=== PATIENT | female | born 1930 | race Caucasian/White ===

== ENCOUNTER 2016-05-11 14:07 | Outpatient (RCR) | payer MEDICARE, OTHER ==
--- OUTSIDE RECORDS SUMMARY | 2016-05-09 09:11 | XMS REPORT | Continuity of Care Document ---
Author Author [facility] Organization [facility] Address Unknown Phone Unavailable Care Team Providers Care Library Technical Assistant Name Role Phone JOSE VANN MD PCP Insurance Providers Payer Name Policy Number Subscriber Name Relationship [employer] [id number] Ellen Brunson 20 Self / Same As Patient Enter Insurance Name [id number] Ellen Brunson 20 Self / Same As Patient Advance Directives Directive Response Recorded Date/Time Advance Directives Yes 11/30/15 11:25am Health Care Power of Dining Chair Seat Cushion Trimmer Yes 11/30/15 11:25am Organ Donor No 11/30/15 11:25am Resuscitation Status Full Code 11/30/15 11:25am Chief Complaint and Reason for Visit Chief Complaint CECAL MASS Reason for Visit Cecum mass Problems Active Problems Medical Problem Onset Date Status Cecum mass Unknown Acute Medications Current Home Medications Medication Dose Units Route Directions Days/Qty Instructions Start Date Triamterene/Hydrochlorothiazid 1 Each 0.5 Each Oral Daily take 1/2 of tab 11/12/15 Atenolol 25 Mg 12.5 Mg Oral Daily take 1/2 of 25mg tab 11/12/15 Levothyroxine Sodium 50 Mcg 50 Mcg Oral Daily 11/12/15 Omeprazole 20 Mg 20 Mg Oral Daily 11/12/15 Cholecalciferol (Vitamin D3) 2,000 Unit 2,000 Unit Oral Daily Tramadol Hcl 50 Mg 50 Mg Oral Every 12 Hours as needed for Abdominal Pain 30 12/04/15 Past Home Medications Medication Directions Ordered Status Cholecalciferol (Vitamin D3) 1,000 Unit Tablet, 1000 Unit Oral Daily Discontinued Aspirin 325 Mg Tablet, 325 Mg Oral Daily 11/16/15 Discontinued Ergocalciferol (Vitamin D2) 2,000 Unit Tablet, 2000 Unit Oral Daily 11/16/15 Discontinued Social History Social History Problem Response Recorded Date/Time Alcohol Use Denies Use 11/30/2015 11:25am Recreational Drug Use No 11/30/2015 11:25am Recent Foreign Travel No 11/30/2015 11:25am Recent Infectious Disease Exposure No 11/30/2015 11:25am Hospitalization with Isolation Denies 12/04/2015 6:38pm Sexually Transmitted Disease No 11/30/2015 11:25am HIV/AIDS No 11/30/2015 11:25am Smoking Status Never a Smoker 11/30/2015 11:25am Query Response Start Date Stop Date Smoking Status Never a Smoker Hospital Discharge Instructions Patient Instructions Physician Instructions New, Converted or Re-Newed RX: RX on Chart Plan of Care/Instructions/FU: Please remove alicia central line. F/U in 2 weeks Activity as Tolerated: Yes Discharge Diet: No Restrictions Care Plan Patient Instructions:: Please remove alicia central line. F/U in 2 weeks Plan of Care Discharge Date 12/04/15 6:38pm Disposition 01 HOME, SELF-CARE Instructions/Education Provided Bowel Resection (DC) Forms Provided PDI Medical Prescriptions See Medication Section Care Plan and Goals See Discharge Instructions Section Functional Status Query Response Date Recorded Patient Orientation Person Place Time Situation December 04, 2015 12:29pm Patient Orientation Person Place Time Situation Normal For Age December 04, 2015 6:38pm Comprehension Ability Understands Concepts December 04, 2015 8:00am Allergies, Adverse Reactions, Alerts No known allergies. Immunizations Name Given Type Date of Pneumonia Vaccine 04/28/15 Historical Vital Signs Acute Vital Signs Vital Response Date/Time Temperature (Fahrenheit) 96.5 degrees F (97.6 - 99.5) 12/04/2015 6:36pm Temperature (Calculated Celsius) 35.57268 degrees C (36.4 - 37.5) 12/04/2015 2:00pm Temperature Source Tympanic 12/04/2015 6:36pm Pulse Rate (adult) 91 bpm (60 - 90) 12/04/2015 6:36pm Respiratory Rate 18 bpm (12 - 24) 12/04/2015 6:36pm O2 Sat by Pulse Oximetry 95 % (88 - 100) 12/04/2015 6:36pm Blood Pressure 148/82 mm Hg 12/04/2015 6:36pm Blood Pressure Mean 104 mm Hg 12/04/2015 2:00pm Pain Pain Intensity 0 12/04/2015 2:00pm Height (Feet) 5 feet 11/30/2015 11:25am Height (Inches) 3.50 inches 11/30/2015 11:25am Height (Calculated Centimeters) 161.549126 cm 11/30/2015 11:25am Weight (Pounds) 176 pounds 12/03/2015 6:05am Weight (Ounces) 0.5 oz 12/03/2015 6:05am Weight (Calculated Grams) 27507.433 gm 12/03/2015 6:05am Weight (Calculated Kilograms) 79.812678 kilograms 12/03/2015 6:05am Calculated BMI 28.2 11/30/2015 11:25am Results Laboratory Results Test Name Result Units Flags Reference Collection Date/Time Result Date/ Time Comments White Blood Count 5.2 10^3/uL 4.3-11.0 11/16/2015 1:03pm 11/16/2015 1: 14pm Red Blood Count 4.63 10^6/uL 4.35-5.85 11/16/2015 1:03pm 11/16/2015 1: 14pm Hemoglobin 12.9 G/DL 11.5-16.0 11/16/2015 1:03pm 11/16/2015 1:14pm Hematocrit 38 % 35-52 11/16/2015 1:03pm 11/16/2015 1:14pm Mean Corpuscular Volume 83 FL 80-99 11/16/2015 1:03pm 11/16/2015 1: 14pm Mean Corpuscular Hemoglobin 28 PG 25-34 11/16/2015 1:03pm 11/16/2015 1: 14pm Mean Corpuscular Hemoglobin Concent 34 G/DL 32-36 11/16/2015 1:03pm 03/2016 1:14pm Red Cell Distribution Width 14.3 % 10.0-14.5 11/16/2015 1:03pm 2015 1:14pm Platelet Count 218 10^3/uL 130-400 11/16/2015 1:0311/16/2015 1:14pm Mean Platelet Volume 10.7 FL H 7.4-10.4 11/16/2015 1:0311/16/2015 1: 14pm Sodium Level 143 MMOL/L 135-145 11/16/2015 1:0311/16/2015 1:32pm Potassium Level 4.1 MMOL/L 3.6-5.0 11/16/2015 1:0311/16/2015 1:32pm Chloride Level 106 MMOL/L 98-107 11/16/2015 1:11/16/2015 1:32pm Carbon Dioxide Level 29 MMOL/L 21-32 11/16/2015 1:11/16/2015 1: 32pm Anion Gap 8 MMOL/L 5-14 11/16/2015 1:11/16/2015 1:32pm Blood Urea Nitrogen 12 MG/DL 7-18 11/16/2015 1:11/16/2015 1:32pm Creatinine 1.16 MG/DL 0.60-1.30 11/16/2015 1:11/16/2015 1:32pm BUN/Creatinine Ratio 10 11/16/2015 1:11/16/2015 1:32pm Estimat Glomerular Filtration Rate 45 11/16/2015 1:11/16/2015 1:32pm GFR INTERPRETIVE DATA UNITS FOR ESTIMATED GFR (eGFR): mL/min/1.73 M2 REFERENCE RANGE FOR ESTIMATED GFR (eGFR) eGFR NORMAL eGFR >60 MODERATELY DECREASED eGFR 30-59 SEVERLY DECREASED eGFR 15-29 KIDNEY FAILURE <15 (OR DIALYSIS) Glucose Level 102 MG/DL 70-105 11/16/2015 1:11/16/2015 1:32pm Calcium Level 9.0 MG/DL 8.5-10.1 11/16/2015 1:11/16/2015 1:32pm Total Bilirubin 0.5 MG/DL 0.1-1.0 11/16/2015 1:11/16/2015 1:32pm Alkaline Phosphatase 63 U/L 40-136 11/16/2015 1:11/16/2015 1:32pm Aspartate Amino Transf (AST/SGOT) 20 U/L 5-34 11/16/2015 1:2015 1:32pm Alanine Aminotransferase (ALT/SGPT) 6 U/L 0-55 11/16/2015 1:03pm 2015 1:32pm Total Protein 6.9 G/DL 6.4-8.2 11/16/2015 1:03pm 11/16/2015 1:32pm Albumin 3.9 G/DL 3.2-4.5 11/16/2015 1:03pm 11/16/2015 1:32pm Pending Laboratory Results Test Name Collection Date/Time Pending Microbiology Results Procedure Source Collection Date/Time Procedures Procedure Status Date Provider(s) COLONOSCOPY AND BIOPSY Completed 11/16/15 IVAN SAUCEDA MD COLONOSCOPY SUBMUCOUS NJX Completed 11/16/15 IVAN SAUCEDA MD Robot-assisted laparoscopic resection of colon Completed 11/30/15 IVAN SAUCEDA MD Insertion of triple lumen central line Completed 11/30/15 IVAN SAUCEDA MD Encounters Encounter Location Arrival/Admit Date Discharge/Depart Date Attending Provider Discharged Inpatient [facility] 11/30/15 10:13am 6:38pm IVAN SAUCEDA MD Departed Clinic [facility] 11/25/15 8:41am 11/25/15 11: 47am IVAN SAUCEDA MD Registered Clinic [facility] 11/19/15 8:56am IVAN SAUCEDA MD Departed Surgical Day Care [facility] 11/16/15 9:40am 1:15pm IVAN SAUCEDA MD Departed Clinic [facility] 11/12/15 7:08am 11/12/15 3: 21pm IVAN SAUCEDA MD Recent Diagnosis Cecum mass
[2016-05-09 09:42] LABS: BASOPHILS % (AUTO) 0 % (0-10); EOSINOPHILS # (AUTO) 0.1 10^3/uL (0.0-0.3); EOSINOPHILS % (AUTO) 2 % (0-10); LYMPHOCYTES # (AUTO) 1.1 X 10^3 (1.0-4.0); LYMPHOCYTES % (AUTO) 19 % (12-44); MEAN CORPUSCULAR HEMOGLOBIN 27 PG (25-34); MEAN CORPUSCULAR HGB CONC 33 G/DL (32-36); MEAN CORPUSCULAR VOLUME 81 FL (80-99); MEAN PLATELET VOLUME 9.4 FL (7.4-10.4); MONOCYTES # (AUTO) 0.3 X 10^3 (0.0-1.0); MONOCYTES % (AUTO) 6 % (0-12); NEUTROPHILS % (AUTO) 72 % (42-75); PLATELET COUNT 283 10^3/uL (130-400); RED CELL DISTRIBUTION WIDTH 13.7 % (10.0-14.5); WHITE BLOOD COUNT 5.5 10^3/uL (4.3-11.0)
[2016-05-09 10:46] LABS: ALBUMIN 3.7 G/DL (3.2-4.5); BILIRUBIN,TOTAL 0.5 MG/DL (0.1-1.0); CREATININE SERUM 1.13 MG/DL (0.60-1.30); POTASSIUM 4.5 MMOL/L (3.6-5.0); TOTAL PROTEIN 6.9 G/DL (6.4-8.2)
[~2016-05-11 14:07] MED LIST: ASPI-808 PO; ATEN25TA PO; CHOL100045 PO; CHOL20003 PO; ERGO2000 PO; LEVO50TA6 PO; OMEP20CA12 PO; TRAM50TA2 PO; TRIA1CAP4 PO
== END 2016-08-07 | disposition home or self-care (01) ==
LOC: ONC 14:07
PROVIDERS: ATTEND Internal Medicine Hematology & Oncology
DX: C18.0 Malignant neoplasm of cecum (principal); D50.0 Iron deficiency anemia secondary to blood loss (chronic); I10 Essential (primary) hypertension; K21.9 Gastro-esophageal reflux disease without esophagitis; E03.9 Hypothyroidism, unspecified; G47.00 Insomnia, unspecified; F41.9 Anxiety disorder, unspecified; Z79.899 Other long term (current) drug therapy
CPT/HCPCS: 36415; 80053; 82378; 82728; 83540; 85025; 99213

== ENCOUNTER → 2016-08-10 | Outpatient (CLI) | payer MEDICARE, OTHER ==
--- OUTSIDE RECORDS SUMMARY | 2016-08-10 12:27 | XMS REPORT | Continuity of Care Document ---
Author Author [facility] Organization [facility] Address Unknown Phone Unavailable Care Team Providers Care Turkish Rubber Name Role Phone JOSE VANN MD PCP Insurance Providers Payer Name Policy Number Subscriber Name Relationship [employer] [id number] Ellen Brunson 20 Self / Same As Patient Enter Insurance Name [id number] Ellen Brunson 20 Self / Same As Patient Advance Directives Directive Response Recorded Date/Time Advance Directives Yes 11/30/15 11:25am Health Care Power of Senior Administrative Services Officer Yes 11/30/15 11:25am Organ Donor No 11/30/15 [...] - 99.5) 12/04/2015 6:36pm Temperature (Calculated Celsius) 35.79648 degrees C (36.4 - 37.5) 12/04/2015 2:00pm [...] 3.50 inches 11/30/2015 11:25am Height (Calculated Centimeters) 161.664335 cm 11/30/2015 11:25am Weight (Pounds) 176 pounds 12/03/2015 6:05am Weight (Ounces) 0.5 oz 12/03/2015 6:05am Weight (Calculated Grams) 30303.433 gm 12/03/2015 6:05am Weight (Calculated Kilograms) 79.341223 kilograms 12/03/2015 6:05am Calculated BMI 28.2 11/30/2015 [...] Discharge/Depart Date Attending Provider Discharged Inpatient [facility] 11/30/15 10:13am 6:38pm IVAN SAUCEDA MD Departed Clinic [facility] 11/25/15 8:41am 11/25/15 11: 47am IVAN SAUCEDA MD Registered Clinic [facility] 11/19/15 8:56am IVAN SAUCEDA MD Departed Surgical Day Care [facility] 11/16/15 9:40am 1:15pm IVAN SAUCEDA MD Departed Clinic [facility] 11/12/15 7:08am 11/12/15 3: 21pm IVAN SAUCEDA MD Recent Diagnosis Cecum mass
== END ==
LOC: LAB 12:24
PROVIDERS: ATTEND Nurse Practitioner Family
DX: E55.9 Vitamin D deficiency, unspecified (principal)
CPT/HCPCS: 36415; 82306

== ENCOUNTER 2016-08-17 13:55 | Outpatient (RCR) | payer MEDICARE, OTHER ==
--- OUTSIDE RECORDS SUMMARY | 2016-08-10 12:24 | XMS REPORT | Continuity of Care Document ---
Author Author [facility] Organization [facility] Address Unknown Phone Unavailable Care Team Providers Care Accounts Receivable Administrator Name Role Phone JOSE VANN MD PCP Insurance Providers Payer Name Policy Number Subscriber Name Relationship [employer] [id number] Ellen Brunson 18 Self / Same As Patient Enter Insurance Name [id number] Ellen Brunson 20 Self / Same As Patient Advance Directives Directive Response Recorded Date/Time Advance Directives Yes 11/30/15 11:25am Health Care Power of Broadcast Traffic Coordinator Yes 11/30/15 11:25am Organ Donor No 11/30/15 [...] - 99.5) 12/04/2015 6:36pm Temperature (Calculated Celsius) 35.98726 degrees C (36.4 - 37.5) 12/04/2015 2:00pm [...] 3.50 inches 11/30/2015 11:25am Height (Calculated Centimeters) 161.518945 cm 11/30/2015 11:25am Weight (Pounds) 176 pounds 12/03/2015 6:05am Weight (Ounces) 0.5 oz 12/03/2015 6:05am Weight (Calculated Grams) 86411.433 gm 12/03/2015 6:05am Weight (Calculated Kilograms) 79.065344 kilograms 12/03/2015 6:05am Calculated BMI 28.2 11/30/2015 [...] Discharge/Depart Date Attending Provider Discharged Inpatient [facility] 11/30/15 10:13am 6:38pm IVAN SAUCEDA MD Departed Clinic [facility] 11/25/15 8:41am 11/25/15 11: 47am IVAN SAUCEDA MD Registered Clinic [facility] 11/19/15 8:56am IVAN SAUCEDA MD Departed Surgical Day Care [facility] 11/16/15 9:40am 1:15pm IVAN SAUCEDA MD Departed Clinic [facility] 11/12/15 7:08am 11/12/15 3: 21pm IVAN SAUCEDA MD Recent Diagnosis Cecum mass
[2016-08-10 12:47] LABS: BASOPHILS % (AUTO) 0 % (0-10); EOSINOPHILS # (AUTO) 0.1 10^3/uL (0.0-0.3); EOSINOPHILS % (AUTO) 1 % (0-10); LYMPHOCYTES % (AUTO) 20 % (12-44); MEAN CORPUSCULAR HEMOGLOBIN 28 PG (25-34); MEAN CORPUSCULAR HGB CONC 34 G/DL (32-36); MEAN CORPUSCULAR VOLUME 82 FL (80-99); MEAN PLATELET VOLUME 10.2 FL (7.4-10.4); MONOCYTES # (AUTO) 0.4 X 10^3 (0.0-1.0); MONOCYTES % (AUTO) 7 % (0-12); NEUTROPHILS # (AUTO) 3.7 X 10^3 (1.8-7.8); NEUTROPHILS % (AUTO) 72 % (42-75); PLATELET COUNT 252 10^3/uL (130-400); RED BLOOD COUNT 4.88 10^6/uL (4.35-5.85); RED CELL DISTRIBUTION WIDTH 13.8 % (10.0-14.5); WHITE BLOOD COUNT 5.2 10^3/uL (4.3-11.0)
[2016-08-10 13:32] LABS: ALBUMIN 4.2 G/DL (3.2-4.5); BILIRUBIN,TOTAL 0.5 MG/DL (0.1-1.0); CALCIUM 9.4 MG/DL (8.5-10.1); CREATININE SERUM 1.26 MG/DL (0.60-1.30); TOTAL PROTEIN 7.3 G/DL (6.4-8.2)
[2016-08-17 14:25] LABS: BASOPHILS % (AUTO) 0 % (0-10); EOSINOPHILS # (AUTO) 0.1 10^3/uL (0.0-0.3); EOSINOPHILS % (AUTO) 1 % (0-10); LYMPHOCYTES # (AUTO) 1.1 X 10^3 (1.0-4.0); LYMPHOCYTES % (AUTO) 15 % (12-44); MEAN CORPUSCULAR HEMOGLOBIN 28 PG (25-34); MEAN CORPUSCULAR HGB CONC 34 G/DL (32-36); MEAN CORPUSCULAR VOLUME 83 FL (80-99); MEAN PLATELET VOLUME 9.8 FL (7.4-10.4); MONOCYTES # (AUTO) 0.4 X 10^3 (0.0-1.0); MONOCYTES % (AUTO) 6 % (0-12); NEUTROPHILS # (AUTO) 5.4 X 10^3 (1.8-7.8); NEUTROPHILS % (AUTO) 77 % (42-75); PLATELET COUNT 259 10^3/uL (130-400); RED BLOOD COUNT 4.55 10^6/uL (4.35-5.85); RED CELL DISTRIBUTION WIDTH 13.8 % (10.0-14.5)
== END 2016-11-08 | disposition home or self-care (01) ==
LOC: ONC 13:55
PROVIDERS: ATTEND Internal Medicine Hematology & Oncology
DX: C18.0 Malignant neoplasm of cecum (principal); D50.0 Iron deficiency anemia secondary to blood loss (chronic); I10 Essential (primary) hypertension; K21.9 Gastro-esophageal reflux disease without esophagitis; E03.9 Hypothyroidism, unspecified; G47.00 Insomnia, unspecified; F41.9 Anxiety disorder, unspecified; Z79.899 Other long term (current) drug therapy
CPT/HCPCS: 36415; 80053; 82378; 82728; 83540; 85025; 99213

== ENCOUNTER → 2016-11-10 | Outpatient (CLI) | payer MEDICARE, OTHER | LOC: PREOP 05:34 | PROVIDERS: ATTEND Surgery | DX: Z01.818 Encounter for other preprocedural examination (principal); C18.9 Malignant neoplasm of colon, unspecified ==

== ENCOUNTER → 2016-12-14 | Outpatient (CLI) | payer MEDICARE, OTHER ==
[~2016-12-14] MED LIST changes: +BARIUM SUSPENSION 2.1% (VANILLA SILQ) 450 ML PO ONE; +CATHETER FLUSH 10 ML SYR IV PRN; +FERR-84 PO; +IOHEXOL 350 MG/ML 100 ML (OMNIPAQUE 350) VIAL IV ONE; +NS 100 ML (IVPB) BAG IV ONE
--- NOTE | 2016-12-14 13:36 | Diagnostic Imaging Report ---
PROCEDURE: CT chest with contrast, CT abdomen and pelvis with and without contrast. TECHNIQUE: Pre and post intravenous contrast axial imaging of the abdomen and pelvis and post contrast axial imaging of the chest were performed. INDICATION: Colon cancer. 100 mL of Omnipaque 350 is administered intravenously. COMPARISON: 06/08/2016. FINDINGS: CT chest: There is an elongated nodule measuring 7 mm along the left major fissure and the left perihilar area. This favors to be related to a scar. It is similar to 11/19/2015 exam. A faint 4 mm nodule in the inferior lingula is also seen without significant change from 06/08/16. This is not well seen on 08/12/2015 exam. There is scarring in the inferior lingula also noted. No significant consolidation or mass. No pleural or pericardial effusion. There is a swrxt-qf-wgpzoohu hiatal hernia. There is no mediastinal mass. No significantly enlarged mediastinal or hilar lymph nodes are seen. No axillary lymphadenopathy is noted. Slightly prominent pericardial recess adjacent to the main pulmonary artery bifurcation is seen. The heart size is normal. No pericardial effusion. The osseous structures appear grossly unremarkable. CT abdomen and pelvis: The liver, the gallbladder, the spleen, the adrenals, and the pancreas appear unremarkable. The kidneys have symmetric enhancement and contrast excretion. The unenhanced phase demonstrates no renal stone. Simple renal cysts are noted up to 1.5 cm in the lower pole of the left kidney. The abdominal aorta is normal in caliber. Surgical sutures near the ascending colon are seen. Xkefj-ks-vrtjzhhw amount of fecal material is seen in the colon and rectum. There is sigmoid diverticulosis. No diverticulitis. The uterus appears grossly unremarkable. The urinary bladder appears normal. There is a small fat-containing umbilical hernia. The osseous structures demonstrate degenerative changes, mostly in the upper lumbar spine with no suspicious mass. IMPRESSION: CT chest: 1. Stable 7 mm elongated nodule along the left major fissure probably related to a scar. No definite evidence of metastasis. 2. Dfamf-ku-iszypopl hiatal hernia. CT abdomen and pelvis: 1. Diverticulosis. No diverticulitis. 2. Small fat-containing umbilical hernia. 3. No evidence of metastasis. Dictated by: Dictated on workstation # [id number]
== END ==
LOC: RAD 10:20
PROVIDERS: ATTEND Internal Medicine Hematology & Oncology
DX: C18.0 Malignant neoplasm of cecum (principal); K44.9 Diaphragmatic hernia without obstruction or gangrene; K57.30 Diverticulosis of large intestine without perforation or abscess without bleeding; K42.9 Umbilical hernia without obstruction or gangrene
CPT/HCPCS: 71260; 74178

== ENCOUNTER 2016-12-19 07:44 | Day surgery (SDC) | payer MEDICARE, OTHER ==
[~2016-12-19] VITALS: Ht 161.3 cm; Wt 71.7 kg
[~2016-12-19 07:44] MED LIST changes: -BARIUM SUSPENSION 2.1% (VANILLA SILQ) 450 ML PO ONE; -CATHETER FLUSH 10 ML SYR IV PRN; -IOHEXOL 350 MG/ML 100 ML (OMNIPAQUE 350) VIAL IV ONE; -NS 100 ML (IVPB) BAG IV ONE
[2016-12-19] MEDS ORDERED: NS IV 500 ML 500 ML ONE (07:57)
[2016-12-19] MEDS ORDERED: FLUMAZENIL (ROMAZICON) 0.1 MG/ML 5 ML VIAL INJ PRN (08:00)
[2016-12-19] MEDS ORDERED: NALOXONE 0.4 MG/ML 1 ML (NARCAN) VIAL IVP PRN (08:00)
[2016-12-19] MEDS ORDERED: NS IV 500 ML 500 ML IV PRN (08:10)
[2016-12-19 08:15] VITALS: BP 145/78
--- NOTE | 2016-12-19 08:36 | Conscious Sedation/ASA ---
Conscious Sedation Pre-Proced Time Reviewed: 08:36 ASA Class: 2 Airway Mallampati Classification: ([place] appropriate class) I. II. III, IV Lungs Heart ASA score ASA 1: a normal healthy patient ASA 2: a patient with a mild systemic disease (mid diabetes, controlled hypertension, obesity ASA 3: a patient with a severe systemic disease that limits activity (angina , COPD, prior Myocardial infarction) ASA 4: a patient with an incapacitating disease that is a constant threat to life (CHF, renal failure) ASA 5: a moribund patient not expected to survive 24 hrs. (ruptured aneurysm) ASA 6: a declared brain patient whose organs are being harvested. For emergent operations, add the letter E after the classification Grade 1 Sedation Plan: Discussed options with patient/fam Note The patient is an appropriate candidate to undergo the planned procedure, sedation, and anesthesia. The patient immediately re-assessed prior to indication. IVAN SAUCEDA MD Dec 19, 2016 8:36 am
[2016-12-19] MEDS ORDERED: fentaNYL INJECTION 100 MCG/2 ML AMP ONE (08:54)
[2016-12-19] MEDS ORDERED: MIDAZOLAM 2 MG/2 ML (VERSED) VIAL ONE ×3 (08:54→08:55)
[2016-12-19] MEDS: MIDAZOLAM 2 MG/2 ML (VERSED) VIAL IVP PRN ×2 (09:01→09:04)
[2016-12-19] MEDS: fentaNYL INJECTION 100 MCG/2 ML AMP IVP PRN ×2 (09:02→09:05)
--- NOTE | 2016-12-19 09:18 | Endoscopy Procedure Report ---
Endoscopy Report Date: Dec 19, 2016 Preoperative Diagnosis: personal history of colon cancer. Study Performed: Colonoscopy Procedure Instrument: Colonoscope Endo Procedure/Findings Findings 1.: Diverticulosis Recommendations: Recommendations: 1.: Colonoscopy in 2 years Copy Copies To 1: JOSE VANN MD, XAVIER M MD Dec 19, 2016 9:18 am
--- NOTE | 2016-12-19 09:20 | Discharge Inst-Simple/Standard ---
Discharge Inst-Standard Discharge Medications New, Converted or Re-Newed RX: Other Patient Instructions/Follow Up Plan of Care/Instructions/FU: repeat colonoscopy in 2 years Activity as Tolerated: Yes Discharge Diet: No Restrictions IVAN SAUCEDA MD Dec 19, 2016 9:20 am
[2016-12-19 09:35] VITALS: BP 134/62
[2016-12-19 10:05] VITALS: BP 133/69
--- NOTE | 2016-12-19 10:12 | OPERATIVE REPORT ---
DATE OF SERVICE: 12/19/2016 PROCEDURE: Surveillance colonoscopy. SURGEON: Ivan Sauceda MD. 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 She returned for a surveillance colonoscopy. Informed consent was obtained after reviewing the procedure in detail. DESCRIPTION OF PROCEDURE: She was placed in left lateral decubitus position and her vital signs were monitored. Conscious sedation was achieved using Versed and fentanyl. Digital rectal examination was unremarkable. The colonoscope was then introduced into the rectum and advanced to the ileocolic anastomosis. It was then withdrawn slowly and the mucosa examined in a systematic fashion. FINDINGS: 1. Very few sigmoid diverticula. 2. No polyps were found. 3. She tolerated the procedure well and was taken back to the nursing area in a stable condition. IMPRESSION: Surveillance colonoscopy. No polyps. Recommend repeating in 2 years. Job ID: [id number] DocumentID: [id number] Dictated Date: 12/19/2016 09:15:26 Superintendent Division Date: 12/19/2016 10:11:50 Dictated By: IVAN SAUCEDA MD MTDD
== END 2016-12-19 10:27 | disposition home or self-care (01) ==
LOC: ENDO 07:44
PROVIDERS: ATTEND Surgery
DX: Z08 Encounter for follow-up examination after completed treatment for malignant neoplasm (principal); Z85.038 Personal history of other malignant neoplasm of large intestine; K57.30 Diverticulosis of large intestine without perforation or abscess without bleeding; I10 Essential (primary) hypertension; E03.9 Hypothyroidism, unspecified; Z79.899 Other long term (current) drug therapy

== ENCOUNTER 2017-01-03 13:06 | Outpatient (RCR) | payer MEDICARE, OTHER ==
[2016-11-09 14:22] LABS: BASOPHILS % (AUTO) 0 % (0-10); EOSINOPHILS # (AUTO) 0.1 10^3/uL (0.0-0.3); EOSINOPHILS % (AUTO) 1 % (0-10); LYMPHOCYTES % (AUTO) 15 % (12-44); MEAN CORPUSCULAR HEMOGLOBIN 29 PG (25-34); MEAN CORPUSCULAR HGB CONC 34 G/DL (32-36); MEAN CORPUSCULAR VOLUME 85 FL (80-99); MEAN PLATELET VOLUME 9.9 FL (7.4-10.4); MONOCYTES # (AUTO) 0.3 X 10^3 (0.0-1.0); MONOCYTES % (AUTO) 5 % (0-12); NEUTROPHILS # (AUTO) 5.1 X 10^3 (1.8-7.8); NEUTROPHILS % (AUTO) 78 % (42-75); PLATELET COUNT 222 10^3/uL (130-400); RED BLOOD COUNT 4.37 10^6/uL (4.35-5.85); RED CELL DISTRIBUTION WIDTH 13.3 % (10.0-14.5); WHITE BLOOD COUNT 6.5 10^3/uL (4.3-11.0)
[2016-11-09 14:58] LABS: ALBUMIN 3.6 G/DL (3.2-4.5); BILIRUBIN,TOTAL 0.5 MG/DL (0.1-1.0); CALCIUM 8.8 MG/DL (8.5-10.1); CREATININE SERUM 1.1 MG/DL (0.60-1.30); POTASSIUM 3.8 MMOL/L (3.6-5.0); TOTAL PROTEIN 6.4 G/DL (6.4-8.2)
[2017-01-03 13:25] LABS: BASOPHILS % (AUTO) 0 % (0-10); EOSINOPHILS # (AUTO) 0.1 10^3/uL (0.0-0.3); EOSINOPHILS % (AUTO) 2 % (0-10); LYMPHOCYTES # (AUTO) 0.9 X 10^3 (1.0-4.0); LYMPHOCYTES % (AUTO) 16 % (12-44); MEAN CORPUSCULAR HEMOGLOBIN 29 PG (25-34); MEAN CORPUSCULAR HGB CONC 34 G/DL (32-36); MEAN CORPUSCULAR VOLUME 85 FL (80-99); MEAN PLATELET VOLUME 9.9 FL (7.4-10.4); MONOCYTES # (AUTO) 0.3 X 10^3 (0.0-1.0); MONOCYTES % (AUTO) 5 % (0-12); NEUTROPHILS # (AUTO) 4.7 X 10^3 (1.8-7.8); NEUTROPHILS % (AUTO) 78 % (42-75); PLATELET COUNT 246 10^3/uL (130-400); RED BLOOD COUNT 4.25 10^6/uL (4.35-5.85); RED CELL DISTRIBUTION WIDTH 12.6 % (10.0-14.5)
[2017-01-03 13:57] LABS: ALBUMIN 3.7 GM/DL (3.2-4.5); BILIRUBIN,TOTAL 0.5 MG/DL (0.1-1.0); CALCIUM 8.9 MG/DL (8.5-10.1); CREATININE SERUM 1.27 MG/DL (0.60-1.30); ICTERUS 0.6 (-100-1.9); POTASSIUM 4.6 MMOL/L (3.6-5.0); TOTAL PROTEIN 6.4 GM/DL (6.4-8.2)
== END 2017-02-07 | disposition home or self-care (01) ==
LOC: ONC 13:06
PROVIDERS: ATTEND Internal Medicine Hematology & Oncology
DX: C18.0 Malignant neoplasm of cecum (principal); D50.0 Iron deficiency anemia secondary to blood loss (chronic); I10 Essential (primary) hypertension; K21.9 Gastro-esophageal reflux disease without esophagitis; E03.9 Hypothyroidism, unspecified; G47.00 Insomnia, unspecified; F41.9 Anxiety disorder, unspecified; Z79.899 Other long term (current) drug therapy
CPT/HCPCS: 36415; 80053; 82378; 82728; 83540; 85025; 99213

== ENCOUNTER 2017-04-04 13:10 | Outpatient (RCR) | payer MEDICARE, OTHER ==
[2017-04-04 13:20] LABS: BASOPHILS % (AUTO) 0 % (0-10); EOSINOPHILS # (AUTO) 0.1 10^3/uL (0.0-0.3); EOSINOPHILS % (AUTO) 1 % (0-10); LYMPHOCYTES # (AUTO) 1.1 X 10^3 (1.0-4.0); LYMPHOCYTES % (AUTO) 18 % (12-44); MEAN CORPUSCULAR HEMOGLOBIN 29 PG (25-34); MEAN CORPUSCULAR HGB CONC 34 G/DL (32-36); MEAN CORPUSCULAR VOLUME 85 FL (80-99); MEAN PLATELET VOLUME 9.9 FL (7.4-10.4); MONOCYTES # (AUTO) 0.4 X 10^3 (0.0-1.0); MONOCYTES % (AUTO) 6 % (0-12); NEUTROPHILS # (AUTO) 4.4 X 10^3 (1.8-7.8); NEUTROPHILS % (AUTO) 74 % (42-75); PLATELET COUNT 249 10^3/uL (130-400); RED BLOOD COUNT 4.35 10^6/uL (4.35-5.85); RED CELL DISTRIBUTION WIDTH 12.5 % (10.0-14.5); WHITE BLOOD COUNT 5.9 10^3/uL (4.3-11.0)
[2017-04-04 13:40] LABS: ALBUMIN 3.8 GM/DL (3.2-4.5); BILIRUBIN,TOTAL 0.5 MG/DL (0.1-1.0); CALCIUM 8.9 MG/DL (8.5-10.1); CREATININE SERUM 1.38 MG/DL (0.60-1.30); POTASSIUM 3.9 MMOL/L (3.6-5.0)
== END 2017-04-08 | disposition home or self-care (01) ==
LOC: ONC 13:10
PROVIDERS: ATTEND Internal Medicine Hematology & Oncology
DX: C18.0 Malignant neoplasm of cecum (principal); D50.0 Iron deficiency anemia secondary to blood loss (chronic); I10 Essential (primary) hypertension; K21.9 Gastro-esophageal reflux disease without esophagitis; E03.9 Hypothyroidism, unspecified; G47.00 Insomnia, unspecified; F41.9 Anxiety disorder, unspecified; Z79.899 Other long term (current) drug therapy
CPT/HCPCS: 36415; 80053; 82378; 82728; 83540; 85025; 99213

== ENCOUNTER → 2017-07-12 | Outpatient (CLI) | payer MEDICARE, OTHER ==
[~2017-07-12] MED LIST changes: +BARIUM SUSPENSION 2.1% (VANILLA SILQ) 450 ML PO ONE; +CATHETER FLUSH 10 ML SYR IV PRN; +IOHEXOL 350 MG/ML 100 ML (OMNIPAQUE 350) VIAL IV ONE; +NS 100 ML (IVPB) BAG IV ONE
--- NOTE | 2017-07-12 12:07 | Diagnostic Imaging Report ---
PROCEDURE: CT chest with contrast, CT abdomen and pelvis with and without contrast. TECHNIQUE: Pre and post intravenous contrast axial imaging of the abdomen and pelvis and post contrast axial imaging of the chest were performed. INDICATION: History of colon cancer. COMPARISON: 12/14/2016. FINDINGS: CT CHEST: Cardiomediastinal structures show normal heart size. There is no large pericardial effusion. There is mild calcified aortic and coronary atherosclerosis. No pathologically enlarged or morphologically abnormal adenopathy is seen within the mediastinum, victor manuel, nor axillae. Large hiatal hernia is again noted. Lung windows show no focal consolidation, large effusion, nor pneumothorax. Micronodular density is again identified associated with the superior margins of the major fissure on the left. It measures approximately 6 x 4 mm. This is stable compared to 08/12/2015. 3 mm subpleural micronodule is also noted within the left upper lobe and is stable as well. No new pulmonary nodules or masses are identified. Osseous structures show no acute abnormalities. No lytic or blastic bony lesions are identified. CT ABDOMEN: There is colonic diverticulosis, but no CT evidence of acute diverticulitis. Patient appears to be status post partial right hemicolectomy. Benign left renal cyst is noted. Otherwise, the kidneys, spleen, pancreas, adrenal glands, and liver have a normal CT appearance. 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 There is no loculated fluid collection, free fluid, nor free air within the abdomen. There is mild stranding of the mesenteric fat. A few prominent, yet subcentimeter mesenteric lymph nodes are noted. Overall appearance is stable compared to 11/19/2015. No abnormal retroperitoneal adenopathy is identified. There is mild calcified aortic and arterial atherosclerosis. Bony structures show no acute abnormalities. CT PELVIS: Urinary bladder is grossly unremarkable. There is trace free fluid within the pelvis. There is no loculated fluid collection or free air. No abnormal adenopathy is identified. Bony structures show no acute abnormalities. IMPRESSION: 1. Small micronodules of the left lung are again identified, but are stable compared to 08/12/2015. 2. No new pulmonary nodule or mass is identified. No new evidence of metastatic or malignant disease is seen within the chest. 3. Small amount of free fluid within the pelvis. 4. Subtle stranding of the mesentery with a few prominent, yet subcentimeter mesenteric lymph nodes. Imaging appearance is nonspecific, but can be seen with mesenteric panniculitis or adenitis. Overall, this is stable compared to prior exam. 5. No adverse interval change within the abdomen or pelvis. 6. Colonic diverticulosis, but no CT evidence of acute diverticulitis. 7. Partially calcified splenic artery aneurysm. Dictated by: Dictated on workstation # [id number]
== END ==
LOC: RAD 10:27
PROVIDERS: ATTEND Internal Medicine Hematology & Oncology
DX: K57.30 Diverticulosis of large intestine without perforation or abscess without bleeding (principal); I72.8 Aneurysm of other specified arteries; R91.8 Other nonspecific abnormal finding of lung field; Z90.49 Acquired absence of other specified parts of digestive tract
CPT/HCPCS: 71260; 74178

== ENCOUNTER 2017-07-18 13:48 | Outpatient (RCR) | payer MEDICARE, OTHER ==
[2017-07-12 10:12] LABS: BASOPHILS % (AUTO) 0 % (0-10); EOSINOPHILS # (AUTO) 0.1 10^3/uL (0.0-0.3); EOSINOPHILS % (AUTO) 2 % (0-10); HEMATOCRIT 39 % (35-52); HEMOGLOBIN 13.5 G/DL (11.5-16.0); LYMPHOCYTES # (AUTO) 1.1 X 10^3 (1.0-4.0); LYMPHOCYTES % (AUTO) 21 % (12-44); MEAN CORPUSCULAR HEMOGLOBIN 29 PG (25-34); MEAN CORPUSCULAR HGB CONC 35 G/DL (32-36); MEAN CORPUSCULAR VOLUME 83 FL (80-99); MEAN PLATELET VOLUME 9.8 FL (7.4-10.4); MONOCYTES # (AUTO) 0.3 X 10^3 (0.0-1.0); MONOCYTES % (AUTO) 5 % (0-12); NEUTROPHILS # (AUTO) 3.9 X 10^3 (1.8-7.8); NEUTROPHILS % (AUTO) 72 % (42-75); PLATELET COUNT 247 10^3/uL (130-400); RED BLOOD COUNT 4.69 10^6/uL (4.35-5.85); RED CELL DISTRIBUTION WIDTH 12.2 % (10.0-14.5); WHITE BLOOD COUNT 5.4 10^3/uL (4.3-11.0)
[2017-07-12 10:32] LABS: BILIRUBIN,TOTAL 0.8 MG/DL (0.1-1.0); CALCIUM 9.2 MG/DL (8.5-10.1); CREATININE SERUM 0.92 MG/DL (0.60-1.30); POTASSIUM 3.9 MMOL/L (3.6-5.0); TOTAL PROTEIN 7.4 GM/DL (6.4-8.2)
== END 2017-10-10 | disposition home or self-care (01) ==
LOC: ONC 13:48
PROVIDERS: ATTEND Internal Medicine Hematology & Oncology
DX: C18.0 Malignant neoplasm of cecum (principal); D50.0 Iron deficiency anemia secondary to blood loss (chronic); I10 Essential (primary) hypertension; K21.9 Gastro-esophageal reflux disease without esophagitis; E03.9 Hypothyroidism, unspecified; G47.00 Insomnia, unspecified; F41.9 Anxiety disorder, unspecified; Z79.899 Other long term (current) drug therapy
CPT/HCPCS: 36415; 80053; 82378; 85025; 99213

== ENCOUNTER → 2017-07-18 | Outpatient (CLI) | payer MEDICARE, OTHER ==
[~2017-07-18] MED LIST changes: -BARIUM SUSPENSION 2.1% (VANILLA SILQ) 450 ML PO ONE; -CATHETER FLUSH 10 ML SYR IV PRN; -IOHEXOL 350 MG/ML 100 ML (OMNIPAQUE 350) VIAL IV ONE; -NS 100 ML (IVPB) BAG IV ONE
[2017-07-18 14:51] LABS: FREE T4 (FREE THYROXINE) 1.26 NG/DL (0.70-1.48)
== END ==
LOC: LAB 13:57
PROVIDERS: ATTEND Family Medicine
DX: E03.9 Hypothyroidism, unspecified (principal); E55.9 Vitamin D deficiency, unspecified; Z79.899 Other long term (current) drug therapy
CPT/HCPCS: 36415; 82306; 84439; 84443

== ENCOUNTER 2018-01-16 09:06 | Outpatient (RCR) | payer MEDICARE, OTHER ==
[2018-01-08 10:11] LABS: BASOPHILS % (AUTO) 0 % (0-10); EOSINOPHILS # (AUTO) 0.1 10^3/uL (0.0-0.3); EOSINOPHILS % (AUTO) 2 % (0-10); HEMATOCRIT 40 % (35-52); HEMOGLOBIN 13.8 G/DL (11.5-16.0); LYMPHOCYTES # (AUTO) 1.1 X 10^3 (1.0-4.0); LYMPHOCYTES % (AUTO) 16 % (12-44); MEAN CORPUSCULAR HEMOGLOBIN 29 PG (25-34); MEAN CORPUSCULAR HGB CONC 35 G/DL (32-36); MEAN CORPUSCULAR VOLUME 84 FL (80-99); MEAN PLATELET VOLUME 10.2 FL (7.4-10.4); MONOCYTES # (AUTO) 0.3 X 10^3 (0.0-1.0); MONOCYTES % (AUTO) 4 % (0-12); NEUTROPHILS # (AUTO) 5.3 X 10^3 (1.8-7.8); NEUTROPHILS % (AUTO) 77 % (42-75); PLATELET COUNT 259 10^3/uL (130-400); RED BLOOD COUNT 4.69 10^6/uL (4.35-5.85); WHITE BLOOD COUNT 6.8 10^3/uL (4.3-11.0)
[2018-01-08 10:37] LABS: BILIRUBIN,TOTAL 0.4 MG/DL (0.1-1.0); CALCIUM 9.6 MG/DL (8.5-10.1); CREATININE SERUM 1.24 MG/DL (0.60-1.30); TOTAL PROTEIN 7.1 GM/DL (6.4-8.2)
== END 2018-02-06 | disposition home or self-care (01) ==
LOC: ONC 09:06
PROVIDERS: ATTEND Internal Medicine Hematology & Oncology
DX: C18.0 Malignant neoplasm of cecum (principal); D50.0 Iron deficiency anemia secondary to blood loss (chronic); I10 Essential (primary) hypertension; K21.9 Gastro-esophageal reflux disease without esophagitis; E03.9 Hypothyroidism, unspecified; G47.00 Insomnia, unspecified; F41.9 Anxiety disorder, unspecified; Z79.899 Other long term (current) drug therapy
CPT/HCPCS: 36415; 80053; 82378; 85025; 99213

== ENCOUNTER → 2018-02-15 | Outpatient (CLI) | payer MEDICARE, OTHER ==
--- NOTE | 2018-02-16 11:50 | Diagnostic Imaging Report ---
Indication: Routine screening. Comparison is made with prior mammogram from 05/26/2016 and 12/04/2014. 2-D and 3-D bilateral screening mammography was performed with CAD. Scattered fibroglandular densities are identified bilaterally. Benign calcifications are noted bilaterally. The intraparenchymal lymph nodes are identified bilaterally, stable. No spiculated mass or malignant-appearing microcalcifications are seen. The axillae are unremarkable. Impression: BI-RADS category 2 No mammographic features suspicious for malignancy are identified. ACR BI-RADS Category 2: Benign findings. Result letter will be mailed to the patient. Note: At least 10% of breast cancer is not imaged by mammography. Dictated by: Dictated on workstation # [id number]
== END ==
LOC: RAD 14:17
PROVIDERS: ATTEND Nurse Practitioner Family
DX: Z12.31 Encounter for screening mammogram for malignant neoplasm of breast (principal)
CPT/HCPCS: 77067

== ENCOUNTER → 2018-07-12 | Outpatient (CLI) | payer MEDICARE, OTHER ==
[~2018-07-12] MED LIST changes: +BARIUM SUSPENSION 2.1% (VANILLA SILQ) 450 ML PO ONE; +IOHEXOL 350 MG/ML 100 ML (OMNIPAQUE 350) VIAL IV ONE; +NS 100 ML (IVPB) BAG IV ONE; +RECEIVED CONTRAST (Hold Metformin) IV SCH
--- NOTE | 2018-07-12 12:11 | Diagnostic Imaging Report ---
PROCEDURE: CT chest, abdomen, and pelvis with contrast. TECHNIQUE: Multiple contiguous axial images were obtained through the chest, abdomen, and pelvis after the administration of intravenous contrast. INDICATION: Colon carcinoma. FINDINGS: The previous CT chest, abdomen, and pelvis exam performed on 07/12/2017 was reviewed. The images of the thorax on that study did note a 6 x 4 mm parenchymal density in the left perihilar region. There was also a 3 mm subpleural micronodule in the left upper lobe. Those findings are again evident on this study and do not appear to have changed adversely (images 20/115 and 27/115). The lungs are otherwise clear. There is no sign of failure, pneumonia, or pleural effusion to indicate an acute abnormality. The heart size is within normal limits. Coronary artery calcifications are evident. The aorta is not abnormally dilated, and there is no sign of a dissection. The pulmonary arteries are unremarkable for any defect that would indicate a pulmonary embolus. The pulmonary arteries are not optimally opacified, however. There is no mediastinal or hilar adenopathy. The thyroid gland is generally unremarkable. As noted on the prior exam, there is a sizable 5.7 x 6.1 cm hiatal hernia. The sections through the abdomen again show that the liver is homogeneous and of lower density than usually seen. This does suggest fatty metamorphosis. The 1.6 x 2.3 cm calcified splenic artery aneurysm seen previously is again evident and no different. The spleen, pancreas, adrenals, kidneys, aorta, and inferior vena cava show no sign of an acute abnormality. There is no pelvic mass, but there is a small amount of free fluid in the pelvis. This finding was also present on the prior exam and is nonspecific. The uterus is not seen to be enlarged, but the endometrial lining may be slightly thickened. If further evaluation of the uterus is desired, then ultrasound would be recommended. The urinary bladder is grossly unremarkable. There is diverticulosis of the sigmoid colon, but there is no sign of acute diverticulitis. The appendix was not well visualized, but there are no indirect signs of acute appendicitis. The bone windows show no evidence for a fracture or for a destructive lesion. There is fairly severe degenerative disc and bony disease at L1-2 and L2-3. IMPRESSION: 1. When compared to the previous study, there does not appear to have been any significant change. The small nodules in the left lung seen previously appear stable. There is no acute cardiopulmonary abnormality identified. 2. The hiatal hernia, the calcified splenic artery aneurysm, and a small amount of free fluid in the pelvis seen previously are again visualized and no different. 3. The uterus does not appear to be enlarged, but the endometrial lining may be slightly thickened for a postmenopausal patient. If further imaging is desired, then ultrasound would be recommended. Dictated by: Dictated on workstation # [id number]
== END ==
LOC: RAD 08:23
PROVIDERS: ATTEND Internal Medicine Hematology & Oncology
DX: C18.0 Malignant neoplasm of cecum (principal); R91.8 Other nonspecific abnormal finding of lung field; K44.9 Diaphragmatic hernia without obstruction or gangrene; I72.8 Aneurysm of other specified arteries; Z78.0 Asymptomatic menopausal state
CPT/HCPCS: 71260; 74177

== ENCOUNTER 2018-07-17 09:11 | Outpatient (RCR) | payer MEDICARE, OTHER ==
[2018-07-12 09:05] LABS: BASOPHILS % (AUTO) 0 % (0-10); EOSINOPHILS # (AUTO) 0.1 10^3/uL (0.0-0.3); EOSINOPHILS % (AUTO) 2 % (0-10); HEMATOCRIT 40 % (35-52); HEMOGLOBIN 13.3 G/DL (11.5-16.0); LYMPHOCYTES # (AUTO) 0.9 X 10^3 (1.0-4.0); LYMPHOCYTES % (AUTO) 16 % (12-44); MEAN CORPUSCULAR HEMOGLOBIN 29 PG (25-34); MEAN CORPUSCULAR HGB CONC 34 G/DL (32-36); MEAN CORPUSCULAR VOLUME 85 FL (80-99); MEAN PLATELET VOLUME 10.1 FL (7.4-10.4); MONOCYTES # (AUTO) 0.3 X 10^3 (0.0-1.0); MONOCYTES % (AUTO) 5 % (0-12); NEUTROPHILS # (AUTO) 4.5 X 10^3 (1.8-7.8); NEUTROPHILS % (AUTO) 77 % (42-75); PLATELET COUNT 252 10^3/uL (130-400); RED CELL DISTRIBUTION WIDTH 12.5 % (10.0-14.5); WHITE BLOOD COUNT 5.8 10^3/uL (4.3-11.0)
[2018-07-12 09:26] LABS: ALBUMIN 4.1 GM/DL (3.2-4.5); BILIRUBIN,TOTAL 0.8 MG/DL (0.1-1.0); CALCIUM 9.3 MG/DL (8.5-10.1); CREATININE SERUM 1.09 MG/DL (0.60-1.30); POTASSIUM 4.3 MMOL/L (3.6-5.0); TOTAL PROTEIN 7.3 GM/DL (6.4-8.2)
[2018-07-12 09:47] LABS: FREE T4 (FREE THYROXINE) 1.12 NG/DL (0.70-1.48)
[~2018-07-17 09:11] MED LIST changes: -BARIUM SUSPENSION 2.1% (VANILLA SILQ) 450 ML PO ONE; -IOHEXOL 350 MG/ML 100 ML (OMNIPAQUE 350) VIAL IV ONE; -NS 100 ML (IVPB) BAG IV ONE; -RECEIVED CONTRAST (Hold Metformin) IV SCH
== END 2018-10-10 | disposition home or self-care (01) ==
LOC: ONC 09:11
PROVIDERS: ATTEND Internal Medicine Hematology & Oncology
DX: C18.0 Malignant neoplasm of cecum (principal); D50.0 Iron deficiency anemia secondary to blood loss (chronic); I10 Essential (primary) hypertension; K21.9 Gastro-esophageal reflux disease without esophagitis; E03.9 Hypothyroidism, unspecified; G47.00 Insomnia, unspecified; F41.9 Anxiety disorder, unspecified; M15.9 Polyosteoarthritis, unspecified; Z79.899 Other long term (current) drug therapy
CPT/HCPCS: 36415; 80053; 82306; 82378; 84439; 84443; 85025; 99213

== ENCOUNTER → 2018-08-06 | Outpatient (CLI) | payer MEDICARE, OTHER ==
--- NOTE | 2018-08-06 15:24 | Diagnostic Imaging Report ---
INDICATION: Endometrial thickening. TECHNIQUE: Pelvic sonography was performed in the routine fashion with transabdominal and transvaginal views. FINDINGS: The uterus measures 4.8 x 2.8 x 1.7 cm. The endometrium is thickened and inhomogeneous measuring 1.8 cm in diameter which is abnormal for age and may represent hyperplasia or endometrial neoplasm. Neither ovary could be visualized. There is no free fluid. IMPRESSION: Prominent thickening of the endometrium with inhomogeneity present. This may represent endometrial hyperplasia or neoplasm. The uterus is relatively atrophic otherwise. Neither ovary could be visualized. There is no free fluid. Dictated by: Dictated on workstation # [id number]
== END ==
LOC: RAD 12:30
PROVIDERS: ATTEND Family Medicine
DX: R93.89 Abnormal findings on diagnostic imaging of other specified body structures (principal)
CPT/HCPCS: 76830; 76856

== ENCOUNTER → 2019-01-15 | Day surgery (SDC) | payer MEDICARE, OTHER ==
[~2019-01-15] VITALS: Ht 161.3 cm; Wt 75.7 kg
[~2019-01-15] MED LIST changes: +LACTATED RINGERS 1,000 ML IV ONE; +MIDAZOLAM 2 MG/2 ML (VERSED) VIAL ONE; +PROPOFOL INJECTION 50 ML IV ONE
[2019-01-15 13:40] VITALS: BP 184/84
--- NOTE | 2019-01-15 13:57 | Progress Note-Pre Operative ---
Pre-Operative Progress Note H&P Reviewed The H&P was reviewed, patient examined and no changes noted. Date Seen by Provider: Jan 15, 2019 Time Seen by Provider: 13:57 Date H&P Reviewed: Jan 15, 2019 Time H&P Reviewed: 13:57 Pre-Operative Diagnosis: hx colon cancer ANSHUL ORTIZ DO Jan 15, 2019 13:57
--- OUTSIDE RECORDS SUMMARY | 2019-01-15 14:05 | XMS REPORT | CCD ---
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 Name Role Phone PP Unavailable CCM Unavailable Summary Purpose Interface Exchange Insurance Providers Payer name Policy type / Coverage type Covered republican ID Effective Begin Date Effective End Date WPS Medicare Part B Medicare Part B [id number] Unknown Billogram Medicare Part B [id number] Unknown Family history Mother Diagnosis Age At Onset Arthritis Unknown Ovarian cancer Unknown Cancer Unknown Stroke Unknown Coronary Artery Disease Unknown Father Diagnosis Age At Onset Hypertension Unknown bladder cancer Unknown Arthritis Unknown Cancer Unknown Cancer Unknown Brother Diagnosis Age At Onset Cancer Unknown Rheumatoid arthritis (RA) Unknown Social History Social History Element Codes Description Effective Dates Marital status Unknown 12/02/2014 Number of children Unknown 0 12/02/2014 Employment Unknown Retired 12/02/[address]: 406892118 Has never smoked or chewed tobacco 12/02/[address]: 192061357 Never drinks alcohol 12/02/2014 Allergies, Adverse Reactions, Alerts Substance Reaction Codes Entered Date Inactivated Date Status * NO KNOWN DRUG ALLERGIES Unknown 12/02/2014 No Inactive Date Active Past Medical History Illness Codes Condition Status Onset Date Resolved Date Encounter for general adult medical examination with abnormal findings ICD-9: V70.0 ICD-10: Z00.01 Active 11/11/2016 Unknown 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 Active 08/11/2016 Unknown Epigastric pain ICD-9: 789.06 ICD-10: R10.13 Active 05/15/2018 Unknown Essential (primary) hypertension ICD-9: 401.9 ICD-10: I10 Active 05/11/2016 Unknown Gastro-esophageal reflux disease with esophagitis ICD-9: 530.11 ICD-10: K21.0 Active 07/19/2015 Unknown Personal history of other malignant neoplasm of large intestine ICD-9: V10.05 ICD-10: Z85.038 Active 11/13/2018 Unknown Acute laryngopharyngitis ICD-9: 465.0 ICD-10: J06.0 Active 06/08/2018 Unknown Other allergic rhinitis ICD-9: 477.8 ICD-10: J30.89 Active 06/08/2018 Unknown Vitamin D deficiency, unspecified ICD-9: 268.9 ICD-10: E55.9 Active 05/11/2015 Unknown Sciatica Unknown Active 03/16/2017 Unknown Low back pain ICD-9: 724.2 ICD-10: M54.5 Active 03/16/2017 Unknown Lumbago with sciatica, right side ICD-9: 724.3 ICD-10: M54.41 Active 03/16/2017 Unknown Dysuria ICD-9: 788.1 ICD-10: R30.0 Active 03/08/2017 Unknown Encounter for screening mammogram for malignant neoplasm of breast ICD-9: V76.12 ICD-10: Z12.31 Active 05/26/2016 Unknown Other specified hypothyroidism ICD-9: 244.8 ICD-10: E03.8 Active 05/11/2016 Unknown First degree hemorrhoids ICD-9: 455.6 ICD-10: K64.0 Active 01/13/2016 Unknown Hypothyroidism, unspecified ICD-9: 244.9 ICD-10: E03.9 Active 12/01/2014 Unknown Iron deficiency anemia, unspecified ICD-9: 280.9 ICD-10: D50.9 Active 09/15/2015 Unknown Morbid (severe) obesity due to excess calories ICD-9: 278.01 ICD-10: E66.01 Active 09/15/2015 Unknown Diaphragmatic hernia without obstruction or gangrene ICD-9: 553.3 ICD-10: K44.9 Active 07/19/2015 Unknown Dysphagia, pharyngoesophageal phase ICD-9: 787.24 ICD-10: R13.14 Active 07/19/2015 Unknown Impaired fasting glucose ICD-9: 790.21 ICD-10: R73.01 Active 05/11/2015 Unknown ESOPHAGEAL REFLUX ICD-9: 530.81 Active 12/01/2014 Unknown HYPOTHYROIDISM ICD-9: 244.9 Active 12/01/2014 Unknown Osteoarthritis ICD-9: 715.90 Active 12/01/2014 Unknown Other screening mammogram ICD-9: V76.12 Active 12/01/2014 Unknown Hypertension Unknown Active 12/02/2014 Unknown Hypothryroidism Unknown Active 12/02/2014 Unknown Osteoarthritis Unknown Active 12/02/2014 Unknown ESSENTIAL HYPERTENSION ICD-9: 401.9 Active 12/01/2014 Unknown Problems Condition Codes Effective Dates Condition Status Encounter for general adult medical examination with abnormal findings ICD-9: V70.0 ICD-10: Z00.01 11/11/2016 Active 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 08/11/2016 Active Epigastric pain ICD-9: 789.06 ICD-10: R10.13 05/15/2018 Active Essential (primary) hypertension ICD-9: 401.9 ICD-10: I10 05/11/2016 Active Gastro-esophageal reflux disease with esophagitis ICD-9: 530.11 ICD-10: K21.0 07/19/2015 Active Personal history of other malignant neoplasm of large intestine ICD-9: V10.05 ICD-10: Z85.038 11/13/2018 Active Acute laryngopharyngitis ICD-9: 465.0 ICD-10: J06.0 06/08/2018 Active Other allergic rhinitis ICD-9: 477.8 ICD-10: J30.89 06/08/2018 Active Vitamin D deficiency, unspecified ICD-9: 268.9 ICD-10: E55.9 05/11/2015 Active Sciatica Unknown 03/16/2017 Active Low back pain ICD-9: 724.2 ICD-10: M54.5 03/16/2017 Active Lumbago with sciatica, right side ICD-9: 724.3 ICD-10: M54.41 03/16/2017 Active Dysuria ICD-9: 788.1 ICD-10: R30.0 03/08/2017 Active Encounter for screening mammogram for malignant neoplasm of breast ICD-9: V76.12 ICD-10: Z12.31 05/26/2016 Active Other specified hypothyroidism ICD-9: 244.8 ICD-10: E03.8 05/11/2016 Active First degree hemorrhoids ICD-9: 455.6 ICD-10: K64.0 01/13/2016 Active Hypothyroidism, unspecified ICD-9: 244.9 ICD-10: E03.9 12/01/2014 Active Iron deficiency anemia, unspecified ICD-9: 280.9 ICD-10: D50.9 09/15/2015 Active Morbid (severe) obesity due to excess calories ICD-9: 278.01 ICD-10: E66.01 09/15/2015 Active Diaphragmatic hernia without obstruction or gangrene ICD-9: 553.3 ICD-10: K44.9 07/19/2015 Active Dysphagia, pharyngoesophageal phase ICD-9: 787.24 ICD-10: R13.14 07/19/2015 Active Impaired fasting glucose ICD-9: 790.21 ICD-10: R73.01 05/11/2015 Active ESOPHAGEAL REFLUX ICD-9: 530.81 12/01/2014 Active HYPOTHYROIDISM ICD-9: 244.9 12/01/2014 Active Osteoarthritis ICD-9: 715.90 12/01/2014 Active Other screening mammogram ICD-9: V76.12 12/01/2014 Active Hypertension Unknown 12/02/2014 Active Hypothryroidism Unknown 12/02/2014 Active Osteoarthritis Unknown 12/02/2014 Active ESSENTIAL HYPERTENSION ICD-9: 401.9 12/01/2014 Active Medications Medication Codes Instructions Start Date Stop Date Status Fill Instructions levothyroxine 50 mcg tablet RxNorm: 546640 1 Tablet(s) PO daily 09/04/2018 08/29/2019 Active amoxicillin 500 mg tablet RxNorm: 163161 1 Tablet(s) PO TID 06/08/2018 06/14/2018 Inactive amoxicillin 500 mg tablet RxNorm: 094226 1 Tablet(s) PO TID 06/08/2018 06/07/2018 Inactive atenolol 25 mg tablet RxNorm: 654394 1/2 Tablet(s) PO daily 04/11/2018 07/04/2019 Active omeprazole 20 mg capsule,delayed release RxNorm: 586065 1 Capsule(s) PO daily 04/03/2018 06/26/2019 Active triamterene 37.5 mg-hydrochlorothiazide 25 mg tablet RxNorm: 416250 Tablet(s) TAKE 1/2 TABLET EVERY DAY 01/25/2018 01/19/2019 Active levothyroxine 50 mcg tablet RxNorm: 291696 1 Tablet(s) PO daily 09/04/2017 08/29/2018 Inactive atenolol 25 mg tablet RxNorm: 889714 1/2 Tablet(s) PO daily 07/06/2017 04/01/2018 Inactive omeprazole 20 mg capsule,delayed release RxNorm: 651401 1 Capsule(s) PO daily 07/06/2017 04/01/2018 Inactive atenolol 25 mg tablet RxNorm: 981679 TAKE ONE-HALF TABLET BY MOUTH ONCE DAILY 05/30/2017 No Stop Date Active atenolol 25 mg tablet RxNorm: 585457 1/2 Tablet(s) PO daily 05/30/2017 07/05/2017 Inactive atenolol 25 mg tablet RxNorm: 547150 TAKE ONE-HALF TABLET BY MOUTH ONCE DAILY 05/30/2017 04/10/2018 Inactive triamterene 37.5 mg-hydrochlorothiazide 25 mg tablet RxNorm: 329016 TAKE 1/2 TABLET EVERY DAY 05/01/2017 01/24/2018 Inactive metoprolol succinate ER 25 mg tablet,extended release 24 hr RxNorm: 524021 1 Tablet(s) PO daily 04/21/2017 04/20/2017 Inactive metoprolol succinate ER 25 mg tablet,extended release 24 hr RxNorm: 969630 1 Tablet(s) PO daily 04/21/2017 11/12/2017 Inactive prednisone 10 mg tablets in a dose pack RxNorm: 500336 1 Tablet(s) PO UD take pills as directed in a taper take with food 03/16/2017 03/25/2017 Inactive Keflex 500 mg capsule RxNorm: 207282 1 Capsule(s) PO TID 03/08/2017 03/14/2017 Inactive levothyroxine 50 mcg tablet RxNorm: 431541 1 Tablet(s) PO daily 05/19/2016 08/11/2017 Inactive atenolol 25 mg tablet RxNorm: 335631 1/2 Tablet(s) PO daily 05/09/2016 04/20/2017 Inactive triamterene 37.5 mg-hydrochlorothiazide 25 mg tablet RxNorm: 523914 1/2 Tablet(s) PO daily 04/22/2016 04/16/2017 Inactive omeprazole 20 mg capsule,delayed release RxNorm: 464588 1 Capsule(s) PO daily 03/24/2016 06/16/2017 Inactive [SAVINGS FOR NON-COVERED DRUGS -- BIN:[id number], PCN: ASPROD1, Group: XXXXX, ID# XXXXXXX, Questions: . THIS IS NOT INSURANCE.] omeprazole 20 mg capsule,delayed release RxNorm: 943720 1 Capsule(s) PO daily 02/19/2016 03/23/2016 Inactive [SAVINGS FOR NON-COVERED DRUGS -- BIN:908684, PCN: ASPROD1, Group: XXXXX, ID# XXXXXXX, Questions: . THIS IS NOT INSURANCE.] hydrocortisone 2.5 % topical cream RxNorm: 978687 1 Application TOP BID as needed hemorrhoid 01/14/2016 02/10/2016 Inactive atenolol 25 mg tablet RxNorm: 625974 1/2 Tablet(s) PO daily 11/16/2015 05/08/2016 Inactive levothyroxine 50 mcg tablet RxNorm: 498803 1 Tablet(s) PO daily 08/19/2015 05/18/2016 Inactive omeprazole 20 mg capsule,delayed release RxNorm: 765464 1 Capsule(s) PO daily 06/12/2015 01/07/2016 Inactive [SAVINGS FOR NON-COVERED DRUGS -- BIN:[id number], PCN: ASPROD1, Group: XXXXX, ID# XXXXXXX, Questions: . THIS IS NOT INSURANCE.] Vitamin D2 50,000 unit capsule RxNorm: 374058 1 Capsule(s) PO monthly 05/12/2015 09/15/2015 Inactive triamterine HCTZ 25/37.5 mg RxNorm: 1/2 PO daily 04/14/2015 04/14/2015 Inactive triamterine HCTZ 25/37.5 mg RxNorm: 1/2 Tablet(s) PO daily 04/14/2015 04/13/2015 Inactive triamterene 37.5 mg-hydrochlorothiazide 25 mg tablet RxNorm: 275480 1/2 Tablet(s) PO daily 04/14/2015 04/13/2015 Inactive triamterene 37.5 mg-hydrochlorothiazide 25 mg tablet RxNorm: 174185 1/2 Tablet(s) PO daily 04/14/2015 04/07/2016 Inactive triamterine HCTZ 25/37.5 mg RxNorm: 1/2 Tablet(s) PO daily 04/14/2015 04/13/2015 Inactive triamterine HCTZ 25/37.5 mg RxNorm: 1/2 Tablet(s) PO daily 02/03/2015 04/13/2015 Inactive doxycycline hyclate 100 mg capsule RxNorm: 211857 1 Capsule(s) PO BID 12/10/2014 12/23/2014 Inactive doxycycline hyclate 100 mg capsule RxNorm: 968652 1 Capsule(s) PO BID 12/10/2014 12/09/2014 Inactive Vitamin D2 1,000 unit capsule RxNorm: 626894 2 Capsule(s) PO daily 12/09/2014 01/07/2015 Inactive Vitamin D2 50,000 unit capsule RxNorm: 754695 1 Capsule(s) PO QW 12/09/2014 12/08/2014 Inactive Vitamin D2 50,000 unit capsule RxNorm: 913303 1 Capsule(s) PO QW 12/09/2014 03/08/2015 Inactive Carafate 1 gram tablet RxNorm: 630266 1 Tablet(s) PO TID dissolve in 10mL of water, take the pill dissolved. 12/02/2014 01/07/2015 Inactive [SAVINGS FOR NON-COVERED DRUGS -- BIN:[id number], PCN: ASPROD1, Group: XXXXX, ID# XXXXXXX, Questions: . THIS IS NOT INSURANCE.] omeprazole 20 mg capsule,delayed release RxNorm: 197295 1 Capsule(s) PO daily 11/12/2014 11/11/2014 Inactive omeprazole 20 mg capsule,delayed release RxNorm: 141872 1 Capsule(s) PO daily 11/12/2014 01/10/2015 Inactive [SAVINGS FOR NON-COVERED DRUGS -- BIN:745954, PCN: ASPROD1, Group: XXXXX, ID# [id number], Questions: . THIS IS NOT INSURANCE.] atenolol 25 mg tablet RxNorm: 107270 1/2 Tablet(s) PO daily No Start Date 11/15/2015 Inactive triamterine HCTZ 25/37.5 mg RxNorm: 1/2 PO daily No Start Date 02/02/2015 Inactive levothyroxine 50 mcg tablet RxNorm: 172752 1 Tablet(s) PO daily No Start Date 08/18/2015 Inactive Medication Administered No Medication Administered data Immunizations Vaccine Codes Date Status Influenza CVX: 141 05/10/2014 completed Tetanus, Diptheria, Pertussis CVX: 113 05/10/2005 completed Tetanus/Diptheria CVX: 113 05/10/2005 completed Assessments Condition Codes Effective Dates Encounter for general adult medical examination with abnormal findings ICD-10: Z00.01 ICD-9: V70.0 11/20/2018 Gastro-esophageal reflux disease with esophagitis ICD-10: K21.0 ICD-9: 530.11 11/13/2018 Personal history of other malignant neoplasm of large intestine ICD-10: Z85.038 ICD-9: V10.05 11/13/2018 Essential (primary) hypertension ICD-10: I10 ICD-9: 401.9 11/13/2018 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 ICD-9: 244.8 11/13/2018 Other allergic rhinitis ICD-10: J30.89 ICD-9: 477.8 06/08/2018 Acute laryngopharyngitis ICD-10: J06.0 ICD-9: 465.0 06/08/2018 Epigastric pain ICD-10: R10.13 ICD-9: 789.06 05/15/2018 Vitamin D deficiency, unspecified ICD-10: E55.9 ICD-9: 268.9 07/18/2017 Lumbago with sciatica, right side ICD-10: M54.41 ICD-9: 724.3 03/16/2017 Low back pain ICD-10: M54.5 ICD-9: 724.2 03/16/2017 Dysuria ICD-10: R30.0 ICD-9: 788.1 03/08/2017 Encounter for screening mammogram for malignant neoplasm of breast ICD-10: Z12.31 ICD-9: V76.12 05/27/2016 Other specified hypothyroidism ICD-10: E03.8 ICD-9: 244.8 05/12/2016 Hypothyroidism, unspecified ICD-10: E03.9 ICD-9: 244.9 01/14/2016 First degree hemorrhoids ICD-10: K64.0 ICD-9: 455.6 01/14/2016 Morbid (severe) obesity due to excess calories ICD-10: E66.01 ICD-9: 278.01 09/16/2015 Iron deficiency anemia, unspecified ICD-10: D50.9 ICD-9: 280.9 09/16/2015 Diaphragmatic hernia without obstruction or gangrene ICD-10: K44.9 ICD-9: 553.3 07/20/2015 Dysphagia, pharyngoesophageal phase ICD-10: R13.14 ICD-9: 787.24 07/20/2015 Impaired fasting glucose ICD-10: R73.01 ICD-9: 790.21 05/12/2015 ESOPHAGEAL REFLUX ICD-9: 530.81 03/18/2015 ESSENTIAL HYPERTENSION ICD-9: 401.9 03/18/2015 Osteoarthritis ICD-9: 715.90 03/18/2015 Other screening mammogram ICD-9: V76.12 03/18/2015 HYPOTHYROIDISM ICD-9: 244.9 03/18/2015 Reason For Visit Reason For Visit Effective Dates Notes Annual Medicare Wellness Exam 11/20/2018 hypertension 11/13/2018 cough 06/08/2018 hypertension 05/15/2018 Annual Medicare Wellness Exam 11/16/2017 hypertension 11/13/2017 hypertension 07/18/2017 hypertension 03/16/2017 Annual Medicare Wellness Exam 11/11/2016 hypertension 11/10/2016 hypertension 08/11/2016 hypertension 05/12/2016 hypertension 01/14/2016 hernia 09/16/2015 hernia 07/20/2015 gastroesophageal reflux 05/12/2015 fatigue 03/18/2015 joint complaint 12/02/2014 right knee mostly in the am. Results Observation Observation Code Item Item Code Result Date Culture Urine [id number] URINE CULTURE SEE NOTES 03/14/2017 Culture Urine [id number] Continued Results 03/14/2017 Urine Culture Ucult Complete >100,000 col/ml aerobic growth sent to ref lab 03/09/2017 Free T4 Xnr015 FREE T4 0.94 ng/dL 11/10/2016 Tsh Ord6 hTSH II 2.64 uIU/mL 11/10/2016 Lipid Ord30 CHOL 216 mg/dL 11/10/2016 Lipid Ord30 HDL 51.0 mg/dl 11/10/2016 Lipid Ord30 TRIG 99 mg/dL 11/10/2016 Lipid Ord30 LDL 145 mg/dL 11/10/2016 Lipid Ord30 C/HDL 4.2 Ratio 11/10/2016 Hgb & Hct Ord65 HGB 11.4 g/dl 10/22/2015 Hgb & Hct Ord65 HCT 35.9 % 10/22/2015 Hgb & Hct Ord65 New Analyzer Notice Please note new ref ranges starting 07-22-2015 due to implemntation of new five part differential hematolgy analyzer. 10/22/2015 Lipid Ord30 CHOL 203 mg/dL 09/10/2015 Lipid Ord30 HDL 42.0 mg/dl 09/10/2015 Lipid Ord30 TRIG 127 mg/dL 09/10/2015 Lipid Ord30 LDL 136 mg/dL 09/10/2015 Lipid Ord30 C/HDL 4.8 Ratio 09/10/2015 Tsh Ord6 hTSH II 2.93 uIU/mL 09/10/2015 T4 Ord4 T4 8.0 ug/dL 09/10/2015 Cbc With Differential Ord2 WBC 6.54 K/ul 09/10/2015 Cbc With Differential Ord2 RBC 4.35 M/ul 09/10/2015 Cbc With Differential Ord2 HGB 11.5 g/dl 09/10/2015 Cbc With Differential Ord2 HCT 35.6 % 09/10/2015 Cbc With Differential Ord2 Neut% 73.1 % 09/10/2015 Cbc With Differential Ord2 MCV 81.8 fl 09/10/2015 Cbc With Differential Ord2 Lymph% 17.4 % 09/10/2015 Cbc With Differential Ord2 MCH 26.4 pg 09/10/2015 Cbc With Differential Ord2 [place]% 5.8 % 09/10/2015 Cbc With Differential Ord2 MCHC 32.3 pg 09/10/2015 Cbc With Differential Ord2 Eos% 3.4 % 09/10/2015 Cbc With Differential Ord2 PLT 297 K/ul 09/10/2015 Cbc With Differential Ord2 Baso% 0.3 % 09/10/2015 Cbc With Differential Ord2 RDW 15.2 % 09/10/2015 Cbc With Differential Ord2 Neut ABS# 4.78 K/ul 09/10/2015 Cbc With Differential Ord2 Lymph ABS# 1.14 K/ul 09/10/2015 Cbc With Differential Ord2 [place] ABS# 0.4 K/ul 09/10/2015 Cbc With Differential Ord2 Eos ABS# 0.2 K/ul 09/10/2015 Cbc With Differential Ord2 Baso ABS# 0.0 K/ul 09/10/2015 Cbc With Differential Ord2 New Analyzer Notice Please note new ref ranges starting 07-22-2015 due to implemntation of new five part differential hematolgy analyzer. 09/10/2015 Comp Metabolic Qzy914 NA 138 mEq/L 09/10/2015 Comp Metabolic Olg372 K 4.0 mEq/L 09/10/2015 Comp Metabolic Nyy275 CL 102 mEq/L 09/10/2015 Comp Metabolic Zmm325 CO2 28.0 mEq/L 09/10/2015 Comp Metabolic Rzo238 ANION GAP 12 09/10/2015 Comp Metabolic Foe553 GLUCOSE 88 mg/dL 09/10/2015 Comp Metabolic Lki007 Creat 1.2 mg/dL 09/10/2015 Comp Metabolic Pai497 eGFR 47 ml/min/1.73m2 09/10/2015 Comp Metabolic Joy238 BUN 25 mg/dL 09/10/2015 Comp Metabolic Oul971 B/C Ratio 21.6 Ratio 09/10/2015 Comp Metabolic Xnx230 CALCIUM 9.1 mg/dL 09/10/2015 Comp Metabolic Ryn480 ALK PHOS 55 U/L 09/10/2015 Comp Metabolic Txa558 AST(SGOT) 14 U/L 09/10/2015 Comp Metabolic Zxs996 ALT(SGPT) 7 U/L 09/10/2015 Comp Metabolic Fmt725 BILI T 0.4 mg/dL 09/10/2015 Comp Metabolic Cwx221 ALBUMIN 3.6 g/dL 09/10/2015 Comp Metabolic Bje591 TPRO 6.3 g/dL 09/10/2015 Comp Metabolic Xcz838 GLOB 2.7 g/dL 09/10/2015 Comp Metabolic Luf636 A/G Ratio 1.4 Ratio 09/10/2015 Comp Metabolic Zpa387 Osmo 279 mOsmo 09/10/2015 Cbc With Differential Ord2 WBC 5.4 K/uL 05/12/2015 Cbc With Differential Ord2 LYM 1.1 K/uL 05/12/2015 Cbc With Differential Ord2 LYM% 21.2 % 05/12/2015 Cbc With Differential Ord2 NEUT/GRAN 4.0 K/uL 05/12/2015 Cbc With Differential Ord2 NEUT/GRAN % 73.4 % 05/12/2015 Cbc With Differential Ord2 MID 0.3 K/uL 05/12/2015 Cbc With Differential Ord2 MID% 5.4 % 05/12/2015 Cbc With Differential Ord2 RBC 4.44 M/uL 05/12/2015 Cbc With Differential Ord2 HGB 11.4 g/dL 05/12/2015 Cbc With Differential Ord2 HCT 36.3 % 05/12/2015 Cbc With Differential Ord2 MCV 82 fL 05/12/2015 Cbc With Differential Ord2 MCH 26 pg 05/12/2015 Cbc With Differential Ord2 MCHC 31 g/dL 05/12/2015 Cbc With Differential Ord2 PLT 281 K/uL 05/12/2015 Cbc With Differential Ord2 RDW 15.9 % 05/12/2015 Free T4 Nau031 FREE T4 1.02 ng/dL 05/12/2015 %Hba1C Uiy527 % HbA1c 46492- 6 5.8 % 05/12/2015 %Hba1C Lfb434 Gluc Ave 120 mg/dL 05/12/2015 Comp Metabolic Ygh774 NA 136 mEq/L 05/12/2015 Comp Metabolic Xxx448 K 4.3 mEq/L 05/12/2015 Comp Metabolic Gwr254 CL 101 mEq/L 05/12/2015 Comp Metabolic Dai873 CO2 26.0 mEq/L 05/12/2015 Comp Metabolic Oty473 ANION GAP 13 05/12/2015 Comp Metabolic Bkn293 GLUCOSE 91 mg/dL 05/12/2015 Comp Metabolic Zer767 Creat 1.3 mg/dL 05/12/2015 Comp Metabolic Gnn425 eGFR 43 ml/min/1.73m2 05/12/2015 Comp Metabolic Zry096 BUN 23 mg/dL 05/12/2015 Comp Metabolic Uzp909 B/C Ratio 18.4 Ratio 05/12/2015 Comp Metabolic Qam404 CALCIUM 9.2 mg/dL 05/12/2015 Comp Metabolic Qbr371 ALK PHOS 64 U/L 05/12/2015 Comp Metabolic Iys583 AST(SGOT) 16 U/L 05/12/2015 Comp Metabolic Oip347 ALT(SGPT) 9 U/L 05/12/2015 Comp Metabolic Lbe713 BILI T 0.4 mg/dL 05/12/2015 Comp Metabolic Kwc840 ALBUMIN 3.9 g/dL 05/12/2015 Comp Metabolic Tjs136 TPRO 6.8 g/dL 05/12/2015 Comp Metabolic Mwh001 GLOB 2.9 g/dL 05/12/2015 Comp Metabolic Pta864 A/G Ratio 1.3 Ratio 05/12/2015 Comp Metabolic Imu817 Osmo 275 mOsmo 05/12/2015 Tsh Ord6 hTSH II 3.25 uIU/mL 05/12/2015 Vitamin D 25 Oh Mhy3037 VITAMIN D, 25 HYDROXY 54.89 ng/mL 02/27/2015 Review of Systems System Result Effective Dates Constitutional No recent illness 11/20/2018 Constitutional No chills 11/20/2018 Constitutional No diaphoresis 11/20/2018 Constitutional No fever 11/20/2018 Eyes No eye erythema 11/20/2018 Ears/Nose/Throat/Neck No nasal discharge 11/20/2018 Cardiovascular No chest pain/pressure 11/20/2018 Cardiovascular No dyspnea 11/20/2018 Respiratory No cough 11/20/2018 Respiratory No dyspnea 11/20/2018 Neurologic No alteration of consciousness 11/20/2018 Neurologic No mental status change 11/20/2018 Constitutional No recent illness 11/13/2018 Constitutional No chills 11/13/2018 Constitutional No fatigue 11/13/2018 Constitutional No fever 11/13/2018 Ears/Nose/Throat/Neck No dizziness 11/13/2018 Ears/Nose/Throat/Neck No headache 11/13/2018 Ears/Nose/Throat/Neck nasal allergies 11/13/2018 Cardiovascular No chest pain/pressure 11/13/2018 Cardiovascular No near-syncope/dizziness 11/13/2018 Cardiovascular No palpitations 11/13/2018 Respiratory No chest congestion 11/13/2018 Respiratory cough 11/13/2018 Gastrointestinal abdominal pain 11/13/2018 Gastrointestinal No constipation 11/13/2018 Gastrointestinal No diarrhea 11/13/2018 Gastrointestinal No nausea 11/13/2018 Gastrointestinal No vomiting 11/13/2018 Genitourinary/Nephrology No dysuria 11/13/2018 Musculoskeletal No stiffness 11/13/2018 Musculoskeletal No swelling 11/13/2018 Musculoskeletal No muscle weakness 11/13/2018 Musculoskeletal No myalgias 11/13/2018 Dermatologic No rash 11/13/2018 Dermatologic No scar 11/13/2018 Neurologic No alteration of consciousness 11/13/2018 Psychiatric No anxiety 11/13/2018 Psychiatric No depression 11/13/2018 Cardiovascular hypertension 11/13/2018 Constitutional recent illness 06/08/2018 Constitutional chills 06/08/2018 Constitutional No diaphoresis 06/08/2018 Eyes No eye erythema 06/08/2018 Ears/Nose/Throat/Neck nasal allergies 06/08/2018 Ears/Nose/Throat/Neck nasal discharge 06/08/2018 Ears/Nose/Throat/Neck postnasal drip 06/08/2018 Ears/Nose/Throat/Neck sinus congestion 06/08/2018 Ears/Nose/Throat/Neck sore throat 06/08/2018 Cardiovascular No chest pain/pressure 06/08/2018 Cardiovascular No dyspnea 06/08/2018 Respiratory No chest congestion 06/08/2018 Respiratory cough 06/08/2018 Respiratory No dyspnea 06/08/2018 Gastrointestinal No constipation 06/08/2018 Gastrointestinal No diarrhea 06/08/2018 Gastrointestinal No nausea 06/08/2018 Gastrointestinal No vomiting 06/08/2018 Dermatologic No rash 06/08/2018 Neurologic No alteration of consciousness 06/08/2018 Neurologic No mental status change 06/08/2018 Constitutional No fever 06/08/2018 Constitutional No recent illness 05/15/2018 Constitutional No chills 05/15/2018 Constitutional No fatigue 05/15/2018 Constitutional No fever 05/15/2018 Ears/Nose/Throat/Neck No dizziness 05/15/2018 Ears/Nose/Throat/Neck No headache 05/15/2018 Ears/Nose/Throat/Neck nasal allergies 05/15/2018 Cardiovascular No chest pain/pressure 05/15/2018 Cardiovascular No near-syncope/dizziness 05/15/2018 Cardiovascular No palpitations 05/15/2018 Respiratory No chest congestion 05/15/2018 Respiratory cough 05/15/2018 Gastrointestinal abdominal pain 05/15/2018 Gastrointestinal No constipation 05/15/2018 Gastrointestinal No diarrhea 05/15/2018 Gastrointestinal No nausea 05/15/2018 Gastrointestinal No vomiting 05/15/2018 Genitourinary/Nephrology No dysuria 05/15/2018 Musculoskeletal No stiffness 05/15/2018 Musculoskeletal No swelling 05/15/2018 Musculoskeletal No muscle weakness 05/15/2018 Musculoskeletal No myalgias 05/15/2018 Dermatologic No rash 05/15/2018 Dermatologic No scar 05/15/2018 Neurologic No alteration of consciousness 05/15/2018 Psychiatric No anxiety 05/15/2018 Psychiatric No depression 05/15/2018 Cardiovascular hypertension 05/15/2018 Constitutional No recent illness 11/16/2017 Constitutional No chills 11/16/2017 Constitutional No diaphoresis 11/16/2017 Constitutional No fever 11/16/2017 Eyes No eye erythema 11/16/2017 Ears/Nose/Throat/Neck No nasal discharge 11/16/2017 Cardiovascular No chest pain/pressure 11/16/2017 Cardiovascular No dyspnea 11/16/2017 Respiratory No cough 11/16/2017 Respiratory No dyspnea 11/16/2017 Neurologic No alteration of consciousness 11/16/2017 Neurologic No mental status change 11/16/2017 Constitutional No recent illness 11/13/2017 Constitutional No chills 11/13/2017 Constitutional No fatigue 11/13/2017 Constitutional No fever 11/13/2017 Ears/Nose/Throat/Neck No dizziness 11/13/2017 Ears/Nose/Throat/Neck No headache 11/13/2017 Cardiovascular No chest pain/pressure 11/13/2017 Cardiovascular No near-syncope/dizziness 11/13/2017 Cardiovascular No palpitations 11/13/2017 Respiratory No chest congestion 11/13/2017 Respiratory cough 11/13/2017 Gastrointestinal No abdominal pain 11/13/2017 Gastrointestinal No constipation 11/13/2017 Gastrointestinal No diarrhea 11/13/2017 Gastrointestinal No nausea 11/13/2017 Gastrointestinal No vomiting 11/13/2017 Genitourinary/Nephrology No dysuria 11/13/2017 Musculoskeletal No stiffness 11/13/2017 Musculoskeletal No swelling 11/13/2017 Musculoskeletal No muscle weakness 11/13/2017 Musculoskeletal No myalgias 11/13/2017 Dermatologic No rash 11/13/2017 Dermatologic No scar 11/13/2017 Neurologic No alteration of consciousness 11/13/2017 Psychiatric No anxiety 11/13/2017 Psychiatric No depression 11/13/2017 Ears/Nose/Throat/Neck nasal allergies 11/13/2017 Constitutional No recent illness 07/18/2017 Constitutional No chills 07/18/2017 Constitutional No fatigue 07/18/2017 Constitutional No fever 07/18/2017 Ears/Nose/Throat/Neck No dizziness 07/18/2017 Ears/Nose/Throat/Neck No headache 07/18/2017 Cardiovascular No chest pain/pressure 07/18/2017 Cardiovascular No near-syncope/dizziness 07/18/2017 Cardiovascular No palpitations 07/18/2017 Respiratory No chest congestion 07/18/2017 Respiratory No cough 07/18/2017 Gastrointestinal No abdominal pain 07/18/2017 Gastrointestinal No constipation 07/18/2017 Gastrointestinal No diarrhea 07/18/2017 Gastrointestinal No nausea 07/18/2017 Gastrointestinal No vomiting 07/18/2017 Genitourinary/Nephrology No dysuria 07/18/2017 Musculoskeletal stiffness 07/18/2017 Musculoskeletal No swelling 07/18/2017 Musculoskeletal back pain 07/18/2017 Musculoskeletal No muscle weakness 07/18/2017 Musculoskeletal No myalgias 07/18/2017 Musculoskeletal sciatica 07/18/2017 Dermatologic No rash 07/18/2017 Dermatologic No scar 07/18/2017 Neurologic No alteration of consciousness 07/18/2017 Psychiatric No anxiety 07/18/2017 Psychiatric No depression 07/18/2017 Constitutional No recent illness 03/16/2017 Constitutional No chills 03/16/2017 Constitutional No fatigue 03/16/2017 Constitutional No fever 03/16/2017 Ears/Nose/Throat/Neck No dizziness 03/16/2017 Ears/Nose/Throat/Neck No headache 03/16/2017 Cardiovascular No chest pain/pressure 03/16/2017 Cardiovascular No near-syncope/dizziness 03/16/2017 Cardiovascular No palpitations 03/16/2017 Respiratory No chest congestion 03/16/2017 Respiratory No cough 03/16/2017 Gastrointestinal No abdominal pain 03/16/2017 Gastrointestinal No constipation 03/16/2017 Gastrointestinal No diarrhea 03/16/2017 Gastrointestinal No nausea 03/16/2017 Gastrointestinal No vomiting 03/16/2017 Genitourinary/Nephrology No dysuria 03/16/2017 Musculoskeletal stiffness 03/16/2017 Musculoskeletal No swelling 03/16/2017 Musculoskeletal No muscle weakness 03/16/2017 Musculoskeletal No myalgias 03/16/2017 Dermatologic No rash 03/16/2017 Dermatologic No scar 03/16/2017 Neurologic No alteration of consciousness 03/16/2017 Psychiatric No anxiety 03/16/2017 Psychiatric No depression 03/16/2017 Musculoskeletal back pain 03/16/2017 Musculoskeletal sciatica 03/16/2017 Constitutional No recent illness 11/11/2016 Constitutional No chills 11/11/2016 Constitutional No fever 11/11/2016 Cardiovascular No chest pain/pressure 11/11/2016 Respiratory No cough 11/11/2016 Gastrointestinal No abdominal pain 11/11/2016 Gastrointestinal No diarrhea 11/11/2016 Gastrointestinal No nausea 11/11/2016 Gastrointestinal No vomiting 11/11/2016 Dermatologic No rash 11/11/2016 Neurologic No alteration of consciousness 11/11/2016 Constitutional No diaphoresis 11/11/2016 Ears/Nose/Throat/Neck No nasal allergies 11/11/2016 Respiratory No dyspnea 11/11/2016 Gastrointestinal No constipation 11/11/2016 Musculoskeletal No joint complaint 11/11/2016 Neurologic No mental status change 11/11/2016 Constitutional No recent illness 11/10/2016 Constitutional No chills 11/10/2016 Constitutional No fatigue 11/10/2016 Constitutional No fever 11/10/2016 Ears/Nose/Throat/Neck No dizziness 11/10/2016 Ears/Nose/Throat/Neck No headache 11/10/2016 Cardiovascular No chest pain/pressure 11/10/2016 Cardiovascular No near-syncope/dizziness 11/10/2016 Cardiovascular No palpitations 11/10/2016 Respiratory No chest congestion 11/10/2016 Respiratory No cough 11/10/2016 Gastrointestinal No abdominal pain 11/10/2016 Gastrointestinal No constipation 11/10/2016 Gastrointestinal No diarrhea 11/10/2016 Gastrointestinal No nausea 11/10/2016 Gastrointestinal No vomiting 11/10/2016 Genitourinary/Nephrology No dysuria 11/10/2016 Musculoskeletal No stiffness 11/10/2016 Musculoskeletal No swelling 11/10/2016 Musculoskeletal No muscle weakness 11/10/2016 Musculoskeletal No myalgias 11/10/2016 Dermatologic No rash 11/10/2016 Dermatologic No scar 11/10/2016 Neurologic No alteration of consciousness 11/10/2016 Psychiatric No anxiety 11/10/2016 Psychiatric No depression 11/10/2016 Constitutional No recent illness 08/11/2016 Constitutional No chills 08/11/2016 Constitutional No fatigue 08/11/2016 Constitutional No fever 08/11/2016 Ears/Nose/Throat/Neck No dizziness 08/11/2016 Ears/Nose/Throat/Neck No headache 08/11/2016 Cardiovascular No chest pain/pressure 08/11/2016 Cardiovascular No near-syncope/dizziness 08/11/2016 Cardiovascular No palpitations 08/11/2016 Respiratory No chest congestion 08/11/2016 Respiratory No cough 08/11/2016 Gastrointestinal No abdominal pain 08/11/2016 Gastrointestinal No constipation 08/11/2016 Gastrointestinal No diarrhea 08/11/2016 Gastrointestinal No nausea 08/11/2016 Gastrointestinal No vomiting 08/11/2016 Genitourinary/Nephrology No dysuria 08/11/2016 Musculoskeletal No stiffness 08/11/2016 Musculoskeletal No swelling 08/11/2016 Musculoskeletal No muscle weakness 08/11/2016 Musculoskeletal No myalgias 08/11/2016 Dermatologic No rash 08/11/2016 Dermatologic No scar 08/11/2016 Neurologic No alteration of consciousness 08/11/2016 Psychiatric No anxiety 08/11/2016 Psychiatric No depression 08/11/2016 Eyes No eye discharge 05/12/2016 Eyes No eye erythema 05/12/2016 Cardiovascular No chest pain/pressure 05/12/2016 Respiratory No productive sputum 05/12/2016 Respiratory No chest congestion 05/12/2016 Respiratory No cough 05/12/2016 Gastrointestinal No abdominal pain 05/12/2016 Gastrointestinal No constipation 05/12/2016 Gastrointestinal No diarrhea 05/12/2016 Gastrointestinal gastroesophageal reflux 05/12/2016 Musculoskeletal No joint complaint 05/12/2016 Dermatologic No rash 05/12/2016 Neurologic No alteration of consciousness 05/12/2016 Constitutional No recent illness 05/12/2016 Constitutional No chills 05/12/2016 Constitutional No diaphoresis 05/12/2016 Constitutional No fever 05/12/2016 Ears/Nose/Throat/Neck No nasal allergies 05/12/2016 Ears/Nose/Throat/Neck No nasal discharge 05/12/2016 Cardiovascular No dyspnea 05/12/2016 Cardiovascular No edema 05/12/2016 Respiratory No dyspnea 05/12/2016 Gastrointestinal No vomiting 05/12/2016 Gastrointestinal No nausea 05/12/2016 Neurologic No mental status change 05/12/2016 Constitutional No recent illness 01/14/2016 Constitutional No anorexia 01/14/2016 Constitutional No night sweats 01/14/2016 Constitutional No chills 01/14/2016 Constitutional No diaphoresis 01/14/2016 Constitutional No fatigue 01/14/2016 Constitutional No fever 01/14/2016 Constitutional No insomnia 01/14/2016 Constitutional No malaise 01/14/2016 Eyes No eye discharge 01/14/2016 Eyes No eye erythema 01/14/2016 Ears/Nose/Throat/Neck No dizziness 01/14/2016 Ears/Nose/Throat/Neck No headache 01/14/2016 Cardiovascular No chest pain/pressure 01/14/2016 Respiratory No productive sputum 01/14/2016 Respiratory No chest congestion 01/14/2016 Respiratory No cough 01/14/2016 Gastrointestinal No abdominal pain 01/14/2016 Gastrointestinal No constipation 01/14/2016 Gastrointestinal No diarrhea 01/14/2016 Gastrointestinal dyspepsia 01/14/2016 Gastrointestinal gastroesophageal reflux 01/14/2016 Genitourinary/Nephrology No dysuria 01/14/2016 Musculoskeletal No joint complaint 01/14/2016 Dermatologic No rash 01/14/2016 Neurologic No alteration of consciousness 01/14/2016 Psychiatric No anxiety 01/14/2016 Psychiatric No depression 01/14/2016 Gastrointestinal hemorrhoids 01/14/2016 Constitutional No recent illness 09/16/2015 Constitutional No anorexia 09/16/2015 Constitutional No night sweats 09/16/2015 Constitutional No chills 09/16/2015 Constitutional No diaphoresis 09/16/2015 Constitutional No fatigue 09/16/2015 Constitutional No fever 09/16/2015 Constitutional No insomnia 09/16/2015 Constitutional No malaise 09/16/2015 Eyes No eye discharge 09/16/2015 Eyes No eye erythema 09/16/2015 Ears/Nose/Throat/Neck No dizziness 09/16/2015 Ears/Nose/Throat/Neck No headache 09/16/2015 Cardiovascular No chest pain/pressure 09/16/2015 Respiratory No productive sputum 09/16/2015 Respiratory No chest congestion 09/16/2015 Respiratory No cough 09/16/2015 Gastrointestinal No abdominal pain 09/16/2015 Gastrointestinal No constipation 09/16/2015 Gastrointestinal No diarrhea 09/16/2015 Gastrointestinal dyspepsia 09/16/2015 Gastrointestinal gastroesophageal reflux 09/16/2015 Genitourinary/Nephrology No dysuria 09/16/2015 Musculoskeletal No joint complaint 09/16/2015 Dermatologic No rash 09/16/2015 Neurologic No alteration of consciousness 09/16/2015 Psychiatric No anxiety 09/16/2015 Psychiatric No depression 09/16/2015 Gastrointestinal No abdominal pain 07/20/2015 Gastrointestinal gastroesophageal reflux 07/20/2015 Gastrointestinal No constipation 07/20/2015 Gastrointestinal No diarrhea 07/20/2015 Gastrointestinal nausea 07/20/2015 Gastrointestinal dysphagia 07/20/2015 Constitutional No recent illness 07/20/2015 Constitutional No anorexia 07/20/2015 Constitutional No night sweats 07/20/2015 Constitutional No chills 07/20/2015 Constitutional No diaphoresis 07/20/2015 Constitutional No fatigue 07/20/2015 Constitutional No insomnia 07/20/2015 Constitutional No fever 07/20/2015 Constitutional No malaise 07/20/2015 Constitutional No weight loss 07/20/2015 Constitutional No weight gain 07/20/2015 Eyes No eye discharge 07/20/2015 Eyes No eye erythema 07/20/2015 Genitourinary/Nephrology No dysuria 07/20/2015 Ears/Nose/Throat/Neck No dizziness 07/20/2015 Ears/Nose/Throat/Neck dysphagia 07/20/2015 Ears/Nose/Throat/Neck No headache 07/20/2015 Cardiovascular No chest pain/pressure 07/20/2015 Cardiovascular No dyspnea 07/20/2015 Respiratory No cough 07/20/2015 Musculoskeletal No joint complaint 07/20/2015 Dermatologic No rash 07/20/2015 Neurologic No alteration of consciousness 07/20/2015 Constitutional No recent illness 05/12/2015 Constitutional No anorexia 05/12/2015 Constitutional No night sweats 05/12/2015 Constitutional No chills 05/12/2015 Constitutional No diaphoresis 05/12/2015 Constitutional No fatigue 05/12/2015 Constitutional No fever 05/12/2015 Constitutional No insomnia 05/12/2015 Constitutional No malaise 05/12/2015 Constitutional No weight loss 05/12/2015 Constitutional No weight gain 05/12/2015 Dermatologic No rash 05/12/2015 Neurologic No alteration of consciousness 05/12/2015 Musculoskeletal No joint complaint 05/12/2015 Genitourinary/Nephrology No dysuria 05/12/2015 Gastrointestinal dyspepsia 05/12/2015 Gastrointestinal gastroesophageal reflux 05/12/2015 Eyes No eye discharge 05/12/2015 Eyes No eye erythema 05/12/2015 Ears/Nose/Throat/Neck No dizziness 05/12/2015 Ears/Nose/Throat/Neck No headache 05/12/2015 Cardiovascular No chest pain/pressure 05/12/2015 Respiratory No productive sputum 05/12/2015 Respiratory No chest congestion 05/12/2015 Respiratory No cough 05/12/2015 Gastrointestinal No abdominal pain 05/12/2015 Gastrointestinal No constipation 05/12/2015 Gastrointestinal No diarrhea 05/12/2015 Constitutional No recent illness 03/18/2015 Constitutional No chills 03/18/2015 Constitutional No fatigue 03/18/2015 Constitutional No fever 03/18/2015 Ears/Nose/Throat/Neck No dizziness 03/18/2015 Ears/Nose/Throat/Neck No headache 03/18/2015 Cardiovascular No chest pain/pressure 03/18/2015 Cardiovascular No near-syncope/dizziness 03/18/2015 Cardiovascular No palpitations 03/18/2015 Respiratory No chest congestion 03/18/2015 Respiratory No cough 03/18/2015 Gastrointestinal No abdominal pain 03/18/2015 Gastrointestinal No constipation 03/18/2015 Gastrointestinal No diarrhea 03/18/2015 Gastrointestinal No nausea 03/18/2015 Gastrointestinal No vomiting 03/18/2015 Genitourinary/Nephrology No dysuria 03/18/2015 Musculoskeletal No stiffness 03/18/2015 Musculoskeletal No swelling 03/18/2015 Musculoskeletal No muscle weakness 03/18/2015 Musculoskeletal No myalgias 03/18/2015 Dermatologic No rash 03/18/2015 Dermatologic No scar 03/18/2015 Neurologic No alteration of consciousness 03/18/2015 Psychiatric No anxiety 03/18/2015 Psychiatric No depression 03/18/2015 Constitutional No chills 12/02/2014 Constitutional No fatigue 12/02/2014 Constitutional No fever 12/02/2014 Constitutional No recent illness 12/02/2014 Ears/Nose/Throat/Neck No dizziness 12/02/2014 Ears/Nose/Throat/Neck No headache 12/02/2014 Cardiovascular No chest pain/pressure 12/02/2014 Cardiovascular No near-syncope/dizziness 12/02/2014 Cardiovascular No palpitations 12/02/2014 Respiratory No chest congestion 12/02/2014 Respiratory No cough 12/02/2014 Gastrointestinal No abdominal pain 12/02/2014 Gastrointestinal No constipation 12/02/2014 Gastrointestinal No diarrhea 12/02/2014 Gastrointestinal No nausea 12/02/2014 Gastrointestinal No vomiting 12/02/2014 Genitourinary/Nephrology No dysuria 12/02/2014 Neurologic No alteration of consciousness 12/02/2014 Psychiatric No anxiety 12/02/2014 Psychiatric No depression 12/02/2014 Dermatologic No rash 12/02/2014 Dermatologic No scar 12/02/2014 Musculoskeletal No stiffness 12/02/2014 Musculoskeletal No swelling 12/02/2014 Musculoskeletal No muscle weakness 12/02/2014 Musculoskeletal No myalgias 12/02/2014 Physical Exam Exam Name System Name Item Name Status Result Effective Dates Notes Full Exam - General 1994 Constitutional general appearance Overall: well developed 11/20/2018 None Full Exam - General 1994 Constitutional general appearance Overall: in no acute distress 11/20/2018 None Full Exam - General 1994 Constitutional general appearance Overall: well nourished 11/20/2018 None Full Exam - General 1994 Eyes conjunctiva/eyelids Overall: conjunctiva clear 11/20/2018 None Full Exam - General 1994 Eyes conjunctiva/eyelids Overall: eyelids normal 11/20/2018 None Full Exam - General 1994 Ears/Nose/Throat lips/teeth/gingiva Overall: benign lips 11/20/2018 None Full Exam - General 1994 Respiratory respiratory effort/rhythm Overall: no retractions 11/20/2018 None Full Exam - General 1994 Respiratory respiratory effort/rhythm Overall: normal rate 11/20/2018 None Full Exam - General 1994 Musculoskeletal head and neck Overall: head atraumatic 11/20/2018 None Full Exam - General 1994 Neurologic cranial nerves Overall: crainial nerves 2 - 12 grossly intact 11/20/2018 None Full Exam - General 1994 Psychiatric orientation/consciousness Overall: oriented to person, place and time 11/20/2018 None Full Exam - General 1994 Psychiatric mood and affect Overall: normal mood and affect 11/20/2018 None Full Exam - General 1994 Psychiatric appearance Overall: well-groomed, good eye contact 11/20/2018 None Full Exam - General 1994 Constitutional general appearance Development: well developed 11/13/2018 None Full Exam - General 1994 Constitutional general appearance Development: appears stated age 0511/13/2018 None Full Exam - General 1994 Constitutional general appearance Hygiene/Attention to Grooming: good hygiene 11/13/2018 None Full Exam - General 1994 Eyes conjunctiva/eyelids Overall: conjunctiva clear 11/13/2018 None Full Exam - General 1994 Eyes conjunctiva/eyelids Overall: cornea clear 11/13/2018 None Full Exam - General 1994 Eyes conjunctiva/eyelids Overall: eyelids normal 11/13/2018 None Full Exam - General 1994 Eyes pupils and irises Overall: pupils equal, round, reactive to light and accomodation 11/13/2018 None Full Exam - General 1994 Ears/Nose/Throat otoscopic exam Overall: external auditory canals clear 11/13/2018 None Full Exam - General 1994 Ears/Nose/Throat otoscopic exam Overall: tympanic membranes clear 11/13/2018 None Full Exam - General 1994 Ears/Nose/Throat lips/teeth/gingiva Overall: benign lips 11/13/2018 None Full Exam - General 1994 Ears/Nose/Throat lips/teeth/gingiva Overall: normal dentition 11/13/2018 None Full Exam - General 1994 Ears/Nose/Throat oral cavity/pharynx/larynx Overall: oral mucosa clear 11/13/2018 None Full Exam - General 1994 Ears/Nose/Throat oral cavity/pharynx/larynx Overall: oropharyngeal mucosa clear 11/13/2018 None Full Exam - General 1994 Ears/Nose/Throat oral cavity/pharynx/larynx Overall: hypopharynx benign 11/13/2018 None Full Exam - General 1994 Ears/Nose/Throat oral cavity/pharynx/larynx Overall: no masses 11/13/2018 None Full Exam - General 1994 Respiratory auscultation Overall: breath sounds clear bilaterally 11/13/2018 None Full Exam - General 1994 Respiratory respiratory effort/rhythm Overall: no retractions 11/13/2018 None Full Exam - General 1994 Respiratory respiratory effort/rhythm Overall: normal rate 11/13/2018 None Full Exam - General 1994 Cardiovascular extremities Overall: no clubbing 11/13/2018 None Full Exam - General 1994 Cardiovascular auscultation of heart Overall: regular rate 11/13/2018 None Full Exam - General 1994 Cardiovascular auscultation of heart Overall: normal heart sounds 11/13/2018 None Full Exam - General 1994 Abdomen abdominal exam Overall: no tenderness 11/13/2018 None Full Exam - General 1994 Abdomen abdominal exam Overall: normal bowel sounds 11/13/2018 None Full Exam - General 1994 Lymphatic neck nodes Overall: anterior cervical chain benign 11/13/2018 None Full Exam - General 1994 Lymphatic neck nodes Overall: posterior cervical chain benign 11/13/2018 None Full Exam - General 1994 Musculoskeletal spine, ribs and pelvis Overall: spine benign 11/13/2018 None Full Exam - General 1994 Musculoskeletal spine, ribs and pelvis Overall: sacroiliac joint benign 11/13/2018 None Full Exam - General 1994 Musculoskeletal spine, ribs and pelvis Overall: good posture 11/13/2018 None Full Exam - General 1994 Musculoskeletal head and neck Overall: head atraumatic 11/13/2018 None Full Exam - General 1994 Musculoskeletal head and neck Overall: cervical spine benign 11/13/2018 None Full Exam - General 1994 Neurologic cranial nerves Overall: crainial nerves 2 - 12 grossly intact 11/13/2018 None Full Exam - General 1994 Psychiatric orientation/consciousness Overall: oriented to person, place and time 11/13/2018 None Full Exam - General 1994 Psychiatric mood and affect Overall: normal mood and affect 11/13/2018 None Full Exam - General 1994 Abdomen abdominal exam Skin: presence of a scar 11/13/2018 None Full Exam - ENT Constitutional general appearance Overall: well nourished 06/08/2018 None Full Exam - ENT Constitutional general appearance Overall: well developed 06/08/2018 None Full Exam - ENT Constitutional general appearance Overall: in no acute distress 06/08/2018 None Full Exam - ENT Ears/Nose/Throat otoscopic exam Overall: external auditory canals normal 06/08/2018 None Full Exam - ENT Ears/Nose/Throat otoscopic exam Left tympanic membrane: air-fluid level 06/08/2018 None Full Exam - ENT Ears/Nose/Throat otoscopic exam Right tympanic membrane: air-fluid level 06/08/2018 None Full Exam - ENT Ears/Nose/Throat lips/teeth/gingiva Overall: benign lips 06/08/2018 None Full Exam - ENT Ears/Nose/Throat oropharynx Overall: oral mucosa clear 06/08/2018 None Full Exam - ENT Ears/Nose/Throat oropharynx Posterior Pharynx: clear post nasal drainage 06/08/2018 None Full Exam - ENT Ears/Nose/Throat oropharynx Posterior Pharynx: erythema 06/08/2018 None Full Exam - ENT Respiratory inspection Overall: no retractions 06/08/2018 None Full Exam - ENT Respiratory inspection Overall: normal rate 06/08/2018 None Full Exam - ENT Respiratory auscultation Overall: breath sounds clear bilaterally 06/08/2018 None Full Exam - ENT Cardiovascular auscultation of heart Rate: normal rate 06/08/2018 None Full Exam - ENT Cardiovascular auscultation of heart Rhythm: regular rhythm 06/08/2018 None Full Exam - ENT Lymphatic palpation of lymph nodes Overall: anterior cervical chain benign 06/08/2018 None Full Exam - ENT Lymphatic palpation of lymph nodes Overall: posterior cervical chain benign 06/08/2018 None Full Exam - ENT Neurologic mood and affect Overall: normal mood 06/08/2018 None Full Exam - ENT Neurologic mood and affect Overall: normal affect 06/08/2018 None Full Exam - ENT Neurologic orientation Overall: oriented to person, place and time 06/08/2018 None Full Exam - General 1994 Constitutional general appearance Development: well developed 05/15/2018 None Full Exam - General 1994 Constitutional general appearance Development: appears stated age 1105/15/2018 None Full Exam - General 1994 Constitutional general appearance Hygiene/Attention to Grooming: good hygiene 05/15/2018 None Full Exam - General 1994 Eyes conjunctiva/eyelids Overall: conjunctiva clear 05/15/2018 None Full Exam - General 1994 Eyes conjunctiva/eyelids Overall: cornea clear 05/15/2018 None Full Exam - General 1994 Eyes conjunctiva/eyelids Overall: eyelids normal 05/15/2018 None Full Exam - General 1994 Eyes pupils and irises Overall: pupils equal, round, reactive to light and accomodation 05/15/2018 None Full Exam - General 1994 Ears/Nose/Throat otoscopic exam Overall: external auditory canals clear 05/15/2018 None Full Exam - General 1994 Ears/Nose/Throat otoscopic exam Overall: tympanic membranes clear 05/15/2018 None Full Exam - General 1994 Ears/Nose/Throat lips/teeth/gingiva Overall: benign lips 05/15/2018 None Full Exam - General 1994 Ears/Nose/Throat lips/teeth/gingiva Overall: normal dentition 05/15/2018 None Full Exam - General 1994 Ears/Nose/Throat oral cavity/pharynx/larynx Overall: oral mucosa clear 05/15/2018 None Full Exam - General 1994 Ears/Nose/Throat oral cavity/pharynx/larynx Overall: oropharyngeal mucosa clear 05/15/2018 None Full Exam - General 1994 Ears/Nose/Throat oral cavity/pharynx/larynx Overall: hypopharynx benign 05/15/2018 None Full Exam - General 1994 Ears/Nose/Throat oral cavity/pharynx/larynx Overall: no masses 05/15/2018 None Full Exam - General 1994 Respiratory auscultation Overall: breath sounds clear bilaterally 05/15/2018 None Full Exam - General 1994 Respiratory respiratory effort/rhythm Overall: no retractions 05/15/2018 None Full Exam - General 1994 Respiratory respiratory effort/rhythm Overall: normal rate 05/15/2018 None Full Exam - General 1994 Cardiovascular extremities Overall: no clubbing 05/15/2018 None Full Exam - General 1994 Cardiovascular auscultation of heart Overall: regular rate 05/15/2018 None Full Exam - General 1994 Cardiovascular auscultation of heart Overall: normal heart sounds 05/15/2018 None Full Exam - General 1994 Abdomen abdominal exam Overall: normal bowel sounds 05/15/2018 None Full Exam - General 1994 Lymphatic neck nodes Overall: anterior cervical chain benign 05/15/2018 None Full Exam - General 1994 Lymphatic neck nodes Overall: posterior cervical chain benign 05/15/2018 None Full Exam - General 1994 Musculoskeletal spine, ribs and pelvis Overall: spine benign 05/15/2018 None Full Exam - General 1994 Musculoskeletal spine, ribs and pelvis Overall: sacroiliac joint benign 05/15/2018 None Full Exam - General 1994 Musculoskeletal spine, ribs and pelvis Overall: good posture 05/15/2018 None Full Exam - General 1994 Musculoskeletal head and neck Overall: head atraumatic 05/15/2018 None Full Exam - General 1994 Musculoskeletal head and neck Overall: cervical spine benign 05/15/2018 None Full Exam - General 1994 Neurologic cranial nerves Overall: crainial nerves 2 - 12 grossly intact 05/15/2018 None Full Exam - General 1994 Psychiatric orientation/consciousness Overall: oriented to person, place and time 05/15/2018 None Full Exam - General 1994 Psychiatric mood and affect Overall: normal mood and affect 05/15/2018 None Full Exam - General 1994 Abdomen abdominal exam Skin: presence of a scar 05/15/2018 mid abdomen - slightly ttp at superior apex of scar Full Exam - General 1994 Constitutional general appearance Overall: well developed 11/16/2017 None Full Exam - General 1994 Constitutional general appearance Overall: in no acute distress 11/16/2017 None Full Exam - General 1994 Constitutional general appearance Overall: well nourished 11/16/2017 None Full Exam - General 1994 Eyes conjunctiva/eyelids Overall: conjunctiva clear 11/16/2017 None Full Exam - General 1994 Eyes conjunctiva/eyelids Overall: eyelids normal 11/16/2017 None Full Exam - General 1994 Ears/Nose/Throat lips/teeth/gingiva Overall: benign lips 11/16/2017 None Full Exam - General 1994 Respiratory respiratory effort/rhythm Overall: no retractions 11/16/2017 None Full Exam - General 1994 Respiratory respiratory effort/rhythm Overall: normal rate 11/16/2017 None Full Exam - General 1994 Musculoskeletal head and neck Overall: head atraumatic 11/16/2017 None Full Exam - General 1994 Neurologic cranial nerves Overall: crainial nerves 2 - 12 grossly intact 11/16/2017 None Full Exam - General 1994 Psychiatric orientation/consciousness Overall: oriented to person, place and time 11/16/2017 None Full Exam - General 1994 Psychiatric mood and affect Overall: normal mood and affect 11/16/2017 None Full Exam - General 1994 Psychiatric appearance Overall: well-groomed, good eye contact 11/16/2017 None Full Exam - General 1994 Constitutional general appearance Development: well developed 11/13/2017 None Full Exam - General 1994 Constitutional general appearance Development: appears stated age 0511/13/2017 None Full Exam - General 1994 Constitutional general appearance Hygiene/Attention to Grooming: good hygiene 11/13/2017 None Full Exam - General 1994 Eyes conjunctiva/eyelids Overall: conjunctiva clear 11/13/2017 None Full Exam - General 1994 Eyes conjunctiva/eyelids Overall: cornea clear 11/13/2017 None Full Exam - General 1994 Eyes conjunctiva/eyelids Overall: eyelids normal 11/13/2017 None Full Exam - General 1994 Eyes pupils and irises Overall: pupils equal, round, reactive to light and accomodation 11/13/2017 None Full Exam - General 1994 Ears/Nose/Throat otoscopic exam Overall: external auditory canals clear 11/13/2017 None Full Exam - General 1994 Ears/Nose/Throat otoscopic exam Overall: tympanic membranes clear 11/13/2017 None Full Exam - General 1994 Ears/Nose/Throat lips/teeth/gingiva Overall: benign lips 11/13/2017 None Full Exam - General 1994 Ears/Nose/Throat lips/teeth/gingiva Overall: normal dentition 11/13/2017 None Full Exam - General 1994 Ears/Nose/Throat oral cavity/pharynx/larynx Overall: oral mucosa clear 11/13/2017 None Full Exam - General 1994 Ears/Nose/Throat oral cavity/pharynx/larynx Overall: oropharyngeal mucosa clear 11/13/2017 None Full Exam - General 1994 Ears/Nose/Throat oral cavity/pharynx/larynx Overall: hypopharynx benign 11/13/2017 None Full Exam - General 1994 Ears/Nose/Throat oral cavity/pharynx/larynx Overall: no masses 11/13/2017 None Full Exam - General 1994 Respiratory auscultation Overall: breath sounds clear bilaterally 11/13/2017 None Full Exam - General 1994 Respiratory respiratory effort/rhythm Overall: no retractions 11/13/2017 None Full Exam - General 1994 Respiratory respiratory effort/rhythm Overall: normal rate 11/13/2017 None Full Exam - General 1994 Cardiovascular extremities Overall: no clubbing 11/13/2017 None Full Exam - General 1994 Cardiovascular auscultation of heart Overall: regular rate 11/13/2017 None Full Exam - General 1994 Cardiovascular auscultation of heart Overall: normal heart sounds 11/13/2017 None Full Exam - General 1994 Abdomen abdominal exam Overall: no tenderness 11/13/2017 None Full Exam - General 1994 Abdomen abdominal exam Overall: normal bowel sounds 11/13/2017 None Full Exam - General 1994 Lymphatic neck nodes Overall: anterior cervical chain benign 11/13/2017 None Full Exam - General 1994 Lymphatic neck nodes Overall: posterior cervical chain benign 11/13/2017 None Full Exam - General 1994 Musculoskeletal spine, ribs and pelvis Overall: spine benign 11/13/2017 None Full Exam - General 1994 Musculoskeletal spine, ribs and pelvis Overall: sacroiliac joint benign 11/13/2017 None Full Exam - General 1994 Musculoskeletal spine, ribs and pelvis Overall: good posture 11/13/2017 None Full Exam - General 1994 Musculoskeletal head and neck Overall: head atraumatic 11/13/2017 None Full Exam - General 1994 Musculoskeletal head and neck Overall: cervical spine benign 11/13/2017 None Full Exam - General 1994 Neurologic cranial nerves Overall: crainial nerves 2 - 12 grossly intact 11/13/2017 None Full Exam - General 1994 Psychiatric orientation/consciousness Overall: oriented to person, place and time 11/13/2017 None Full Exam - General 1994 Psychiatric mood and affect Overall: normal mood and affect 11/13/2017 None Full Exam - General 1994 Constitutional general appearance Development: well developed 07/18/2017 None Full Exam - General 1994 Constitutional general appearance Development: appears stated age 0107/18/2017 None Full Exam - General 1994 Constitutional general appearance Hygiene/Attention to Grooming: good hygiene 07/18/2017 None Full Exam - General 1994 Eyes conjunctiva/eyelids Overall: conjunctiva clear 07/18/2017 None Full Exam - General 1994 Eyes conjunctiva/eyelids Overall: cornea clear 07/18/2017 None Full Exam - General 1994 Eyes conjunctiva/eyelids Overall: eyelids normal 07/18/2017 None Full Exam - General 1994 Eyes pupils and irises Overall: pupils equal, round, reactive to light and accomodation 07/18/2017 None Full Exam - General 1994 Ears/Nose/Throat otoscopic exam Overall: external auditory canals clear 07/18/2017 None Full Exam - General 1994 Ears/Nose/Throat otoscopic exam Overall: tympanic membranes clear 07/18/2017 None Full Exam - General 1994 Ears/Nose/Throat lips/teeth/gingiva Overall: benign lips 07/18/2017 None Full Exam - General 1994 Ears/Nose/Throat lips/teeth/gingiva Overall: normal dentition 07/18/2017 None Full Exam - General 1994 Ears/Nose/Throat oral cavity/pharynx/larynx Overall: oral mucosa clear 07/18/2017 None Full Exam - General 1994 Ears/Nose/Throat oral cavity/pharynx/larynx Overall: oropharyngeal mucosa clear 07/18/2017 None Full Exam - General 1994 Ears/Nose/Throat oral cavity/pharynx/larynx Overall: hypopharynx benign 07/18/2017 None Full Exam - General 1994 Ears/Nose/Throat oral cavity/pharynx/larynx Overall: no masses 07/18/2017 None Full Exam - General 1994 Respiratory auscultation Overall: breath sounds clear bilaterally 07/18/2017 None Full Exam - General 1994 Respiratory respiratory effort/rhythm Overall: no retractions 07/18/2017 None Full Exam - General 1994 Respiratory respiratory effort/rhythm Overall: normal rate 07/18/2017 None Full Exam - General 1994 Cardiovascular extremities Overall: no clubbing 07/18/2017 None Full Exam - General 1994 Cardiovascular auscultation of heart Overall: regular rate 07/18/2017 None Full Exam - General 1994 Cardiovascular auscultation of heart Overall: normal heart sounds 07/18/2017 None Full Exam - General 1994 Abdomen abdominal exam Overall: no tenderness 07/18/2017 None Full Exam - General 1994 Abdomen abdominal exam Overall: normal bowel sounds 07/18/2017 None Full Exam - General 1994 Lymphatic neck nodes Overall: anterior cervical chain benign 07/18/2017 None Full Exam - General 1994 Lymphatic neck nodes Overall: posterior cervical chain benign 07/18/2017 None Full Exam - General 1994 Musculoskeletal spine, ribs and pelvis Overall: spine benign 07/18/2017 None Full Exam - General 1994 Musculoskeletal spine, ribs and pelvis Overall: sacroiliac joint benign 07/18/2017 None Full Exam - General 1994 Musculoskeletal spine, ribs and pelvis Overall: good posture 07/18/2017 None Full Exam - General 1994 Musculoskeletal head and neck Overall: head atraumatic 07/18/2017 None Full Exam - General 1994 Musculoskeletal head and neck Overall: cervical spine benign 07/18/2017 None Full Exam - General 1994 Neurologic deep tendon reflexes Overall: deep tendon reflexes intact 07/18/2017 None Full Exam - General 1994 Neurologic cranial nerves Overall: crainial nerves 2 - 12 grossly intact 07/18/2017 None Full Exam - General 1994 Psychiatric orientation/consciousness Overall: oriented to person, place and time 07/18/2017 None Full Exam - General 1994 Psychiatric mood and affect Overall: normal mood and affect 07/18/2017 None Full Exam - General 1994 Integument inspection of skin Rash/Lesions: surgical site 07/18/2017 on abdomen Full Exam - General 1994 Constitutional general appearance Development: well developed 03/16/2017 None Full Exam - General 1994 Constitutional general appearance Development: appears stated age 0903/16/2017 None Full Exam - General 1994 Constitutional general appearance Hygiene/Attention to Grooming: good hygiene 03/16/2017 None Full Exam - General 1994 Eyes conjunctiva/eyelids Overall: conjunctiva clear 03/16/2017 None Full Exam - General 1994 Eyes conjunctiva/eyelids Overall: cornea clear 03/16/2017 None Full Exam - General 1994 Eyes conjunctiva/eyelids Overall: eyelids normal 03/16/2017 None Full Exam - General 1994 Eyes pupils and irises Overall: pupils equal, round, reactive to light and accomodation 03/16/2017 None Full Exam - General 1994 Ears/Nose/Throat otoscopic exam Overall: external auditory canals clear 03/16/2017 None Full Exam - General 1994 Ears/Nose/Throat otoscopic exam Overall: tympanic membranes clear 03/16/2017 None Full Exam - General 1994 Ears/Nose/Throat lips/teeth/gingiva Overall: benign lips 03/16/2017 None Full Exam - General 1995 Ears/Nose/Throat lips/teeth/gingiva Overall: normal dentition 03/16/2017 None Full Exam - General 1994 Ears/Nose/Throat oral cavity/pharynx/larynx Overall: oral mucosa clear 03/16/2017 None Full Exam - General 1995 Ears/Nose/Throat oral cavity/pharynx/larynx Overall: oropharyngeal mucosa clear 03/16/2017 None Full Exam - General 1995 Ears/Nose/Throat oral cavity/pharynx/larynx Overall: hypopharynx benign 03/16/2017 None Full Exam - General 1994 Ears/Nose/Throat oral cavity/pharynx/larynx Overall: no masses 03/16/2017 None Full Exam - General 1994 Respiratory auscultation Overall: breath sounds clear bilaterally 03/16/2017 None Full Exam - General 1994 Respiratory respiratory effort/rhythm Overall: no retractions 03/16/2017 None Full Exam - General 1994 Respiratory respiratory effort/rhythm Overall: normal rate 03/16/2017 None Full Exam - General 1994 Cardiovascular extremities Overall: no clubbing 03/16/2017 None Full Exam - General 1994 Cardiovascular auscultation of heart Overall: regular rate 03/16/2017 None Full Exam - General 1994 Cardiovascular auscultation of heart Overall: normal heart sounds 03/16/2017 None Full Exam - General 1994 Abdomen abdominal exam Overall: no tenderness 03/16/2017 None Full Exam - General 1994 Abdomen abdominal exam Overall: normal bowel sounds 03/16/2017 None Full Exam - General 1994 Lymphatic neck nodes Overall: anterior cervical chain benign 03/16/2017 None Full Exam - General 1994 Lymphatic neck nodes Overall: posterior cervical chain benign 03/16/2017 None Full Exam - General 1994 Musculoskeletal spine, ribs and pelvis Overall: spine benign 03/16/2017 None Full Exam - General 1994 Musculoskeletal spine, ribs and pelvis Overall: sacroiliac joint benign 03/16/2017 None Full Exam - General 1994 Musculoskeletal spine, ribs and pelvis Overall: good posture 03/16/2017 None Full Exam - General 1994 Musculoskeletal head and neck Overall: head atraumatic 03/16/2017 None Full Exam - General 1994 Musculoskeletal head and neck Overall: cervical spine benign 03/16/2017 None Full Exam - General 1994 Integument inspection of skin Overall: few scattered moles, no gross abnormalities 03/16/2017 None Full Exam - General 1994 Neurologic deep tendon reflexes Overall: deep tendon reflexes intact 03/16/2017 None Full Exam - General 1994 Neurologic cranial nerves Overall: crainial nerves 2 - 12 grossly intact 03/16/2017 None Full Exam - General 1994 Psychiatric orientation/consciousness Overall: oriented to person, place and time 03/16/2017 None Full Exam - General 1994 Psychiatric mood and affect Overall: normal mood and affect 03/16/2017 None Full Exam - General 1994 Eyes conjunctiva/eyelids Overall: conjunctiva clear 11/11/2016 None Full Exam - General 1994 Eyes conjunctiva/eyelids Overall: eyelids normal 11/11/2016 None Full Exam - General 1994 Ears/Nose/Throat lips/teeth/gingiva Overall: benign lips 11/11/2016 None Full Exam - General 1994 Ears/Nose/Throat oral cavity/pharynx/larynx Overall: oral mucosa clear 11/11/2016 None Full Exam - General 1994 Ears/Nose/Throat oral cavity/pharynx/larynx Overall: oropharyngeal mucosa clear 11/11/2016 None Full Exam - General 1994 Ears/Nose/Throat oral cavity/pharynx/larynx Overall: no masses 11/11/2016 None Full Exam - General 1994 Respiratory auscultation Overall: breath sounds clear bilaterally 11/11/2016 None Full Exam - General 1994 Respiratory respiratory effort/rhythm Overall: no retractions 11/11/2016 None Full Exam - General 1994 Respiratory respiratory effort/rhythm Overall: normal rate 11/11/2016 None Full Exam - General 1994 Cardiovascular auscultation of heart Overall: regular rate 11/11/2016 None Full Exam - General 1994 Cardiovascular auscultation of heart Overall: normal heart sounds 11/11/2016 None Full Exam - General 1994 Musculoskeletal spine, ribs and pelvis Overall: good posture 11/11/2016 None Full Exam - General 1994 Musculoskeletal head and neck Overall: head atraumatic 11/11/2016 None Full Exam - General 1994 Neurologic cranial nerves Overall: crainial nerves 2 - 12 grossly intact 11/11/2016 None Full Exam - General 1994 Psychiatric orientation/consciousness Overall: oriented to person, place and time 11/11/2016 None Full Exam - General 1994 Psychiatric mood and affect Overall: normal mood and affect 11/11/2016 None Full Exam - General 1994 Constitutional general appearance Overall: well developed 11/11/2016 None Full Exam - General 1994 Constitutional general appearance Overall: in no acute distress 11/11/2016 None Full Exam - General 1994 Constitutional general appearance Overall: well nourished 11/11/2016 None Full Exam - General 1994 Psychiatric appearance Overall: well-groomed, good eye contact 11/11/2016 None Full Exam - General 1994 Constitutional general appearance Development: well developed 11/10/2016 None Full Exam - General 1994 Constitutional general appearance Development: appears stated age 0511/10/2016 None Full Exam - General 1994 Constitutional general appearance Hygiene/Attention to Grooming: good hygiene 11/10/2016 None Full Exam - General 1994 Eyes conjunctiva/eyelids Overall: conjunctiva clear 11/10/2016 None Full Exam - General 1994 Eyes conjunctiva/eyelids Overall: cornea clear 11/10/2016 None Full Exam - General 1994 Eyes conjunctiva/eyelids Overall: eyelids normal 11/10/2016 None Full Exam - General 1994 Eyes pupils and irises Overall: pupils equal, round, reactive to light and accomodation 11/10/2016 None Full Exam - General 1994 Ears/Nose/Throat otoscopic exam Overall: external auditory canals clear 11/10/2016 None Full Exam - General 1994 Ears/Nose/Throat otoscopic exam Overall: tympanic membranes clear 11/10/2016 None Full Exam - General 1994 Ears/Nose/Throat lips/teeth/gingiva Overall: benign lips 11/10/2016 None Full Exam - General 1994 Ears/Nose/Throat lips/teeth/gingiva Overall: normal dentition 11/10/2016 None Full Exam - General 1994 Ears/Nose/Throat oral cavity/pharynx/larynx Overall: oral mucosa clear 11/10/2016 None Full Exam - General 1994 Ears/Nose/Throat oral cavity/pharynx/larynx Overall: oropharyngeal mucosa clear 11/10/2016 None Full Exam - General 1994 Ears/Nose/Throat oral cavity/pharynx/larynx Overall: hypopharynx benign 11/10/2016 None Full Exam - General 1994 Ears/Nose/Throat oral cavity/pharynx/larynx Overall: no masses 11/10/2016 None Full Exam - General 1994 Respiratory auscultation Overall: breath sounds clear bilaterally 11/10/2016 None Full Exam - General 1994 Respiratory respiratory effort/rhythm Overall: no retractions 11/10/2016 None Full Exam - General 1994 Respiratory respiratory effort/rhythm Overall: normal rate 11/10/2016 None Full Exam - General 1994 Cardiovascular extremities Overall: no clubbing 11/10/2016 None Full Exam - General 1994 Cardiovascular auscultation of heart Overall: regular rate 11/10/2016 None Full Exam - General 1994 Cardiovascular auscultation of heart Overall: normal heart sounds 11/10/2016 None Full Exam - General 1994 Abdomen abdominal exam Overall: no tenderness 11/10/2016 None Full Exam - General 1994 Abdomen abdominal exam Overall: normal bowel sounds 11/10/2016 None Full Exam - General 1994 Lymphatic neck nodes Overall: anterior cervical chain benign 11/10/2016 None Full Exam - General 1994 Lymphatic neck nodes Overall: posterior cervical chain benign 11/10/2016 None Full Exam - General 1994 Musculoskeletal spine, ribs and pelvis Overall: spine benign 11/10/2016 None Full Exam - General 1994 Musculoskeletal spine, ribs and pelvis Overall: sacroiliac joint benign 11/10/2016 None Full Exam - General 1994 Musculoskeletal spine, ribs and pelvis Overall: good posture 11/10/2016 None Full Exam - General 1994 Musculoskeletal head and neck Overall: head atraumatic 11/10/2016 None Full Exam - General 1994 Musculoskeletal head and neck Overall: cervical spine benign 11/10/2016 None Full Exam - General 1994 Integument inspection of skin Overall: few scattered moles, no gross abnormalities 11/10/2016 None Full Exam - General 1994 Neurologic deep tendon reflexes Overall: deep tendon reflexes intact 11/10/2016 None Full Exam - General 1994 Neurologic cranial nerves Overall: crainial nerves 2 - 12 grossly intact 11/10/2016 None Full Exam - General 1994 Psychiatric orientation/consciousness Overall: oriented to person, place and time 11/10/2016 None Full Exam - General 1994 Psychiatric mood and affect Overall: normal mood and affect 11/10/2016 None Full Exam - General 1994 Constitutional general appearance Development: well developed 08/11/2016 None Full Exam - General 1994 Constitutional general appearance Development: appears stated age 0208/11/2016 None Full Exam - General 1994 Constitutional general appearance Hygiene/Attention to Grooming: good hygiene 08/11/2016 None Full Exam - General 1994 Eyes conjunctiva/eyelids Overall: conjunctiva clear 08/11/2016 None Full Exam - General 1994 Eyes conjunctiva/eyelids Overall: cornea clear 08/11/2016 None Full Exam - General 1994 Eyes conjunctiva/eyelids Overall: eyelids normal 08/11/2016 None Full Exam - General 1994 Eyes pupils and irises Overall: pupils equal, round, reactive to light and accomodation 08/11/2016 None Full Exam - General 1994 Ears/Nose/Throat otoscopic exam Overall: external auditory canals clear 08/11/2016 None Full Exam - General 1994 Ears/Nose/Throat otoscopic exam Overall: tympanic membranes clear 08/11/2016 None Full Exam - General 1994 Ears/Nose/Throat lips/teeth/gingiva Overall: benign lips 08/11/2016 None Full Exam - General 1994 Ears/Nose/Throat lips/teeth/gingiva Overall: normal dentition 08/11/2016 None Full Exam - General 1994 Ears/Nose/Throat oral cavity/pharynx/larynx Overall: oral mucosa clear 08/11/2016 None Full Exam - General 1994 Ears/Nose/Throat oral cavity/pharynx/larynx Overall: oropharyngeal mucosa clear 08/11/2016 None Full Exam - General 1994 Ears/Nose/Throat oral cavity/pharynx/larynx Overall: hypopharynx benign 08/11/2016 None Full Exam - General 1994 Ears/Nose/Throat oral cavity/pharynx/larynx Overall: no masses 08/11/2016 None Full Exam - General 1994 Respiratory auscultation Overall: breath sounds clear bilaterally 08/11/2016 None Full Exam - General 1994 Respiratory respiratory effort/rhythm Overall: no retractions 08/11/2016 None Full Exam - General 1994 Respiratory respiratory effort/rhythm Overall: normal rate 08/11/2016 None Full Exam - General 1994 Cardiovascular extremities Overall: no clubbing 08/11/2016 None Full Exam - General 1994 Cardiovascular auscultation of heart Overall: regular rate 08/11/2016 None Full Exam - General 1994 Cardiovascular auscultation of heart Overall: normal heart sounds 08/11/2016 None Full Exam - General 1994 Abdomen abdominal exam Overall: no tenderness 08/11/2016 None Full Exam - General 1994 Abdomen abdominal exam Overall: normal bowel sounds 08/11/2016 None Full Exam - General 1994 Lymphatic neck nodes Overall: anterior cervical chain benign 08/11/2016 None Full Exam - General 1994 Lymphatic neck nodes Overall: posterior cervical chain benign 08/11/2016 None Full Exam - General 1994 Musculoskeletal spine, ribs and pelvis Overall: spine benign 08/11/2016 None Full Exam - General 1994 Musculoskeletal spine, ribs and pelvis Overall: sacroiliac joint benign 08/11/2016 None Full Exam - General 1994 Musculoskeletal spine, ribs and pelvis Overall: good posture 08/11/2016 None Full Exam - General 1994 Musculoskeletal head and neck Overall: head atraumatic 08/11/2016 None Full Exam - General 1994 Musculoskeletal head and neck Overall: cervical spine benign 08/11/2016 None Full Exam - General 1994 Integument inspection of skin Overall: few scattered moles, no gross abnormalities 08/11/2016 None Full Exam - General 1994 Neurologic deep tendon reflexes Overall: deep tendon reflexes intact 08/11/2016 None Full Exam - General 1994 Neurologic cranial nerves Overall: crainial nerves 2 - 12 grossly intact 08/11/2016 None Full Exam - General 1994 Psychiatric orientation/consciousness Overall: oriented to person, place and time 08/11/2016 None Full Exam - General 1994 Psychiatric mood and affect Overall: normal mood and affect 08/11/2016 None Full Exam - General 1994 Eyes conjunctiva/eyelids Overall: conjunctiva clear 05/12/2016 None Full Exam - General 1994 Eyes conjunctiva/eyelids Overall: cornea clear 05/12/2016 None Full Exam - General 1994 Eyes conjunctiva/eyelids Overall: eyelids normal 05/12/2016 None Full Exam - General 1994 Eyes pupils and irises Overall: pupils equal, round, reactive to light and accomodation 05/12/2016 None Full Exam - General 1994 Ears/Nose/Throat otoscopic exam Overall: external auditory canals clear 05/12/2016 None Full Exam - General 1994 Ears/Nose/Throat otoscopic exam Overall: tympanic membranes clear 05/12/2016 None Full Exam - General 1994 Ears/Nose/Throat lips/teeth/gingiva Overall: benign lips 05/12/2016 None Full Exam - General 1994 Ears/Nose/Throat lips/teeth/gingiva Overall: normal dentition 05/12/2016 None Full Exam - General 1994 Ears/Nose/Throat oral cavity/pharynx/larynx Overall: oral mucosa clear 05/12/2016 None Full Exam - General 1994 Ears/Nose/Throat oral cavity/pharynx/larynx Overall: oropharyngeal mucosa clear 05/12/2016 None Full Exam - General 1994 Ears/Nose/Throat oral cavity/pharynx/larynx Overall: no masses 05/12/2016 None Full Exam - General 1994 Respiratory auscultation Overall: breath sounds clear bilaterally 05/12/2016 None Full Exam - General 1994 Respiratory respiratory effort/rhythm Overall: no retractions 05/12/2016 None Full Exam - General 1994 Respiratory respiratory effort/rhythm Overall: normal rate 05/12/2016 None Full Exam - General 1994 Cardiovascular extremities Overall: no clubbing 05/12/2016 None Full Exam - General 1994 Cardiovascular auscultation of heart Overall: regular rate 05/12/2016 None Full Exam - General 1994 Cardiovascular auscultation of heart Overall: normal heart sounds 05/12/2016 None Full Exam - General 1994 Musculoskeletal spine, ribs and pelvis Overall: good posture 05/12/2016 None Full Exam - General 1994 Musculoskeletal head and neck Overall: head atraumatic 05/12/2016 None Full Exam - General 1994 Integument inspection of skin Overall: few scattered moles, no gross abnormalities 05/12/2016 None Full Exam - General 1994 Neurologic cranial nerves Overall: crainial nerves 2 - 12 grossly intact 05/12/2016 None Full Exam - General 1994 Psychiatric orientation/consciousness Overall: oriented to person, place and time 05/12/2016 None Full Exam - General 1994 Psychiatric mood and affect Overall: normal mood and affect 05/12/2016 None Full Exam - General 1994 Constitutional general appearance Overall: well developed 05/12/2016 None Full Exam - General 1994 Constitutional general appearance Overall: in no acute distress 05/12/2016 None Full Exam - General 1994 Constitutional general appearance Overall: well nourished 05/12/2016 None Full Exam - General 1994 Psychiatric appearance Overall: well-groomed, good eye contact 05/12/2016 None Full Exam - General 1994 Constitutional general appearance Development: well developed 01/14/2016 None Full Exam - General 1994 Constitutional general appearance Development: appears stated age 0701/14/2016 None Full Exam - General 1994 Constitutional general appearance Hygiene/Attention to Grooming: good hygiene 01/14/2016 None Full Exam - General 1994 Eyes conjunctiva/eyelids Overall: conjunctiva clear 01/14/2016 None Full Exam - General 1994 Eyes conjunctiva/eyelids Overall: cornea clear 01/14/2016 None Full Exam - General 1994 Eyes conjunctiva/eyelids Overall: eyelids normal 01/14/2016 None Full Exam - General 1994 Eyes pupils and irises Overall: pupils equal, round, reactive to light and accomodation 01/14/2016 None Full Exam - General 1994 Ears/Nose/Throat otoscopic exam Overall: external auditory canals clear 01/14/2016 None Full Exam - General 1994 Ears/Nose/Throat otoscopic exam Overall: tympanic membranes clear 01/14/2016 None Full Exam - General 1994 Ears/Nose/Throat lips/teeth/gingiva Overall: benign lips 01/14/2016 None Full Exam - General 1994 Ears/Nose/Throat lips/teeth/gingiva Overall: normal dentition 01/14/2016 None Full Exam - General 1994 Ears/Nose/Throat oral cavity/pharynx/larynx Overall: oral mucosa clear 01/14/2016 None Full Exam - General 1994 Ears/Nose/Throat oral cavity/pharynx/larynx Overall: oropharyngeal mucosa clear 01/14/2016 None Full Exam - General 1994 Ears/Nose/Throat oral cavity/pharynx/larynx Overall: hypopharynx benign 01/14/2016 None Full Exam - General 1994 Ears/Nose/Throat oral cavity/pharynx/larynx Overall: no masses 01/14/2016 None Full Exam - General 1994 Respiratory auscultation Overall: breath sounds clear bilaterally 01/14/2016 None Full Exam - General 1994 Respiratory respiratory effort/rhythm Overall: no retractions 01/14/2016 None Full Exam - General 1994 Respiratory respiratory effort/rhythm Overall: normal rate 01/14/2016 None Full Exam - General 1994 Cardiovascular extremities Overall: no clubbing 01/14/2016 None Full Exam - General 1994 Cardiovascular auscultation of heart Overall: regular rate 01/14/2016 None Full Exam - General 1994 Cardiovascular auscultation of heart Overall: normal heart sounds 01/14/2016 None Full Exam - General 1994 Abdomen abdominal exam Overall: no tenderness 01/14/2016 None Full Exam - General 1994 Abdomen abdominal exam Overall: normal bowel sounds 01/14/2016 None Full Exam - General 1994 Lymphatic neck nodes Overall: anterior cervical chain benign 01/14/2016 None Full Exam - General 1994 Lymphatic neck nodes Overall: posterior cervical chain benign 01/14/2016 None Full Exam - General 1994 Musculoskeletal spine, ribs and pelvis Overall: spine benign 01/14/2016 None Full Exam - General 1994 Musculoskeletal spine, ribs and pelvis Overall: sacroiliac joint benign 01/14/2016 None Full Exam - General 1994 Musculoskeletal spine, ribs and pelvis Overall: good posture 01/14/2016 None Full Exam - General 1994 Musculoskeletal head and neck Overall: head atraumatic 01/14/2016 None Full Exam - General 1994 Musculoskeletal head and neck Overall: cervical spine benign 01/14/2016 None Full Exam - General 1994 Integument inspection of skin Overall: few scattered moles, no gross abnormalities 01/14/2016 None Full Exam - General 1994 Neurologic deep tendon reflexes Overall: deep tendon reflexes intact 01/14/2016 None Full Exam - General 1994 Neurologic cranial nerves Overall: crainial nerves 2 - 12 grossly intact 01/14/2016 None Full Exam - General 1994 Psychiatric orientation/consciousness Overall: oriented to person, place and time 01/14/2016 None Full Exam - General 1994 Psychiatric mood and affect Overall: normal mood and affect 01/14/2016 None Full Exam - General 1994 Constitutional general appearance Development: well developed 09/16/2015 None Full Exam - General 1994 Constitutional general appearance Development: appears stated age 0309/16/2015 None Full Exam - General 1994 Constitutional general appearance Hygiene/Attention to Grooming: good hygiene 09/16/2015 None Full Exam - General 1994 Eyes conjunctiva/eyelids Overall: conjunctiva clear 09/16/2015 None Full Exam - General 1994 Eyes conjunctiva/eyelids Overall: cornea clear 09/16/2015 None Full Exam - General 1994 Eyes conjunctiva/eyelids Overall: eyelids normal 09/16/2015 None Full Exam - General 1994 Eyes pupils and irises Overall: pupils equal, round, reactive to light and accomodation 09/16/2015 None Full Exam - General 1994 Ears/Nose/Throat otoscopic exam Overall: external auditory canals clear 09/16/2015 None Full Exam - General 1994 Ears/Nose/Throat otoscopic exam Overall: tympanic membranes clear 09/16/2015 None Full Exam - General 1994 Ears/Nose/Throat lips/teeth/gingiva Overall: benign lips 09/16/2015 None Full Exam - General 1994 Ears/Nose/Throat lips/teeth/gingiva Overall: normal dentition 09/16/2015 None Full Exam - General 1994 Ears/Nose/Throat oral cavity/pharynx/larynx Overall: oral mucosa clear 09/16/2015 None Full Exam - General 1994 Ears/Nose/Throat oral cavity/pharynx/larynx Overall: oropharyngeal mucosa clear 09/16/2015 None Full Exam - General 1994 Ears/Nose/Throat oral cavity/pharynx/larynx Overall: hypopharynx benign 09/16/2015 None Full Exam - General 1994 Ears/Nose/Throat oral cavity/pharynx/larynx Overall: no masses 09/16/2015 None Full Exam - General 1994 Respiratory auscultation Overall: breath sounds clear bilaterally 09/16/2015 None Full Exam - General 1994 Respiratory respiratory effort/rhythm Overall: no retractions 09/16/2015 None Full Exam - General 1994 Respiratory respiratory effort/rhythm Overall: normal rate 09/16/2015 None Full Exam - General 1994 Cardiovascular extremities Overall: no clubbing 09/16/2015 None Full Exam - General 1994 Cardiovascular auscultation of heart Overall: regular rate 09/16/2015 None Full Exam - General 1994 Cardiovascular auscultation of heart Overall: normal heart sounds 09/16/2015 None Full Exam - General 1994 Abdomen abdominal exam Overall: no tenderness 09/16/2015 None Full Exam - General 1994 Abdomen abdominal exam Overall: normal bowel sounds 09/16/2015 None Full Exam - General 1994 Lymphatic neck nodes Overall: anterior cervical chain benign 09/16/2015 None Full Exam - General 1994 Lymphatic neck nodes Overall: posterior cervical chain benign 09/16/2015 None Full Exam - General 1994 Musculoskeletal spine, ribs and pelvis Overall: spine benign 09/16/2015 None Full Exam - General 1994 Musculoskeletal spine, ribs and pelvis Overall: sacroiliac joint benign 09/16/2015 None Full Exam - General 1994 Musculoskeletal spine, ribs and pelvis Overall: good posture 09/16/2015 None Full Exam - General 1994 Musculoskeletal head and neck Overall: head atraumatic 09/16/2015 None Full Exam - General 1994 Musculoskeletal head and neck Overall: cervical spine benign 09/16/2015 None Full Exam - General 1994 Integument inspection of skin Overall: few scattered moles, no gross abnormalities 09/16/2015 None Full Exam - General 1994 Neurologic deep tendon reflexes Overall: deep tendon reflexes intact 09/16/2015 None Full Exam - General 1994 Neurologic cranial nerves Overall: crainial nerves 2 - 12 grossly intact 09/16/2015 None Full Exam - General 1994 Psychiatric orientation/consciousness Overall: oriented to person, place and time 09/16/2015 None Full Exam - General 1994 Psychiatric mood and affect Overall: normal mood and affect 09/16/2015 None Full Exam - General 1994 Constitutional general appearance Development: well developed 07/20/2015 None Full Exam - General 1994 Constitutional general appearance Development: appears stated age 0107/20/2015 None Full Exam - General 1994 Constitutional general appearance Hygiene/Attention to Grooming: good hygiene 07/20/2015 None Full Exam - General 1994 Eyes conjunctiva/eyelids Overall: conjunctiva clear 07/20/2015 None Full Exam - General 1994 Eyes conjunctiva/eyelids Overall: cornea clear 07/20/2015 None Full Exam - General 1994 Eyes conjunctiva/eyelids Overall: eyelids normal 07/20/2015 None Full Exam - General 1994 Eyes pupils and irises Overall: pupils equal, round, reactive to light and accomodation 07/20/2015 None Full Exam - General 1994 Ears/Nose/Throat otoscopic exam Overall: external auditory canals clear 07/20/2015 None Full Exam - General 1994 Ears/Nose/Throat otoscopic exam Overall: tympanic membranes clear 07/20/2015 None Full Exam - General 1994 Ears/Nose/Throat lips/teeth/gingiva Overall: benign lips 07/20/2015 None Full Exam - General 1994 Ears/Nose/Throat lips/teeth/gingiva Overall: normal dentition 07/20/2015 None Full Exam - General 1994 Ears/Nose/Throat oral cavity/pharynx/larynx Overall: oral mucosa clear 07/20/2015 None Full Exam - General 1994 Ears/Nose/Throat oral cavity/pharynx/larynx Overall: oropharyngeal mucosa clear 07/20/2015 None Full Exam - General 1994 Ears/Nose/Throat oral cavity/pharynx/larynx Overall: hypopharynx benign 07/20/2015 None Full Exam - General 1994 Ears/Nose/Throat oral cavity/pharynx/larynx Overall: no masses 07/20/2015 None Full Exam - General 1994 Respiratory auscultation Overall: breath sounds clear bilaterally 07/20/2015 None Full Exam - General 1994 Respiratory respiratory effort/rhythm Overall: no retractions 07/20/2015 None Full Exam - General 1994 Respiratory respiratory effort/rhythm Overall: normal rate 07/20/2015 None Full Exam - General 1994 Cardiovascular extremities Overall: no clubbing 07/20/2015 None Full Exam - General 1994 Cardiovascular auscultation of heart Overall: regular rate 07/20/2015 None Full Exam - General 1994 Cardiovascular auscultation of heart Overall: normal heart sounds 07/20/2015 None Full Exam - General 1994 Abdomen abdominal exam Overall: no tenderness 07/20/2015 None Full Exam - General 1994 Abdomen abdominal exam Overall: normal bowel sounds 07/20/2015 None Full Exam - General 1994 Lymphatic neck nodes Overall: anterior cervical chain benign 07/20/2015 None Full Exam - General 1994 Lymphatic neck nodes Overall: posterior cervical chain benign 07/20/2015 None Full Exam - General 1994 Musculoskeletal spine, ribs and pelvis Overall: spine benign 07/20/2015 None Full Exam - General 1994 Musculoskeletal spine, ribs and pelvis Overall: sacroiliac joint benign 07/20/2015 None Full Exam - General 1994 Musculoskeletal spine, ribs and pelvis Overall: good posture 07/20/2015 None Full Exam - General 1994 Musculoskeletal head and neck Overall: head atraumatic 07/20/2015 None Full Exam - General 1994 Musculoskeletal head and neck Overall: cervical spine benign 07/20/2015 None Full Exam - General 1994 Integument inspection of skin Overall: few scattered moles, no gross abnormalities 07/20/2015 None Full Exam - General 1994 Neurologic deep tendon reflexes Overall: deep tendon reflexes intact 07/20/2015 None Full Exam - General 1994 Neurologic cranial nerves Overall: crainial nerves 2 - 12 grossly intact 07/20/2015 None Full Exam - General 1994 Psychiatric orientation/consciousness Overall: oriented to person, place and time 07/20/2015 None Full Exam - General 1994 Psychiatric mood and affect Overall: normal mood and affect 07/20/2015 None Full Exam - General 1994 Constitutional general appearance Development: well developed 05/12/2015 None Full Exam - General 1994 Constitutional general appearance Development: appears stated age 1105/12/2015 None Full Exam - General 1994 Constitutional general appearance Hygiene/Attention to Grooming: good hygiene 05/12/2015 None Full Exam - General 1994 Eyes conjunctiva/eyelids Overall: conjunctiva clear 05/12/2015 None Full Exam - General 1994 Eyes conjunctiva/eyelids Overall: cornea clear 05/12/2015 None Full Exam - General 1994 Eyes conjunctiva/eyelids Overall: eyelids normal 05/12/2015 None Full Exam - General 1994 Eyes pupils and irises Overall: pupils equal, round, reactive to light and accomodation 05/12/2015 None Full Exam - General 1994 Ears/Nose/Throat otoscopic exam Overall: external auditory canals clear 05/12/2015 None Full Exam - General 1994 Ears/Nose/Throat otoscopic exam Overall: tympanic membranes clear 05/12/2015 None Full Exam - General 1994 Ears/Nose/Throat lips/teeth/gingiva Overall: benign lips 05/12/2015 None Full Exam - General 1994 Ears/Nose/Throat lips/teeth/gingiva Overall: normal dentition 05/12/2015 None Full Exam - General 1994 Ears/Nose/Throat oral cavity/pharynx/larynx Overall: oral mucosa clear 05/12/2015 None Full Exam - General 1995 Ears/Nose/Throat oral cavity/pharynx/larynx Overall: oropharyngeal mucosa clear 05/12/2015 None Full Exam - General 1994 Ears/Nose/Throat oral cavity/pharynx/larynx Overall: hypopharynx benign 05/12/2015 None Full Exam - General 1994 Ears/Nose/Throat oral cavity/pharynx/larynx Overall: no masses 05/12/2015 None Full Exam - General 1994 Respiratory auscultation Overall: breath sounds clear bilaterally 05/12/2015 None Full Exam - General 1994 Respiratory respiratory effort/rhythm Overall: no retractions 05/12/2015 None Full Exam - General 1994 Respiratory respiratory effort/rhythm Overall: normal rate 05/12/2015 None Full Exam - General 1994 Cardiovascular extremities Overall: no clubbing 05/12/2015 None Full Exam - General 1994 Cardiovascular auscultation of heart Overall: regular rate 05/12/2015 None Full Exam - General 1994 Cardiovascular auscultation of heart Overall: normal heart sounds 05/12/2015 None Full Exam - General 1994 Abdomen abdominal exam Overall: no tenderness 05/12/2015 None Full Exam - General 1994 Abdomen abdominal exam Overall: normal bowel sounds 05/12/2015 None Full Exam - General 1994 Lymphatic neck nodes Overall: anterior cervical chain benign 05/12/2015 None Full Exam - General 1994 Lymphatic neck nodes Overall: posterior cervical chain benign 05/12/2015 None Full Exam - General 1994 Musculoskeletal spine, ribs and pelvis Overall: spine benign 05/12/2015 None Full Exam - General 1994 Musculoskeletal spine, ribs and pelvis Overall: sacroiliac joint benign 05/12/2015 None Full Exam - General 1994 Musculoskeletal spine, ribs and pelvis Overall: good posture 05/12/2015 None Full Exam - General 1994 Musculoskeletal head and neck Overall: head atraumatic 05/12/2015 None Full Exam - General 1994 Musculoskeletal head and neck Overall: cervical spine benign 05/12/2015 None Full Exam - General 1994 Integument inspection of skin Overall: few scattered moles, no gross abnormalities 05/12/2015 None Full Exam - General 1994 Neurologic deep tendon reflexes Overall: deep tendon reflexes intact 05/12/2015 None Full Exam - General 1994 Neurologic cranial nerves Overall: crainial nerves 2 - 12 grossly intact 05/12/2015 None Full Exam - General 1994 Psychiatric orientation/consciousness Overall: oriented to person, place and time 05/12/2015 None Full Exam - General 1994 Psychiatric mood and affect Overall: normal mood and affect 05/12/2015 None Full Exam - General 1994 Constitutional general appearance Development: well developed 03/18/2015 None Full Exam - General 1994 Constitutional general appearance Development: appears stated age 0903/18/2015 None Full Exam - General 1994 Constitutional general appearance Hygiene/Attention to Grooming: good hygiene 03/18/2015 None Full Exam - General 1994 Eyes conjunctiva/eyelids Overall: conjunctiva clear 03/18/2015 None Full Exam - General 1994 Eyes conjunctiva/eyelids Overall: cornea clear 03/18/2015 None Full Exam - General 1994 Eyes conjunctiva/eyelids Overall: eyelids normal 03/18/2015 None Full Exam - General 1994 Eyes pupils and irises Overall: pupils equal, round, reactive to light and accomodation 03/18/2015 None Full Exam - General 1994 Ears/Nose/Throat otoscopic exam Overall: external auditory canals clear 03/18/2015 None Full Exam - General 1994 Ears/Nose/Throat otoscopic exam Overall: tympanic membranes clear 03/18/2015 None Full Exam - General 1994 Ears/Nose/Throat lips/teeth/gingiva Overall: benign lips 03/18/2015 None Full Exam - General 1995 Ears/Nose/Throat lips/teeth/gingiva Overall: normal dentition 03/18/2015 None Full Exam - General 1994 Ears/Nose/Throat oral cavity/pharynx/larynx Overall: oral mucosa clear 03/18/2015 None Full Exam - General 1995 Ears/Nose/Throat oral cavity/pharynx/larynx Overall: oropharyngeal mucosa clear 03/18/2015 None Full Exam - General 1994 Ears/Nose/Throat oral cavity/pharynx/larynx Overall: hypopharynx benign 03/18/2015 None Full Exam - General 1994 Ears/Nose/Throat oral cavity/pharynx/larynx Overall: no masses 03/18/2015 None Full Exam - General 1994 Respiratory auscultation Overall: breath sounds clear bilaterally 03/18/2015 None Full Exam - General 1994 Respiratory respiratory effort/rhythm Overall: no retractions 03/18/2015 None Full Exam - General 1994 Respiratory respiratory effort/rhythm Overall: normal rate 03/18/2015 None Full Exam - General 1994 Cardiovascular extremities Overall: no clubbing 03/18/2015 None Full Exam - General 1994 Cardiovascular auscultation of heart Overall: regular rate 03/18/2015 None Full Exam - General 1994 Cardiovascular auscultation of heart Overall: normal heart sounds 03/18/2015 None Full Exam - General 1994 Abdomen abdominal exam Overall: no tenderness 03/18/2015 None Full Exam - General 1994 Abdomen abdominal exam Overall: normal bowel sounds 03/18/2015 None Full Exam - General 1994 Lymphatic neck nodes Overall: anterior cervical chain benign 03/18/2015 None Full Exam - General 1994 Lymphatic neck nodes Overall: posterior cervical chain benign 03/18/2015 None Full Exam - General 1994 Musculoskeletal spine, ribs and pelvis Overall: spine benign 03/18/2015 None Full Exam - General 1994 Musculoskeletal spine, ribs and pelvis Overall: sacroiliac joint benign 03/18/2015 None Full Exam - General 1994 Musculoskeletal spine, ribs and pelvis Overall: good posture 03/18/2015 None Full Exam - General 1994 Musculoskeletal head and neck Overall: head atraumatic 03/18/2015 None Full Exam - General 1994 Musculoskeletal head and neck Overall: cervical spine benign 03/18/2015 None Full Exam - General 1994 Integument inspection of skin Overall: few scattered moles, no gross abnormalities 03/18/2015 None Full Exam - General 1994 Neurologic deep tendon reflexes Overall: deep tendon reflexes intact 03/18/2015 None Full Exam - General 1994 Neurologic cranial nerves Overall: crainial nerves 2 - 12 grossly intact 03/18/2015 None Full Exam - General 1994 Psychiatric orientation/consciousness Overall: oriented to person, place and time 03/18/2015 None Full Exam - General 1994 Psychiatric mood and affect Overall: normal mood and affect 03/18/2015 None Full Exam - General 1994 Constitutional general appearance Development: appears stated age 0512/02/2014 None Full Exam - General 1994 Constitutional general appearance Development: well developed 12/02/2014 None Full Exam - General 1994 Constitutional general appearance Hygiene/Attention to Grooming: good hygiene 12/02/2014 None Full Exam - General 1994 Eyes conjunctiva/eyelids Overall: conjunctiva clear 12/02/2014 None Full Exam - General 1994 Eyes conjunctiva/eyelids Overall: cornea clear 12/02/2014 None Full Exam - General 1994 Eyes conjunctiva/eyelids Overall: eyelids normal 12/02/2014 None Full Exam - General 1994 Eyes pupils and irises Overall: pupils equal, round, reactive to light and accomodation 12/02/2014 None Full Exam - General 1994 Ears/Nose/Throat otoscopic exam Overall: external auditory canals clear 12/02/2014 None Full Exam - General 1994 Ears/Nose/Throat otoscopic exam Overall: tympanic membranes clear 12/02/2014 None Full Exam - General 1994 Ears/Nose/Throat lips/teeth/gingiva Overall: benign lips 12/02/2014 None Full Exam - General 1994 Ears/Nose/Throat lips/teeth/gingiva Overall: normal dentition 12/02/2014 None Full Exam - General 1994 Ears/Nose/Throat oral cavity/pharynx/larynx Overall: hypopharynx benign 12/02/2014 None Full Exam - General 1994 Ears/Nose/Throat oral cavity/pharynx/larynx Overall: no masses 12/02/2014 None Full Exam - General 1994 Ears/Nose/Throat oral cavity/pharynx/larynx Overall: oral mucosa clear 12/02/2014 None Full Exam - General 1994 Ears/Nose/Throat oral cavity/pharynx/larynx Overall: oropharyngeal mucosa clear 12/02/2014 None Full Exam - General 1994 Respiratory auscultation Overall: breath sounds clear bilaterally 12/02/2014 None Full Exam - General 1994 Respiratory respiratory effort/rhythm Overall: no retractions 12/02/2014 None Full Exam - General 1994 Respiratory respiratory effort/rhythm Overall: normal rate 12/02/2014 None Full Exam - General 1994 Cardiovascular extremities Overall: no clubbing 12/02/2014 None Full Exam - General 1994 Cardiovascular auscultation of heart Overall: normal heart sounds 12/02/2014 None Full Exam - General 1994 Cardiovascular auscultation of heart Overall: regular rate 12/02/2014 None Full Exam - General 1994 Abdomen abdominal exam Overall: no tenderness 12/02/2014 None Full Exam - General 1994 Abdomen abdominal exam Overall: normal bowel sounds 12/02/2014 None Full Exam - General 1994 Integument inspection of skin Overall: few scattered moles, no gross abnormalities 12/02/2014 None Full Exam - General 1994 Neurologic deep tendon reflexes Overall: deep tendon reflexes intact 12/02/2014 None Full Exam - General 1994 Neurologic cranial nerves Overall: crainial nerves 2 - 12 grossly intact 12/02/2014 None Full Exam - General 1994 Psychiatric orientation/consciousness Overall: oriented to person, place and time 12/02/2014 None Full Exam - General 1994 Psychiatric mood and affect Overall: normal mood and affect 12/02/2014 None Full Exam - General 1994 Lymphatic neck nodes Overall: anterior cervical chain benign 12/02/2014 None Full Exam - General 1994 Lymphatic neck nodes Overall: posterior cervical chain benign 12/02/2014 None Full Exam - General 1994 Musculoskeletal head and neck Overall: cervical spine benign 12/02/2014 None Full Exam - General 1994 Musculoskeletal head and neck Overall: head atraumatic 12/02/2014 None Full Exam - General 1994 Musculoskeletal spine, ribs and pelvis Overall: good posture 12/02/2014 None Full Exam - General 1994 Musculoskeletal spine, ribs and pelvis Overall: sacroiliac joint benign 12/02/2014 None Full Exam - General 1994 Musculoskeletal spine, ribs and pelvis Overall: spine benign 12/02/2014 None Procedures Procedure Codes Date PPPS, SUBSEQ VISIT CPT- 4: G0439 11/20/2018 PPPS, SUBSEQ VISIT CPT- 4: G0439 11/16/2017 URINALYSIS NONAUTO W/O SCOPE CPT-4: 00767 03/08/2017 PPPS, SUBSEQ VISIT CPT- 4: G0439 11/11/2016 Vital Signs Date Vital 11/20/2018 Height: Weight: 11/13/2018 Blood Pressure 1: 148/82 Code: 8480-6 BMI: 30.2 Code: 02812-6 Heart Rate 1: 74 bpm Height: 5'2" SpO2: 97% Weight: 165 lbs 06/08/2018 Height: Weight: 05/15/2018 Blood Pressure 1: 120/68 Code: 8480-6 BMI: 30.2 Code: 21935-1 Heart Rate 1: 69 bpm Height: 5'2" SpO2: 96% Weight: 165 lbs 11/16/2017 Height: Weight: 11/13/2017 Blood Pressure 1: 144/74 Code: 8480-6 BMI: 30.2 Code: 25537-7 Heart Rate 1: 76 bpm Height: 5'2" SpO2: 99% Weight: 165 lbs 07/18/2017 Blood Pressure 1: 118/70 Code: 8480-6 BMI: 28.7 Code: 12150-2 Heart Rate 1: 75 bpm Height: 5'2" SpO2: 97% Weight: 157 lbs 03/16/2017 Blood Pressure 1: 128/72 Code: 8480-6 BMI: 29.1 Code: 46573-5 Heart Rate 1: 62 bpm Height: 5'2" SpO2: 98% Weight: 159 lbs 11/11/2016 Blood Pressure 1: 140/78 Code: 8480-6 BMI: 29.1 Code: 25669-0 Heart Rate 1: 64 bpm Height: 5'2" SpO2: 97% Waist Measure (cm): 91 cm Weight: 159 lbs 11/10/2016 Blood Pressure 1: 140/78 Code: 8480-6 BMI: 29.1 Code: 34799-7 Heart Rate 1: 64 bpm Height: 5'2" Weight: 159 lbs 08/29/2016 Blood Pressure 1: 120/56 Code: 8480-6 Heart Rate 1: 68 bpm SpO2: 97% 08/11/2016 Blood Pressure 1: 128/80 Code: 8480-6 BMI: 28.9 Code: 95111-8 Heart Rate 1: 64 bpm Height: 5'2" Weight: 158 lbs 05/12/2016 Blood Pressure 1: 148/62 Code: 8480-6 BMI: 28.2 Code: 08365-7 Heart Rate 1: 97 bpm Height: 5'2" SpO2: 96% Weight: 154 lbs 01/14/2016 Blood Pressure 1: 126/78 Code: 8480-6 BMI: 28.9 Code: 88491-9 Heart Rate 1: 68 bpm Height: 5'2" SpO2: 95% Weight: 158 lbs 09/16/2015 Blood Pressure 1: 138/76 Code: 8480-6 BMI: 29.5 Code: 63680-8 Heart Rate 1: 68 bpm Height: 5'3" SpO2: 97% Weight: 169 lbs 07/20/2015 Blood Pressure 1: 144/60 Code: 8480-6 BMI: 31.0 Code: 45824-4 Heart Rate 1: 81 bpm Height: 5'3" SpO2: 97% Weight: 178 lbs 05/12/2015 Blood Pressure 1: 128/80 Code: 8480-6 BMI: 30.9 Code: 27374-6 Heart Rate 1: 68 bpm Height: 5'3" SpO2: 96% Weight: 177 lbs 03/18/2015 Blood Pressure 1: 134/70 Code: 8480-6 BMI: 31.6 Code: 27219-3 Heart Rate 1: 67 bpm Height: 5'3" SpO2: 96% Weight: 181 lbs 12/02/2014 Blood Pressure 1: 128/82 Code: 8480-6 BMI: 32.1 Code: 64039-3 Heart Rate 1: 84 bpm Height: 5'3" Weight: 184 lbs Functional Status No Functional Status data History of Present Illness Symptom Name Status Result Effective Date Notes Alcohol Use does not drink any alcohol 11/20/2018 None Depression (last 6 months) some of the time 11/20/2018 None Depression or Hopelessness some of the time 11/20/2018 None Describe Your Health very good 11/20/2018 None Exercise Habits exercises 3 days per week 11/20/2018 None Handling Stress usually [place] effectively 11/20/2018 None Interaction with Friends yes 11/20/2018 None Interests & Pleasure some of the time 11/20/2018 None Life Satisfaction satisfied 11/20/2018 None Motor Vehicle Safety always fastens seat belt: y 11/20/2018 None Smoking and Tobacco Use non smoker 11/20/2018 None Social & Emotional Support sometimes 11/20/2018 None Stress some of the time 11/20/2018 None Aspirin Use no 11/20/2018 None Blood Glucose (self reported) desireable (below 100) 11/20/2018 None Blood Pressure (self reported) high (140/90 or higher) 11/20/2018 None Cholesterol (self reported) don't know 11/20/2018 None Hemaglobin A-1C (self reported) desireable (6 or lower) 11/20/2018 None Hours of Sleep 7 11/20/2018 None Nutrition servings of vegetables / fruit per day: 1-2 11/20/2018 None Sun Exposure protects skin when outdoors: n 11/20/2018 None Quality chronic 11/13/2018 None Quality primary hypertension 11/13/2018 None Onset and Resolution ongoing 11/13/2018 None Onset of Symptom during adulthood 11/13/2018 None Blood Pressure Values patient checking blood pressure at home - did not bring in readings 11/13/2018 -Checked occasionally Alleviating Factors medication 11/13/2018 None Exacerbating Factors stress 11/13/2018 None Pertinent Findings Denies dizziness 11/13/2018 None Pertinent Findings Denies dyspnea 11/13/2018 None Pertinent Findings Denies edema 11/13/2018 mildly when she does a lot of sitting Quality chronic 11/13/2018 None Onset and Resolution ongoing 11/13/2018 None Alleviating Factors medication 11/13/2018 None Location in the lung 06/08/2018 None Quality acute 06/08/2018 None Onset and Resolution sudden in onset 06/08/2018 None Pertinent Findings Denies dyspnea 06/08/2018 None hypertension Quality chronic 05/15/2018 None hypertension Quality primary hypertension 05/15/2018 None hypertension Onset and Resolution ongoing 05/15/2018 None hypertension Onset of Symptom during adulthood 05/15/2018 None hypertension Blood Pressure Values patient checking blood pressure at home - did not bring in readings 05/15/2018 -Checked occasionally hypertension Alleviating Factors medication 05/15/2018 None hypertension Exacerbating Factors stress 05/15/2018 None hypertension Pertinent Findings Denies dizziness 05/15/2018 None hypertension Pertinent Findings Denies dyspnea 05/15/2018 None hypertension Pertinent Findings edema 05/15/2018 mildly when she does a lot of sitting hypothyroid Quality chronic 05/15/2018 None hypothyroid Onset and Resolution ongoing 05/15/2018 None hypothyroid Alleviating Factors medication 05/15/2018 None Annual Medicare Wellness Exam Alcohol Use does not drink any alcohol 11/16/2017 None Annual Medicare Wellness Exam Aspirin Use yes 11/16/2017 occasionally Annual Medicare Wellness Exam Blood Glucose (self reported) desireable (below 100) 11/16/2017 None Annual Medicare Wellness Exam Blood Pressure (self reported) borderline (120/80 - 139/89) 11/16/2017 None Annual Medicare Wellness Exam Cholesterol (self reported) borderline high (200-239) 11/16/2017 None Annual Medicare Wellness Exam Depression (last 6 months) some of the time 11/16/2017 None Annual Medicare Wellness Exam Depression or Hopelessness almost never 11/16/2017 None Annual Medicare Wellness Exam Describe Your Health good 11/16/2017 None Annual Medicare Wellness Exam Exercise Habits exercises 7 days per week 11/16/2017 None Annual Medicare Wellness Exam Handling Stress usually [place] effectively 11/16/2017 None Annual Medicare Wellness Exam Hemaglobin A-1C (self reported) desireable (6 or lower) 11/16/2017 None Annual Medicare Wellness Exam Hours of Sleep 8 11/16/2017 None Annual Medicare Wellness Exam Interaction with Friends yes 11/16/2017 None Annual Medicare Wellness Exam Interests & Pleasure most of the time 11/16/2017 None Annual Medicare Wellness Exam Life Satisfaction satisfied 11/16/2017 None Annual Medicare Wellness Exam Motor Vehicle Safety always fastens seat belt: y 11/16/2017 None Annual Medicare Wellness Exam Nutrition servings of vegetables / fruit per day: 1-2 11/16/2017 None Annual Medicare Wellness Exam Smoking and Tobacco Use non smoker 11/16/2017 None Annual Medicare Wellness Exam Social & Emotional Support usually 11/16/2017 None Annual Medicare Wellness Exam Stress almost never 11/16/2017 None Annual Medicare Wellness Exam Sun Exposure protects skin when outdoors: n 11/16/2017 None hypertension Quality primary hypertension 11/13/2017 None hypertension Onset and Resolution ongoing 11/13/2017 None hypertension Onset of Symptom during adulthood 11/13/2017 None hypertension Alleviating Factors medication 11/13/2017 None hypertension Pertinent Findings Denies dyspnea 11/13/2017 None hypertension Pertinent Findings edema 11/13/2017 mildly when she does a lot of sitting hypothyroid Onset and Resolution ongoing 11/13/2017 None hypothyroid Alleviating Factors medication 11/13/2017 None hypertension Quality chronic 11/13/2017 None hypothyroid Quality chronic 11/13/2017 None hypertension Blood Pressure Values patient checking blood pressure at home - did not bring in readings 11/13/2017 -Checked occasionally hypertension Pertinent Findings Denies dizziness 11/13/2017 None hypertension Exacerbating Factors stress 11/13/2017 None hypertension Quality primary hypertension 07/18/2017 None hypertension Onset and Resolution ongoing 07/18/2017 None hypertension Onset of Symptom during adulthood 07/18/2017 None hypertension Blood Pressure Values not checking blood pressure at home 07/18/2017 None hypertension Alleviating Factors medication 07/18/2017 None hypertension Pertinent Findings Denies dyspnea 07/18/2017 None hypertension Pertinent Findings Denies edema 07/18/2017 None hypothyroid Onset and Resolution ongoing 07/18/2017 None hypothyroid Alleviating Factors medication 07/18/2017 None cough Quality acute 07/18/2017 None cough Quality intermittent 07/18/2017 None cough Onset and Resolution sudden in onset 07/18/2017 None cough Onset of Symptom 4 days ago 07/18/2017 None cough Pertinent Findings Denies fever 07/18/2017 None cough Quality dry 07/18/2017 None cough Pertinent Findings nasal congestion 07/18/2017 None cough Pertinent Findings post nasal drip 07/18/2017 (clear) cough Pertinent Findings weakness 07/18/2017 None hypertension Quality stable 07/18/2017 None hypertension Quality primary hypertension 03/16/2017 None hypertension Onset and Resolution ongoing 03/16/2017 None hypertension Onset of Symptom during adulthood 03/16/2017 None hypertension Blood Pressure Values not checking blood pressure at home 03/16/2017 None hypertension Alleviating Factors medication 03/16/2017 None hypertension Pertinent Findings Denies dizziness 03/16/2017 None hypertension Pertinent Findings Denies dyspnea 03/16/2017 None hypertension Pertinent Findings Denies edema 03/16/2017 None hypothyroid Onset and Resolution ongoing 03/16/2017 None hypothyroid Alleviating Factors medication 03/16/2017 None leg pain/sciatica Radiating the left buttock 03/16/2017 None leg pain/sciatica Location left leg sciatica 03/16/2017 None leg pain/sciatica Quality sharp pain 03/16/2017 None leg pain/sciatica Quality constant 03/16/2017 None leg pain/sciatica Quality stable 03/16/2017 None leg pain/sciatica Quality worsening 03/16/2017 None leg pain/sciatica Onset and Resolution gradual in onset 03/16/2017 None leg pain/sciatica Onset of Symptom 3 months ago 03/16/2017 None Annual Medicare Wellness Exam Alcohol Use does not drink any alcohol 11/11/2016 None Annual Medicare Wellness Exam Aspirin Use yes 11/11/2016 None Annual Medicare Wellness Exam Blood Glucose (self reported) desireable (below 100) 11/11/2016 None Annual Medicare Wellness Exam Blood Pressure (self reported) low / normal (120/80) 11/11/2016 None Annual Medicare Wellness Exam Cholesterol (self reported) borderline high (200-239) 11/11/2016 None Annual Medicare Wellness Exam Depression (last 6 months) some of the time 11/11/2016 None Annual Medicare Wellness Exam Depression or Hopelessness almost never 11/11/2016 None Annual Medicare Wellness Exam Describe Your Health very good 11/11/2016 None Annual Medicare Wellness Exam Exercise Habits does not exercise 11/11/2016 None Annual Medicare Wellness Exam Handling Stress usually [place] effectively 11/11/2016 None Annual Medicare Wellness Exam Hemaglobin A-1C (self reported) don't know 11/11/2016 None Annual Medicare Wellness Exam Hours of Sleep 8 11/11/2016 None Annual Medicare Wellness Exam Interaction with Friends yes 11/11/2016 None Annual Medicare Wellness Exam Interests & Pleasure almost all of the time 11/11/2016 None Annual Medicare Wellness Exam Life Satisfaction very satisfied 11/11/2016 None Annual Medicare Wellness Exam Motor Vehicle Safety always fastens seat belt: y 11/11/2016 None Annual Medicare Wellness Exam Motor Vehicle Safety drives after drinking: n 11/11/2016 None Annual Medicare Wellness Exam Motor Vehicle Safety rides with someone who has been drinking: n 11/11/2016 None Annual Medicare Wellness Exam Nutrition servings of fried food / high fat foods per day: 0 11/11/2016 None Annual Medicare Wellness Exam Nutrition servings of high fiber / whole grain per day: 2 11/11/2016 None Annual Medicare Wellness Exam Nutrition servings of vegetables / fruit per day: 2 11/11/2016 None Annual Medicare Wellness Exam Smoking and Tobacco Use non smoker 11/11/2016 None Annual Medicare Wellness Exam Social & Emotional Support always 11/11/2016 None Annual Medicare Wellness Exam Stress some of the time 11/11/2016 None Annual Medicare Wellness Exam Sun Exposure protects skin when outdoors: n 11/11/2016 None hypertension Onset and Resolution ongoing 11/10/2016 None hypertension Onset of Symptom during adulthood 11/10/2016 None hypertension Blood Pressure Values not checking blood pressure at home 11/10/2016 None hypertension Alleviating Factors medication 11/10/2016 None hypertension Pertinent Findings Denies dizziness 11/10/2016 None hypertension Pertinent Findings Denies dyspnea 11/10/2016 None hypertension Pertinent Findings Denies edema 11/10/2016 None hypothyroid Onset and Resolution ongoing 11/10/2016 None hypothyroid Alleviating Factors medication 11/10/2016 None hypertension Quality primary hypertension 11/10/2016 None hypertension Onset and Resolution ongoing 08/11/2016 None hypertension Onset of Symptom during adulthood 08/11/2016 None hypertension Blood Pressure Values not checking blood pressure at home 08/11/2016 None hypertension Alleviating Factors medication 08/11/2016 None hypertension Pertinent Findings Denies dizziness 08/11/2016 None hypertension Pertinent Findings Denies dyspnea 08/11/2016 None hypothyroid Onset and Resolution ongoing 08/11/2016 None hypothyroid Alleviating Factors medication 08/11/2016 None hypertension Pertinent Findings Denies edema 08/11/2016 None anxiety Quality intermittent 08/11/2016 None anxiety Triggers stress 08/11/2016 None anxiety Onset and Resolution ongoing 08/11/2016 None hypertension Onset and Resolution ongoing 05/12/2016 None hypertension Onset of Symptom during adulthood 05/12/2016 None hypertension Blood Pressure Values not checking blood pressure at home 05/12/2016 None hypertension Alleviating Factors medication 05/12/2016 None hypertension Pertinent Findings Denies dizziness 05/12/2016 None hypertension Pertinent Findings Denies dyspnea 05/12/2016 None hypertension Pertinent Findings edema 05/12/2016 -some in her ankles hypothyroid Onset and Resolution ongoing 05/12/2016 None hypothyroid Alleviating Factors medication 05/12/2016 None hypertension Onset and Resolution ongoing 01/14/2016 None hypertension Onset of Symptom during adulthood 01/14/2016 None hypertension Alleviating Factors medication 01/14/2016 None hypertension Pertinent Findings Denies dizziness 01/14/2016 None hypertension Pertinent Findings Denies dyspnea 01/14/2016 None hypertension Pertinent Findings edema 01/14/2016 -some in her ankles hypertension Blood Pressure Values not checking blood pressure at home 01/14/2016 None hypothyroid Onset and Resolution ongoing 01/14/2016 None hypothyroid Alleviating Factors medication 01/14/2016 None hernia Onset and Resolution gradual in onset 09/16/2015 None hernia Onset of Symptom 1 years ago 09/16/2015 None hernia Frequency of Episodes daily 09/16/2015 None hernia Alleviating Factors rest 09/16/2015 None hernia Exacerbating Factors eating 09/16/2015 None gastroesophageal reflux Quality chronic 09/16/2015 None gastroesophageal reflux Quality heartburn 09/16/2015 None gastroesophageal reflux Onset and Resolution worse during the day 09/16/2015 None gastroesophageal reflux Onset and Resolution ongoing 09/16/2015 None gastroesophageal reflux Onset of Symptom during adulthood 09/16/2015 None gastroesophageal reflux Severity moderate 09/16/2015 None gastroesophageal reflux Diet solids 09/16/2015 None gastroesophageal reflux Significant Medications antacids 09/16/2015 None gastroesophageal reflux Triggers meals 09/16/2015 None gastroesophageal reflux Pertinent Findings Denies emesis 09/16/2015 None gastroesophageal reflux Pertinent Findings heartburn 09/16/2015 None gastroesophageal reflux Pertinent Findings Denies fever 09/16/2015 None gastroesophageal reflux Alleviating Factors proton pump inhibitor 09/16/2015 None gastroesophageal reflux Pertinent Findings dysphagia 09/16/2015 None hypertension Alleviating Factors medication 09/16/2015 None hypertension Onset and Resolution ongoing 09/16/2015 None hypertension Onset of Symptom during adulthood 09/16/2015 None hypertension Blood Pressure Values patient checking blood pressure at home - did not bring in readings 09/16/2015 -checks once a month hypertension Pertinent Findings Denies dizziness 09/16/2015 None hypertension Pertinent Findings Denies dyspnea 09/16/2015 None hypertension Pertinent Findings edema 09/16/2015 -some in her ankles a while ago hernia Onset and Resolution gradual in onset 07/20/2015 None hernia Onset of Symptom 1 years ago 07/20/2015 None hernia Frequency of Episodes daily 07/20/2015 None hernia Exacerbating Factors eating 07/20/2015 None hernia Alleviating Factors rest 07/20/2015 None gastroesophageal reflux Quality heartburn 05/12/2015 None gastroesophageal reflux Onset and Resolution ongoing 05/12/2015 None gastroesophageal reflux Onset and Resolution worse during the day 05/12/2015 None gastroesophageal reflux Frequency of Episodes increasing 05/12/2015 None gastroesophageal reflux Diet solids 05/12/2015 None gastroesophageal reflux Triggers heartburn 05/12/2015 None gastroesophageal reflux Triggers meals 05/12/2015 None gastroesophageal reflux Quality chronic 05/12/2015 None gastroesophageal reflux Onset of Symptom during adulthood 05/12/2015 None gastroesophageal reflux Severity moderate 05/12/2015 None gastroesophageal reflux Diet includes spicy foods 05/12/2015 None gastroesophageal reflux Significant Medications antacids 05/12/2015 None gastroesophageal reflux Pertinent Findings Denies emesis 05/12/2015 None gastroesophageal reflux Pertinent Findings heartburn 05/12/2015 None gastroesophageal reflux Pertinent Findings Denies fever 05/12/2015 None fatigue Onset and Resolution ongoing 03/18/2015 None fatigue Pertinent Findings Denies dizziness 03/18/2015 None fatigue Pertinent Findings heartburn 03/18/2015 None gastroesophageal reflux Quality heartburn 03/18/2015 None gastroesophageal reflux Onset and Resolution ongoing 03/18/2015 None gastroesophageal reflux Triggers meals 03/18/2015 None gastroesophageal reflux Pertinent Findings Denies poor feeding 03/18/2015 None gastroesophageal reflux Pertinent Findings heartburn 03/18/2015 None blood pressure followup Quality chronic 03/18/2015 None blood pressure followup Onset and Resolution ongoing 03/18/2015 None blood pressure followup Onset of Symptom during childhood 03/18/2015 None blood pressure followup Blood Pressure Values not checking blood pressure at home 03/18/2015 None blood pressure followup Blood Pressure Values pt checking blood pressure - see scanned document 03/18/2015 None blood pressure followup Frequency of Episodes unchanged 03/18/2015 None blood pressure followup Triggers stress 03/18/2015 None blood pressure followup Alleviating Factors diet changes 03/18/2015 None blood pressure followup Alleviating Factors exercise 03/18/2015 None blood pressure followup Alleviating Factors medication 03/18/2015 None joint complaint Location on both knees 12/02/2014 None joint complaint Onset and Resolution worse during the day 12/02/2014 None joint complaint Frequency of Episodes daily 12/02/2014 None fatigue Onset and Resolution ongoing 12/02/2014 None fatigue Pertinent Findings Denies dizziness 12/02/2014 None fatigue Pertinent Findings heartburn 12/02/2014 None gastroesophageal reflux Quality heartburn 12/02/2014 None gastroesophageal reflux Onset and Resolution ongoing 12/02/2014 None gastroesophageal reflux Pertinent Findings Denies poor feeding 12/02/2014 None gastroesophageal reflux Pertinent Findings heartburn 12/02/2014 None gastroesophageal reflux Triggers meals 12/02/2014 None blood pressure followup Alleviating Factors diet changes 12/02/2014 None blood pressure followup Alleviating Factors exercise 12/02/2014 None blood pressure followup Alleviating Factors medication 12/02/2014 None blood pressure followup Blood Pressure Values not checking blood pressure at home 12/02/2014 None blood pressure followup Blood Pressure Values pt checking blood pressure - see scanned document 12/02/2014 None blood pressure followup Frequency of Episodes unchanged 12/02/2014 None blood pressure followup Onset and Resolution ongoing 12/02/2014 None blood pressure followup Onset of Symptom during childhood 12/02/2014 None blood pressure followup Quality chronic 12/02/2014 None blood pressure followup Triggers stress 12/02/2014 None Advance Directives No Advance Directive data Encounters Encounter Performer Location Codes Date ([id number]) [id number] EST. 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 PATIENT, LEVEL III Diagnosis: Acute laryngopharyngitis[ICD10: J06.0] Diagnosis: Other allergic rhinitis[ICD10: J30.89] Radha Guerra MD, [facility] CPT- 4: 23259 06/08/2018 ([id number]) 45403 EST. PATIENT, LEVEL IV Diagnosis: Atrophy of thyroid (acquired)[ICD10: E03.4] Diagnosis: Essential (primary) hypertension[ICD10: I10] Diagnosis: Epigastric pain[ICD10: R10.13] Loly Guerra MD, [facility] CPT-4: 46599 05/15/2018 ([id number]) 19074 EST. PATIENT, LEVEL IV Diagnosis: Atrophy of thyroid (acquired)[ICD10: E03.4] Diagnosis: Essential (primary) hypertension[ICD10: I10] Diagnosis: Gastro-esophageal reflux disease with esophagitis[ICD10: K21.0] Loly Guerra MD, [facility] CPT-4: 77293 11/13/2017 ([id number]) 18389 EST. PATIENT, LEVEL IV Diagnosis: Atrophy of thyroid (acquired)[ICD10: E03.4] Diagnosis: Vitamin D deficiency, unspecified[ICD10: E55.9] Diagnosis: Essential (primary) hypertension[ICD10: I10] Loly Guerra MD [facility] CPT-4: 21065 07/18/2017 ([id number]) 24569 EST. PATIENT, LEVEL IV Diagnosis: Low back pain[ICD10: M54.5] Diagnosis: Lumbago with sciatica, right side[ICD10: M54.41] Diagnosis: Essential (primary) hypertension[ICD10: I10] Diagnosis: Atrophy of thyroid (acquired)[ICD10: E03.4] Loly Guerra MD, [facility] CPT-4: 43123 03/16/2017 ([id number]) 29079 EST. PATIENT, LEVEL IV Diagnosis: Essential (primary) hypertension[ICD10: I10] Diagnosis: Atrophy of thyroid (acquired)[ICD10: E03.4] Loly Guerra MD, [facility] CPT-4: 29635 11/10/2016 ([id number]) Miscellaneous no charge Diagnosis: Essential (primary) hypertension[ICD10: I10] Radha Guerra MD, [facility] CPT-4: 99673 08/29/2016 ([id number]) 22471 EST. PATIENT, LEVEL IV Diagnosis: Essential (primary) hypertension[ICD10: I10] Diagnosis: Atrophy of thyroid (acquired)[ICD10: E03.4] Loly Guerra MD, [facility] CPT-4: 85745 08/11/2016 87713 EST. PATIENT, LEVEL IV Diagnosis: Essential (primary) hypertension[ICD10: I10] Diagnosis: Other specified hypothyroidism[ICD10: E03.8] Radha Guerra MD, [facility] CPT-4: 65131 05/12/2016 ([id number]) 40549 EST. PATIENT, LEVEL IV Diagnosis: Essential (primary) hypertension[ICD10: I10] Diagnosis: Hypothyroidism, unspecified[ICD10: E03.9] Diagnosis: First degree hemorrhoids[ICD10: K64.0] Loly Guerra MD, [facility] CPT-4: 96253 01/14/2016 ([id number]) 13212 EST. PATIENT, LEVEL IV Diagnosis: Hypothyroidism, unspecified[ICD10: E03.9] Diagnosis: Essential (primary) hypertension[ICD10: I10] Diagnosis: Morbid (severe) obesity due to excess calories[ICD10: E66.01] Diagnosis: Iron deficiency anemia, unspecified[ICD10: D50.9] Loly Guerra MD, [facility] CPT-4: 10671 09/16/2015 ([id number]) 63948 EST. PATIENT, LEVEL IV Diagnosis: Gastro-esophageal reflux disease with esophagitis[ICD10: K21.0] Diagnosis: Diaphragmatic hernia without obstruction or gangrene[ICD10: K44.9] Diagnosis: Dysphagia, pharyngoesophageal phase[ICD10: R13.14] Dia Guerra MD, [facility] CPT-4: 38856 07/20/2015 ([id number]) 34639 EST. PATIENT, LEVEL IV Diagnosis: Gastro-esophageal reflux disease with esophagitis[ICD10: K21.0] Diagnosis: Vitamin D deficiency, unspecified[ICD10: E55.9] Diagnosis: Essential (primary) hypertension[ICD10: I10] Diagnosis: Impaired fasting glucose[ICD10: R73.01] Diagnosis: Hypothyroidism, unspecified[ICD10: E03.9] Dia Guerra MD, [facility] CPT-4: 58296 05/12/2015 ([id number]) 25067 EST. PATIENT, LEVEL IV Diagnosis: ESSENTIAL HYPERTENSION[ICD9: 401.9] Diagnosis: HYPOTHYROIDISM[ICD9: 244.9] Diagnosis: ESOPHAGEAL REFLUX[ICD9: 530.81] Diagnosis: Other screening mammogram[ICD9: V76.12] Diagnosis: Osteoarthritis[ICD9: 715.90] Loly Guerra MD, [facility] CPT-4: 14358 03/18/2015 ([id number]) OFFICE VISIT, [facility] - LEVEL 4 Diagnosis: ESSENTIAL HYPERTENSION[ICD9: 401.9] Diagnosis: HYPOTHYROIDISM[ICD9: 244.9] Diagnosis: ESOPHAGEAL REFLUX[ICD9: 530.81] Diagnosis: Other screening mammogram[ICD9: V76.12] Diagnosis: Osteoarthritis[ICD9: 715.90] Loly Guerra MD, [facility] CPT-4: 54862 12/02/2014 Plan of Care Planned Activity Notes Codes Status Date Referral: Warren Weathers WPtel:[phone] Referral Completed 12/31/2018 Visit Plan: Medicare Exam - today we discussed the patients past history, immunizations, preventative exams/evaluations - colonoscopy, fecal occult blood testing, routine labs for renal function, glucose, cholesterol, osteoporosis evaluations, cardiovascular testing and cancer screenings. We have also discussed mental health and the signs/symptoms of depression. The patient was advised of home safety evaluations and the need to make sure that as the aging process continues, we need to be aware of different ways to make the home a safer place to reside. The patient has also been counseled that exercise is necessary - and of utmost importance as we age to help decrease fall risk and to maintain independece in the home. Today we discussed the need for the patient to create paperwork for Advanced directives as well as for the patient to provide this office with a copy of her DOPA paperwork for health care surrogate. 11/20/2018 Patient Education: Patient Medication Summary Completed 11/20/2018 Visit Plan: HX of colon cancer - I have recommended a referral to Dr. Weathers for colonoscopy. Hypertension - well controlled - continue with current medications, continue with no added salt diet. Pt has been encouraged to exercise daily. The pt has been advised to call the office if there are any acute concerns about change in blood pressure readings at home. Hypothyroidism - pt with chronic hypothyroidism, continue with current medication, will monitor pt to signs or symptoms of lack of adequate supplementation. Pt is to continue with current dose of medication unless directed otherwise. Check labs at regular intervals wither q 3 months or q 6 months based on previous levels of control. Esophageal Reflux - the patient has been counseled against excessive intake of caffeine, spicy foods, peppermint, and cinnamon - all of which can exacerbate esophageal reflux. The patient is to take medications as prescribed and call the office if the symptoms are not improving. Allergies - recommended OTC claritin for allergies - or flonase as needed for nasal allergies. 11/13/2018 Appointment: [facility] [phone] [id number] (15 min) Moderate 11/13/2018 Patient Education: Patient Medication Summary Completed 11/13/2018 Patient Education: Hypertension Completed 11/13/2018 Care Plan: Referral Order SNOMED-CT : [id number] Pending 11/13/2018 Visit Plan: URI - Pt advised to increase fluids, vitamin C. Discussed natural and expected course of this diagnosis and need to alert me if symptoms do not follow expected course, or if any worse. RX sent to patient's pharmacy. Allergies - chronic - recommended pt to use allergy medication as prescribed. Pt has been counseled as to the appropriate use of the medication. Pt to call if allergy symptoms are not controlled with the medication. If using nasal spray, instructions as follows: Nasal spray- use twice daily, one spray per nostril twice daily, after 30 minutes, rinse out nose with saline spray.. Use opposite hand per nostril to spray in the nasal steroid allergy spray. 06/08/2018 Appointment: [facility] [phone] [id number] [place] (15 min) Moderate 06/08/2018 Patient Education: Patient Medication Summary Completed 06/08/2018 Visit Plan: Hypertension - well controlled - continue with current medications, continue with no added salt diet. Pt has been encouraged to exercise daily. The pt has been advised to call the office if there are any acute concerns about change in blood pressure readings at home. Hypothyroidism - pt with chronic hypothyroidism, continue with current medication, will monitor pt to signs or symptoms of lack of adequate supplementation. Pt is to continue with current dose of medication unless directed otherwise. Check labs at regular intervals q 3 months or q 6 months based on previous levels of control. Abdomina l pain - discussed with the patient - need to call if symptoms worsen. 05/15/2018 Appointment: Loly Guerra WPtel: [facility] [id number] [place] (15 min) Moderate 05/15/2018 Patient Education: Patient Medication Summary Completed 05/15/2018 Patient Education: Hypertension Completed 05/15/2018 Visit Plan: Medicare Exam - today we discussed the patients past history, immunizations, preventative exams/evaluations - colonoscopy, fecal occult blood testing, routine labs for renal function, glucose, cholesterol, osteoporosis evaluations, cardiovascular testing and cancer screenings. We have also discussed mental health and the signs/symptoms of depression. The patient was advised of home safety evaluations and the need to make sure that as the aging process continues, we need to be aware of different ways to make the home a safer place to reside. The patient has also been counseled that exercise is necessary - and of utmost importance as we age to help decrease fall risk and to maintain independece in the home. Today we discussed the need for the patient to create paperwork for Advanced directives as well as for the patient to provide this office with a copy of her DOPA paperwork for health care surrogate. 11/16/2017 Patient Education: Patient Medication Summary Completed 11/16/2017 Visit Plan: Hypertension - well controlled - continue with current medications, continue with no added salt diet. Pt has been encouraged to exercise daily. The pt has been advised to call the office if there are any acute concerns about change in blood pressure readings at home. Hypothyroidism - pt with chronic hypothyroidism, continue with current medication, will monitor pt to signs or symptoms of lack of adequate supplementation. Pt is to continue with current dose of medication unless directed otherwise. Check labs at regular intervals wither q 3 months or q 6 months based on previous levels of control. E sophageal Reflux - the patient has been counseled against excessive intake of caffeine, spicy foods, peppermint, and cinnamon - all of which can exacerbate esophageal reflux. The patient is to take medications as prescribed and call the office if the symptoms are not improving. Allergies - recommended OTC claritin for allergies - or flonase as needed for nasal allergies. 11/13/2017 Appointment: Loly Guerra WPtel: [phone] [id number] (15 min) Moderate 11/13/2017 Patient Education: Patient Medication Summary Completed 11/13/2017 Visit Plan: Hypertension - well controlled - continue with current medications, continue with no added salt diet. Pt has been encouraged to exercise daily. The pt has been advised to call the office if there are any acute concerns about change in blood pressure readings at home. Hypothyroidism - pt with chronic hypothyroidism, continue with current medication, will monitor pt to signs or symptoms of lack of adequate supplementation. Pt is to continue with current dose of medication unless directed otherwise. Check labs at regular intervals wither q 3 months or q 6 months based on previous levels of control. V itamin D deficiency - Recommended continued vitamin D. 07/18/2017 Appointment: Loly Guerra WPtel: [phone] [id number] (15 min) Moderate 07/18/2017 Patient Education: Patient Medication Summary Completed 07/18/2017 Visit Plan: Hypertension - well controlled - continue with current medications, continue with no added salt diet. Pt has been encouraged to exercise daily. The pt has been advised to call the office if there are any acute concerns about change in blood pressure readings at home. Low back pain- the patient was instructed in appropriate posture, need for weight loss to alleviate abdominal obesity that is worsening the patient's back pain.. The pt is to use prn antiinflammatories to manage acute pain. The patient is to call the office if the pain is worsening or does not improve. stretching exercises given to you today- start doing these exercises on monday- start the steroid pack of pills today Hypothyroidism - pt with chronic hypothyroidism, continue with current medication, will monitor pt to signs or symptoms of lack of adequate supplementation. Pt is to continue with current dose of medication unless directed otherwise. Check labs at regular intervals wither q 3 months or q 6 months based on previous levels of control. 03/16/2017 Visit Plan: Hypertension - well controlled - continue with current medications, continue with no added salt diet. Pt has been encouraged to exercise daily. The pt has been advised to call the office if there are any acute concerns about change in blood pressure readings at home. Low back pain- the patient was instructed in appropriate posture, need for weight loss to alleviate abdominal obesity that is worsening the patient's back pain.. The pt is to use prn antiinflammatories to manage acute pain. The patient is to call the office if the pain is worsening or does not improve. stretching exercises given to you today- start doing these exercises on monday- start the steroid pack of pills today Hypothyroidism - pt with chronic hypothyroidism, continue with current medication, will monitor pt to signs or symptoms of lack of adequate supplementation. Pt is to continue with current dose of medication unless directed otherwise. Check labs at regular intervals wither q 3 months or q 6 months based on previous levels of control. 03/16/2017 Appointment: [facility]oly Guerra [facility]Ptel[facility] [phone] [id number] (30 min) Complex 03/16/2017 Patient Education: Patient Medication Summary Completed 03/16/2017 Appointment: Lab Draw 03/14/2017 Visit Plan: UTI - pt with positive urinalysis - culture sent if appropriate. Antibiotic electronically prescribed to pt's pharmacy of choice. Pt to call if symptoms do not improve. 03/08/2017 Appointment: Lab Draw 03/08/2017 Patient Education: Patient Medication Summary Completed 03/08/2017 Visit Plan: Medicare Exam - today we discussed the patients past history, immunizations, preventative exams/evaluations - colonoscopy, fecal occult blood testing, routine labs for renal function, glucose, cholesterol, osteoporosis evaluations, cardiovascular testing and cancer screenings. We have also discussed mental health and the signs/symptoms of depression. The patient was advised of home safety evaluations and the need to make sure that as the aging process continues, we need to be aware of different ways to make the home a safer place to reside. The patient has also been counseled that exercise is necessary - and of utmost importance as we age to help decrease fall risk and to maintain independence in the home. Today we discussed the need for the patient to create paperwork for Advanced directives as well as for the patient to provide this office with a copy of her DOPA paperwork for health care surrogate. 11/11/2016 Appointment: Rahda Quiles WPtel: [phone] [id number] [facility] - Annual Wellness Visit 11/11/2016 Patient Education: Patient Medication Summary Completed 11/11/2016 Visit Plan: Hypertension - well controlled - continue with current medications, continue with no added salt diet. Pt has been encouraged to exercise daily. The pt has been advised to call the office if there are any acute concerns about change in blood pressure readings at home. Hypothyroidism - pt with chronic hypothyroidism, continue with current medication, will monitor pt to signs or symptoms of lack of adequate supplementation. Pt is to continue with current dose of medication unless directed otherwise. Check labs at regular intervals wither q 3 months or q 6 months based on previous levels of control. 11/10/2016 Appointment: Loly Guerra WPtel: [phone] [facility] (15 min) Moderate 11/10/2016 Patient Education: Patient Medication Summary Completed 11/10/2016 Appointment: Nurse Visit 08/29/2016 Patient Education: Patient Medication Summary Completed 08/29/2016 Patient Education: Hypertension Completed 08/29/2016 Visit Plan: Hypertension - well controlled - continue with current medications, continue with no added salt diet. Pt has been encouraged to exercise daily. The pt has been advised to call the office if there are any acute concerns about change in blood pressure readings at home. Hypothyroidism - pt with chronic hypothyroidism, continue with current medication, will monitor pt to signs or symptoms of lack of adequate supplementation. Pt is to continue with current dose of medication unless directed otherwise. Check labs at regular intervals wither q 3 months or q 6 months based on previous levels of control. 08/11/2016 Appointment: Loly Guerra [facility]Ptel: [phone] [id number] (15 min) Moderate 08/11/2016 Patient Education: Patient Medication Summary Completed 08/11/2016 Patient Education: Patient Medication Summary Completed 05/27/2016 Visit Plan: Hypertension - well controlled - continue with current medications, continue with no added salt diet. Pt has been encouraged to exercise daily. The pt has been advised to call the office if there are any acute concerns about change in blood pressure readings at home. Hypothyroidism - pt with chronic hypothyroidism, continue with current medication, will monitor pt to signs or symptoms of lack of adequate supplementation. Pt is to continue with current dose of medication unless directed otherwise. Check labs at regular intervals wither q 3 months or q 6 months based on previous levels of control. 05/12/2016 Patient Education: Patient Medication Summary Completed 05/12/2016 Visit Plan: Hypertension - well controlled - continue with current medications, continue with no added salt diet. Pt has been encouraged to exercise daily. The pt has been advised to call the office if there are any acute concerns about change in blood pressure readings at home. Hypothyroidism - pt with chronic hypothyroidism, continue with current medication, will monitor pt to signs or symptoms of lack of adequate supplementation. Pt is to continue with current dose of medication unless directed otherwise. Check labs at regular intervals wither q 3 months or q 6 months based on previous levels of control. H emorrhoids - RX for hydrocortisone cream 01/14/2016 Appointment: Loly Guerra WPtel: [phone] [id number] [place] (15 min) Moderate 01/14/2016 Patient Education: Patient Medication Summary Completed 01/14/2016 Patient Education: Hypertension Completed 01/14/2016 Visit Plan: Hypertension - well controlled - continue with current medications, continue with no added salt diet. Pt has been encouraged to exercise daily. The pt has been advised to call the office if there are any acute concerns about change in blood pressure readings at home. Hypothyroidism - pt with chronic hypothyroidism, continue with current medication, will monitor pt to signs or symptoms of lack of adequate supplementation. Pt is to continue with current dose of medication unless directed otherwise. Check labs at regular intervals wither q 3 months or q 6 months based on previous levels of control. I katelin deficiency Anemia - - start on iron pills, monitor labs in about 3-4 months. 09/16/2015 Appointment: Loly Guerra WPtel: [phone] [id number] [place] (15 min) Moderate 09/16/2015 Patient Education: Patient Medication Summary Completed 09/16/2015 Patient Education: Hypertension Completed 09/16/2015 Patient Education: Obesity Completed 09/16/2015 Visit Plan: Hypertension - well controlled - continue with current medications, continue with no added salt diet. Pt has been encouraged to exercise daily. The pt has been advised to call the office if there are any acute concerns about change in blood pressure readings at home. Esophageal Reflux - the patient has been counseled against excessive intake of caffeine, spicy foods, peppermint, and cinnamon - all of which can exacerbate esophageal reflux. The patient is to take medications as prescribed and call the office if the symptoms are not improving. Hiatal [id number] swallow study and referral for EGD-will obtain swallow study first per patient request 07/20/2015 Appointment: (30 min) Complex 07/20/2015 Patient Education: Patient Medication Summary Completed 07/20/2015 Visit Plan: Hypertension - well controlled - continue with current medications, continue with no added salt diet. Pt has been encouraged to exercise daily. The pt has been advised to call the office if there are any acute concerns about change in blood pressure readings at home. Esophageal Reflux - the patient has been counseled against excessive intake of caffeine, spicy foods, peppermint, and cinnamon - all of which can exacerbate esophageal reflux. The patient is to take medications as prescribed and call the office if the symptoms are not improving. Vitamin D deficiency-taking 50,000 units weekly-continue daily dose Elevated blood sugar-check Hgb A1C with other labs Hypothyroidism - pt with chronic hypothyroidism, continue with current medication, will monitor pt to signs or symptoms of lack of adequate s upplementation. Pt is to continue with current dose of medication unless directed otherwise. Check labs at regular intervals wither q 3 months or q 6 months based on previous levels of control. 05/12/2015 Patient Education: Patient Medication Summary Completed 05/12/2015 Patient Education: Hypertension Completed 05/12/2015 Visit Plan: Hypertension - well controlled - continue with current medications, continue with no added salt diet. Pt has been encouraged to exercise daily. The pt has been advised to call the office if there are any acute concerns about change in blood pressure readings at home. Hypothyroidism - pt with chronic hypothyroidism, continue with current medication, will monitor pt to signs or symptoms of lack of adequate supplementation. Pt is to continue with current dose of medication unless directed otherwise. Check labs at regular intervals wither q 3 months or q 6 months based on previous levels of control. P t to continue with vitamin D daily. 03/18/2015 Appointment: Loly Guerra WPtel: [phone] [id number] (15 min) Moderate 03/18/2015 Patient Education: Patient Medication Summary Completed 03/18/2015 Visit Plan: Hypertension - well controlled - continue with current medications, continue with no added salt diet. Pt has been encouraged to exercise daily. The pt has been advised to call the office if there are any acute concerns about change in blood pressure readings at home. Hypothyroidism - pt with chronic hypothyroidism, continue with current medication, will monitor pt to signs or symptoms of lack of adequate supplementation. Pt is to continue with current dose of medication unless directed otherwise. Check labs at regular intervals wither q 3 months or q 6 months based on previous levels of control. E sophageal Reflux - the patient has been counseled against excessive intake of caffeine, spicy foods, peppermint, and cinnamon - all of which can exacerbate esophageal reflux. The patient is to take medications as prescribed and call the office if the symptoms are not improving. Arthritis- occasionally uncontrolled symptoms- recommend pt to take antiinflammatory as directed for pain control. Use tylenol for break through pain symptoms. 12/02/2014 Appointment: Loly Guerra WPtel: [phone] [id number] [place] (S) New Patient 12/02/2014 Patient Education: Patient Medication Summary Completed 12/02/2014 Patient Education: Hypertension Completed 12/02/2014 Referral: Warren Weathers WPtel:[phone] Referral Appointment Requested Instructions Comment SLOW FE - iron pills - take one pill daily TONIC WATER - 8 ounces in the evening . Hypertension - well controlled - continue with current medications, continue with no added salt diet. Pt has been encouraged to exercise daily. The pt has been advised to call the office if there are any acute concerns about change in blood pressure readings at home. Hypothyroidism - pt with chronic hypothyroidism, continue with current medication, will monitor pt to signs or symptoms of lack of adequate supplementation. Pt is to continue with current dose of medication unless directed otherwise. Check labs at regular intervals wither q 3 months or q 6 months based on previous levels of control. Iron deficiency Anemia - - start on iron pills, monitor labs in about 3-4 months. . Hypertension - well controlled - continue with current medications, continue with no added salt diet. Pt has been encouraged to exercise daily. The pt has been advised to call the office if there are any acute concerns about change in blood pressure readings at home. Hypothyroidism - pt with chronic hypothyroidism, continue with current medication, will monitor pt to signs or symptoms of lack of adequate supplementation. Pt is to continue with current dose of medication unless directed otherwise. Check labs at regular intervals wither q 3 months or q 6 months based on previous levels of control. Hemorrhoids - RX for hydrocortisone cream . Hypertension - well controlled - continue with current medications, continue with no added salt diet. Pt has been encouraged to exercise daily. The pt has been advised to call the office if there are any acute concerns about change in blood pressure readings at home. Hypothyroidism - pt with chronic hypothyroidism, continue with current medication, will monitor pt to signs or symptoms of lack of adequate supplementation. Pt is to continue with current dose of medication unless directed otherwise. Check labs at regular intervals wither q 3 months or q 6 months based on previous levels of control. Monitor your blood pressure at home and record. Bring in your readings to your next appointment, or as directed. Call for chest pain, shortness of breath, headaches, or other concerns. . Hypertension - well controlled - continue with current medications, continue with no added salt diet. Pt has been encouraged to exercise daily. The pt has been advised to call the office if there are any acute concerns about change in blood pressure readings at home. Hypothyroidism - pt with chronic hypothyroidism, continue with current medication, will monitor pt to signs or symptoms of lack of adequate supplementation. Pt is to continue with current dose of medication unless directed otherwise. Check labs at regular intervals wither q 3 months or q 6 months based on previous levels of control. Esophageal Reflux - the patient has been counseled against excessive intake of caffeine, spicy foods, peppermint, and cinnamon - all of which can exacerbate esophageal reflux. The patient is to take medications as prescribed and call the office if the symptoms are not improving. Arthritis- occasionally uncontrolled symptoms- recommend pt to take antiinflammatory as directed for pain control. Use tylenol for break through pain symptoms. . Medicare Exam - today we discussed the patients past history, immunizations, preventative exams/evaluations - colonoscopy, fecal occult blood testing, routine labs for renal function, glucose, cholesterol, osteoporosis evaluations, cardiovascular testing and cancer screenings. We have also discussed mental health and the signs/symptoms of depression. The patient was advised of home safety evaluations and the need to make sure that as the aging process continues, we need to be aware of different ways to make the home a safer place to reside. The patient has also been counseled that exercise is necessary - and of utmost importance as we age to help decrease fall risk and to maintain independece in the home. Today we discussed the need for the patient to create paperwork for Advanced directives as well as for the patient to provide this office with a copy of her DOPA paperwork for health care surrogate. SCHEDULE SWALLOW STUDY . Hypertension - well controlled - continue with current medications, continue with no added salt diet. Pt has been encouraged to exercise daily. The pt has been advised to call the office if there are any acute concerns about change in blood pressure readings at home. Esophageal Reflux - the patient has been counseled against excessive intake of caffeine, spicy foods, peppermint, and cinnamon - all of which can exacerbate esophageal reflux. The patient is to take medications as prescribed and call the office if the symptoms are not improving. Hiatal [id number] swallow study and referral for EGD-will obtain swallow study first per patient request . UTI - pt with positive urinalysis - culture sent if appropriate. Antibiotic electronically prescribed to pt's pharmacy of choice. Pt to call if symptoms do not improve. . Hypertension - well controlled - continue with current medications, continue with no added salt diet. Pt has been encouraged to exercise daily. The pt has been advised to call the office if there are any acute concerns about change in blood pressure readings at home. Hypothyroidism - pt with chronic hypothyroidism, continue with current medication, will monitor pt to signs or symptoms of lack of adequate supplementation. Pt is to continue with current dose of medication unless directed otherwise. Check labs at regular intervals wither q 3 months or q 6 months based on previous levels of control. stretching exercises given to you today- start doing these exercises on monday- start the steroid pack of pills today . Hypertension - well controlled - continue with current medications, continue with no added salt diet. Pt has been encouraged to exercise daily. The pt has been advised to call the office if there are any acute concerns about change in blood pressure readings at home. Low back pain- the patient was instructed in appropriate posture, need for weight loss to alleviate abdominal obesity that is worsening the patient's back pain.. The pt is to use prn antiinflammatories to manage acute pain. The patient is to call the office if the pain is worsening or does not improve. stretching exercises given to you today- start doing these exercises on monday- start the steroid pack of pills today Hypothyroidism - pt with chronic hypothyroidism, continue with current medication, will monitor pt to signs or symptoms of lack of adequate supplementation. Pt is to continue with current dose of medication unless directed otherwise. Check labs at regular intervals wither q 3 months or q 6 months based on previous levels of control. stretching exercises given to you today- start doing these exercises on monday- start the steroid pack of pills today . Hypertension - well controlled - continue with current medications, continue with no added salt diet. Pt has been encouraged to exercise daily. The pt has been advised to call the office if there are any acute concerns about change in blood pressure readings at home. Low back pain- the patient was instructed in appropriate posture, need for weight loss to alleviate abdominal obesity that is worsening the patient's back pain.. The pt is to use prn antiinflammatories to manage acute pain. The patient is to call the office if the pain is worsening or does not improve. stretching exercises given to you today- start doing these exercises on monday- start the steroid pack of pills today Hypothyroidism - pt with chronic hypothyroidism, continue with current medication, will monitor pt to signs or symptoms of lack of adequate supplementation. Pt is to continue with current dose of medication unless directed otherwise. Check labs at regular intervals wither q 3 months or q 6 months based on previous levels of control. . Hypertension - well controlled - continue with current medications, continue with no added salt diet. Pt has been encouraged to exercise daily. The pt has been advised to call the office if there are any acute concerns about change in blood pressure readings at home. Hypothyroidism - pt with chronic hypothyroidism, continue with current medication, will monitor pt to signs or symptoms of lack of adequate supplementation. Pt is to continue with current dose of medication unless directed otherwise. Check labs at regular intervals wither q 3 months or q 6 months based on previous levels of control. Vitamin D deficiency - Recommended continued vitamin D. INCREASE OMEPRAZOLE TO TWICE DAILY X 10 DAYS THEN TAKE DAILY RESTART CARAFATE LOW SPICE DIET CALL IF YOUR SYMPTOMS DO NOT RESOLVE . Hypertension - well controlled - continue with current medications, continue with no added salt diet. Pt has been encouraged to exercise daily. The pt has been advised to call the office if there are any acute concerns about change in blood pressure readings at home. Esophageal Reflux - the patient has been counseled against excessive intake of caffeine, spicy foods, peppermint, and cinnamon - all of which can exacerbate esophageal reflux. The patient is to take medications as prescribed and call the office if the symptoms are not improving. Vitamin D deficiency-taking 50,000 units weekly-continue daily dose Elevated blood sugar-check Hgb A1C with other labs Hypothyroidism - pt with chronic hypothyroidism, continue with current medication, will monitor pt to signs or symptoms of lack of adequate supplementation. Pt is to continue with current dose of medication unless directed otherwise. Check labs at regular intervals wither q 3 months or q 6 months based on previous levels of control. . Hypertension - well controlled - continue with current medications, continue with no added salt diet. Pt has been encouraged to exercise daily. The pt has been advised to call the office if there are any acute concerns about change in blood pressure readings at home. Hypothyroidism - pt with chronic hypothyroidism, continue with current medication, will monitor pt to signs or symptoms of lack of adequate supplementation. Pt is to continue with current dose of medication unless directed otherwise. Check labs at regular intervals wither q 3 months or q 6 months based on previous levels of control. Pt to continue with vitamin D daily. Nasal spray- use twice daily, one spray per nostril twice daily, after 30 minutes, rinse out nose with saline spray.. Use opposite hand per nostril to spray in the nasal steroid allergy spray. Like flonase or nasonex over the counter. . Hypertension - well controlled - continue with current medications, continue with no added salt diet. Pt has been encouraged to exercise daily. The pt has been advised to call the office if there are any acute concerns about change in blood pressure readings at home. Hypothyroidism - pt with chronic hypothyroidism, continue with current medication, will monitor pt to signs or symptoms of lack of adequate supplementation. Pt is to continue with current dose of medication unless directed otherwise. Check labs at regular intervals wither q 3 months or q 6 months based on previous levels of control. Esophageal Reflux - the patient has been counseled against excessive intake of caffeine, spicy foods, peppermint, and cinnamon - all of which can exacerbate esophageal reflux. The patient is to take medications as prescribed and call the office if the symptoms are not improving. Allergies - recommended OTC claritin for allergies - or flonase as needed for nasal allergies. Nasal spray- use twice daily, one spray per nostril twice daily, after 30 minutes, rinse out nose with saline spray.. Use opposite hand per nostril to spray in the nasal steroid allergy spray. Like flonase or nasonex over the counter. . HX of colon cancer - I have recommended a referral to Dr. Weathers for colonoscopy. Hypertension - well controlled - continue with current medications, continue with no added salt diet. Pt has been encouraged to exercise daily. The pt has been advised to call the office if there are any acute concerns about change in blood pressure readings at home. Hypothyroidism - pt with chronic hypothyroidism, continue with current medication, will monitor pt to signs or symptoms of lack of adequate supplementation. Pt is to continue with current dose of medication unless directed otherwise. Check labs at regular intervals wither q 3 months or q 6 months based on previous levels of control. Esophageal Reflux - the patient has been counseled against excessive intake of caffeine, spicy foods, peppermint, and cinnamon - all of which can exacerbate esophageal reflux. The patient is to take medications as prescribed and call the office if the symptoms are not improving. Allergies - recommended OTC claritin for allergies - or flonase as needed for nasal allergies. . Hypertension - well controlled - continue with current medications, continue with no added salt diet. Pt has been encouraged to exercise daily. The pt has been advised to call the office if there are any acute concerns about change in blood pressure readings at home. Hypothyroidism - pt with chronic hypothyroidism, continue with current medication, will monitor pt to signs or symptoms of lack of adequate supplementation. Pt is to continue with current dose of medication unless directed otherwise. Check labs at regular intervals wither q 3 months or q 6 months based on previous levels of control. . Medicare Exam - today we discussed the patients past history, immunizations, preventative exams/evaluations - colonoscopy, fecal occult blood testing, routine labs for renal function, glucose, cholesterol, osteoporosis evaluations, cardiovascular testing and cancer screenings. We have also discussed mental health and the signs/symptoms of depression. The patient was advised of home safety evaluations and the need to make sure that as the aging process continues, we need to be aware of different ways to make the home a safer place to reside. The patient has also been counseled that exercise is necessary - and of utmost importance as we age to help decrease fall risk and to maintain independece in the home. Today we discussed the need for the patient to create paperwork for Advanced directives as well as for the patient to provide this office with a copy of her [employer]OP[employer] paperwork for health care surrogate. . Hypertension - well controlled - continue with current medications, continue with no added salt diet. Pt has been encouraged to exercise daily. The pt has been advised to call the office if there are any acute concerns about change in blood pressure readings at home. Hypothyroidism - pt with chronic hypothyroidism, continue with current medication, will monitor pt to signs or symptoms of lack of adequate supplementation. Pt is to continue with current dose of medication unless directed otherwise. Check labs at regular intervals q 3 months or q 6 months based on previous levels of control. Abdominal pain - discussed with the patient - need to call if symptoms worsen. . Medicare Exam - today we discussed the patients past history, immunizations, preventative exams/evaluations - colonoscopy, fecal occult blood testing, routine labs for renal function, glucose, cholesterol, osteoporosis evaluations, cardiovascular testing and cancer screenings. We have also discussed mental health and the signs/symptoms of depression. The patient was advised of home safety evaluations and the need to make sure that as the aging process continues, we need to be aware of different ways to make the home a safer place to reside. The patient has also been counseled that exercise is necessary - and of utmost importance as we age to help decrease fall risk and to maintain independence in the home. Today we discussed the need for the patient to create paperwork for Advanced directives as well as for the patient to provide this office with a copy of her [employer]OP[employer] paperwork for health care surrogate. . URI - Pt advised to increase fluids, vitamin C. Discussed natural and expected course of this diagnosis and need to alert me if symptoms do not follow expected course, or if any worse. RX sent to patient's pharmacy. Allergies - chronic - recommended pt to use allergy medication as prescribed. Pt has been counseled as to the appropriate use of the medication. Pt to call if allergy symptoms are not controlled with the medication. If using nasal spray, instructions as follows: Nasal spray- use twice daily, one spray per nostril twice daily, after 30 minutes, rinse out nose with saline spray.. Use opposite hand per nostril to spray in the nasal steroid allergy spray.
--- OUTSIDE RECORDS SUMMARY | 2019-01-15 14:08 | XMS REPORT | CCD ---
Author Author Loly Guerra Organization Loly Guerra MD, [facility] Address [address] [place] [address] Phone Care Team Providers Care Can Feeder Name Role Phone PP Unavailable CCM Unavailable Summary Purpose Interface Exchange Insurance Providers Payer name Policy type / Coverage type Covered green party ID Effective Begin Date Effective End Date WPS Medicare Part B Medicare Part B [id number] Unknown [employer] Medicare Part B [id number] Unknown Family history Mother Diagnosis Age At [...] Unknown Retired 12/02/[address]: 094265458 Has never smoked or chewed tobacco 12/02/[address]: 119426195 Never drinks alcohol 12/02/2014 Allergies, Adverse Reactions, [...] Fill Instructions levothyroxine 50 mcg tablet RxNorm: 661097 1 Tablet(s) PO daily 09/04/2018 08/29/2019 Active amoxicillin 500 mg tablet RxNorm: 115442 1 Tablet(s) PO TID 06/08/2018 06/14/2018 Inactive amoxicillin 500 mg tablet RxNorm: 821609 1 Tablet(s) PO TID 06/08/2018 06/07/2018 Inactive atenolol 25 mg tablet RxNorm: 154686 1/2 Tablet(s) PO daily 04/11/2018 07/04/2019 Active omeprazole 20 mg capsule,delayed release RxNorm: 511737 1 Capsule(s) PO daily 04/03/2018 06/26/2019 Active triamterene 37.5 mg-hydrochlorothiazide 25 mg tablet RxNorm: 148040 Tablet(s) TAKE 1/2 TABLET EVERY DAY 01/25/2018 01/19/2019 Active levothyroxine 50 mcg tablet RxNorm: 901780 1 Tablet(s) PO daily 09/04/2017 08/29/2018 Inactive atenolol 25 mg tablet RxNorm: 294385 1/2 Tablet(s) PO daily 07/06/2017 04/01/2018 Inactive omeprazole 20 mg capsule,delayed release RxNorm: 523291 1 Capsule(s) PO daily 07/06/2017 04/01/2018 Inactive atenolol 25 mg tablet RxNorm: 445073 TAKE ONE-HALF TABLET BY MOUTH ONCE DAILY 05/30/2017 No Stop Date Active atenolol 25 mg tablet RxNorm: 633480 1/2 Tablet(s) PO daily 05/30/2017 07/05/2017 Inactive atenolol 25 mg tablet RxNorm: 661668 TAKE ONE-HALF TABLET BY MOUTH ONCE DAILY 05/30/2017 04/10/2018 Inactive triamterene 37.5 mg-hydrochlorothiazide 25 mg tablet RxNorm: 497074 TAKE 1/2 TABLET EVERY DAY 05/01/2017 01/24/2018 Inactive metoprolol succinate ER 25 mg tablet,extended release 24 hr RxNorm: 396811 1 Tablet(s) PO daily 04/21/2017 04/20/2017 Inactive metoprolol succinate ER 25 mg tablet,extended release 24 hr RxNorm: 624202 1 Tablet(s) PO daily 04/21/2017 11/12/2017 Inactive prednisone 10 mg tablets in a dose pack RxNorm: 279040 1 Tablet(s) PO UD take pills as directed in a taper take with food 03/16/2017 03/25/2017 Inactive Keflex 500 mg capsule RxNorm: 102668 1 Capsule(s) PO TID 03/08/2017 03/14/2017 Inactive levothyroxine 50 mcg tablet RxNorm: 732707 1 Tablet(s) PO daily 05/19/2016 08/11/2017 Inactive atenolol 25 mg tablet RxNorm: 279750 1/2 Tablet(s) PO daily 05/09/2016 04/20/2017 Inactive triamterene 37.5 mg-hydrochlorothiazide 25 mg tablet RxNorm: 339763 1/2 Tablet(s) PO daily 04/22/2016 04/16/2017 Inactive omeprazole 20 mg capsule,delayed release RxNorm: 807473 1 Capsule(s) PO daily 03/24/2016 06/16/2017 Inactive [SAVINGS FOR NON-COVERED DRUGS -- BIN:[id number], PCN: ASPROD1, Group: XXXXX, ID# XXXXXXX, Questions: . THIS IS NOT INSURANCE.] omeprazole 20 mg capsule,delayed release RxNorm: 839598 1 Capsule(s) PO daily 02/19/2016 03/23/2016 Inactive [SAVINGS FOR NON-COVERED DRUGS -- BIN:680805, PCN: ASPROD1, Group: XXXXX, ID# XXXXXXX, Questions: . THIS IS NOT INSURANCE.] hydrocortisone 2.5 % topical cream RxNorm: 618705 1 Application TOP BID as needed hemorrhoid 01/14/2016 02/10/2016 Inactive atenolol 25 mg tablet RxNorm: 793018 1/2 Tablet(s) PO daily 11/16/2015 05/08/2016 Inactive levothyroxine 50 mcg tablet RxNorm: 376613 1 Tablet(s) PO daily 08/19/2015 05/18/2016 Inactive omeprazole 20 mg capsule,delayed release RxNorm: 286167 1 Capsule(s) PO daily 06/12/2015 01/07/2016 Inactive [SAVINGS FOR NON-COVERED DRUGS -- BIN:[id number], PCN: ASPROD1, Group: XXXXX, ID# XXXXXXX, Questions: . THIS IS NOT INSURANCE.] Vitamin D2 50,000 unit capsule RxNorm: 761342 1 Capsule(s) PO monthly 05/12/2015 09/15/2015 Inactive triamterine HCTZ 25/37.5 mg RxNorm: 1/2 PO daily 04/14/2015 04/14/2015 Inactive triamterine HCTZ 25/37.5 mg RxNorm: 1/2 Tablet(s) PO daily 04/14/2015 04/13/2015 Inactive triamterene 37.5 mg-hydrochlorothiazide 25 mg tablet RxNorm: 948864 1/2 Tablet(s) PO daily 04/14/2015 04/13/2015 Inactive triamterene 37.5 mg-hydrochlorothiazide 25 mg tablet RxNorm: 883411 1/2 Tablet(s) PO daily 04/14/2015 04/07/2016 Inactive triamterine HCTZ 25/37.5 mg RxNorm: 1/2 Tablet(s) PO daily 04/14/2015 04/13/2015 Inactive triamterine HCTZ 25/37.5 mg RxNorm: 1/2 Tablet(s) PO daily 02/03/2015 04/13/2015 Inactive doxycycline hyclate 100 mg capsule RxNorm: 527775 1 Capsule(s) PO BID 12/10/2014 12/23/2014 Inactive doxycycline hyclate 100 mg capsule RxNorm: 771996 1 Capsule(s) PO BID 12/10/2014 12/09/2014 Inactive Vitamin D2 1,000 unit capsule RxNorm: 578552 2 Capsule(s) PO daily 12/09/2014 01/07/2015 Inactive Vitamin D2 50,000 unit capsule RxNorm: 463310 1 Capsule(s) PO QW 12/09/2014 12/08/2014 Inactive Vitamin D2 50,000 unit capsule RxNorm: 438965 1 Capsule(s) PO QW 12/09/2014 03/08/2015 Inactive Carafate 1 gram tablet RxNorm: 718347 1 Tablet(s) PO TID dissolve in 10mL of water, take the pill dissolved. 12/02/2014 01/07/2015 Inactive [SAVINGS FOR NON-COVERED DRUGS -- BIN:[id number], PCN: ASPROD1, Group: XXXXX, ID# XXXXXXX, Questions: . THIS IS NOT INSURANCE.] omeprazole 20 mg capsule,delayed release RxNorm: 552063 1 Capsule(s) PO daily 11/12/2014 11/11/2014 Inactive omeprazole 20 mg capsule,delayed release RxNorm: 760128 1 Capsule(s) PO daily 11/12/2014 01/10/2015 Inactive [SAVINGS FOR NON-COVERED DRUGS -- BIN:[id number], PCN: ASPROD1, Group: XXXXX, ID# XXXXXXX, Questions: . THIS IS NOT INSURANCE.] atenolol 25 mg tablet RxNorm: 910814 1/2 Tablet(s) PO daily No Start Date 11/15/2015 Inactive triamterine HCTZ 25/37.5 mg RxNorm: 1/2 PO daily No Start Date 02/02/2015 Inactive levothyroxine 50 mcg tablet RxNorm: 895380 1 Tablet(s) PO daily No Start Date [...] Item Item Code Result Date Culture Urine [id number] URINE CULTURE SEE NOTES 03/14/2017 Culture Urine [id number] Continued Results 03/14/2017 Urine Culture Ucult Complete >100,000 col/ml aerobic growth sent to ref lab 03/09/2017 Free T4 Bnb759 FREE T4 0.94 ng/dL 11/10/2016 Tsh Ord6 [...] 26.4 pg 09/10/2015 Cbc With Differential Ord2 Yell% 5.8 % 09/10/2015 Cbc With Differential Ord2 [...] 1.14 K/ul 09/10/2015 Cbc With Differential Ord2 Yell ABS# 0.4 K/ul 09/10/2015 Cbc With Differential Ord2 Eos ABS# 0.2 K/ul 09/10/2015 Cbc With Differential Ord2 Baso ABS# 0.0 K/ul 09/10/2015 Cbc With Differential Ord2 New Analyzer Notice Please note new ref ranges starting 07-22-2015 due to implemntation of new five part differential hematolgy analyzer. 09/10/2015 Comp Metabolic Jgo542 NA 138 mEq/L 09/10/2015 Comp Metabolic Bwh290 K 4.0 mEq/L 09/10/2015 Comp Metabolic Dbs700 CL 102 mEq/L 09/10/2015 Comp Metabolic Wfv222 CO2 28.0 mEq/L 09/10/2015 Comp Metabolic Mgm076 ANION GAP 12 09/10/2015 Comp Metabolic Zmg242 GLUCOSE 88 mg/dL 09/10/2015 Comp Metabolic Gsd172 Creat 1.2 mg/dL 09/10/2015 Comp Metabolic Prj723 eGFR 47 ml/min/1.73m2 09/10/2015 Comp Metabolic Tjf601 BUN 25 mg/dL 09/10/2015 Comp Metabolic Oxu902 B/C Ratio 21.6 Ratio 09/10/2015 Comp Metabolic Qpg135 CALCIUM 9.1 mg/dL 09/10/2015 Comp Metabolic Ova379 ALK PHOS 55 U/L 09/10/2015 Comp Metabolic Szn386 AST(SGOT) 14 U/L 09/10/2015 Comp Metabolic Nmz953 ALT(SGPT) 7 U/L 09/10/2015 Comp Metabolic Cqx719 BILI T 0.4 mg/dL 09/10/2015 Comp Metabolic Qre690 ALBUMIN 3.6 g/dL 09/10/2015 Comp Metabolic Qld644 TPRO 6.3 g/dL 09/10/2015 Comp Metabolic Fca661 GLOB 2.7 g/dL 09/10/2015 Comp Metabolic Mpi851 A/G Ratio 1.4 Ratio 09/10/2015 Comp Metabolic Khx922 Osmo 279 mOsmo 09/10/2015 Cbc With Differential [...] Ord2 RDW 15.9 % 05/12/2015 Free T4 Azr178 FREE T4 1.02 ng/dL 05/12/2015 %Hba1C Jru929 % HbA1c 99249- 6 5.8 % 05/12/2015 %Hba1C Dgd620 Gluc Ave 120 mg/dL 05/12/2015 Comp Metabolic Ced384 NA 136 mEq/L 05/12/2015 Comp Metabolic Ers202 K 4.3 mEq/L 05/12/2015 Comp Metabolic Mze320 CL 101 mEq/L 05/12/2015 Comp Metabolic Iff027 CO2 26.0 mEq/L 05/12/2015 Comp Metabolic Mcf181 ANION GAP 13 05/12/2015 Comp Metabolic Otu027 GLUCOSE 91 mg/dL 05/12/2015 Comp Metabolic Gdu010 Creat 1.3 mg/dL 05/12/2015 Comp Metabolic Blo267 eGFR 43 ml/min/1.73m2 05/12/2015 Comp Metabolic Hot788 BUN 23 mg/dL 05/12/2015 Comp Metabolic Lvx091 B/C Ratio 18.4 Ratio 05/12/2015 Comp Metabolic Bzh327 CALCIUM 9.2 mg/dL 05/12/2015 Comp Metabolic Gfk052 ALK PHOS 64 U/L 05/12/2015 Comp Metabolic Cvg264 AST(SGOT) 16 U/L 05/12/2015 Comp Metabolic Uqd340 ALT(SGPT) 9 U/L 05/12/2015 Comp Metabolic Moc044 BILI T 0.4 mg/dL 05/12/2015 Comp Metabolic Gxo274 ALBUMIN 3.9 g/dL 05/12/2015 Comp Metabolic Iqv553 TPRO 6.8 g/dL 05/12/2015 Comp Metabolic Vai453 GLOB 2.9 g/dL 05/12/2015 Comp Metabolic Cof063 A/G Ratio 1.3 Ratio 05/12/2015 Comp Metabolic Fza640 Osmo 275 mOsmo 05/12/2015 Tsh Ord6 hTSH II 3.25 uIU/mL 05/12/2015 Vitamin D 25 Oh Mef6821 VITAMIN D, 25 HYDROXY 54.89 ng/mL 02/27/2015 [...] G0439 11/16/2017 URINALYSIS NONAUTO W/O SCOPE CPT-4: 84164 03/08/2017 PPPS, SUBSEQ VISIT CPT- 4: G0439 11/11/2016 Vital Signs Date Vital 11/20/2018 Height: Weight: 11/13/2018 Blood Pressure 1: 148/82 Code: 8480-6 BMI: 30.2 Code: 90567-8 Heart Rate 1: 74 bpm Height: 5'2" SpO2: 97% Weight: 165 lbs 06/08/2018 Height: Weight: 05/15/2018 Blood Pressure 1: 120/68 Code: 8480-6 BMI: 30.2 Code: 01192-2 Heart Rate 1: 69 bpm Height: 5'2" SpO2: 96% Weight: 165 lbs 11/16/2017 Height: Weight: 11/13/2017 Blood Pressure 1: 144/74 Code: 8480-6 BMI: 30.2 Code: 52042-3 Heart Rate 1: 76 bpm Height: 5'2" SpO2: 99% Weight: 165 lbs 07/18/2017 Blood Pressure 1: 118/70 Code: 8480-6 BMI: 28.7 Code: 47286-9 Heart Rate 1: 75 bpm Height: 5'2" SpO2: 97% Weight: 157 lbs 03/16/2017 Blood Pressure 1: 128/72 Code: 8480-6 BMI: 29.1 Code: 34930-4 Heart Rate 1: 62 bpm Height: 5'2" SpO2: 98% Weight: 159 lbs 11/11/2016 Blood Pressure 1: 140/78 Code: 8480-6 BMI: 29.1 Code: 13489-8 Heart Rate 1: 64 bpm Height: 5'2" SpO2: 97% Waist Measure (cm): 91 cm Weight: 159 lbs 11/10/2016 Blood Pressure 1: 140/78 Code: 8480-6 BMI: 29.1 Code: 01417-4 Heart Rate 1: 64 bpm Height: 5'2" Weight: 159 lbs 08/29/2016 Blood Pressure 1: 120/56 Code: 8480-6 Heart Rate 1: 68 bpm SpO2: 97% 08/11/2016 Blood Pressure 1: 128/80 Code: 8480-6 BMI: 28.9 Code: 41932-6 Heart Rate 1: 64 bpm Height: 5'2" Weight: 158 lbs 05/12/2016 Blood Pressure 1: 148/62 Code: 8480-6 BMI: 28.2 Code: 98431-0 Heart Rate 1: 97 bpm Height: 5'2" SpO2: 96% Weight: 154 lbs 01/14/2016 Blood Pressure 1: 126/78 Code: 8480-6 BMI: 28.9 Code: 56240-2 Heart Rate 1: 68 bpm Height: 5'2" SpO2: 95% Weight: 158 lbs 09/16/2015 Blood Pressure 1: 138/76 Code: 8480-6 BMI: 29.5 Code: 91629-8 Heart Rate 1: 68 bpm Height: 5'3" SpO2: 97% Weight: 169 lbs 07/20/2015 Blood Pressure 1: 144/60 Code: 8480-6 BMI: 31.0 Code: 23258-2 Heart Rate 1: 81 bpm Height: 5'3" SpO2: 97% Weight: 178 lbs 05/12/2015 Blood Pressure 1: 128/80 Code: 8480-6 BMI: 30.9 Code: 45227-5 Heart Rate 1: 68 bpm Height: 5'3" SpO2: 96% Weight: 177 lbs 03/18/2015 Blood Pressure 1: 134/70 Code: 8480-6 BMI: 31.6 Code: 75910-1 Heart Rate 1: 67 bpm Height: 5'3" SpO2: 96% Weight: 181 lbs 12/02/2014 Blood Pressure 1: 128/82 Code: 8480-6 BMI: 32.1 Code: 12421-1 Heart Rate 1: 84 bpm Height: 5'3" [...] data Encounters Encounter Performer Location Codes Date ([id number]) [id number] EST. 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 PATIENT, LEVEL III Diagnosis: Acute laryngopharyngitis[ICD10: J06.0] Diagnosis: Other allergic rhinitis[ICD10: J30.89] Radha Guerra MD, [facility] CPT- 4: 03084 06/08/2018 ([id number]) 21613 EST. PATIENT, LEVEL IV Diagnosis: Atrophy of thyroid (acquired)[ICD10: E03.4] Diagnosis: Essential (primary) hypertension[ICD10: I10] Diagnosis: Epigastric pain[ICD10: R10.13] Loly Guerra MD, [facility] CPT-4: 27774 05/15/2018 ([id number]) 81996 EST. PATIENT, LEVEL IV Diagnosis: Atrophy of thyroid (acquired)[ICD10: E03.4] Diagnosis: Essential (primary) hypertension[ICD10: I10] Diagnosis: Gastro-esophageal reflux disease with esophagitis[ICD10: K21.0] Loly Guerra MD, [facility] CPT-4: 19174 11/13/2017 ([id number]) 29394 EST. PATIENT, LEVEL IV Diagnosis: Atrophy of thyroid (acquired)[ICD10: E03.4] Diagnosis: Vitamin D deficiency, unspecified[ICD10: E55.9] Diagnosis: Essential (primary) hypertension[ICD10: I10] Loly Guerra MD [facility] CPT-4: 01583 07/18/2017 ([id number]) 75196 EST. PATIENT, LEVEL IV Diagnosis: Low back pain[ICD10: M54.5] Diagnosis: Lumbago with sciatica, right side[ICD10: M54.41] Diagnosis: Essential (primary) hypertension[ICD10: I10] Diagnosis: Atrophy of thyroid (acquired)[ICD10: E03.4] Loly Guerra MD, [facility] CPT-4: 62445 03/16/2017 ([id number]) 81750 EST. PATIENT, LEVEL IV Diagnosis: Essential (primary) hypertension[ICD10: I10] Diagnosis: Atrophy of thyroid (acquired)[ICD10: E03.4] Loly Guerra MD, [facility] CPT-4: 11342 11/10/2016 ([id number]) Miscellaneous no charge Diagnosis: Essential (primary) hypertension[ICD10: I10] Radha Guerra MD, [facility] CPT-4: 01994 08/29/2016 ([id number]) 89911 EST. PATIENT, LEVEL IV Diagnosis: Essential (primary) hypertension[ICD10: I10] Diagnosis: Atrophy of thyroid (acquired)[ICD10: E03.4] Loly Guerra MD, [facility] CPT-4: 26933 08/11/2016 [id number] EST. PATIENT, LEVEL IV Diagnosis: Essential (primary) hypertension[ICD10: I10] Diagnosis: Other specified hypothyroidism[ICD10: E03.8] Radha Guerra MD, [facility] CPT-4: 54123 05/12/2016 ([id number]) 15061 EST. PATIENT, LEVEL IV Diagnosis: Essential (primary) hypertension[ICD10: I10] Diagnosis: Hypothyroidism, unspecified[ICD10: E03.9] Diagnosis: First degree hemorrhoids[ICD10: K64.0] Loly Guerra MD, [facility] CPT-4: 23966 01/14/2016 ([id number]) 56793 EST. PATIENT, LEVEL IV Diagnosis: Hypothyroidism, unspecified[ICD10: E03.9] Diagnosis: Essential (primary) hypertension[ICD10: I10] Diagnosis: Morbid (severe) obesity due to excess calories[ICD10: E66.01] Diagnosis: Iron deficiency anemia, unspecified[ICD10: D50.9] Loly Guerra MD, [facility] CPT-4: 36048 09/16/2015 ([id number]) 57445 EST. PATIENT, LEVEL IV Diagnosis: Gastro-esophageal reflux disease with esophagitis[ICD10: K21.0] Diagnosis: Diaphragmatic hernia without obstruction or gangrene[ICD10: K44.9] Diagnosis: Dysphagia, pharyngoesophageal phase[ICD10: R13.14] Dia Guerra MD, [facility] CPT-4: 14008 07/20/2015 ([id number]) 13712 EST. PATIENT, LEVEL IV Diagnosis: Gastro-esophageal reflux disease with esophagitis[ICD10: K21.0] Diagnosis: Vitamin D deficiency, unspecified[ICD10: E55.9] Diagnosis: Essential (primary) hypertension[ICD10: I10] Diagnosis: Impaired fasting glucose[ICD10: R73.01] Diagnosis: Hypothyroidism, unspecified[ICD10: E03.9] Dia Guerra MD, [facility] CPT-4: 76248 05/12/2015 ([id number]) 17899 EST. PATIENT, LEVEL IV Diagnosis: ESSENTIAL HYPERTENSION[ICD9: 401.9] Diagnosis: HYPOTHYROIDISM[ICD9: 244.9] Diagnosis: ESOPHAGEAL REFLUX[ICD9: 530.81] Diagnosis: Other screening mammogram[ICD9: V76.12] Diagnosis: Osteoarthritis[ICD9: 715.90] Loly Guerra MD, [facility] CPT-4: 29798 03/18/2015 ([id number]) OFFICE VISIT, [facility] - LEVEL 4 Diagnosis: ESSENTIAL HYPERTENSION[ICD9: 401.9] Diagnosis: HYPOTHYROIDISM[ICD9: 244.9] Diagnosis: ESOPHAGEAL REFLUX[ICD9: 530.81] Diagnosis: Other screening mammogram[ICD9: V76.12] Diagnosis: Osteoarthritis[ICD9: 715.90] Loly Guerra MD, [facility] CPT-4: 26168 12/02/2014 Plan of Care Planned Activity Notes [...] allergies. 11/13/2018 Appointment: [phone] [facility] (15 min) Moderate 11/13/2018 Patient Education: Patient Medication Summary Completed 11/13/2018 Patient Education: Hypertension Completed 11/13/2018 Care Plan: Referral Order SNOMED-CT : [id number] Pending 11/13/2018 Visit Plan: URI - Pt [...] the nasal steroid allergy spray. 06/08/2018 Appointment[facility] [phone] [facility] [place] (15 min) Moderate 06/08/2018 Patient Education: [...] symptoms worsen. 05/15/2018 Appointment: Loly Guerra WPtel: [facility] [place] [place] (15 min) Moderate 05/15/2018 Patient Education: [...] allergies. 11/13/2017 Appointment: Loly Guerra WPtel: [phone] [facility] (15 min) Moderate 11/13/2017 Patient Education: Patient [...] D. 07/18/2017 Appointment: Loly Guerra WPtel: [phone] [facility] (15 min) Moderate 07/18/2017 Patient Education: Patient [...] control. 03/16/2017 Appointment: [phone] [facility] [place] (30 min) Complex 03/16/2017 Patient Education: Patient [...] paperwork for health care surrogate. 11/11/2016 Appointment: Radha Quiles WPtel: [phone] [facility] [facility] - Annual Wellness Visit 11/11/2016 [...] control. 11/10/2016 Appointment: Loly Guerra WPtel: [phone] [facility] (15 min) Moderate 11/10/2016 Patient Education: Patient [...] of control. 08/11/2016 Appointment: [facility] [phone] [facility] (15 min) Moderate 08/11/2016 Patient Education: Patient [...] cream 01/14/2016 Appointment: [facility] Guerra [facility]el[facility] [phone] [facility] [place] (15 min) Moderate 01/14/2016 Patient Education: [...] 3-4 months. 09/16/2015 Appointment: Loly Guerra [facility]el: [phone] [facility] [place] (15 min) Moderate 09/16/2015 Patient Education: [...] if the symptoms are not improving. Hiatal stigaq-ehuyoewpc-hbezuivc swallow study and referral for EGD-will obtain [...] daily. 03/18/2015 Appointment: Loly Guerra [facility]el[facility] [phone] [facility] (15 min) Moderate 03/18/2015 Patient Education: Patient [...] symptoms. 12/02/2014 Appointment: L[facility] Guerra [facility]el[facility] [phone] [facility] [place] ([place] New Patient 12/02/2014 Patient Education: Patient Medication Summary Completed 12/02/2014 Patient Education: Hypertension Completed 12/02/2014 Referral: Warren Weathers WPtel:[phone] Referral Appointment Requested Instructions Comment . Hypertension - well controlled - continue [...] spray in the nasal steroid allergy spray. . Hypertension - well controlled - continue [...] months based on previous levels of control. Nasal spray- use twice daily, one spray [...] Pt to continue with vitamin D daily. INCREASE OMEPRAZOLE TO TWICE DAILY X 10 [...] D deficiency - Recommended continued vitamin D. stretching exercises given to you today- start [...] based on previous levels of control. . UTI - pt with positive urinalysis - culture sent if appropriate. Antibiotic electronically prescribed to pt's pharmacy of choice. Pt to call if symptoms do not improve. SCHEDULE SWALLOW STUDY . Hypertension - well [...] if the symptoms are not improving. Hiatal gyrgvx-odyztverw-gpdstvca swallow study and referral for EGD-will obtain swallow study first per patient request . Medicare Exam - today we discussed [...] her [employer]OP[employer] paperwork for health care surrogate. Monitor your blood pressure at home and [...] tylenol for break through pain symptoms. . Hypertension - well controlled - continue [...] control. Hemorrhoids - RX for hydrocortisone cream SLOW FE - iron pills - take [...] monitor labs in about 3-4 months. . Medicare Exam - today we discussed [...]
--- OUTSIDE RECORDS SUMMARY | 2019-01-15 14:10 | XMS REPORT | CCD ---
Author Author [facility] Organization [facility] Address [address] [place] [address] Phone Care Team Providers Care Brick Pitcher Name Role Phone PP Unavailable CCM Unavailable Summary Purpose Interface Exchange Insurance Providers Payer name Policy type / Coverage type Covered constitution party ID Effective Begin Date Effective End Date WPS Medicare Part B Medicare Part B [id number] Unknown [employer] Medicare Part B [id number] Unknown Family history Mother Diagnosis Age At Onset Arthritis Unknown Ovarian cancer Unknown Cancer Unknown Stroke Unknown Coronary Artery Disease Unknown Father Diagnosis Age At Onset Hypertension Unknown bladder cancer Unknown Arthritis Unknown Cancer Unknown Cancer Unknown Social History Social History Element Codes Description Effective Dates Marital status Unknown 12/02/2014 Number of children Unknown 0 12/02/2014 Employment Unknown Retired 12/02/[address]: 611597019 Has never smoked or chewed tobacco 12/02/[address]: 563395182 Never drinks alcohol 12/02/2014 Allergies, Adverse Reactions, Alerts Substance Reaction Codes Entered Date Inactivated Date Status * NO KNOWN DRUG ALLERGIES Unknown 12/02/2014 No Inactive Date Active Past Medical History Illness Codes Condition Status Onset Date Resolved Date Atrophy of thyroid (acquired) ICD-9: 244.8 ICD-10: [...] ICD-9: 477.8 ICD-10: J30.89 Active 06/08/2018 Unknown Encounter for general adult medical examination with abnormal findings ICD-9: V70.0 ICD-10: Z00.01 Active 11/11/2016 Unknown Vitamin D deficiency, unspecified ICD-9: 268.9 [...] Problems Condition Codes Effective Dates Condition Status Atrophy of thyroid (acquired) ICD-9: 244.8 ICD-10: [...] rhinitis ICD-9: 477.8 ICD-10: J30.89 06/08/2018 Active Encounter for general adult medical examination with abnormal findings ICD-9: V70.0 ICD-10: Z00.01 11/11/2016 Active Vitamin D deficiency, unspecified ICD-9: 268.9 [...] Fill Instructions levothyroxine 50 mcg tablet RxNorm: 257142 1 Tablet(s) PO daily 09/04/2018 08/29/2019 Active amoxicillin 500 mg tablet RxNorm: 031950 1 Tablet(s) PO TID 06/08/2018 06/14/2018 Inactive amoxicillin 500 mg tablet RxNorm: 640931 1 Tablet(s) PO TID 06/08/2018 06/07/2018 Inactive atenolol 25 mg tablet RxNorm: 962001 1/2 Tablet(s) PO daily 04/11/2018 07/04/2019 Active omeprazole 20 mg capsule,delayed release RxNorm: 569033 1 Capsule(s) PO daily 04/03/2018 06/26/2019 Active triamterene 37.5 mg-hydrochlorothiazide 25 mg tablet RxNorm: 361987 Tablet(s) TAKE 1/2 TABLET EVERY DAY 01/25/2018 01/19/2019 Active levothyroxine 50 mcg tablet RxNorm: 111712 1 Tablet(s) PO daily 09/04/2017 08/29/2018 Inactive atenolol 25 mg tablet RxNorm: 729689 1/2 Tablet(s) PO daily 07/06/2017 04/01/2018 Inactive omeprazole 20 mg capsule,delayed release RxNorm: 692632 1 Capsule(s) PO daily 07/06/2017 04/01/2018 Inactive atenolol 25 mg tablet RxNorm: 833401 TAKE ONE-HALF TABLET BY MOUTH ONCE DAILY 05/30/2017 No Stop Date Active atenolol 25 mg tablet RxNorm: 606550 1/2 Tablet(s) PO daily 05/30/2017 07/05/2017 Inactive atenolol 25 mg tablet RxNorm: 785210 TAKE ONE-HALF TABLET BY MOUTH ONCE DAILY 05/30/2017 04/10/2018 Inactive triamterene 37.5 mg-hydrochlorothiazide 25 mg tablet RxNorm: 336025 TAKE 1/2 TABLET EVERY DAY 05/01/2017 01/24/2018 Inactive metoprolol succinate ER 25 mg tablet,extended release 24 hr RxNorm: 561678 1 Tablet(s) PO daily 04/21/2017 04/20/2017 Inactive metoprolol succinate ER 25 mg tablet,extended release 24 hr RxNorm: 153628 1 Tablet(s) PO daily 04/21/2017 11/12/2017 Inactive prednisone 10 mg tablets in a dose pack RxNorm: 109385 1 Tablet(s) PO UD take pills as directed in a taper take with food 03/16/2017 03/25/2017 Inactive Keflex 500 mg capsule RxNorm: 779195 1 Capsule(s) PO TID 03/08/2017 03/14/2017 Inactive levothyroxine 50 mcg tablet RxNorm: 899436 1 Tablet(s) PO daily 05/19/2016 08/11/2017 Inactive atenolol 25 mg tablet RxNorm: 062185 1/2 Tablet(s) PO daily 05/09/2016 04/20/2017 Inactive triamterene 37.5 mg-hydrochlorothiazide 25 mg tablet RxNorm: 059913 1/2 Tablet(s) PO daily 04/22/2016 04/16/2017 Inactive omeprazole 20 mg capsule,delayed release RxNorm: 081846 1 Capsule(s) PO daily 03/24/2016 06/16/2017 Inactive [SAVINGS FOR NON-COVERED DRUGS -- BIN:[id number], PCN: ASPROD1, Group: XXXXX, ID# XXXXXXX, Questions: . THIS IS NOT INSURANCE.] omeprazole 20 mg capsule,delayed release RxNorm: 423409 1 Capsule(s) PO daily 02/19/2016 03/23/2016 Inactive [SAVINGS FOR NON-COVERED DRUGS -- BIN:[id number], PCN: ASPROD1, Group: XXXXX, ID# XXXXXXX, Questions: . THIS IS NOT INSURANCE.] hydrocortisone 2.5 % topical cream RxNorm: 668945 1 Application TOP BID as needed hemorrhoid 01/14/2016 02/10/2016 Inactive atenolol 25 mg tablet RxNorm: 239839 1/2 Tablet(s) PO daily 11/16/2015 05/08/2016 Inactive levothyroxine 50 mcg tablet RxNorm: 888664 1 Tablet(s) PO daily 08/19/2015 05/18/2016 Inactive omeprazole 20 mg capsule,delayed release RxNorm: 950343 1 Capsule(s) PO daily 06/12/2015 01/07/2016 Inactive [SAVINGS FOR NON-COVERED DRUGS -- BIN:191990, PCN: ASPROD1, Group: XXXXX, ID# XXXXXXX, Questions: . THIS IS NOT INSURANCE.] Vitamin D2 50,000 unit capsule RxNorm: 330516 1 Capsule(s) PO monthly 05/12/2015 09/15/2015 Inactive triamterine HCTZ 25/37.5 mg RxNorm: 1/2 PO daily 04/14/2015 04/14/2015 Inactive triamterine HCTZ 25/37.5 mg RxNorm: 1/2 Tablet(s) PO daily 04/14/2015 04/13/2015 Inactive triamterene 37.5 mg-hydrochlorothiazide 25 mg tablet RxNorm: 389693 1/2 Tablet(s) PO daily 04/14/2015 04/13/2015 Inactive triamterene 37.5 mg-hydrochlorothiazide 25 mg tablet RxNorm: 918599 1/2 Tablet(s) PO daily 04/14/2015 04/07/2016 Inactive triamterine HCTZ 25/37.5 mg RxNorm: 1/2 Tablet(s) PO daily 04/14/2015 04/13/2015 Inactive triamterine HCTZ 25/37.5 mg RxNorm: 1/2 Tablet(s) PO daily 02/03/2015 04/13/2015 Inactive doxycycline hyclate 100 mg capsule RxNorm: 902448 1 Capsule(s) PO BID 12/10/2014 12/23/2014 Inactive doxycycline hyclate 100 mg capsule RxNorm: 094119 1 Capsule(s) PO BID 12/10/2014 12/09/2014 Inactive Vitamin D2 1,000 unit capsule RxNorm: 638102 2 Capsule(s) PO daily 12/09/2014 01/07/2015 Inactive Vitamin D2 50,000 unit capsule RxNorm: 780512 1 Capsule(s) PO QW 12/09/2014 12/08/2014 Inactive Vitamin D2 50,000 unit capsule RxNorm: 234850 1 Capsule(s) PO QW 12/09/2014 03/08/2015 Inactive Carafate 1 gram tablet RxNorm: 980438 1 Tablet(s) PO TID dissolve in 10mL of water, take the pill dissolved. 12/02/2014 01/07/2015 Inactive [SAVINGS FOR NON-COVERED DRUGS -- BIN:[id number], PCN: ASPROD1, Group: XXXXX, ID# XXXXXXX, Questions: . THIS IS NOT INSURANCE.] omeprazole 20 mg capsule,delayed release RxNorm: 402464 1 Capsule(s) PO daily 11/12/2014 11/11/2014 Inactive omeprazole 20 mg capsule,delayed release RxNorm: 549301 1 Capsule(s) PO daily 11/12/2014 01/10/2015 Inactive [SAVINGS FOR NON-COVERED DRUGS -- BIN:630565, PCN: ASPROD1, Group: XXXXX, ID# XXXXXXX, Questions: . THIS IS NOT INSURANCE.] atenolol 25 mg tablet RxNorm: 711509 1/2 Tablet(s) PO daily No Start Date 11/15/2015 Inactive triamterine HCTZ 25/37.5 mg RxNorm: 1/2 PO daily No Start Date 02/02/2015 Inactive levothyroxine 50 mcg tablet RxNorm: 486151 1 Tablet(s) PO daily No Start Date 08/18/2015 Inactive Medication Administered No Medication Administered data Immunizations Vaccine Codes Date Status Influenza CVX: 141 05/10/2014 completed Tetanus, Diptheria, Pertussis CVX: 113 05/10/2005 completed Tetanus/Diptheria CVX: 113 05/10/2005 completed Assessments Condition Codes Effective Dates Gastro-esophageal reflux disease with esophagitis ICD-10: K21.0 ICD-9: 530.11 11/13/2018 Personal history of other malignant neoplasm of large intestine ICD-10: Z85.038 ICD-9: V10.05 11/13/2018 Essential (primary) hypertension ICD-10: I10 ICD-9: 401.9 11/13/2018 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 ICD-9: 244.8 11/13/2018 Other allergic rhinitis ICD-10: J30.89 ICD-9: 477.8 06/08/2018 Acute laryngopharyngitis ICD-10: J06.0 ICD-9: 465.0 06/08/2018 Epigastric pain ICD-10: R10.13 ICD-9: 789.06 05/15/2018 Encounter for general adult medical examination with abnormal findings ICD-10: Z00.01 ICD-9: V70.0 11/16/2017 Vitamin D deficiency, unspecified ICD-10: E55.9 ICD-9: [...] Visit Reason For Visit Effective Dates Notes hypertension 11/13/2018 cough 06/08/2018 hypertension 05/15/2018 Annual Medicare Wellness Exam 11/16/2017 hypertension 11/13/2017 hypertension 07/18/2017 hypertension 03/16/2017 Annual Medicare Wellness Exam 11/11/2016 hypertension 11/10/2016 hypertension 08/11/2016 hypertension 05/12/2016 hypertension 01/14/2016 hernia 09/16/2015 hernia 07/20/2015 gastroesophageal reflux 05/12/2015 fatigue 03/18/2015 joint complaint 12/02/2014 right knee mostly in the am. Results Observation Observation Code Item Item Code Result Date Culture Urine [id number] URINE CULTURE SEE NOTES 03/14/2017 Culture Urine [id number] Continued Results 03/14/2017 Urine Culture Ucult Complete >100,000 col/ml aerobic growth sent to ref lab 03/09/2017 Free T4 Egg299 FREE T4 0.94 ng/dL 11/10/2016 Tsh Ord6 [...] 26.4 pg 09/10/2015 Cbc With Differential Ord2 [place]% 5.8 % 09/10/2015 Cbc With Differential Ord2 [...] 1.14 K/ul 09/10/2015 Cbc With Differential Ord2 [place] ABS# 0.4 K/ul 09/10/2015 Cbc With Differential Ord2 Eos ABS# 0.2 K/ul 09/10/2015 Cbc With Differential Ord2 Baso ABS# 0.0 K/ul 09/10/2015 Cbc With Differential Ord2 New Analyzer Notice Please note new ref ranges starting 07-22-2015 due to implemntation of new five part differential hematolgy analyzer. 09/10/2015 Comp Metabolic Oje967 NA 138 mEq/L 09/10/2015 Comp Metabolic Ozb941 K 4.0 mEq/L 09/10/2015 Comp Metabolic Sui792 CL 102 mEq/L 09/10/2015 Comp Metabolic Nmz370 CO2 28.0 mEq/L 09/10/2015 Comp Metabolic Ojp078 ANION GAP 12 09/10/2015 Comp Metabolic Ccn475 GLUCOSE 88 mg/dL 09/10/2015 Comp Metabolic Dvu606 Creat 1.2 mg/dL 09/10/2015 Comp Metabolic Yof404 eGFR 47 ml/min/1.73m2 09/10/2015 Comp Metabolic Kyu995 BUN 25 mg/dL 09/10/2015 Comp Metabolic Tex572 B/C Ratio 21.6 Ratio 09/10/2015 Comp Metabolic Piy149 CALCIUM 9.1 mg/dL 09/10/2015 Comp Metabolic Kqq309 ALK PHOS 55 U/L 09/10/2015 Comp Metabolic Ftm211 AST(SGOT) 14 U/L 09/10/2015 Comp Metabolic Vdl303 ALT(SGPT) 7 U/L 09/10/2015 Comp Metabolic Msk679 BILI T 0.4 mg/dL 09/10/2015 Comp Metabolic Hhp918 ALBUMIN 3.6 g/dL 09/10/2015 Comp Metabolic Zvf630 TPRO 6.3 g/dL 09/10/2015 Comp Metabolic Wge503 GLOB 2.7 g/dL 09/10/2015 Comp Metabolic Max347 A/G Ratio 1.4 Ratio 09/10/2015 Comp Metabolic Hcn841 Osmo 279 mOsmo 09/10/2015 Cbc With Differential [...] Ord2 RDW 15.9 % 05/12/2015 Free T4 Jou052 FREE T4 1.02 ng/dL 05/12/2015 %Hba1C Qys988 % HbA1c 15177- 6 5.8 % 05/12/2015 %Hba1C Los868 Gluc Ave 120 mg/dL 05/12/2015 Comp Metabolic Wol837 NA 136 mEq/L 05/12/2015 Comp Metabolic Mwy620 K 4.3 mEq/L 05/12/2015 Comp Metabolic Srp845 CL 101 mEq/L 05/12/2015 Comp Metabolic Oql834 CO2 26.0 mEq/L 05/12/2015 Comp Metabolic Egt492 ANION GAP 13 05/12/2015 Comp Metabolic Neu054 GLUCOSE 91 mg/dL 05/12/2015 Comp Metabolic Orx059 Creat 1.3 mg/dL 05/12/2015 Comp Metabolic Hda586 eGFR 43 ml/min/1.73m2 05/12/2015 Comp Metabolic Sfp011 BUN 23 mg/dL 05/12/2015 Comp Metabolic Mfv172 B/C Ratio 18.4 Ratio 05/12/2015 Comp Metabolic Tzg164 CALCIUM 9.2 mg/dL 05/12/2015 Comp Metabolic Wlj574 ALK PHOS 64 U/L 05/12/2015 Comp Metabolic Pcd644 AST(SGOT) 16 U/L 05/12/2015 Comp Metabolic Hpu878 ALT(SGPT) 9 U/L 05/12/2015 Comp Metabolic Uiz708 BILI T 0.4 mg/dL 05/12/2015 Comp Metabolic Iip589 ALBUMIN 3.9 g/dL 05/12/2015 Comp Metabolic Pkr229 TPRO 6.8 g/dL 05/12/2015 Comp Metabolic Qxl137 GLOB 2.9 g/dL 05/12/2015 Comp Metabolic Piy482 A/G Ratio 1.3 Ratio 05/12/2015 Comp Metabolic Coi820 Osmo 275 mOsmo 05/12/2015 Tsh Ord6 hTSH II 3.25 uIU/mL 05/12/2015 Vitamin D 25 Oh Gdu0408 VITAMIN D, 25 HYDROXY 54.89 ng/mL 02/27/2015 Review of Systems System Result Effective Dates Constitutional No recent illness 11/13/2018 Constitutional No [...] clear 11/13/2018 None Full Exam - General 1995 Ears/Nose/Throat [...] lips 03/16/2017 None Full Exam - General 1994 Ears/Nose/Throat lips/teeth/gingiva Overall: normal dentition 03/16/2017 None Full Exam - General 1994 Ears/Nose/Throat oral cavity/pharynx/larynx Overall: oral mucosa clear 03/16/2017 None Full Exam - General 1994 Ears/Nose/Throat oral cavity/pharynx/larynx Overall: oropharyngeal mucosa clear 03/16/2017 None Full Exam - General 1994 Ears/Nose/Throat oral cavity/pharynx/larynx Overall: hypopharynx benign 03/16/2017 [...] dentition 03/18/2015 None Full Exam - General 1995 Ears/Nose/Throat oral cavity/pharynx/larynx Overall: oral mucosa clear 03/18/2015 None Full Exam - General 1995 Ears/Nose/Throat oral cavity/pharynx/larynx Overall: oropharyngeal mucosa clear 03/18/2015 None Full Exam - General 1995 Ears/Nose/Throat oral cavity/pharynx/larynx Overall: hypopharynx benign 03/18/2015 [...] Date PPPS, SUBSEQ VISIT CPT- 4: G0439 11/16/2017 URINALYSIS NONAUTO W/O SCOPE CPT-4: 50700 03/08/2017 PPPS, SUBSEQ VISIT CPT- 4: G0439 11/11/2016 Vital Signs Date Vital 11/13/2018 Blood Pressure 1: 148/82 Code: 8480-6 BMI: 30.2 Code: 67332-0 Heart Rate 1: 74 bpm Height: 5'2" SpO2: 97% Weight: 165 lbs 06/08/2018 Height: Weight: 05/15/2018 Blood Pressure 1: 120/68 Code: 8480-6 BMI: 30.2 Code: 29224-8 Heart Rate 1: 69 bpm Height: 5'2" SpO2: 96% Weight: 165 lbs 11/16/2017 Height: Weight: 11/13/2017 Blood Pressure 1: 144/74 Code: 8480-6 BMI: 30.2 Code: 39218-6 Heart Rate 1: 76 bpm Height: 5'2" SpO2: 99% Weight: 165 lbs 07/18/2017 Blood Pressure 1: 118/70 Code: 8480-6 BMI: 28.7 Code: 62476-3 Heart Rate 1: 75 bpm Height: 5'2" SpO2: 97% Weight: 157 lbs 03/16/2017 Blood Pressure 1: 128/72 Code: 8480-6 BMI: 29.1 Code: 06763-3 Heart Rate 1: 62 bpm Height: 5'2" SpO2: 98% Weight: 159 lbs 11/11/2016 Blood Pressure 1: 140/78 Code: 8480-6 BMI: 29.1 Code: 01189-6 Heart Rate 1: 64 bpm Height: 5'2" SpO2: 97% Waist Measure (cm): 91 cm Weight: 159 lbs 11/10/2016 Blood Pressure 1: 140/78 Code: 8480-6 BMI: 29.1 Code: 03661-2 Heart Rate 1: 64 bpm Height: 5'2" Weight: 159 lbs 08/29/2016 Blood Pressure 1: 120/56 Code: 8480-6 Heart Rate 1: 68 bpm SpO2: 97% 08/11/2016 Blood Pressure 1: 128/80 Code: 8480-6 BMI: 28.9 Code: 49109-6 Heart Rate 1: 64 bpm Height: 5'2" Weight: 158 lbs 05/12/2016 Blood Pressure 1: 148/62 Code: 8480-6 BMI: 28.2 Code: 67469-3 Heart Rate 1: 97 bpm Height: 5'2" SpO2: 96% Weight: 154 lbs 01/14/2016 Blood Pressure 1: 126/78 Code: 8480-6 BMI: 28.9 Code: 09439-7 Heart Rate 1: 68 bpm Height: 5'2" SpO2: 95% Weight: 158 lbs 09/16/2015 Blood Pressure 1: 138/76 Code: 8480-6 BMI: 29.5 Code: 30626-8 Heart Rate 1: 68 bpm Height: 5'3" SpO2: 97% Weight: 169 lbs 07/20/2015 Blood Pressure 1: 144/60 Code: 8480-6 BMI: 31.0 Code: 68716-1 Heart Rate 1: 81 bpm Height: 5'3" SpO2: 97% Weight: 178 lbs 05/12/2015 Blood Pressure 1: 128/80 Code: 8480-6 BMI: 30.9 Code: 39948-4 Heart Rate 1: 68 bpm Height: 5'3" SpO2: 96% Weight: 177 lbs 03/18/2015 Blood Pressure 1: 134/70 Code: 8480-6 BMI: 31.6 Code: 16616-5 Heart Rate 1: 67 bpm Height: 5'3" SpO2: 96% Weight: 181 lbs 12/02/2014 Blood Pressure 1: 128/82 Code: 8480-6 BMI: 32.1 Code: 76896-8 Heart Rate 1: 84 bpm Height: 5'3" Weight: 184 lbs Functional Status No Functional Status data History of Present Illness Symptom Name Status Result Effective Date Notes Quality chronic 11/13/2018 None Quality primary hypertension [...] data Encounters Encounter Performer Location Codes Date [id number]) [id number] EST. PATIENT, LEVEL IV Diagnosis: Essential (primary) hypertension[ICD10: I10] Diagnosis: Atrophy of thyroid (acquired)[ICD10: E03.4] Diagnosis: Personal history of other malignant neoplasm of large intestine[ICD10: Z85.038] Diagnosis: Gastro-esophageal reflux disease with esophagitis[ICD10: K21.0] Loly Guerra MD, [facility] CPT-4: 65914 11/13/2018 [id number] EST. PATIENT, LEVEL III Diagnosis: Acute laryngopharyngitis[ICD10: J06.0] Diagnosis: Other allergic rhinitis[ICD10: J30.89] Radha Guerra MD, [facility] CPT- 4: 49251 06/08/2018 [id number]) 62097 EST. PATIENT, LEVEL IV Diagnosis: Atrophy of thyroid (acquired)[ICD10: E03.4] Diagnosis: Essential (primary) hypertension[ICD10: I10] Diagnosis: Epigastric pain[ICD10: R10.13] Loly Guerra MD, [facility] CPT-4: 16324 05/15/2018 [id number] 31944 EST. PATIENT, LEVEL IV Diagnosis: Atrophy of thyroid (acquired)[ICD10: E03.4] Diagnosis: Essential (primary) hypertension[ICD10: I10] Diagnosis: Gastro-esophageal reflux disease with esophagitis[ICD10: K21.0] Loly Guerra MD, [facility] CPT-4: 52696 11/13/2017 ([id number]) 87135 EST. PATIENT, LEVEL IV Diagnosis: Atrophy of thyroid (acquired)[ICD10: E03.4] Diagnosis: Vitamin D deficiency, unspecified[ICD10: E55.9] Diagnosis: Essential (primary) hypertension[ICD10: I10] Loly Guerra MD, [facility] CPT-4: 14818 07/18/2017 ([id number]) 00035 EST. PATIENT, LEVEL IV Diagnosis: Low back pain[ICD10: M54.5] Diagnosis: Lumbago with sciatica, right side[ICD10: M54.41] Diagnosis: Essential (primary) hypertension[ICD10: I10] Diagnosis: Atrophy of thyroid (acquired)[ICD10: E03.4] Loly Guerra MD, [facility] CPT-4: 77788 03/16/2017 ([id number]) 22212 EST. PATIENT, LEVEL IV Diagnosis: Essential (primary) hypertension[ICD10: I10] Diagnosis: Atrophy of thyroid (acquired)[ICD10: E03.4] Loly Guerra MD, [facility] CPT-4: 50989 11/10/2016 ([id number]) Miscellaneous no charge Diagnosis: Essential (primary) hypertension[ICD10: I10] Radha Guerra MD, [facility] CPT-4: 23495 08/29/2016 ([id number]) 26274 EST. PATIENT, LEVEL IV Diagnosis: Essential (primary) hypertension[ICD10: I10] Diagnosis: Atrophy of thyroid (acquired)[ICD10: E03.4] Loly Guerra MD, [facility] CPT-4: 73271 08/11/2016 01722 EST. PATIENT, LEVEL IV Diagnosis: Essential (primary) hypertension[ICD10: I10] Diagnosis: Other specified hypothyroidism[ICD10: E03.8] Radha Guerra MD, [facility] CPT-4: 63084 05/12/2016 ([id number]) 60263 EST. PATIENT, LEVEL IV Diagnosis: Essential (primary) hypertension[ICD10: I10] Diagnosis: Hypothyroidism, unspecified[ICD10: E03.9] Diagnosis: First degree hemorrhoids[ICD10: K64.0] Loly Guerra MD, [facility] CPT-4: 37805 01/14/2016 ([id number]) 07565 EST. PATIENT, LEVEL IV Diagnosis: Hypothyroidism, unspecified[ICD10: E03.9] Diagnosis: Essential (primary) hypertension[ICD10: I10] Diagnosis: Morbid (severe) obesity due to excess calories[ICD10: E66.01] Diagnosis: Iron deficiency anemia, unspecified[ICD10: D50.9] Loly Guerra MD, [facility] CPT-4: 02028 09/16/2015 ([id number]) 63625 EST. PATIENT, LEVEL IV Diagnosis: Gastro-esophageal reflux disease with esophagitis[ICD10: K21.0] Diagnosis: Diaphragmatic hernia without obstruction or gangrene[ICD10: K44.9] Diagnosis: Dysphagia, pharyngoesophageal phase[ICD10: R13.14] Dia Guerra MD, [facility] CPT-4: 87894 07/20/2015 ([id number]) 34288 EST. PATIENT, LEVEL IV Diagnosis: Gastro-esophageal reflux disease with esophagitis[ICD10: K21.0] Diagnosis: Vitamin D deficiency, unspecified[ICD10: E55.9] Diagnosis: Essential (primary) hypertension[ICD10: I10] Diagnosis: Impaired fasting glucose[ICD10: R73.01] Diagnosis: Hypothyroidism, unspecified[ICD10: E03.9] Dia Guerra MD, [facility] CPT-4: 34854 05/12/2015 ([id number]) 48502 EST. PATIENT, LEVEL IV Diagnosis: ESSENTIAL HYPERTENSION[ICD9: 401.9] Diagnosis: HYPOTHYROIDISM[ICD9: 244.9] Diagnosis: ESOPHAGEAL REFLUX[ICD9: 530.81] Diagnosis: Other screening mammogram[ICD9: V76.12] Diagnosis: Osteoarthritis[ICD9: 715.90] Loly Guerra MD, [facility] CPT-4: 34660 03/18/2015 ([id number]) OFFICE VISIT, NEW - LEVEL 4 Diagnosis: ESSENTIAL HYPERTENSION[ICD9: 401.9] Diagnosis: HYPOTHYROIDISM[ICD9: 244.9] Diagnosis: ESOPHAGEAL REFLUX[ICD9: 530.81] Diagnosis: Other screening mammogram[ICD9: V76.12] Diagnosis: Osteoarthritis[ICD9: 715.90] [facility] CPT-4: 64796 12/02/2014 Plan of Care Planned Activity Notes Codes Status Date Visit Plan: HX of colon cancer - [...] flonase as needed for nasal allergies. 11/13/2018 Patient Education: Patient Medication Summary Completed 11/13/2018 Patient Education: Hypertension Completed 11/13/2018 Care Plan: Referral Order SNOMED-CT : [id number] Pending 11/13/2018 Visit Plan: URI - Pt [...] allergy spray. 06/08/2018 Appointment: Radha Quiles WPtel: [address] [place], [place] [id number] [place] (15 min) Moderate 06/08/2018 Patient Education: [...] symptoms worsen. 05/15/2018 Appointment: [facility]el[facility] [place] (15 min) Moderate 05/15/2018 Patient Education: [...] allergies. 11/13/2017 Appointment: Loly Guerra WPtel: [phone] [facility] (15 min) Moderate 11/13/2017 Patient Education: Patient [...] D. 07/18/2017 Appointment: Loly Guerra WPtel: [phone] [facility] (15 min) Moderate 07/18/2017 Patient Education: Patient [...] of control. 03/16/2017 Appointment: Loly Guerra WPtel: [facility] (30 min) Complex 03/16/2017 Patient Education: Patient [...] care surrogate. 11/11/2016 Appointment: Radha Quiles WPtel: [phone] [facility] [facility] - Annual Wellness Visit 11/11/2016 Patient Education: [...] control. 11/10/2016 Appointment: Loly Guerra WPtel: [phone] [facility] (15 min) Moderate 11/10/2016 Patient Education: Patient [...] control. 08/11/2016 Appointment: [facility] [phone] [facility] [address] (15 min) Moderate 08/11/2016 Patient Education: Patient [...] hydrocortisone cream 01/14/2016 Appointment: Loly Guerra WPtel: [facility] (15 min) Moderate 01/14/2016 Patient Education: Patient [...] 3-4 months. 09/16/2015 Appointment: Loly Guerra WPtel: [facility] [place] (15 min) Moderate 09/16/2015 Patient Education: [...] if the symptoms are not improving. Hiatal uzvtow-ufvekrbse-xfxztcak swallow study and referral for EGD-will obtain [...] daily. 03/18/2015 Appointment: [facility] [phone] [facility] [address] [facility] [address] (15 min) Moderate 03/18/2015 Patient Education: Patient [...] symptoms. 12/02/2014 Appointment: [facility]el[facility] [phone] [facility] [address] [place] ([place] New Patient 12/02/2014 Patient Education: Patient Medication Summary Completed 12/02/2014 Patient Education: Hypertension Completed 12/02/2014 Referral: Warren Weathers WPtel:+[phone] Referral Appointment Requested Instructions Comment SLOW FE [...] if the symptoms are not improving. Hiatal urlcky-cxdyxgtur-xyjpamgi swallow study and referral for EGD-will obtain [...]
--- OUTSIDE RECORDS SUMMARY | 2019-01-15 14:13 | XMS REPORT | CCD ---
Author Author Loly Guerra Organization Loly Guerra MD, [facility] Address [address] [place] [address] Phone Care Team Providers Care Chick Room Supervisor Name Role Phone PP Unavailable CCM Unavailable Summary Purpose Interface Exchange Insurance Providers Payer name Policy type / Coverage type Covered republican ID Effective Begin Date Effective End Date WPS Medicare Part B Medicare Part B [id number] Unknown Old [employer] Medicare Part B [id number] Unknown Family history Mother Diagnosis Age At [...] Unknown Retired 12/02/[address]: 951184139 Has never smoked or chewed tobacco 12/02/[address]: 599935534 Never drinks alcohol 12/02/2014 Allergies, Adverse Reactions, Alerts Substance Reaction Codes Entered Date Inactivated Date Status * NO KNOWN DRUG ALLERGIES Unknown 12/02/2014 No Inactive Date Active Past Medical History Illness Codes Condition Status Onset Date Resolved Date Acute laryngopharyngitis ICD-9: 465.0 ICD-10: J06.0 Active 06/08/2018 Unknown Other allergic rhinitis ICD-9: 477.8 ICD-10: J30.89 Active 06/08/2018 Unknown 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 Active 08/11/2016 Unknown Epigastric pain ICD-9: 789.06 ICD-10: R10.13 Active 05/15/2018 Unknown Essential (primary) hypertension ICD-9: 401.9 ICD-10: I10 Active 05/11/2016 Unknown Encounter for general adult medical examination with abnormal findings ICD-9: V70.0 ICD-10: Z00.01 Active 11/11/2016 Unknown Gastro-esophageal reflux disease with esophagitis ICD-9: 530.11 ICD-10: K21.0 Active 07/19/2015 Unknown Vitamin D deficiency, unspecified ICD-9: 268.9 [...] Problems Condition Codes Effective Dates Condition Status Acute laryngopharyngitis ICD-9: 465.0 ICD-10: J06.0 06/08/2018 Active Other allergic rhinitis ICD-9: 477.8 ICD-10: J30.89 06/08/2018 Active 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 08/11/2016 Active Epigastric pain ICD-9: 789.06 ICD-10: R10.13 05/15/2018 Active Essential (primary) hypertension ICD-9: 401.9 ICD-10: I10 05/11/2016 Active Encounter for general adult medical examination with abnormal findings ICD-9: V70.0 ICD-10: Z00.01 11/11/2016 Active Gastro-esophageal reflux disease with esophagitis ICD-9: 530.11 ICD-10: K21.0 07/19/2015 Active Vitamin D deficiency, unspecified ICD-9: 268.9 [...] Fill Instructions levothyroxine 50 mcg tablet RxNorm: 299578 1 Tablet(s) PO daily 09/04/2018 08/29/2019 Active amoxicillin 500 mg tablet RxNorm: 823211 1 Tablet(s) PO TID 06/08/2018 06/14/2018 Inactive amoxicillin 500 mg tablet RxNorm: 746428 1 Tablet(s) PO TID 06/08/2018 06/07/2018 Inactive atenolol 25 mg tablet RxNorm: 012036 1/2 Tablet(s) PO daily 04/11/2018 07/04/2019 Active omeprazole 20 mg capsule,delayed release RxNorm: 386956 1 Capsule(s) PO daily 04/03/2018 06/26/2019 Active triamterene 37.5 mg-hydrochlorothiazide 25 mg tablet RxNorm: 574352 Tablet(s) TAKE 1/2 TABLET EVERY DAY 01/25/2018 01/19/2019 Active levothyroxine 50 mcg tablet RxNorm: 842717 1 Tablet(s) PO daily 09/04/2017 08/29/2018 Inactive atenolol 25 mg tablet RxNorm: 435048 1/2 Tablet(s) PO daily 07/06/2017 04/01/2018 Inactive omeprazole 20 mg capsule,delayed release RxNorm: 215424 1 Capsule(s) PO daily 07/06/2017 04/01/2018 Inactive atenolol 25 mg tablet RxNorm: 014471 TAKE ONE-HALF TABLET BY MOUTH ONCE DAILY 05/30/2017 No Stop Date Active atenolol 25 mg tablet RxNorm: 810935 1/2 Tablet(s) PO daily 05/30/2017 07/05/2017 Inactive atenolol 25 mg tablet RxNorm: 134367 TAKE ONE-HALF TABLET BY MOUTH ONCE DAILY 05/30/2017 04/10/2018 Inactive triamterene 37.5 mg-hydrochlorothiazide 25 mg tablet RxNorm: 189249 TAKE 1/2 TABLET EVERY DAY 05/01/2017 01/24/2018 Inactive metoprolol succinate ER 25 mg tablet,extended release 24 hr RxNorm: 555207 1 Tablet(s) PO daily 04/21/2017 04/20/2017 Inactive metoprolol succinate ER 25 mg tablet,extended release 24 hr RxNorm: 174192 1 Tablet(s) PO daily 04/21/2017 11/12/2017 Inactive prednisone 10 mg tablets in a dose pack RxNorm: 428783 1 Tablet(s) PO UD take pills as directed in a taper take with food 03/16/2017 03/25/2017 Inactive Keflex 500 mg capsule RxNorm: 545040 1 Capsule(s) PO TID 03/08/2017 03/14/2017 Inactive levothyroxine 50 mcg tablet RxNorm: 339432 1 Tablet(s) PO daily 05/19/2016 08/11/2017 Inactive atenolol 25 mg tablet RxNorm: 950847 1/2 Tablet(s) PO daily 05/09/2016 04/20/2017 Inactive triamterene 37.5 mg-hydrochlorothiazide 25 mg tablet RxNorm: 930909 1/2 Tablet(s) PO daily 04/22/2016 04/16/2017 Inactive omeprazole 20 mg capsule,delayed release RxNorm: 496291 1 Capsule(s) PO daily 03/24/2016 06/16/2017 Inactive [SAVINGS FOR NON-COVERED DRUGS -- BIN:[id number], PCN: ASPROD1, Group: XXXXX, ID# XXXXXXX, Questions: . THIS IS NOT INSURANCE.] omeprazole 20 mg capsule,delayed release RxNorm: 472542 1 Capsule(s) PO daily 02/19/2016 03/23/2016 Inactive [SAVINGS FOR NON-COVERED DRUGS -- BIN:[id number], PCN: ASPROD1, Group: XXXXX, ID# XXXXXXX, Questions: . THIS IS NOT INSURANCE.] hydrocortisone 2.5 % topical cream RxNorm: 806140 1 Application TOP BID as needed hemorrhoid 01/14/2016 02/10/2016 Inactive atenolol 25 mg tablet RxNorm: 820047 1/2 Tablet(s) PO daily 11/16/2015 05/08/2016 Inactive levothyroxine 50 mcg tablet RxNorm: 716530 1 Tablet(s) PO daily 08/19/2015 05/18/2016 Inactive omeprazole 20 mg capsule,delayed release RxNorm: 141874 1 Capsule(s) PO daily 06/12/2015 01/07/2016 Inactive [SAVINGS FOR NON-COVERED DRUGS -- BIN:[id number], PCN: ASPROD1, Group: XXXXX, ID# XXXXXXX, Questions: . THIS IS NOT INSURANCE.] Vitamin D2 50,000 unit capsule RxNorm: 699664 1 Capsule(s) PO monthly 05/12/2015 09/15/2015 Inactive triamterine HCTZ 25/37.5 mg RxNorm: 1/2 PO daily 04/14/2015 04/14/2015 Inactive triamterine HCTZ 25/37.5 mg RxNorm: 1/2 Tablet(s) PO daily 04/14/2015 04/13/2015 Inactive triamterene 37.5 mg-hydrochlorothiazide 25 mg tablet RxNorm: 081787 1/2 Tablet(s) PO daily 04/14/2015 04/13/2015 Inactive triamterene 37.5 mg-hydrochlorothiazide 25 mg tablet RxNorm: 600234 1/2 Tablet(s) PO daily 04/14/2015 04/07/2016 Inactive triamterine HCTZ 25/37.5 mg RxNorm: 1/2 Tablet(s) PO daily 04/14/2015 04/13/2015 Inactive triamterine HCTZ 25/37.5 mg RxNorm: 1/2 Tablet(s) PO daily 02/03/2015 04/13/2015 Inactive doxycycline hyclate 100 mg capsule RxNorm: 097063 1 Capsule(s) PO BID 12/10/2014 12/23/2014 Inactive doxycycline hyclate 100 mg capsule RxNorm: 187377 1 Capsule(s) PO BID 12/10/2014 12/09/2014 Inactive Vitamin D2 1,000 unit capsule RxNorm: 197665 2 Capsule(s) PO daily 12/09/2014 01/07/2015 Inactive Vitamin D2 50,000 unit capsule RxNorm: 836421 1 Capsule(s) PO QW 12/09/2014 12/08/2014 Inactive Vitamin D2 50,000 unit capsule RxNorm: 673141 1 Capsule(s) PO QW 12/09/2014 03/08/2015 Inactive Carafate 1 gram tablet RxNorm: 952512 1 Tablet(s) PO TID dissolve in 10mL of water, take the pill dissolved. 12/02/2014 01/07/2015 Inactive [SAVINGS FOR NON-COVERED DRUGS -- BIN:[id number], PCN: ASPROD1, Group: XXXXX, ID# XXXXXXX, Questions: . THIS IS NOT INSURANCE.] omeprazole 20 mg capsule,delayed release RxNorm: 030065 1 Capsule(s) PO daily 11/12/2014 11/11/2014 Inactive omeprazole 20 mg capsule,delayed release RxNorm: 107995 1 Capsule(s) PO daily 11/12/2014 01/10/2015 Inactive [SAVINGS FOR NON-COVERED DRUGS -- BIN:[id number], PCN: ASPROD1, Group: XXXXX, ID# XXXXXXX, Questions: . THIS IS NOT INSURANCE.] atenolol 25 mg tablet RxNorm: 953020 1/2 Tablet(s) PO daily No Start Date 11/15/2015 Inactive triamterine HCTZ 25/37.5 mg RxNorm: 1/2 PO daily No Start Date 02/02/2015 Inactive levothyroxine 50 mcg tablet RxNorm: 128524 1 Tablet(s) PO daily No Start Date 08/18/2015 Inactive Medication Administered No Medication Administered data Immunizations Vaccine Codes Date Status Influenza CVX: 141 05/10/2014 completed Tetanus, Diptheria, Pertussis CVX: 113 05/10/2005 completed Tetanus/Diptheria CVX: 113 05/10/2005 completed Assessments Condition Codes Effective Dates Other allergic rhinitis ICD-10: J30.89 ICD-9: 477.8 06/08/2018 Acute laryngopharyngitis ICD-10: J06.0 ICD-9: 465.0 06/08/2018 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 ICD-9: 244.8 05/15/2018 Essential (primary) hypertension ICD-10: I10 ICD-9: 401.9 05/15/2018 Epigastric pain ICD-10: R10.13 ICD-9: 789.06 05/15/2018 Encounter for general adult medical examination with abnormal findings ICD-10: Z00.01 ICD-9: V70.0 11/16/2017 Gastro-esophageal reflux disease with esophagitis ICD-10: K21.0 ICD-9: 530.11 11/13/2017 Vitamin D deficiency, unspecified ICD-10: E55.9 ICD-9: [...] anemia, unspecified ICD-10: D50.9 ICD-9: 280.9 09/16/2015 Dysphagia, pharyngoesophageal phase ICD-10: R13.14 ICD-9: 787.24 07/20/2015 Diaphragmatic hernia without obstruction or gangrene ICD-10: K44.9 ICD-9: 553.3 07/20/2015 Impaired fasting glucose ICD-10: R73.01 ICD-9: 790.21 05/12/2015 Osteoarthritis ICD-9: 715.90 03/18/2015 HYPOTHYROIDISM ICD-9: 244.9 03/18/2015 Other screening mammogram ICD-9: V76.12 03/18/2015 ESSENTIAL HYPERTENSION ICD-9: 401.9 03/18/2015 ESOPHAGEAL REFLUX ICD-9: 530.81 03/18/2015 Reason For Visit Reason For Visit Effective Dates Notes cough 06/08/2018 hypertension 05/15/2018 Annual Medicare Wellness Exam 11/16/2017 hypertension 11/13/2017 hypertension 07/18/2017 hypertension 03/16/2017 Annual Medicare Wellness Exam 11/11/2016 hypertension 11/10/2016 hypertension 08/11/2016 hypertension 05/12/2016 hypertension 01/14/2016 hernia 09/16/2015 hernia 07/20/2015 gastroesophageal reflux 05/12/2015 fatigue 03/18/2015 joint complaint 12/02/2014 right knee mostly in the am. Results Observation Observation Code Item Item Code Result Date Culture Urine [id number] URINE CULTURE SEE NOTES 03/14/2017 Culture Urine [id number] Continued Results 03/14/2017 Urine Culture Ucult Complete >100,000 col/ml aerobic growth sent to ref lab 03/09/2017 Free T4 Lod184 FREE T4 0.94 ng/dL 11/10/2016 Tsh Ord6 [...] 11.5 g/dl 09/10/2015 Cbc With Differential Ord2 Neut% 73.1 % 09/10/2015 Cbc With Differential Ord2 HCT 35.6 % 09/10/2015 Cbc With Differential Ord2 MCV 81.8 fl 09/10/2015 Cbc With Differential Ord2 Lymph% 17.4 % 09/10/2015 Cbc With Differential Ord2 MCH 26.4 pg 09/10/2015 Cbc With Differential Ord2 [place]% 5.8 % 09/10/2015 Cbc With Differential Ord2 MCHC 32.3 pg 09/10/2015 Cbc With Differential Ord2 Eos% 3.4 % 09/10/2015 Cbc With Differential Ord2 Baso% 0.3 % 09/10/2015 Cbc With Differential Ord2 PLT 297 K/ul 09/10/2015 Cbc With Differential Ord2 RDW 15.2 % 09/10/2015 Cbc With Differential Ord2 Neut ABS# 4.78 K/ul 09/10/2015 Cbc With Differential Ord2 Lymph ABS# 1.14 K/ul 09/10/2015 Cbc With Differential Ord2 [place] ABS# 0.4 K/ul 09/10/2015 Cbc With Differential Ord2 Eos ABS# 0.2 K/ul 09/10/2015 Cbc With Differential Ord2 Baso ABS# 0.0 K/ul 09/10/2015 Cbc With Differential Ord2 New Analyzer Notice Please note new ref ranges starting 07-22-2015 due to implemntation of new five part differential hematolgy analyzer. 09/10/2015 Comp Metabolic Wxj162 NA 138 mEq/L 09/10/2015 Comp Metabolic Wbf259 K 4.0 mEq/L 09/10/2015 Comp Metabolic Pxk808 CL 102 mEq/L 09/10/2015 Comp Metabolic Jul784 CO2 28.0 mEq/L 09/10/2015 Comp Metabolic Niq154 ANION GAP 12 09/10/2015 Comp Metabolic Emj595 GLUCOSE 88 mg/dL 09/10/2015 Comp Metabolic Beh234 Creat 1.2 mg/dL 09/10/2015 Comp Metabolic Rvb287 eGFR 47 ml/min/1.73m2 09/10/2015 Comp Metabolic Mor254 BUN 25 mg/dL 09/10/2015 Comp Metabolic Aol274 B/C Ratio 21.6 Ratio 09/10/2015 Comp Metabolic Owx412 CALCIUM 9.1 mg/dL 09/10/2015 Comp Metabolic Oqg718 ALK PHOS 55 U/L 09/10/2015 Comp Metabolic Ven417 AST(SGOT) 14 U/L 09/10/2015 Comp Metabolic Yrt689 ALT(SGPT) 7 U/L 09/10/2015 Comp Metabolic Xhc133 BILI T 0.4 mg/dL 09/10/2015 Comp Metabolic Hhd536 ALBUMIN 3.6 g/dL 09/10/2015 Comp Metabolic Akn891 TPRO 6.3 g/dL 09/10/2015 Comp Metabolic Huq250 GLOB 2.7 g/dL 09/10/2015 Comp Metabolic Hqw888 A/G Ratio 1.4 Ratio 09/10/2015 Comp Metabolic Gdg221 Osmo 279 mOsmo 09/10/2015 Cbc With Differential [...] Ord2 RDW 15.9 % 05/12/2015 Free T4 Ctb118 FREE T4 1.02 ng/dL 05/12/2015 %Hba1C Spd947 % HbA1c 14597- 6 5.8 % 05/12/2015 %Hba1C Sfd560 Gluc Ave 120 mg/dL 05/12/2015 Comp Metabolic Scf263 NA 136 mEq/L 05/12/2015 Comp Metabolic Lgw862 K 4.3 mEq/L 05/12/2015 Comp Metabolic Avi025 CL 101 mEq/L 05/12/2015 Comp Metabolic Jqc896 CO2 26.0 mEq/L 05/12/2015 Comp Metabolic Gpt207 ANION GAP 13 05/12/2015 Comp Metabolic Xdv434 GLUCOSE 91 mg/dL 05/12/2015 Comp Metabolic Voi988 Creat 1.3 mg/dL 05/12/2015 Comp Metabolic Vmo381 eGFR 43 ml/min/1.73m2 05/12/2015 Comp Metabolic Ihw963 BUN 23 mg/dL 05/12/2015 Comp Metabolic Qfb750 B/C Ratio 18.4 Ratio 05/12/2015 Comp Metabolic Baf144 CALCIUM 9.2 mg/dL 05/12/2015 Comp Metabolic Ubv879 ALK PHOS 64 U/L 05/12/2015 Comp Metabolic Egk919 AST(SGOT) 16 U/L 05/12/2015 Comp Metabolic Nhg276 ALT(SGPT) 9 U/L 05/12/2015 Comp Metabolic Evc005 BILI T 0.4 mg/dL 05/12/2015 Comp Metabolic Fmi616 ALBUMIN 3.9 g/dL 05/12/2015 Comp Metabolic Ngy266 TPRO 6.8 g/dL 05/12/2015 Comp Metabolic Ynt467 GLOB 2.9 g/dL 05/12/2015 Comp Metabolic Gqm626 A/G Ratio 1.3 Ratio 05/12/2015 Comp Metabolic Qwi708 Osmo 275 mOsmo 05/12/2015 Tsh Ord6 hTSH II 3.25 uIU/mL 05/12/2015 Vitamin D 25 Oh Znz9404 VITAMIN D, 25 HYDROXY 54.89 ng/mL 02/27/2015 Review of Systems System Result Effective Dates Constitutional recent illness 06/08/2018 Constitutional chills 06/08/2018 [...] Result Effective Dates Notes Full Exam - ENT Constitutional general appearance [...] accomodation 03/16/2017 None Full Exam - General 1995 Ears/Nose/Throat otoscopic exam Overall: external auditory canals clear 03/16/2017 None Full Exam - General 1995 Ears/Nose/Throat otoscopic exam Overall: tympanic membranes clear 03/16/2017 None Full Exam - General 1995 Ears/Nose/Throat lips/teeth/gingiva Overall: benign lips 03/16/2017 None Full Exam - General 1995 Ears/Nose/Throat lips/teeth/gingiva Overall: normal dentition 03/16/2017 None Full Exam - General 1995 Ears/Nose/Throat oral cavity/pharynx/larynx Overall: oral mucosa clear 03/16/2017 None Full Exam - General 1994 Ears/Nose/Throat oral cavity/pharynx/larynx Overall: oropharyngeal mucosa clear 03/16/2017 None Full Exam - General 1995 Ears/Nose/Throat oral cavity/pharynx/larynx Overall: hypopharynx benign 03/16/2017 None Full Exam - General 1995 Ears/Nose/Throat oral cavity/pharynx/larynx Overall: no masses 03/16/2017 [...] lips 08/11/2016 None Full Exam - General 1995 Ears/Nose/Throat lips/teeth/gingiva Overall: normal dentition 08/11/2016 None Full Exam - General 1994 Ears/Nose/Throat oral cavity/pharynx/larynx Overall: oral mucosa clear 08/11/2016 None Full Exam - General 1995 Ears/Nose/Throat oral cavity/pharynx/larynx Overall: oropharyngeal mucosa clear 08/11/2016 None Full Exam - General 1995 Ears/Nose/Throat oral cavity/pharynx/larynx Overall: hypopharynx benign 08/11/2016 [...] lips 03/18/2015 None Full Exam - General 1994 Ears/Nose/Throat lips/teeth/gingiva Overall: normal dentition 03/18/2015 None [...] G0439 11/16/2017 URINALYSIS NONAUTO W/O SCOPE CPT-4: 14469 03/08/2017 PPPS, SUBSEQ VISIT CPT- 4: G0439 11/11/2016 Vital Signs Date Vital 06/08/2018 Height: Weight: 05/15/2018 Blood Pressure 1: 120/68 Code: 8480-6 BMI: 30.2 Code: 60034-8 Heart Rate 1: 69 bpm Height: 5'2" SpO2: 96% Weight: 165 lbs 11/16/2017 Height: Weight: 11/13/2017 Blood Pressure 1: 144/74 Code: 8480-6 BMI: 30.2 Code: 07758-9 Heart Rate 1: 76 bpm Height: 5'2" SpO2: 99% Weight: 165 lbs 07/18/2017 Blood Pressure 1: 118/70 Code: 8480-6 BMI: 28.7 Code: 77534-6 Heart Rate 1: 75 bpm Height: 5'2" SpO2: 97% Weight: 157 lbs 03/16/2017 Blood Pressure 1: 128/72 Code: 8480-6 BMI: 29.1 Code: 21080-6 Heart Rate 1: 62 bpm Height: 5'2" SpO2: 98% Weight: 159 lbs 11/11/2016 Blood Pressure 1: 140/78 Code: 8480-6 BMI: 29.1 Code: 42165-8 Heart Rate 1: 64 bpm Height: 5'2" SpO2: 97% Waist Measure (cm): 91 cm Weight: 159 lbs 11/10/2016 Blood Pressure 1: 140/78 Code: 8480-6 BMI: 29.1 Code: 62726-5 Heart Rate 1: 64 bpm Height: 5'2" Weight: 159 lbs 08/29/2016 Blood Pressure 1: 120/56 Code: 8480-6 Heart Rate 1: 68 bpm SpO2: 97% 08/11/2016 Blood Pressure 1: 128/80 Code: 8480-6 BMI: 28.9 Code: 27502-8 Heart Rate 1: 64 bpm Height: 5'2" Weight: 158 lbs 05/12/2016 Blood Pressure 1: 148/62 Code: 8480-6 BMI: 28.2 Code: 39658-0 Heart Rate 1: 97 bpm Height: 5'2" SpO2: 96% Weight: 154 lbs 01/14/2016 Blood Pressure 1: 126/78 Code: 8480-6 BMI: 28.9 Code: 89755-8 Heart Rate 1: 68 bpm Height: 5'2" SpO2: 95% Weight: 158 lbs 09/16/2015 Blood Pressure 1: 138/76 Code: 8480-6 BMI: 29.5 Code: 00872-7 Heart Rate 1: 68 bpm Height: 5'3" SpO2: 97% Weight: 169 lbs 07/20/2015 Blood Pressure 1: 144/60 Code: 8480-6 BMI: 31.0 Code: 73853-6 Heart Rate 1: 81 bpm Height: 5'3" SpO2: 97% Weight: 178 lbs 05/12/2015 Blood Pressure 1: 128/80 Code: 8480-6 BMI: 30.9 Code: 65535-0 Heart Rate 1: 68 bpm Height: 5'3" SpO2: 96% Weight: 177 lbs 03/18/2015 Blood Pressure 1: 134/70 Code: 8480-6 BMI: 31.6 Code: 34780-7 Heart Rate 1: 67 bpm Height: 5'3" SpO2: 96% Weight: 181 lbs 12/02/2014 Blood Pressure 1: 128/82 Code: 8480-6 BMI: 32.1 Code: 11931-2 Heart Rate 1: 84 bpm Height: 5'3" Weight: 184 lbs Functional Status No Functional Status data History of Present Illness Symptom Name Status Result Effective Date Notes Location in the lung 06/08/2018 None Quality [...] data Encounters Encounter Performer Location Codes Date EST. PATIENT, LEVEL III Diagnosis: Acute laryngopharyngitis[ICD10: J06.0] Diagnosis: Other allergic rhinitis[ICD10: J30.89] [facility] CPT- 4: 85866 06/08/2018 ([id number]) 89664 EST. PATIENT, LEVEL IV Diagnosis: Atrophy of thyroid (acquired)[ICD10: E03.4] Diagnosis: Essential (primary) hypertension[ICD10: I10] Diagnosis: Epigastric pain[ICD10: R10.13] [facility] CPT-4: 85403 05/15/2018 ([id number]) 57425 EST. PATIENT, LEVEL IV Diagnosis: Atrophy of thyroid (acquired)[ICD10: E03.4] Diagnosis: Essential (primary) hypertension[ICD10: I10] Diagnosis: Gastro-esophageal reflux disease with esophagitis[ICD10: K21.0] Loly Guerra MD, [facility] CPT-4: 98820 11/13/2017 ([id number]) 37613 EST. PATIENT, LEVEL IV Diagnosis: Atrophy of thyroid (acquired)[ICD10: E03.4] Diagnosis: Vitamin D deficiency, unspecified[ICD10: E55.9] Diagnosis: Essential (primary) hypertension[ICD10: I10] Loly Guerra MD, [facility] CPT-4: 66867 07/18/2017 ([id number]) 60387 EST. PATIENT, LEVEL IV Diagnosis: Low back pain[ICD10: M54.5] Diagnosis: Lumbago with sciatica, right side[ICD10: M54.41] Diagnosis: Essential (primary) hypertension[ICD10: I10] Diagnosis: Atrophy of thyroid (acquired)[ICD10: E03.4] Loly Guerra MD, [facility] CPT-4: 33169 03/16/2017 ([id number]) 22337 EST. PATIENT, LEVEL IV Diagnosis: Essential (primary) hypertension[ICD10: I10] Diagnosis: Atrophy of thyroid (acquired)[ICD10: E03.4] Loly Guerra MD, [facility] CPT-4: 79115 11/10/2016 ([id number]) Miscellaneous no charge Diagnosis: Essential (primary) hypertension[ICD10: I10] Radha Guerra MD, [facility] CPT-4: 72359 08/29/2016 ([id number]) 53118 EST. PATIENT, LEVEL IV Diagnosis: Essential (primary) hypertension[ICD10: I10] Diagnosis: Atrophy of thyroid (acquired)[ICD10: E03.4] Loly Guerra MD, [facility] CPT-4: 75482 08/11/2016 47097 EST. PATIENT, LEVEL IV Diagnosis: Essential (primary) hypertension[ICD10: I10] Diagnosis: Other specified hypothyroidism[ICD10: E03.8] Radha Guerra MD, [facility] CPT-4: 46825 05/12/2016 ([id number]) 82721 EST. PATIENT, LEVEL IV Diagnosis: Essential (primary) hypertension[ICD10: I10] Diagnosis: Hypothyroidism, unspecified[ICD10: E03.9] Diagnosis: First degree hemorrhoids[ICD10: K64.0] Loly Guerra MD, [facility] CPT-4: 58608 01/14/2016 ([id number]) 96929 EST. PATIENT, LEVEL IV Diagnosis: Hypothyroidism, unspecified[ICD10: E03.9] Diagnosis: Essential (primary) hypertension[ICD10: I10] Diagnosis: Morbid (severe) obesity due to excess calories[ICD10: E66.01] Diagnosis: Iron deficiency anemia, unspecified[ICD10: D50.9] Loly Guerra MD, [facility] CPT-4: 27057 09/16/2015 ([id number]) 47227 EST. PATIENT, LEVEL IV Diagnosis: Gastro-esophageal reflux disease with esophagitis[ICD10: K21.0] Diagnosis: Diaphragmatic hernia without obstruction or gangrene[ICD10: K44.9] Diagnosis: Dysphagia, pharyngoesophageal phase[ICD10: R13.14] Dia Guerra MD, [facility] CPT-4: 05741 07/20/2015 ([id number]) 63300 EST. PATIENT, LEVEL IV Diagnosis: Gastro-esophageal reflux disease with esophagitis[ICD10: K21.0] Diagnosis: Vitamin D deficiency, unspecified[ICD10: E55.9] Diagnosis: Essential (primary) hypertension[ICD10: I10] Diagnosis: Impaired fasting glucose[ICD10: R73.01] Diagnosis: Hypothyroidism, unspecified[ICD10: E03.9] Dia Guerra MD, [facility] CPT-4: 72567 05/12/2015 ([id number]) 83460 EST. PATIENT, LEVEL IV Diagnosis: ESSENTIAL HYPERTENSION[ICD9: 401.9] Diagnosis: HYPOTHYROIDISM[ICD9: 244.9] Diagnosis: ESOPHAGEAL REFLUX[ICD9: 530.81] Diagnosis: Other screening mammogram[ICD9: V76.12] Diagnosis: Osteoarthritis[ICD9: 715.90] Loly Guerra MD, [facility] CPT-4: 09511 03/18/2015 ([id number]) OFFICE VISIT, NEW - LEVEL 4 Diagnosis: ESSENTIAL HYPERTENSION[ICD9: 401.9] Diagnosis: HYPOTHYROIDISM[ICD9: 244.9] Diagnosis: ESOPHAGEAL REFLUX[ICD9: 530.81] Diagnosis: Other screening mammogram[ICD9: V76.12] Diagnosis: Osteoarthritis[ICD9: 715.90] Loly Guerra MD, [facility] CPT-4: 13900 12/02/2014 Plan of Care Planned Activity Notes Codes Status Date Visit Plan: URI - Pt advised to [...] allergy spray. 06/08/2018 Appointment: [facility] (15 min) Moderate 06/08/2018 Patient Education: Patient [...] symptoms worsen. 05/15/2018 App[facility]ment[facility] [phone] [facility] (15 min) Moderate 05/15/2018 Patient Education: Patient [...] nasal allergies. 11/13/2017 Appointment: Loly Guerra WPtel: [address] [place], [place] [address] (15 min) Moderate 11/13/2017 Patient Education: Patient [...] vitamin D. 07/18/2017 Appointment: Loly Guerra WPtel: [facility] [place] (15 min) Moderate 07/18/2017 Patient Education: Patient [...] of control. 03/16/2017 Appointment: [facility] [phone] [facility] (30 min) Complex 03/16/2017 Patient Education: Patient [...] care surrogate. 11/11/2016 App[facility]ment: [facility] [phone] [facility] [facility] - Annual Wellness Visit 11/11/2016 Patient [...] control. 11/10/2016 Appointment: Loly Guerra [facility] [phone] [facility] (15 min) Moderate 11/10/2016 Patient Education: Patient [...] of control. 08/11/2016 Appointment: [facility] [phone] [facility] (15 min) Moderate 08/11/2016 Patient Education: Patient [...] cream 01/14/2016 Appointment: Loly Guerra WPtel: [phone] [facility] (15 min) Moderate 01/14/2016 Patient Education: Patient [...] 3-4 months. 09/16/2015 Appointment: [facility] [phone] [facility] (15 min) Moderate 09/16/2015 Patient Education: Patient [...] if the symptoms are not improving. Hiatal ukyicm-nknstiprr-vgbuxigm swallow study and referral for EGD-will obtain [...] D daily. 03/18/2015 Appointment: Loly Guerra WPtel: [address] [place], [place] [address] (15 min) Moderate 03/18/2015 Patient Education: Patient [...] pain symptoms. 12/02/2014 Appointment: Loly Guerra WPtel: [facility] [place] ([place] New Patient 12/02/2014 Patient Education: Patient Medication Summary Completed 12/02/2014 Patient Education: Hypertension Completed 12/02/2014 Instructions Comment SLOW FE - iron pills [...] if the symptoms are not improving. Hiatal cvnbya-fkwluoily-yfpyzswk swallow study and referral for EGD-will obtain [...]
--- OUTSIDE RECORDS SUMMARY | 2019-01-15 14:15 | XMS REPORT | CCD ---
Author Author Loly Guerra Organization Loly Guerra MD, [facility] Address [address] [place] [address] Phone Care Team Providers Care Sas Programmer Analyst Name Role Phone PP Unavailable CCM Unavailable Summary Purpose Interface Exchange Insurance Providers Payer name Policy type / Coverage type Covered democrat ID Effective Begin Date Effective End Date WPS Medicare Part B Medicare Part B [id number] Unknown [employer] Medicare Part B [id number] Unknown Family history Mother Diagnosis Age At [...] Unknown Retired 12/02/[address]: 752025302 Has never smoked or chewed tobacco 12/02/[address]: 749384836 Never drinks alcohol 12/02/2014 Allergies, Adverse Reactions, [...] Start Date Stop Date Status Fill Instructions amoxicillin 500 mg tablet RxNorm: 048471 1 Tablet(s) PO TID 06/08/2018 06/14/2018 Inactive amoxicillin 500 mg tablet RxNorm: 132378 1 Tablet(s) PO TID 06/08/2018 06/07/2018 Inactive atenolol 25 mg tablet RxNorm: 251485 1/2 Tablet(s) PO daily 04/11/2018 07/04/2019 Active omeprazole 20 mg capsule,delayed release RxNorm: 701458 1 Capsule(s) PO daily 04/03/2018 06/26/2019 Active triamterene 37.5 mg-hydrochlorothiazide 25 mg tablet RxNorm: 687885 Tablet(s) TAKE 1/2 TABLET EVERY DAY 01/25/2018 01/19/2019 Active levothyroxine 50 mcg tablet RxNorm: 578022 1 Tablet(s) PO daily 09/04/2017 08/29/2018 Active atenolol 25 mg tablet RxNorm: 970139 1/2 Tablet(s) PO daily 07/06/2017 04/01/2018 Inactive omeprazole 20 mg capsule,delayed release RxNorm: 544166 1 Capsule(s) PO daily 07/06/2017 04/01/2018 Inactive atenolol 25 mg tablet RxNorm: 813963 TAKE ONE-HALF TABLET BY MOUTH ONCE DAILY 05/30/2017 No Stop Date Active atenolol 25 mg tablet RxNorm: 891330 1/2 Tablet(s) PO daily 05/30/2017 07/05/2017 Inactive atenolol 25 mg tablet RxNorm: 413253 TAKE ONE-HALF TABLET BY MOUTH ONCE DAILY 05/30/2017 04/10/2018 Inactive triamterene 37.5 mg-hydrochlorothiazide 25 mg tablet RxNorm: 843964 TAKE 1/2 TABLET EVERY DAY 05/01/2017 01/24/2018 Inactive metoprolol succinate ER 25 mg tablet,extended release 24 hr RxNorm: 386849 1 Tablet(s) PO daily 04/21/2017 04/20/2017 Inactive metoprolol succinate ER 25 mg tablet,extended release 24 hr RxNorm: 587930 1 Tablet(s) PO daily 04/21/2017 11/12/2017 Inactive prednisone 10 mg tablets in a dose pack RxNorm: 013624 1 Tablet(s) PO UD take pills as directed in a taper take with food 03/16/2017 03/25/2017 Inactive Keflex 500 mg capsule RxNorm: 739128 1 Capsule(s) PO TID 03/08/2017 03/14/2017 Inactive levothyroxine 50 mcg tablet RxNorm: 824522 1 Tablet(s) PO daily 05/19/2016 08/11/2017 Inactive atenolol 25 mg tablet RxNorm: 729806 1/2 Tablet(s) PO daily 05/09/2016 04/20/2017 Inactive triamterene 37.5 mg-hydrochlorothiazide 25 mg tablet RxNorm: 669878 1/2 Tablet(s) PO daily 04/22/2016 04/16/2017 Inactive omeprazole 20 mg capsule,delayed release RxNorm: 490646 1 Capsule(s) PO daily 03/24/2016 06/16/2017 Inactive [SAVINGS FOR NON-COVERED DRUGS -- BIN:[id number], PCN: ASPROD1, Group: XXXXX, ID# XXXXXXX, Questions: . THIS IS NOT INSURANCE.] omeprazole 20 mg capsule,delayed release RxNorm: 891402 1 Capsule(s) PO daily 02/19/2016 03/23/2016 Inactive [SAVINGS FOR NON-COVERED DRUGS -- BIN:138121, PCN: ASPROD1, Group: XXXXX, ID# XXXXXXX, Questions: . THIS IS NOT INSURANCE.] hydrocortisone 2.5 % topical cream RxNorm: 711389 1 Application TOP BID as needed hemorrhoid 01/14/2016 02/10/2016 Inactive atenolol 25 mg tablet RxNorm: 059532 1/2 Tablet(s) PO daily 11/16/2015 05/08/2016 Inactive levothyroxine 50 mcg tablet RxNorm: 131990 1 Tablet(s) PO daily 08/19/2015 05/18/2016 Inactive omeprazole 20 mg capsule,delayed release RxNorm: 053235 1 Capsule(s) PO daily 06/12/2015 01/07/2016 Inactive [SAVINGS FOR NON-COVERED DRUGS -- BIN:[id number], PCN: ASPROD1, Group: XXXXX, ID# XXXXXXX, Questions: . THIS IS NOT INSURANCE.] Vitamin D2 50,000 unit capsule RxNorm: 090197 1 Capsule(s) PO monthly 05/12/2015 09/15/2015 Inactive triamterine HCTZ 25/37.5 mg RxNorm: 1/2 PO daily 04/14/2015 04/14/2015 Inactive triamterine HCTZ 25/37.5 mg RxNorm: 1/2 Tablet(s) PO daily 04/14/2015 04/13/2015 Inactive triamterene 37.5 mg-hydrochlorothiazide 25 mg tablet RxNorm: 747637 1/2 Tablet(s) PO daily 04/14/2015 04/13/2015 Inactive triamterene 37.5 mg-hydrochlorothiazide 25 mg tablet RxNorm: 964137 1/2 Tablet(s) PO daily 04/14/2015 04/07/2016 Inactive triamterine HCTZ 25/37.5 mg RxNorm: 1/2 Tablet(s) PO daily 04/14/2015 04/13/2015 Inactive triamterine HCTZ 25/37.5 mg RxNorm: 1/2 Tablet(s) PO daily 02/03/2015 04/13/2015 Inactive doxycycline hyclate 100 mg capsule RxNorm: 146996 1 Capsule(s) PO BID 12/10/2014 12/23/2014 Inactive doxycycline hyclate 100 mg capsule RxNorm: 699082 1 Capsule(s) PO BID 12/10/2014 12/09/2014 Inactive Vitamin D2 1,000 unit capsule RxNorm: 022028 2 Capsule(s) PO daily 12/09/2014 01/07/2015 Inactive Vitamin D2 50,000 unit capsule RxNorm: 874679 1 Capsule(s) PO QW 12/09/2014 12/08/2014 Inactive Vitamin D2 50,000 unit capsule RxNorm: 331023 1 Capsule(s) PO QW 12/09/2014 03/08/2015 Inactive Carafate 1 gram tablet RxNorm: 680172 1 Tablet(s) PO TID dissolve in 10mL of water, take the pill dissolved. 12/02/2014 01/07/2015 Inactive [SAVINGS FOR NON-COVERED DRUGS -- BIN:[id number], PCN: ASPROD1, Group: XXXXX, ID# XXXXXXX, Questions: . THIS IS NOT INSURANCE.] omeprazole 20 mg capsule,delayed release RxNorm: 551892 1 Capsule(s) PO daily 11/12/2014 11/11/2014 Inactive omeprazole 20 mg capsule,delayed release RxNorm: 346380 1 Capsule(s) PO daily 11/12/2014 01/10/2015 Inactive [SAVINGS FOR NON-COVERED DRUGS -- BIN:772877, PCN: ASPROD1, Group: XXXXX, ID# XXXXXXX, Questions: . THIS IS NOT INSURANCE.] atenolol 25 mg tablet RxNorm: 139889 1/2 Tablet(s) PO daily No Start Date 11/15/2015 Inactive triamterine HCTZ 25/37.5 mg RxNorm: 1/2 PO daily No Start Date 02/02/2015 Inactive levothyroxine 50 mcg tablet RxNorm: 713036 1 Tablet(s) PO daily No Start Date [...] Item Item Code Result Date Culture Urine [id number] URINE CULTURE SEE NOTES 03/14/2017 Culture Urine [id number] Continued Results 03/14/2017 Urine Culture Ucult Complete >100,000 col/ml aerobic growth sent to ref lab 03/09/2017 Free T4 Fuy759 FREE T4 0.94 ng/dL 11/10/2016 Tsh Ord6 [...] 26.4 pg 09/10/2015 Cbc With Differential Ord2 [place]% 5.8 % 09/10/2015 Cbc With Differential Ord2 [...] 1.14 K/ul 09/10/2015 Cbc With Differential Ord2 [place] ABS# 0.4 K/ul 09/10/2015 Cbc With Differential Ord2 Eos ABS# 0.2 K/ul 09/10/2015 Cbc With Differential Ord2 Baso ABS# 0.0 K/ul 09/10/2015 Cbc With Differential Ord2 New Analyzer Notice Please note new ref ranges starting 07-22-2015 due to implemntation of new five part differential hematolgy analyzer. 09/10/2015 Comp Metabolic Qwc271 NA 138 mEq/L 09/10/2015 Comp Metabolic Vic119 K 4.0 mEq/L 09/10/2015 Comp Metabolic Yin448 CL 102 mEq/L 09/10/2015 Comp Metabolic Ndm967 CO2 28.0 mEq/L 09/10/2015 Comp Metabolic Oth857 ANION GAP 12 09/10/2015 Comp Metabolic Bjx762 GLUCOSE 88 mg/dL 09/10/2015 Comp Metabolic Qnb914 Creat 1.2 mg/dL 09/10/2015 Comp Metabolic Qdu907 eGFR 47 ml/min/1.73m2 09/10/2015 Comp Metabolic Xwv294 BUN 25 mg/dL 09/10/2015 Comp Metabolic Xll409 B/C Ratio 21.6 Ratio 09/10/2015 Comp Metabolic Vsr071 CALCIUM 9.1 mg/dL 09/10/2015 Comp Metabolic Eff133 ALK PHOS 55 U/L 09/10/2015 Comp Metabolic Hwt479 AST(SGOT) 14 U/L 09/10/2015 Comp Metabolic Euc357 ALT(SGPT) 7 U/L 09/10/2015 Comp Metabolic Nqz364 BILI T 0.4 mg/dL 09/10/2015 Comp Metabolic Sdi675 ALBUMIN 3.6 g/dL 09/10/2015 Comp Metabolic Cxf561 TPRO 6.3 g/dL 09/10/2015 Comp Metabolic Qxa906 GLOB 2.7 g/dL 09/10/2015 Comp Metabolic Oul250 A/G Ratio 1.4 Ratio 09/10/2015 Comp Metabolic Gez447 Osmo 279 mOsmo 09/10/2015 Cbc With Differential [...] Ord2 RDW 15.9 % 05/12/2015 Free T4 Rtb635 FREE T4 1.02 ng/dL 05/12/2015 %Hba1C Ofv905 % HbA1c 98040- 6 5.8 % 05/12/2015 %Hba1C Yhg800 Gluc Ave 120 mg/dL 05/12/2015 Comp Metabolic Une847 NA 136 mEq/L 05/12/2015 Comp Metabolic Dey781 K 4.3 mEq/L 05/12/2015 Comp Metabolic Mvh977 CL 101 mEq/L 05/12/2015 Comp Metabolic Uae145 CO2 26.0 mEq/L 05/12/2015 Comp Metabolic Ykv549 ANION GAP 13 05/12/2015 Comp Metabolic Lum976 GLUCOSE 91 mg/dL 05/12/2015 Comp Metabolic Zxb561 Creat 1.3 mg/dL 05/12/2015 Comp Metabolic Ryz090 eGFR 43 ml/min/1.73m2 05/12/2015 Comp Metabolic Pbm283 BUN 23 mg/dL 05/12/2015 Comp Metabolic Xuz107 B/C Ratio 18.4 Ratio 05/12/2015 Comp Metabolic Lvx485 CALCIUM 9.2 mg/dL 05/12/2015 Comp Metabolic Ioh825 ALK PHOS 64 U/L 05/12/2015 Comp Metabolic Wwj585 AST(SGOT) 16 U/L 05/12/2015 Comp Metabolic Vzb537 ALT(SGPT) 9 U/L 05/12/2015 Comp Metabolic Bfv903 BILI T 0.4 mg/dL 05/12/2015 Comp Metabolic Ilv686 ALBUMIN 3.9 g/dL 05/12/2015 Comp Metabolic Dot140 TPRO 6.8 g/dL 05/12/2015 Comp Metabolic Aef434 GLOB 2.9 g/dL 05/12/2015 Comp Metabolic Ymi361 A/G Ratio 1.3 Ratio 05/12/2015 Comp Metabolic Rwv875 Osmo 275 mOsmo 05/12/2015 Tsh Ord6 hTSH II 3.25 uIU/mL 05/12/2015 Vitamin D 25 Oh Qbm2213 VITAMIN D, 25 HYDROXY 54.89 ng/mL 02/27/2015 [...] 03/16/2017 None Full Exam - General 1995 Musculoskeletal spine, ribs and pelvis Overall: sacroiliac [...] G0439 11/16/2017 URINALYSIS NONAUTO W/O SCOPE CPT-4: 76996 03/08/2017 PPPS, SUBSEQ VISIT CPT- 4: G0439 11/11/2016 Vital Signs Date Vital 06/08/2018 Height: Weight: 05/15/2018 Blood Pressure 1: 120/68 Code: 8480-6 BMI: 30.2 Code: 82349-4 Heart Rate 1: 69 bpm Height: 5'2" SpO2: 96% Weight: 165 lbs 11/16/2017 Height: Weight: 11/13/2017 Blood Pressure 1: 144/74 Code: 8480-6 BMI: 30.2 Code: 50244-0 Heart Rate 1: 76 bpm Height: 5'2" SpO2: 99% Weight: 165 lbs 07/18/2017 Blood Pressure 1: 118/70 Code: 8480-6 BMI: 28.7 Code: 44301-6 Heart Rate 1: 75 bpm Height: 5'2" SpO2: 97% Weight: 157 lbs 03/16/2017 Blood Pressure 1: 128/72 Code: 8480-6 BMI: 29.1 Code: 13691-5 Heart Rate 1: 62 bpm Height: 5'2" SpO2: 98% Weight: 159 lbs 11/11/2016 Blood Pressure 1: 140/78 Code: 8480-6 BMI: 29.1 Code: 11016-9 Heart Rate 1: 64 bpm Height: 5'2" SpO2: 97% Waist Measure (cm): 91 cm Weight: 159 lbs 11/10/2016 Blood Pressure 1: 140/78 Code: 8480-6 BMI: 29.1 Code: 18608-7 Heart Rate 1: 64 bpm Height: 5'2" Weight: 159 lbs 08/29/2016 Blood Pressure 1: 120/56 Code: 8480-6 Heart Rate 1: 68 bpm SpO2: 97% 08/11/2016 Blood Pressure 1: 128/80 Code: 8480-6 BMI: 28.9 Code: 49828-2 Heart Rate 1: 64 bpm Height: 5'2" Weight: 158 lbs 05/12/2016 Blood Pressure 1: 148/62 Code: 8480-6 BMI: 28.2 Code: 55622-6 Heart Rate 1: 97 bpm Height: 5'2" SpO2: 96% Weight: 154 lbs 01/14/2016 Blood Pressure 1: 126/78 Code: 8480-6 BMI: 28.9 Code: 57905-6 Heart Rate 1: 68 bpm Height: 5'2" SpO2: 95% Weight: 158 lbs 09/16/2015 Blood Pressure 1: 138/76 Code: 8480-6 BMI: 29.5 Code: 55779-1 Heart Rate 1: 68 bpm Height: 5'3" SpO2: 97% Weight: 169 lbs 07/20/2015 Blood Pressure 1: 144/60 Code: 8480-6 BMI: 31.0 Code: 09085-1 Heart Rate 1: 81 bpm Height: 5'3" SpO2: 97% Weight: 178 lbs 05/12/2015 Blood Pressure 1: 128/80 Code: 8480-6 BMI: 30.9 Code: 27007-4 Heart Rate 1: 68 bpm Height: 5'3" SpO2: 96% Weight: 177 lbs 03/18/2015 Blood Pressure 1: 134/70 Code: 8480-6 BMI: 31.6 Code: 28753-9 Heart Rate 1: 67 bpm Height: 5'3" SpO2: 96% Weight: 181 lbs 12/02/2014 Blood Pressure 1: 128/82 Code: 8480-6 BMI: 32.1 Code: 38669-1 Heart Rate 1: 84 bpm Height: 5'3" [...] J30.89] [facility] CPT- 4: 83413 06/08/2018 ([id number]) 41669 EST. PATIENT, LEVEL IV Diagnosis: Atrophy of thyroid (acquired)[ICD10: E03.4] Diagnosis: Essential (primary) hypertension[ICD10: I10] Diagnosis: Epigastric pain[ICD10: R10.13] [facility] CPT-4: 43569 05/15/2018 ([id number]) 94214 EST. PATIENT, LEVEL IV Diagnosis: Atrophy of thyroid (acquired)[ICD10: E03.4] Diagnosis: Essential (primary) hypertension[ICD10: I10] Diagnosis: Gastro-esophageal reflux disease with esophagitis[ICD10: K21.0] Loly Guerra MD [facility] CPT-4: 03854 11/13/2017 ([id number]) 69000 EST. PATIENT, LEVEL IV Diagnosis: Atrophy of thyroid (acquired)[ICD10: E03.4] Diagnosis: Vitamin D deficiency, unspecified[ICD10: E55.9] Diagnosis: Essential (primary) hypertension[ICD10: I10] Loly Guerra MD, [facility] CPT-4: 95883 07/18/2017 ([id number]) 06165 EST. PATIENT, LEVEL IV Diagnosis: Low back pain[ICD10: M54.5] Diagnosis: Lumbago with sciatica, right side[ICD10: M54.41] Diagnosis: Essential (primary) hypertension[ICD10: I10] Diagnosis: Atrophy of thyroid (acquired)[ICD10: E03.4] Loly Guerra MD [facility] CPT-4: 48131 03/16/2017 ([id number]) 99250 EST. PATIENT, LEVEL IV Diagnosis: Essential (primary) hypertension[ICD10: I10] Diagnosis: Atrophy of thyroid (acquired)[ICD10: E03.4] Loly Guerra MD [facility] CPT-4: 20946 11/10/2016 ([id number]) Miscellaneous no charge Diagnosis: Essential (primary) hypertension[ICD10: I10] Radha Guerra MD [facility] CPT-4: 34652 08/29/2016 ([id number]) 64136 EST. PATIENT, LEVEL IV Diagnosis: Essential (primary) hypertension[ICD10: I10] Diagnosis: Atrophy of thyroid (acquired)[ICD10: E03.4] Loly Guerra MD [facility] CPT-4: 43690 08/11/2016 61119 EST. PATIENT, LEVEL IV Diagnosis: Essential (primary) hypertension[ICD10: I10] Diagnosis: Other specified hypothyroidism[ICD10: E03.8] Radha Guerra MD [facility] CPT-4: 21524 05/12/2016 ([id number]) 63038 EST. PATIENT, LEVEL IV Diagnosis: Essential (primary) hypertension[ICD10: I10] Diagnosis: Hypothyroidism, unspecified[ICD10: E03.9] Diagnosis: First degree hemorrhoids[ICD10: K64.0] Loly Guerra MD, [facility] CPT-4: 88388 01/14/2016 ([id number]) 64228 EST. PATIENT, LEVEL IV Diagnosis: Hypothyroidism, unspecified[ICD10: E03.9] Diagnosis: Essential (primary) hypertension[ICD10: I10] Diagnosis: Morbid (severe) obesity due to excess calories[ICD10: E66.01] Diagnosis: Iron deficiency anemia, unspecified[ICD10: D50.9] Loly Guerra MD, [facility] CPT-4: 71208 09/16/2015 ([id number]) 17371 EST. PATIENT, LEVEL IV Diagnosis: Gastro-esophageal reflux disease with esophagitis[ICD10: K21.0] Diagnosis: Diaphragmatic hernia without obstruction or gangrene[ICD10: K44.9] Diagnosis: Dysphagia, pharyngoesophageal phase[ICD10: R13.14] Dia Guerra MD, [facility] CPT-4: 58664 07/20/2015 ([id number]) 30817 EST. PATIENT, LEVEL IV Diagnosis: Gastro-esophageal reflux disease with esophagitis[ICD10: K21.0] Diagnosis: Vitamin D deficiency, unspecified[ICD10: E55.9] Diagnosis: Essential (primary) hypertension[ICD10: I10] Diagnosis: Impaired fasting glucose[ICD10: R73.01] Diagnosis: Hypothyroidism, unspecified[ICD10: E03.9] Dia Guerra MD, [facility] CPT-4: 41275 05/12/2015 ([id number]) 93318 EST. PATIENT, LEVEL IV Diagnosis: ESSENTIAL HYPERTENSION[ICD9: 401.9] Diagnosis: HYPOTHYROIDISM[ICD9: 244.9] Diagnosis: ESOPHAGEAL REFLUX[ICD9: 530.81] Diagnosis: Other screening mammogram[ICD9: V76.12] Diagnosis: Osteoarthritis[ICD9: 715.90] Loly Guerra MD, [facility] CPT-4: 39081 03/18/2015 ([id number]) OFFICE VISIT, NEW - LEVEL 4 Diagnosis: ESSENTIAL HYPERTENSION[ICD9: 401.9] Diagnosis: HYPOTHYROIDISM[ICD9: 244.9] Diagnosis: ESOPHAGEAL REFLUX[ICD9: 530.81] Diagnosis: Other screening mammogram[ICD9: V76.12] Diagnosis: Osteoarthritis[ICD9: 715.90] Loly Guerra MD, [facility] CPT-4: 35229 12/02/2014 Plan of Care Planned Activity Notes [...] allergy spray. 06/08/2018 Appointment: Radha Quiles WPtel: [facility]5 [facility] (15 min) Moderate 06/08/2018 Patient Education: Patient [...] symptoms worsen. 05/15/2018 Appointment: Loly Guerra WPtel: [facility] (15 min) Moderate 05/15/2018 Patient Education: Patient [...] nasal allergies. 11/13/2017 Appointment: Loly Guerra WPtel: [facility] (15 min) Moderate 11/13/2017 Patient Education: Patient [...] D. 07/18/2017 Appointment: [facility]erra [facility]el[facility] [phone] [facility] [place] (15 min) Moderate 07/18/2017 Patient Education: [...] control. 03/16/2017 Appointment: [facility] [phone] [facility] (30 min) Complex 03/16/2017 Patient [...] care surrogate. 11/11/2016 [facility]ment: [facility] [phone] [facility] [facility] - Annual Wellness Visit 11/11/2016 [...] of control. 11/10/2016 Appointment: [facility]el[facility] [phone] [facility] (15 min) Moderate 11/10/2016 Patient Education: Patient [...] control. 08/11/2016 Appointment: [facility]el[facility] [phone] [facility] (15 min) Moderate 08/11/2016 Patient [...] hydrocortisone cream 01/14/2016 Appointment: [facility] [phone] [facility] (15 min) Moderate 01/14/2016 Patient [...] months. 09/16/2015 Appointment: [facility]el[facility] [phone] [facility] (15 min) Moderate 09/16/2015 Patient Education: Patient [...] if the symptoms are not improving. Hiatal mpdqgh-gtolnhcno-qoslbjdz swallow study and referral for EGD-will obtain [...] D daily. 03/18/2015 Appointment: Loly Guerra WPtel: [address] [place], [place] [address] (15 min) Moderate 03/18/2015 Patient Education: Patient [...] symptoms. 12/02/2014 Appointment: [facility]el[facility] [phone] [facility] [place] ([place] New Patient 12/02/2014 [...] if the symptoms are not improving. Hiatal lryudi-fjsnyptvo-eksoeocf swallow study and referral for EGD-will obtain [...]
--- OUTSIDE RECORDS SUMMARY | 2019-01-15 14:17 | XMS REPORT | CCD ---
Author Author Loly Guerra Organization Loly Guerra MD, [facility] Address [address] [place] [address] Phone Care Team Providers Care Stunt Person Name Role Phone PP Unavailable CCM Unavailable Summary Purpose Interface Exchange Insurance Providers Payer name Policy type / Coverage type Covered libertarian ID Effective Begin Date Effective End Date WPS Medicare Part B Medicare Part B [id number] Unknown Old Data Stream CBOT Medicare Part B [id number] Unknown Family history Mother Diagnosis Age At [...] Unknown Retired 12/02/[address]: 436212612 Has never smoked or chewed tobacco 12/02/[address]: 241200531 Never drinks alcohol 12/02/2014 Allergies, Adverse Reactions, [...] Fill Instructions amoxicillin 500 mg tablet RxNorm: 717280 1 Tablet(s) PO TID 06/08/2018 06/14/2018 Active amoxicillin 500 mg tablet RxNorm: 517216 1 Tablet(s) PO TID 06/08/2018 06/07/2018 Inactive atenolol 25 mg tablet RxNorm: 224698 1/2 Tablet(s) PO daily 04/11/2018 07/04/2019 Active omeprazole 20 mg capsule,delayed release RxNorm: 051765 1 Capsule(s) PO daily 04/03/2018 06/26/2019 Active triamterene 37.5 mg-hydrochlorothiazide 25 mg tablet RxNorm: 460230 Tablet(s) TAKE 1/2 TABLET EVERY DAY 01/25/2018 01/19/2019 Active levothyroxine 50 mcg tablet RxNorm: 301387 1 Tablet(s) PO daily 09/04/2017 08/29/2018 Active atenolol 25 mg tablet RxNorm: 269557 1/2 Tablet(s) PO daily 07/06/2017 04/01/2018 Inactive omeprazole 20 mg capsule,delayed release RxNorm: 709481 1 Capsule(s) PO daily 07/06/2017 04/01/2018 Inactive atenolol 25 mg tablet RxNorm: 081098 TAKE ONE-HALF TABLET BY MOUTH ONCE DAILY 05/30/2017 No Stop Date Active atenolol 25 mg tablet RxNorm: 849904 1/2 Tablet(s) PO daily 05/30/2017 07/05/2017 Inactive atenolol 25 mg tablet RxNorm: 012676 TAKE ONE-HALF TABLET BY MOUTH ONCE DAILY 05/30/2017 04/10/2018 Inactive triamterene 37.5 mg-hydrochlorothiazide 25 mg tablet RxNorm: 638769 TAKE 1/2 TABLET EVERY DAY 05/01/2017 01/24/2018 Inactive metoprolol succinate ER 25 mg tablet,extended release 24 hr RxNorm: 943275 1 Tablet(s) PO daily 04/21/2017 04/20/2017 Inactive metoprolol succinate ER 25 mg tablet,extended release 24 hr RxNorm: 345932 1 Tablet(s) PO daily 04/21/2017 11/12/2017 Inactive prednisone 10 mg tablets in a dose pack RxNorm: 129955 1 Tablet(s) PO UD take pills as directed in a taper take with food 03/16/2017 03/25/2017 Inactive Keflex 500 mg capsule RxNorm: 095902 1 Capsule(s) PO TID 03/08/2017 03/14/2017 Inactive levothyroxine 50 mcg tablet RxNorm: 699873 1 Tablet(s) PO daily 05/19/2016 08/11/2017 Inactive atenolol 25 mg tablet RxNorm: 707691 1/2 Tablet(s) PO daily 05/09/2016 04/20/2017 Inactive triamterene 37.5 mg-hydrochlorothiazide 25 mg tablet RxNorm: 868280 1/2 Tablet(s) PO daily 04/22/2016 04/16/2017 Inactive omeprazole 20 mg capsule,delayed release RxNorm: 886477 1 Capsule(s) PO daily 03/24/2016 06/16/2017 Inactive [SAVINGS FOR NON-COVERED DRUGS -- BIN:[id number], PCN: ASPROD1, Group: XXXXX, ID# XXXXXXX, Questions: . THIS IS NOT INSURANCE.] omeprazole 20 mg capsule,delayed release RxNorm: 858885 1 Capsule(s) PO daily 02/19/2016 03/23/2016 Inactive [SAVINGS FOR NON-COVERED DRUGS -- BIN:150427, PCN: ASPROD1, Group: XXXXX, ID# XXXXXXX, Questions: . THIS IS NOT INSURANCE.] hydrocortisone 2.5 % topical cream RxNorm: 374830 1 Application TOP BID as needed hemorrhoid 01/14/2016 02/10/2016 Inactive atenolol 25 mg tablet RxNorm: 231074 1/2 Tablet(s) PO daily 11/16/2015 05/08/2016 Inactive levothyroxine 50 mcg tablet RxNorm: 295803 1 Tablet(s) PO daily 08/19/2015 05/18/2016 Inactive omeprazole 20 mg capsule,delayed release RxNorm: 773458 1 Capsule(s) PO daily 06/12/2015 01/07/2016 Inactive [SAVINGS FOR NON-COVERED DRUGS -- BIN:948496, PCN: ASPROD1, Group: XXXXX, ID# XXXXXXX, Questions: . THIS IS NOT INSURANCE.] Vitamin D2 50,000 unit capsule RxNorm: 926117 1 Capsule(s) PO monthly 05/12/2015 09/15/2015 Inactive triamterine HCTZ 25/37.5 mg RxNorm: 1/2 PO daily 04/14/2015 04/14/2015 Inactive triamterine HCTZ 25/37.5 mg RxNorm: 1/2 Tablet(s) PO daily 04/14/2015 04/13/2015 Inactive triamterene 37.5 mg-hydrochlorothiazide 25 mg tablet RxNorm: 392099 1/2 Tablet(s) PO daily 04/14/2015 04/13/2015 Inactive triamterene 37.5 mg-hydrochlorothiazide 25 mg tablet RxNorm: 911371 1/2 Tablet(s) PO daily 04/14/2015 04/07/2016 Inactive triamterine HCTZ 25/37.5 mg RxNorm: 1/2 Tablet(s) PO daily 04/14/2015 04/13/2015 Inactive triamterine HCTZ 25/37.5 mg RxNorm: 1/2 Tablet(s) PO daily 02/03/2015 04/13/2015 Inactive doxycycline hyclate 100 mg capsule RxNorm: 302237 1 Capsule(s) PO BID 12/10/2014 12/23/2014 Inactive doxycycline hyclate 100 mg capsule RxNorm: 882886 1 Capsule(s) PO BID 12/10/2014 12/09/2014 Inactive Vitamin D2 1,000 unit capsule RxNorm: 980754 2 Capsule(s) PO daily 12/09/2014 01/07/2015 Inactive Vitamin D2 50,000 unit capsule RxNorm: 337978 1 Capsule(s) PO QW 12/09/2014 12/08/2014 Inactive Vitamin D2 50,000 unit capsule RxNorm: 758165 1 Capsule(s) PO QW 12/09/2014 03/08/2015 Inactive Carafate 1 gram tablet RxNorm: 167283 1 Tablet(s) PO TID dissolve in 10mL of water, take the pill dissolved. 12/02/2014 01/07/2015 Inactive [SAVINGS FOR NON-COVERED DRUGS -- BIN:141253, PCN: ASPROD1, Group: XXXXX, ID# XXXXXXX, Questions: . THIS IS NOT INSURANCE.] omeprazole 20 mg capsule,delayed release RxNorm: 353847 1 Capsule(s) PO daily 11/12/2014 11/11/2014 Inactive omeprazole 20 mg capsule,delayed release RxNorm: 547459 1 Capsule(s) PO daily 11/12/2014 01/10/2015 Inactive [SAVINGS FOR NON-COVERED DRUGS -- BIN:032156, PCN: ASPROD1, Group: XXXXX, ID# XXXXXXX, Questions: . THIS IS NOT INSURANCE.] atenolol 25 mg tablet RxNorm: 020805 1/2 Tablet(s) PO daily No Start Date 11/15/2015 Inactive triamterine HCTZ 25/37.5 mg RxNorm: 1/2 PO daily No Start Date 02/02/2015 Inactive levothyroxine 50 mcg tablet RxNorm: 752279 1 Tablet(s) PO daily No Start Date [...] Item Item Code Result Date Culture Urine [id number] URINE CULTURE SEE NOTES 03/14/2017 Culture Urine [id number] Continued Results 03/14/2017 Urine Culture Ucult Complete >100,000 col/ml aerobic growth sent to ref lab 03/09/2017 Free T4 Pfv620 FREE T4 0.94 ng/dL 11/10/2016 Tsh Ord6 [...] 73.1 % 09/10/2015 Cbc With Differential Ord2 Lymph% 17.4 % 09/10/2015 Cbc With Differential Ord2 MCV 81.8 fl 09/10/2015 Cbc With Differential Ord2 MCH 26.4 pg 09/10/2015 Cbc With Differential Ord2 Harvey% 5.8 % 09/10/2015 Cbc With Differential Ord2 MCHC 32.3 pg 09/10/2015 Cbc With Differential Ord2 Eos% 3.4 % 09/10/2015 Cbc With Differential Ord2 Baso% 0.3 % 09/10/2015 Cbc With Differential Ord2 PLT 297 K/ul 09/10/2015 Cbc With Differential Ord2 Neut ABS# 4.78 K/ul 09/10/2015 Cbc With Differential Ord2 RDW 15.2 % 09/10/2015 Cbc With Differential Ord2 Lymph ABS# 1.14 K/ul 09/10/2015 Cbc With Differential Ord2 Harvey ABS# 0.4 K/ul 09/10/2015 Cbc With Differential Ord2 Eos ABS# 0.2 K/ul 09/10/2015 Cbc With Differential Ord2 Baso ABS# 0.0 K/ul 09/10/2015 Cbc With Differential Ord2 New Analyzer Notice Please note new ref ranges starting 07-22-2015 due to implemntation of new five part differential hematolgy analyzer. 09/10/2015 Comp Metabolic Roi125 NA 138 mEq/L 09/10/2015 Comp Metabolic Bnb158 K 4.0 mEq/L 09/10/2015 Comp Metabolic Oka554 CL 102 mEq/L 09/10/2015 Comp Metabolic Jpt434 CO2 28.0 mEq/L 09/10/2015 Comp Metabolic Jwg801 ANION GAP 12 09/10/2015 Comp Metabolic Qtf500 GLUCOSE 88 mg/dL 09/10/2015 Comp Metabolic Lne753 Creat 1.2 mg/dL 09/10/2015 Comp Metabolic Ucr887 eGFR 47 ml/min/1.73m2 09/10/2015 Comp Metabolic Xww489 BUN 25 mg/dL 09/10/2015 Comp Metabolic Mvn187 B/C Ratio 21.6 Ratio 09/10/2015 Comp Metabolic Erm771 CALCIUM 9.1 mg/dL 09/10/2015 Comp Metabolic Pja260 ALK PHOS 55 U/L 09/10/2015 Comp Metabolic Szn200 AST(SGOT) 14 U/L 09/10/2015 Comp Metabolic Uuc550 ALT(SGPT) 7 U/L 09/10/2015 Comp Metabolic Lug048 BILI T 0.4 mg/dL 09/10/2015 Comp Metabolic Hqc576 ALBUMIN 3.6 g/dL 09/10/2015 Comp Metabolic Rna146 TPRO 6.3 g/dL 09/10/2015 Comp Metabolic Tdr408 GLOB 2.7 g/dL 09/10/2015 Comp Metabolic Jtz368 A/G Ratio 1.4 Ratio 09/10/2015 Comp Metabolic Lzo518 Osmo 279 mOsmo 09/10/2015 Cbc With Differential [...] Ord2 RDW 15.9 % 05/12/2015 Free T4 Eae115 FREE T4 1.02 ng/dL 05/12/2015 %Hba1C Djq497 % HbA1c 63911- 6 5.8 % 05/12/2015 %Hba1C Ikm601 Gluc Ave 120 mg/dL 05/12/2015 Comp Metabolic Inp030 NA 136 mEq/L 05/12/2015 Comp Metabolic Liq419 K 4.3 mEq/L 05/12/2015 Comp Metabolic Qsj930 CL 101 mEq/L 05/12/2015 Comp Metabolic Ooe303 CO2 26.0 mEq/L 05/12/2015 Comp Metabolic Dnn540 ANION GAP 13 05/12/2015 Comp Metabolic Rub778 GLUCOSE 91 mg/dL 05/12/2015 Comp Metabolic Lfs658 Creat 1.3 mg/dL 05/12/2015 Comp Metabolic Kzn383 eGFR 43 ml/min/1.73m2 05/12/2015 Comp Metabolic Iok249 BUN 23 mg/dL 05/12/2015 Comp Metabolic Jsv020 B/C Ratio 18.4 Ratio 05/12/2015 Comp Metabolic Zpo223 CALCIUM 9.2 mg/dL 05/12/2015 Comp Metabolic Lsh560 ALK PHOS 64 U/L 05/12/2015 Comp Metabolic Dlc409 AST(SGOT) 16 U/L 05/12/2015 Comp Metabolic Xaa105 ALT(SGPT) 9 U/L 05/12/2015 Comp Metabolic Doi560 BILI T 0.4 mg/dL 05/12/2015 Comp Metabolic Jij103 ALBUMIN 3.9 g/dL 05/12/2015 Comp Metabolic Guh751 TPRO 6.8 g/dL 05/12/2015 Comp Metabolic Npx867 GLOB 2.9 g/dL 05/12/2015 Comp Metabolic Geo169 A/G Ratio 1.3 Ratio 05/12/2015 Comp Metabolic Fxk938 Osmo 275 mOsmo 05/12/2015 Tsh Ord6 hTSH II 3.25 uIU/mL 05/12/2015 Vitamin D 25 Oh Nwf5389 VITAMIN D, 25 HYDROXY 54.89 ng/mL 02/27/2015 [...] G0439 11/16/2017 URINALYSIS NONAUTO W/O SCOPE CPT-4: 23385 03/08/2017 PPPS, SUBSEQ VISIT CPT- 4: G0439 11/11/2016 Vital Signs Date Vital 06/08/2018 Height: Weight: 05/15/2018 Blood Pressure 1: 120/68 Code: 8480-6 BMI: 30.2 Code: 55455-8 Heart Rate 1: 69 bpm Height: 5'2" SpO2: 96% Weight: 165 lbs 11/16/2017 Height: Weight: 11/13/2017 Blood Pressure 1: 144/74 Code: 8480-6 BMI: 30.2 Code: 82182-8 Heart Rate 1: 76 bpm Height: 5'2" SpO2: 99% Weight: 165 lbs 07/18/2017 Blood Pressure 1: 118/70 Code: 8480-6 BMI: 28.7 Code: 95519-3 Heart Rate 1: 75 bpm Height: 5'2" SpO2: 97% Weight: 157 lbs 03/16/2017 Blood Pressure 1: 128/72 Code: 8480-6 BMI: 29.1 Code: 15988-4 Heart Rate 1: 62 bpm Height: 5'2" SpO2: 98% Weight: 159 lbs 11/11/2016 Blood Pressure 1: 140/78 Code: 8480-6 BMI: 29.1 Code: 21576-1 Heart Rate 1: 64 bpm Height: 5'2" SpO2: 97% Waist Measure (cm): 91 cm Weight: 159 lbs 11/10/2016 Blood Pressure 1: 140/78 Code: 8480-6 BMI: 29.1 Code: 64303-6 Heart Rate 1: 64 bpm Height: 5'2" Weight: 159 lbs 08/29/2016 Blood Pressure 1: 120/56 Code: 8480-6 Heart Rate 1: 68 bpm SpO2: 97% 08/11/2016 Blood Pressure 1: 128/80 Code: 8480-6 BMI: 28.9 Code: 56225-6 Heart Rate 1: 64 bpm Height: 5'2" Weight: 158 lbs 05/12/2016 Blood Pressure 1: 148/62 Code: 8480-6 BMI: 28.2 Code: 87698-7 Heart Rate 1: 97 bpm Height: 5'2" SpO2: 96% Weight: 154 lbs 01/14/2016 Blood Pressure 1: 126/78 Code: 8480-6 BMI: 28.9 Code: 06965-1 Heart Rate 1: 68 bpm Height: 5'2" SpO2: 95% Weight: 158 lbs 09/16/2015 Blood Pressure 1: 138/76 Code: 8480-6 BMI: 29.5 Code: 00885-3 Heart Rate 1: 68 bpm Height: 5'3" SpO2: 97% Weight: 169 lbs 07/20/2015 Blood Pressure 1: 144/60 Code: 8480-6 BMI: 31.0 Code: 37595-6 Heart Rate 1: 81 bpm Height: 5'3" SpO2: 97% Weight: 178 lbs 05/12/2015 Blood Pressure 1: 128/80 Code: 8480-6 BMI: 30.9 Code: 08339-3 Heart Rate 1: 68 bpm Height: 5'3" SpO2: 96% Weight: 177 lbs 03/18/2015 Blood Pressure 1: 134/70 Code: 8480-6 BMI: 31.6 Code: 84044-1 Heart Rate 1: 67 bpm Height: 5'3" SpO2: 96% Weight: 181 lbs 12/02/2014 Blood Pressure 1: 128/82 Code: 8480-6 BMI: 32.1 Code: 48092-3 Heart Rate 1: 84 bpm Height: 5'3" [...] J30.89] [facility] CPT- 4: 39592 06/08/2018 ([id number]) 03925 EST. PATIENT, LEVEL IV Diagnosis: Atrophy of thyroid (acquired)[ICD10: E03.4] Diagnosis: Essential (primary) hypertension[ICD10: I10] Diagnosis: Epigastric pain[ICD10: R10.13] [facility] CPT-4: 80293 05/15/2018 ([id number]) 40214 EST. PATIENT, LEVEL IV Diagnosis: Atrophy of thyroid (acquired)[ICD10: E03.4] Diagnosis: Essential (primary) hypertension[ICD10: I10] Diagnosis: Gastro-esophageal reflux disease with esophagitis[ICD10: K21.0] Loly Guerra MD [facility] CPT-4: 41171 11/13/2017 ([id number]) 70054 EST. PATIENT, LEVEL IV Diagnosis: Atrophy of thyroid (acquired)[ICD10: E03.4] Diagnosis: Vitamin D deficiency, unspecified[ICD10: E55.9] Diagnosis: Essential (primary) hypertension[ICD10: I10] Loly Guerra MD, [facility] CPT-4: 35870 07/18/2017 ([id number]) 80686 EST. PATIENT, LEVEL IV Diagnosis: Low back pain[ICD10: M54.5] Diagnosis: Lumbago with sciatica, right side[ICD10: M54.41] Diagnosis: Essential (primary) hypertension[ICD10: I10] Diagnosis: Atrophy of thyroid (acquired)[ICD10: E03.4] Loly Guerra MD [facility] CPT-4: 54000 03/16/2017 ([id number]) 80529 EST. PATIENT, LEVEL IV Diagnosis: Essential (primary) hypertension[ICD10: I10] Diagnosis: Atrophy of thyroid (acquired)[ICD10: E03.4] Loly Guerra MD [facility] CPT-4: 84022 11/10/2016 ([id number]) Miscellaneous no charge Diagnosis: Essential (primary) hypertension[ICD10: I10] Radha Guerra MD [facility] CPT-4: 02194 08/29/2016 ([id number]) 15263 EST. PATIENT, LEVEL IV Diagnosis: Essential (primary) hypertension[ICD10: I10] Diagnosis: Atrophy of thyroid (acquired)[ICD10: E03.4] Loly Guerra MD [facility] CPT-4: 95033 08/11/2016 [id number] EST. PATIENT, LEVEL IV Diagnosis: Essential (primary) hypertension[ICD10: I10] Diagnosis: Other specified hypothyroidism[ICD10: E03.8] Radha Guerra MD [facility] CPT-4: 30686 05/12/2016 ([id number]) 01164 EST. PATIENT, LEVEL IV Diagnosis: Essential (primary) hypertension[ICD10: I10] Diagnosis: Hypothyroidism, unspecified[ICD10: E03.9] Diagnosis: First degree hemorrhoids[ICD10: K64.0] Loly Guerra MD, [facility] CPT-4: 10054 01/14/2016 ([id number]) 77418 EST. PATIENT, LEVEL IV Diagnosis: Hypothyroidism, unspecified[ICD10: E03.9] Diagnosis: Essential (primary) hypertension[ICD10: I10] Diagnosis: Morbid (severe) obesity due to excess calories[ICD10: E66.01] Diagnosis: Iron deficiency anemia, unspecified[ICD10: D50.9] Loly Guerra MD, [facility] CPT-4: 35679 09/16/2015 ([id number]) 46495 EST. PATIENT, LEVEL IV Diagnosis: Gastro-esophageal reflux disease with esophagitis[ICD10: K21.0] Diagnosis: Diaphragmatic hernia without obstruction or gangrene[ICD10: K44.9] Diagnosis: Dysphagia, pharyngoesophageal phase[ICD10: R13.14] Dia Guerra MD, [facility] CPT-4: 24290 07/20/2015 ([id number]) 77246 EST. PATIENT, LEVEL IV Diagnosis: Gastro-esophageal reflux disease with esophagitis[ICD10: K21.0] Diagnosis: Vitamin D deficiency, unspecified[ICD10: E55.9] Diagnosis: Essential (primary) hypertension[ICD10: I10] Diagnosis: Impaired fasting glucose[ICD10: R73.01] Diagnosis: Hypothyroidism, unspecified[ICD10: E03.9] Dia Guerra MD, [facility] CPT-4: 44008 05/12/2015 ([id number]) 97458 EST. PATIENT, LEVEL IV Diagnosis: ESSENTIAL HYPERTENSION[ICD9: 401.9] Diagnosis: HYPOTHYROIDISM[ICD9: 244.9] Diagnosis: ESOPHAGEAL REFLUX[ICD9: 530.81] Diagnosis: Other screening mammogram[ICD9: V76.12] Diagnosis: Osteoarthritis[ICD9: 715.90] Loly Guerra MD, [facility] CPT-4: 78900 03/18/2015 ([id number]) OFFICE VISIT, NEW - LEVEL 4 Diagnosis: ESSENTIAL HYPERTENSION[ICD9: 401.9] Diagnosis: HYPOTHYROIDISM[ICD9: 244.9] Diagnosis: ESOPHAGEAL REFLUX[ICD9: 530.81] Diagnosis: Other screening mammogram[ICD9: V76.12] Diagnosis: Osteoarthritis[ICD9: 715.90] Loly Guerra MD, [facility] CPT-4: 96152 12/02/2014 Plan of Care Planned Activity Notes [...] allergy spray. 06/08/2018 Appointment: Radha Quiles WPtel: [facility] (15 min) Moderate 06/08/2018 Patient Education: Patient [...] symptoms worsen. 05/15/2018 Appointment: Loly Guerra WPtel[facility] (15 min) Moderate 05/15/2018 Patient Education: Patient [...] nasal allergies. 11/13/2017 Appointment: Loly Guerra WPtel: [facility] (15 min) Moderate 11/13/2017 Patient Education: Patient [...] D. 07/18/2017 Appointment: [facility]erra [facility]el[facility] [phone] [facility] [place] (15 min) Moderate 07/18/2017 Patient Education: [...] control. 03/16/2017 Appointment: [facility] [phone] [facility] (30 min) Complex 03/16/2017 Patient Education: [...] surrogate. 11/11/2016 [phone] [facility] [place] [facility] Annual Wellness Visit 11/11/2016 Patient Education: [...] of control. 11/10/2016 Appointment: [facility]erra [facility]el[facility] [phone] [facility] (15 min) Moderate 11/10/2016 Patient Education: Patient [...] control. 08/11/2016 Appointment: [facility]el[facility] [phone] [facility] (15 min) Moderate 08/11/2016 Patient Education: [...] hydrocortisone cream 01/14/2016 Appointment: [facility]el[facility] [phone] [facility] (15 min) Moderate 01/14/2016 Patient Education: Patient [...] 3-4 months. 09/16/2015 Appointment: [facility]el[facility] [phone] [facility] (15 min) Moderate 09/16/2015 Patient Education: Patient [...] if the symptoms are not improving. Hiatal hpqrfl-dmmctglzz-tvevsebd swallow study and referral for EGD-will obtain [...] D daily. 03/18/2015 Appointment: Loly Guerra WPtel: [address] [place], [place] [address] (15 min) Moderate 03/18/2015 Patient Education: Patient [...] symptoms. 12/02/2014 Appointment: [facility]el[facility] [phone] [facility] [place] ([place] New Patient 12/02/2014 Patient [...] if the symptoms are not improving. Hiatal tdgbmt-pjgefzkmk-tedeglav swallow study and referral for EGD-will obtain [...]
--- OUTSIDE RECORDS SUMMARY | 2019-01-15 14:19 | XMS REPORT | CCD ---
Author Author Loly Guerra Organization Loly Guerra MD, [facility] Address [address] [place] [address] Phone Care Team Providers Care Professor Criminal Justice Name Role Phone PP Unavailable CCM Unavailable Summary Purpose Interface Exchange Insurance Providers Payer name Policy type / Coverage type Covered alliance party ID Effective Begin Date Effective End Date WPS Medicare Part B Medicare Part B [id number] Unknown Old [place] Medicare Part B [id number] Unknown Family history Mother Diagnosis Age At [...] Unknown Retired 12/02/[address]: 929701755 Has never smoked or chewed tobacco 12/02/[address]: 408704352 Never drinks alcohol 12/02/2014 Allergies, Adverse Reactions, [...] Fill Instructions amoxicillin 500 mg tablet RxNorm: 458874 1 Tablet(s) PO TID 06/08/2018 06/14/2018 Active amoxicillin 500 mg tablet RxNorm: 882718 1 Tablet(s) PO TID 06/08/2018 06/07/2018 Inactive atenolol 25 mg tablet RxNorm: 214039 1/2 Tablet(s) PO daily 04/11/2018 07/04/2019 Active omeprazole 20 mg capsule,delayed release RxNorm: 197205 1 Capsule(s) PO daily 04/03/2018 06/26/2019 Active triamterene 37.5 mg-hydrochlorothiazide 25 mg tablet RxNorm: 826937 Tablet(s) TAKE 1/2 TABLET EVERY DAY 01/25/2018 01/19/2019 Active levothyroxine 50 mcg tablet RxNorm: 644353 1 Tablet(s) PO daily 09/04/2017 08/29/2018 Active atenolol 25 mg tablet RxNorm: 633583 1/2 Tablet(s) PO daily 07/06/2017 04/01/2018 Inactive omeprazole 20 mg capsule,delayed release RxNorm: 045496 1 Capsule(s) PO daily 07/06/2017 04/01/2018 Inactive atenolol 25 mg tablet RxNorm: 420063 TAKE ONE-HALF TABLET BY MOUTH ONCE DAILY 05/30/2017 No Stop Date Active atenolol 25 mg tablet RxNorm: 713421 1/2 Tablet(s) PO daily 05/30/2017 07/05/2017 Inactive atenolol 25 mg tablet RxNorm: 973154 TAKE ONE-HALF TABLET BY MOUTH ONCE DAILY 05/30/2017 04/10/2018 Inactive triamterene 37.5 mg-hydrochlorothiazide 25 mg tablet RxNorm: 121942 TAKE 1/2 TABLET EVERY DAY 05/01/2017 01/24/2018 Inactive metoprolol succinate ER 25 mg tablet,extended release 24 hr RxNorm: 265648 1 Tablet(s) PO daily 04/21/2017 04/20/2017 Inactive metoprolol succinate ER 25 mg tablet,extended release 24 hr RxNorm: 472203 1 Tablet(s) PO daily 04/21/2017 11/12/2017 Inactive prednisone 10 mg tablets in a dose pack RxNorm: 104332 1 Tablet(s) PO UD take pills as directed in a taper take with food 03/16/2017 03/25/2017 Inactive Keflex 500 mg capsule RxNorm: 426636 1 Capsule(s) PO TID 03/08/2017 03/14/2017 Inactive levothyroxine 50 mcg tablet RxNorm: 398823 1 Tablet(s) PO daily 05/19/2016 08/11/2017 Inactive atenolol 25 mg tablet RxNorm: 967824 1/2 Tablet(s) PO daily 05/09/2016 04/20/2017 Inactive triamterene 37.5 mg-hydrochlorothiazide 25 mg tablet RxNorm: 340414 1/2 Tablet(s) PO daily 04/22/2016 04/16/2017 Inactive omeprazole 20 mg capsule,delayed release RxNorm: 847138 1 Capsule(s) PO daily 03/24/2016 06/16/2017 Inactive [SAVINGS FOR NON-COVERED DRUGS -- BIN:[id number], PCN: ASPROD1, Group: XXXXX, ID# XXXXXXX, Questions: . THIS IS NOT INSURANCE.] omeprazole 20 mg capsule,delayed release RxNorm: 323013 1 Capsule(s) PO daily 02/19/2016 03/23/2016 Inactive [SAVINGS FOR NON-COVERED DRUGS -- BIN:050894, PCN: ASPROD1, Group: XXXXX, ID# XXXXXXX, Questions: . THIS IS NOT INSURANCE.] hydrocortisone 2.5 % topical cream RxNorm: 749011 1 Application TOP BID as needed hemorrhoid 01/14/2016 02/10/2016 Inactive atenolol 25 mg tablet RxNorm: 697468 1/2 Tablet(s) PO daily 11/16/2015 05/08/2016 Inactive levothyroxine 50 mcg tablet RxNorm: 566685 1 Tablet(s) PO daily 08/19/2015 05/18/2016 Inactive omeprazole 20 mg capsule,delayed release RxNorm: 314857 1 Capsule(s) PO daily 06/12/2015 01/07/2016 Inactive [SAVINGS FOR NON-COVERED DRUGS -- BIN:164817, PCN: ASPROD1, Group: XXXXX, ID# XXXXXXX, Questions: . THIS IS NOT INSURANCE.] Vitamin D2 50,000 unit capsule RxNorm: 347122 1 Capsule(s) PO monthly 05/12/2015 09/15/2015 Inactive triamterine HCTZ 25/37.5 mg RxNorm: 1/2 PO daily 04/14/2015 04/14/2015 Inactive triamterine HCTZ 25/37.5 mg RxNorm: 1/2 Tablet(s) PO daily 04/14/2015 04/13/2015 Inactive triamterene 37.5 mg-hydrochlorothiazide 25 mg tablet RxNorm: 649349 1/2 Tablet(s) PO daily 04/14/2015 04/13/2015 Inactive triamterene 37.5 mg-hydrochlorothiazide 25 mg tablet RxNorm: 025166 1/2 Tablet(s) PO daily 04/14/2015 04/07/2016 Inactive triamterine HCTZ 25/37.5 mg RxNorm: 1/2 Tablet(s) PO daily 04/14/2015 04/13/2015 Inactive triamterine HCTZ 25/37.5 mg RxNorm: 1/2 Tablet(s) PO daily 02/03/2015 04/13/2015 Inactive doxycycline hyclate 100 mg capsule RxNorm: 569222 1 Capsule(s) PO BID 12/10/2014 12/23/2014 Inactive doxycycline hyclate 100 mg capsule RxNorm: 199866 1 Capsule(s) PO BID 12/10/2014 12/09/2014 Inactive Vitamin D2 1,000 unit capsule RxNorm: 001435 2 Capsule(s) PO daily 12/09/2014 01/07/2015 Inactive Vitamin D2 50,000 unit capsule RxNorm: 253525 1 Capsule(s) PO QW 12/09/2014 12/08/2014 Inactive Vitamin D2 50,000 unit capsule RxNorm: 734345 1 Capsule(s) PO QW 12/09/2014 03/08/2015 Inactive Carafate 1 gram tablet RxNorm: 262235 1 Tablet(s) PO TID dissolve in 10mL of water, take the pill dissolved. 12/02/2014 01/07/2015 Inactive [SAVINGS FOR NON-COVERED DRUGS -- BIN:402359, PCN: ASPROD1, Group: XXXXX, ID# XXXXXXX, Questions: . THIS IS NOT INSURANCE.] omeprazole 20 mg capsule,delayed release RxNorm: 069831 1 Capsule(s) PO daily 11/12/2014 11/11/2014 Inactive omeprazole 20 mg capsule,delayed release RxNorm: 315630 1 Capsule(s) PO daily 11/12/2014 01/10/2015 Inactive [SAVINGS FOR NON-COVERED DRUGS -- BIN:927031, PCN: ASPROD1, Group: XXXXX, ID# XXXXXXX, Questions: . THIS IS NOT INSURANCE.] atenolol 25 mg tablet RxNorm: 292186 1/2 Tablet(s) PO daily No Start Date 11/15/2015 Inactive triamterine HCTZ 25/37.5 mg RxNorm: 1/2 PO daily No Start Date 02/02/2015 Inactive levothyroxine 50 mcg tablet RxNorm: 070763 1 Tablet(s) PO daily No Start Date 08/18/2015 Inactive Medication Administered No Medication Administered data Immunizations Vaccine Codes Date Status Influenza CVX: 141 05/10/2014 completed Tetanus, Diptheria, Pertussis CVX: 113 05/10/2005 completed Tetanus/Diptheria CVX: 113 05/10/2005 completed Assessments Condition Codes Effective Dates Essential (primary) hypertension ICD-10: I10 ICD-9: 401.9 05/15/2018 Epigastric pain ICD-10: R10.13 ICD-9: 789.06 05/15/2018 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 ICD-9: 244.8 05/15/2018 Encounter for general adult medical examination with abnormal findings ICD-10: Z00.01 ICD-9: V70.0 11/16/2017 Gastro-esophageal reflux disease with esophagitis ICD-10: K21.0 ICD-9: 530.11 11/13/2017 Vitamin D deficiency, unspecified ICD-10: E55.9 ICD-9: 268.9 07/18/2017 Low back pain ICD-10: M54.5 ICD-9: 724.2 03/16/2017 Lumbago with sciatica, right side ICD-10: M54.41 ICD-9: 724.3 03/16/2017 Dysuria ICD-10: R30.0 ICD-9: 788.1 03/08/2017 Encounter for screening mammogram for malignant neoplasm of breast ICD-10: Z12.31 ICD-9: V76.12 05/27/2016 Other specified hypothyroidism ICD-10: E03.8 ICD-9: 244.8 05/12/2016 First degree hemorrhoids ICD-10: K64.0 ICD-9: 455.6 01/14/2016 Hypothyroidism, unspecified ICD-10: E03.9 ICD-9: 244.9 01/14/2016 Morbid (severe) obesity due to excess calories ICD-10: E66.01 ICD-9: 278.01 09/16/2015 Iron deficiency anemia, unspecified ICD-10: D50.9 ICD-9: 280.9 09/16/2015 Diaphragmatic hernia without obstruction or gangrene ICD-10: K44.9 ICD-9: 553.3 07/20/2015 Dysphagia, pharyngoesophageal phase ICD-10: R13.14 ICD-9: 787.24 07/20/2015 Impaired fasting glucose ICD-10: R73.01 ICD-9: 790.21 05/12/2015 ESSENTIAL HYPERTENSION ICD-9: 401.9 03/18/2015 Other screening mammogram ICD-9: V76.12 03/18/2015 HYPOTHYROIDISM ICD-9: 244.9 03/18/2015 Osteoarthritis ICD-9: 715.90 03/18/2015 ESOPHAGEAL REFLUX ICD-9: 530.81 03/18/2015 Reason For Visit Reason For Visit Effective Dates Notes hypertension 05/15/2018 Annual Medicare Wellness Exam 11/16/2017 hypertension 11/13/2017 hypertension 07/18/2017 hypertension 03/16/2017 Annual Medicare Wellness Exam 11/11/2016 hypertension 11/10/2016 hypertension 08/11/2016 hypertension 05/12/2016 hypertension 01/14/2016 hernia 09/16/2015 hernia 07/20/2015 gastroesophageal reflux 05/12/2015 fatigue 03/18/2015 joint complaint 12/02/2014 right knee mostly in the am. Results Observation Observation Code Item Item Code Result Date Culture Urine [id number] URINE CULTURE SEE NOTES 03/14/2017 Culture Urine [id number] Continued Results 03/14/2017 Urine Culture Ucult Complete >100,000 col/ml aerobic growth sent to ref lab 03/09/2017 Free T4 Dqf908 FREE T4 0.94 ng/dL 11/10/2016 Tsh Ord6 [...] 35.6 % 09/10/2015 Cbc With Differential Ord2 Lymph% 17.4 % 09/10/2015 Cbc With Differential Ord2 MCV 81.8 fl 09/10/2015 Cbc With Differential Ord2 [place]% 5.8 % 09/10/2015 Cbc With Differential Ord2 MCH 26.4 pg 09/10/2015 Cbc With Differential Ord2 MCHC 32.3 pg 09/10/2015 Cbc With Differential Ord2 Eos% 3.4 % 09/10/2015 Cbc With Differential Ord2 Baso% 0.3 % 09/10/2015 Cbc With Differential Ord2 PLT 297 K/ul 09/10/2015 Cbc With Differential Ord2 Neut ABS# 4.78 K/ul 09/10/2015 Cbc With Differential Ord2 RDW 15.2 % 09/10/2015 Cbc With Differential Ord2 Lymph ABS# 1.14 K/ul 09/10/2015 Cbc With Differential Ord2 [place] ABS# 0.4 K/ul 09/10/2015 Cbc With Differential Ord2 Eos ABS# 0.2 K/ul 09/10/2015 Cbc With Differential Ord2 Baso ABS# 0.0 K/ul 09/10/2015 Cbc With Differential Ord2 New Analyzer Notice Please note new ref ranges starting 07-22-2015 due to implemntation of new five part differential hematolgy analyzer. 09/10/2015 Comp Metabolic Oot426 NA 138 mEq/L 09/10/2015 Comp Metabolic Rxp543 K 4.0 mEq/L 09/10/2015 Comp Metabolic Hff486 CL 102 mEq/L 09/10/2015 Comp Metabolic Vqz896 CO2 28.0 mEq/L 09/10/2015 Comp Metabolic Mev305 ANION GAP 12 09/10/2015 Comp Metabolic Jyt625 GLUCOSE 88 mg/dL 09/10/2015 Comp Metabolic Rja901 Creat 1.2 mg/dL 09/10/2015 Comp Metabolic Uxr536 eGFR 47 ml/min/1.73m2 09/10/2015 Comp Metabolic Kmi150 BUN 25 mg/dL 09/10/2015 Comp Metabolic Xue361 B/C Ratio 21.6 Ratio 09/10/2015 Comp Metabolic Ebh829 CALCIUM 9.1 mg/dL 09/10/2015 Comp Metabolic Hdi447 ALK PHOS 55 U/L 09/10/2015 Comp Metabolic Opl315 AST(SGOT) 14 U/L 09/10/2015 Comp Metabolic Xxa828 ALT(SGPT) 7 U/L 09/10/2015 Comp Metabolic Fdq837 BILI T 0.4 mg/dL 09/10/2015 Comp Metabolic Zwk158 ALBUMIN 3.6 g/dL 09/10/2015 Comp Metabolic Sig116 TPRO 6.3 g/dL 09/10/2015 Comp Metabolic Wnq423 GLOB 2.7 g/dL 09/10/2015 Comp Metabolic Bol405 A/G Ratio 1.4 Ratio 09/10/2015 Comp Metabolic Mpy480 Osmo 279 mOsmo 09/10/2015 Cbc With Differential [...] Ord2 RDW 15.9 % 05/12/2015 Free T4 Vbm157 FREE T4 1.02 ng/dL 05/12/2015 %Hba1C Nse013 % HbA1c 25901- 6 5.8 % 05/12/2015 %Hba1C Fam602 Gluc Ave 120 mg/dL 05/12/2015 Comp Metabolic Lxj776 NA 136 mEq/L 05/12/2015 Comp Metabolic Jef939 K 4.3 mEq/L 05/12/2015 Comp Metabolic Bld340 CL 101 mEq/L 05/12/2015 Comp Metabolic Pap367 CO2 26.0 mEq/L 05/12/2015 Comp Metabolic Njw840 ANION GAP 13 05/12/2015 Comp Metabolic Pmf516 GLUCOSE 91 mg/dL 05/12/2015 Comp Metabolic Tea135 Creat 1.3 mg/dL 05/12/2015 Comp Metabolic Gtk680 eGFR 43 ml/min/1.73m2 05/12/2015 Comp Metabolic Lex503 BUN 23 mg/dL 05/12/2015 Comp Metabolic Qbs789 B/C Ratio 18.4 Ratio 05/12/2015 Comp Metabolic Bxh806 CALCIUM 9.2 mg/dL 05/12/2015 Comp Metabolic Rbx361 ALK PHOS 64 U/L 05/12/2015 Comp Metabolic Sbs362 AST(SGOT) 16 U/L 05/12/2015 Comp Metabolic Pji809 ALT(SGPT) 9 U/L 05/12/2015 Comp Metabolic Lea821 BILI T 0.4 mg/dL 05/12/2015 Comp Metabolic Qao613 ALBUMIN 3.9 g/dL 05/12/2015 Comp Metabolic Gtk679 TPRO 6.8 g/dL 05/12/2015 Comp Metabolic Zmk993 GLOB 2.9 g/dL 05/12/2015 Comp Metabolic Rfz456 A/G Ratio 1.3 Ratio 05/12/2015 Comp Metabolic Dkv128 Osmo 275 mOsmo 05/12/2015 Tsh Ord6 hTSH II 3.25 uIU/mL 05/12/2015 Vitamin D 25 Oh Szy4705 VITAMIN D, 25 HYDROXY 54.89 ng/mL 02/27/2015 Review of Systems System Result Effective Dates Constitutional No recent illness 05/15/2018 Constitutional No [...] accomodation 03/18/2015 None Full Exam - General 1995 Ears/Nose/Throat otoscopic exam Overall: external auditory canals clear 03/18/2015 None Full Exam - General 1995 Ears/Nose/Throat otoscopic exam Overall: tympanic membranes clear 03/18/2015 None Full Exam - General 1995 Ears/Nose/Throat lips/teeth/gingiva Overall: benign lips 03/18/2015 None [...] G0439 11/16/2017 URINALYSIS NONAUTO W/O SCOPE CPT-4: 93463 03/08/2017 PPPS, SUBSEQ VISIT CPT- 4: G0439 11/11/2016 Vital Signs Date Vital 05/15/2018 Blood Pressure 1: 120/68 Code: 8480-6 BMI: 30.2 Code: 27277-1 Heart Rate 1: 69 bpm Height: 5'2" SpO2: 96% Weight: 165 lbs 11/16/2017 Height: Weight: 11/13/2017 Blood Pressure 1: 144/74 Code: 8480-6 BMI: 30.2 Code: 69447-0 Heart Rate 1: 76 bpm Height: 5'2" SpO2: 99% Weight: 165 lbs 07/18/2017 Blood Pressure 1: 118/70 Code: 8480-6 BMI: 28.7 Code: 26465-4 Heart Rate 1: 75 bpm Height: 5'2" SpO2: 97% Weight: 157 lbs 03/16/2017 Blood Pressure 1: 128/72 Code: 8480-6 BMI: 29.1 Code: 57666-9 Heart Rate 1: 62 bpm Height: 5'2" SpO2: 98% Weight: 159 lbs 11/11/2016 Blood Pressure 1: 140/78 Code: 8480-6 BMI: 29.1 Code: 57164-0 Heart Rate 1: 64 bpm Height: 5'2" SpO2: 97% Waist Measure (cm): 91 cm Weight: 159 lbs 11/10/2016 Blood Pressure 1: 140/78 Code: 8480-6 BMI: 29.1 Code: 05163-6 Heart Rate 1: 64 bpm Height: 5'2" Weight: 159 lbs 08/29/2016 Blood Pressure 1: 120/56 Code: 8480-6 Heart Rate 1: 68 bpm SpO2: 97% 08/11/2016 Blood Pressure 1: 128/80 Code: 8480-6 BMI: 28.9 Code: 75240-6 Heart Rate 1: 64 bpm Height: 5'2" Weight: 158 lbs 05/12/2016 Blood Pressure 1: 148/62 Code: 8480-6 BMI: 28.2 Code: 81192-2 Heart Rate 1: 97 bpm Height: 5'2" SpO2: 96% Weight: 154 lbs 01/14/2016 Blood Pressure 1: 126/78 Code: 8480-6 BMI: 28.9 Code: 93660-4 Heart Rate 1: 68 bpm Height: 5'2" SpO2: 95% Weight: 158 lbs 09/16/2015 Blood Pressure 1: 138/76 Code: 8480-6 BMI: 29.5 Code: 46100-2 Heart Rate 1: 68 bpm Height: 5'3" SpO2: 97% Weight: 169 lbs 07/20/2015 Blood Pressure 1: 144/60 Code: 8480-6 BMI: 31.0 Code: 37328-6 Heart Rate 1: 81 bpm Height: 5'3" SpO2: 97% Weight: 178 lbs 05/12/2015 Blood Pressure 1: 128/80 Code: 8480-6 BMI: 30.9 Code: 39131-9 Heart Rate 1: 68 bpm Height: 5'3" SpO2: 96% Weight: 177 lbs 03/18/2015 Blood Pressure 1: 134/70 Code: 8480-6 BMI: 31.6 Code: 14181-4 Heart Rate 1: 67 bpm Height: 5'3" SpO2: 96% Weight: 181 lbs 12/02/2014 Blood Pressure 1: 128/82 Code: 8480-6 BMI: 32.1 Code: 06860-1 Heart Rate 1: 84 bpm Height: 5'3" Weight: 184 lbs Functional Status No Functional Status data History of Present Illness Symptom Name Status Result Effective Date Notes hypertension Quality chronic 05/15/2018 None hypertension Quality [...] data Encounters Encounter Performer Location Codes Date ([id number]) 29578 EST. PATIENT, LEVEL IV Diagnosis: Atrophy of thyroid (acquired)[ICD10: E03.4] Diagnosis: Essential (primary) hypertension[ICD10: I10] Diagnosis: Epigastric pain[ICD10: R10.13] Loly Guerra MD [facility] CPT-4: 01265 05/15/2018 ([id number]) 10989 EST. PATIENT, LEVEL IV Diagnosis: Atrophy of thyroid (acquired)[ICD10: E03.4] Diagnosis: Essential (primary) hypertension[ICD10: I10] Diagnosis: Gastro-esophageal reflux disease with esophagitis[ICD10: K21.0] Loly Guerra MD [facility] CPT-4: 43278 11/13/2017 ([id number]) 80562 EST. PATIENT, LEVEL IV Diagnosis: Atrophy of thyroid (acquired)[ICD10: E03.4] Diagnosis: Vitamin D deficiency, unspecified[ICD10: E55.9] Diagnosis: Essential (primary) hypertension[ICD10: I10] Loly Guerra MD [facility] CPT-4: 91575 07/18/2017 ([id number]) 48147 EST. PATIENT, LEVEL IV Diagnosis: Low back pain[ICD10: M54.5] Diagnosis: Lumbago with sciatica, right side[ICD10: M54.41] Diagnosis: Essential (primary) hypertension[ICD10: I10] Diagnosis: Atrophy of thyroid (acquired)[ICD10: E03.4] Loly Guerra MD, [facility] CPT-4: 54627 03/16/2017 ([id number]) 59173 EST. PATIENT, LEVEL IV Diagnosis: Essential (primary) hypertension[ICD10: I10] Diagnosis: Atrophy of thyroid (acquired)[ICD10: E03.4] Loly Guerra MD, [facility] CPT-4: 08474 11/10/2016 ([id number]) Miscellaneous no charge Diagnosis: Essential (primary) hypertension[ICD10: I10] Radha Guerra MD, [facility] CPT-4: 69408 08/29/2016 ([id number]) 30576 EST. PATIENT, LEVEL IV Diagnosis: Essential (primary) hypertension[ICD10: I10] Diagnosis: Atrophy of thyroid (acquired)[ICD10: E03.4] Loly Guerra MD [facility] CPT-4: 41571 08/11/2016 82133 EST. PATIENT, LEVEL IV Diagnosis: Essential (primary) hypertension[ICD10: I10] Diagnosis: Other specified hypothyroidism[ICD10: E03.8] Radha Guerra MD, [facility] CPT-4: 81059 05/12/2016 ([id number]) 99676 EST. PATIENT, LEVEL IV Diagnosis: Essential (primary) hypertension[ICD10: I10] Diagnosis: Hypothyroidism, unspecified[ICD10: E03.9] Diagnosis: First degree hemorrhoids[ICD10: K64.0] Loly Guerra MD, [facility] CPT-4: 33685 01/14/2016 ([id number]) 20840 EST. PATIENT, LEVEL IV Diagnosis: Hypothyroidism, unspecified[ICD10: E03.9] Diagnosis: Essential (primary) hypertension[ICD10: I10] Diagnosis: Morbid (severe) obesity due to excess calories[ICD10: E66.01] Diagnosis: Iron deficiency anemia, unspecified[ICD10: D50.9] Loly Guerra MD, [facility] CPT-4: 85747 09/16/2015 ([id number]) 13650 EST. PATIENT, LEVEL IV Diagnosis: Gastro-esophageal reflux disease with esophagitis[ICD10: K21.0] Diagnosis: Diaphragmatic hernia without obstruction or gangrene[ICD10: K44.9] Diagnosis: Dysphagia, pharyngoesophageal phase[ICD10: R13.14] Dia Guerra MD, [facility] CPT-4: 23704 07/20/2015 ([id number]) 96601 EST. PATIENT, LEVEL IV Diagnosis: Gastro-esophageal reflux disease with esophagitis[ICD10: K21.0] Diagnosis: Vitamin D deficiency, unspecified[ICD10: E55.9] Diagnosis: Essential (primary) hypertension[ICD10: I10] Diagnosis: Impaired fasting glucose[ICD10: R73.01] Diagnosis: Hypothyroidism, unspecified[ICD10: E03.9] Dia Guerra MD, [facility] CPT-4: 13553 05/12/2015 ([id number]) 97793 EST. PATIENT, LEVEL IV Diagnosis: ESSENTIAL HYPERTENSION[ICD9: 401.9] Diagnosis: HYPOTHYROIDISM[ICD9: 244.9] Diagnosis: ESOPHAGEAL REFLUX[ICD9: 530.81] Diagnosis: Other screening mammogram[ICD9: V76.12] Diagnosis: Osteoarthritis[ICD9: 715.90] [facility] CPT-4: 11159 03/18/2015 ([id number]) OFFICE VISIT, NEW - LEVEL 4 Diagnosis: ESSENTIAL HYPERTENSION[ICD9: 401.9] Diagnosis: HYPOTHYROIDISM[ICD9: 244.9] Diagnosis: ESOPHAGEAL REFLUX[ICD9: 530.81] Diagnosis: Other screening mammogram[ICD9: V76.12] Diagnosis: Osteoarthritis[ICD9: 715.90] [facility] CPT-4: 42733 12/02/2014 Plan of Care Planned Activity Notes Codes Status Date Visit Plan: Hypertension - well controlled - [...] symptoms worsen. 05/15/2018 Appointment: Loly Guerra WPtel: [address] [place], [place] [address] (15 min) Moderate 05/15/2018 Patient Education: Patient [...] nasal allergies. 11/13/2017 Appointment: Loly Guerra WPtel: [facility]5 [facility] (15 min) Moderate 11/13/2017 Patient Education: Patient [...] vitamin D. 07/18/2017 Appointment: Loly Guerra WPtel: [facility]8 [facility] (15 min) Moderate 07/18/2017 Patient [...] of control. 03/16/2017 Appointment: Loly Guerra WPtel[facility] ([facility] min[facility] 03/16/2017 Patient Education: Patient Medication Summary Completed [...] care surrogate. 11/11/2016 Appointment: Radha Quiles WPtel: [phone] [facility] [facility] - Annual Wellness Visit 11/11/2016 Patient Education: [...] control. 11/10/2016 Appointment: Loly Guerra WPtel: [phone] [facility] (15 min) Moderate 11/10/2016 Patient [...] control. 08/11/2016 App[facility]ment: [phone] (15 min) Moderate 08/11/2016 Patient Education: [...] hydrocortisone cream 01/14/2016 Appointment: [phone] [facility] [place] (15 min) Moderate 01/14/2016 Patient [...] labs in about 3-4 months. 09/16/2015 Appointment: Charlie Loly WPtel: [address] [place], [place] [address] (15 min) Moderate 09/16/2015 Patient Education: Patient [...] if the symptoms are not improving. Hiatal xcqjio-rbqfdprnj-ugichxfc swallow study and referral for EGD-will obtain [...] daily. 03/18/2015 Appointment: [phone] [facility] (15 min) Moderate 03/18/2015 Patient Education: [...] symptoms. 12/02/2014 Appointment: [phone] [facility] [place] ([place] New Patient 12/02/2014 Patient [...] if the symptoms are not improving. Hiatal kipbog-wkulelslc-jadfgztc swallow study and referral for EGD-will obtain [...]
--- OUTSIDE RECORDS SUMMARY | 2019-01-15 14:21 | XMS REPORT | CCD ---
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 Name Role Phone PP Unavailable CCM Unavailable Summary Purpose Interface Exchange Insurance Providers Payer name Policy type / Coverage type Covered alliance party ID Effective Begin Date Effective End Date WPS Medicare Part B Medicare Part B [id number] Unknown [place] Medicare Part B [id number] Unknown Family history Mother Diagnosis Age At [...] Unknown Retired 12/02/[address]: 635278520 Has never smoked or chewed tobacco 12/02/[address]: 647239168 Never drinks alcohol 12/02/2014 Allergies, Adverse Reactions, [...] Start Date Stop Date Status Fill Instructions atenolol 25 mg tablet RxNorm: 393948 1/2 Tablet(s) PO daily 04/11/2018 07/04/2019 Active omeprazole 20 mg capsule,delayed release RxNorm: 325774 1 Capsule(s) PO daily 04/03/2018 06/26/2019 Active triamterene 37.5 mg-hydrochlorothiazide 25 mg tablet RxNorm: 898744 Tablet(s) TAKE 1/2 TABLET EVERY DAY 01/25/2018 01/19/2019 Active levothyroxine 50 mcg tablet RxNorm: 297707 1 Tablet(s) PO daily 09/04/2017 08/29/2018 Active atenolol 25 mg tablet RxNorm: 395872 1/2 Tablet(s) PO daily 07/06/2017 04/01/2018 Inactive omeprazole 20 mg capsule,delayed release RxNorm: 756609 1 Capsule(s) PO daily 07/06/2017 04/01/2018 Inactive atenolol 25 mg tablet RxNorm: 004091 TAKE ONE-HALF TABLET BY MOUTH ONCE DAILY 05/30/2017 No Stop Date Active atenolol 25 mg tablet RxNorm: 511488 1/2 Tablet(s) PO daily 05/30/2017 07/05/2017 Inactive atenolol 25 mg tablet RxNorm: 853606 TAKE ONE-HALF TABLET BY MOUTH ONCE DAILY 05/30/2017 04/10/2018 Inactive triamterene 37.5 mg-hydrochlorothiazide 25 mg tablet RxNorm: 442905 TAKE 1/2 TABLET EVERY DAY 05/01/2017 01/24/2018 Inactive metoprolol succinate ER 25 mg tablet,extended release 24 hr RxNorm: 457185 1 Tablet(s) PO daily 04/21/2017 04/20/2017 Inactive metoprolol succinate ER 25 mg tablet,extended release 24 hr RxNorm: 542812 1 Tablet(s) PO daily 04/21/2017 11/12/2017 Inactive prednisone 10 mg tablets in a dose pack RxNorm: 584424 1 Tablet(s) PO UD take pills as directed in a taper take with food 03/16/2017 03/25/2017 Inactive Keflex 500 mg capsule RxNorm: 342347 1 Capsule(s) PO TID 03/08/2017 03/14/2017 Inactive levothyroxine 50 mcg tablet RxNorm: 897863 1 Tablet(s) PO daily 05/19/2016 08/11/2017 Inactive atenolol 25 mg tablet RxNorm: 459603 1/2 Tablet(s) PO daily 05/09/2016 04/20/2017 Inactive triamterene 37.5 mg-hydrochlorothiazide 25 mg tablet RxNorm: 032774 1/2 Tablet(s) PO daily 04/22/2016 04/16/2017 Inactive omeprazole 20 mg capsule,delayed release RxNorm: 742960 1 Capsule(s) PO daily 03/24/2016 06/16/2017 Inactive [SAVINGS FOR NON-COVERED DRUGS -- BIN:[id number], PCN: ASPROD1, Group: XXXXX, ID# XXXXXXX, Questions: . THIS IS NOT INSURANCE.] omeprazole 20 mg capsule,delayed release RxNorm: 817959 1 Capsule(s) PO daily 02/19/2016 03/23/2016 Inactive [SAVINGS FOR NON-COVERED DRUGS -- BIN:[id number], PCN: ASPROD1, Group: XXXXX, ID# XXXXXXX, Questions: . THIS IS NOT INSURANCE.] hydrocortisone 2.5 % topical cream RxNorm: 392865 1 Application TOP BID as needed hemorrhoid 01/14/2016 02/10/2016 Inactive atenolol 25 mg tablet RxNorm: 941654 1/2 Tablet(s) PO daily 11/16/2015 05/08/2016 Inactive levothyroxine 50 mcg tablet RxNorm: 505874 1 Tablet(s) PO daily 08/19/2015 05/18/2016 Inactive omeprazole 20 mg capsule,delayed release RxNorm: 616981 1 Capsule(s) PO daily 06/12/2015 01/07/2016 Inactive [SAVINGS FOR NON-COVERED DRUGS -- BIN:[id number], PCN: ASPROD1, Group: XXXXX, ID# XXXXXXX, Questions: . THIS IS NOT INSURANCE.] Vitamin D2 50,000 unit capsule RxNorm: 929271 1 Capsule(s) PO monthly 05/12/2015 09/15/2015 Inactive triamterine HCTZ 25/37.5 mg RxNorm: 1/2 PO daily 04/14/2015 04/14/2015 Inactive triamterine HCTZ 25/37.5 mg RxNorm: 1/2 Tablet(s) PO daily 04/14/2015 04/13/2015 Inactive triamterene 37.5 mg-hydrochlorothiazide 25 mg tablet RxNorm: 253485 1/2 Tablet(s) PO daily 04/14/2015 04/13/2015 Inactive triamterene 37.5 mg-hydrochlorothiazide 25 mg tablet RxNorm: 804169 1/2 Tablet(s) PO daily 04/14/2015 04/07/2016 Inactive triamterine HCTZ 25/37.5 mg RxNorm: 1/2 Tablet(s) PO daily 04/14/2015 04/13/2015 Inactive triamterine HCTZ 25/37.5 mg RxNorm: 1/2 Tablet(s) PO daily 02/03/2015 04/13/2015 Inactive doxycycline hyclate 100 mg capsule RxNorm: 889430 1 Capsule(s) PO BID 12/10/2014 12/23/2014 Inactive doxycycline hyclate 100 mg capsule RxNorm: 376782 1 Capsule(s) PO BID 12/10/2014 12/09/2014 Inactive Vitamin D2 1,000 unit capsule RxNorm: 990062 2 Capsule(s) PO daily 12/09/2014 01/07/2015 Inactive Vitamin D2 50,000 unit capsule RxNorm: 832727 1 Capsule(s) PO QW 12/09/2014 12/08/2014 Inactive Vitamin D2 50,000 unit capsule RxNorm: 913822 1 Capsule(s) PO QW 12/09/2014 03/08/2015 Inactive Carafate 1 gram tablet RxNorm: 117817 1 Tablet(s) PO TID dissolve in 10mL of water, take the pill dissolved. 12/02/2014 01/07/2015 Inactive [SAVINGS FOR NON-COVERED DRUGS -- BIN:[id number], PCN: ASPROD1, Group: XXXXX, ID# XXXXXXX, Questions: . THIS IS NOT INSURANCE.] omeprazole 20 mg capsule,delayed release RxNorm: 389517 1 Capsule(s) PO daily 11/12/2014 11/11/2014 Inactive omeprazole 20 mg capsule,delayed release RxNorm: 882065 1 Capsule(s) PO daily 11/12/2014 01/10/2015 Inactive [SAVINGS FOR NON-COVERED DRUGS -- BIN:615702, PCN: ASPROD1, Group: XXXXX, ID# XXXXXXX, Questions: . 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 ICD-9: [...] Item Item Code Result Date Culture Urine [id number] URINE CULTURE SEE NOTES 03/14/2017 Culture Urine [id number] Continued Results 03/14/2017 Urine Culture Ucult Complete >100,000 col/ml aerobic growth sent to ref lab 03/09/2017 Free T4 Mme633 FREE T4 0.94 ng/dL 11/10/2016 Tsh Ord6 [...] 26.4 pg 09/10/2015 Cbc With Differential Ord2 [place]% 5.8 % 09/10/2015 Cbc With Differential Ord2 Eos% 3.4 % 09/10/2015 Cbc With Differential Ord2 MCHC 32.3 pg 09/10/2015 Cbc With Differential Ord2 Baso% 0.3 % 09/10/2015 Cbc With Differential Ord2 PLT 297 K/ul 09/10/2015 Cbc With Differential Ord2 Neut ABS# 4.78 K/ul 09/10/2015 Cbc With Differential Ord2 RDW 15.2 % 09/10/2015 Cbc With Differential Ord2 Lymph ABS# 1.14 K/ul 09/10/2015 Cbc With Differential Ord2 [place] ABS# 0.4 K/ul 09/10/2015 Cbc With Differential Ord2 Eos ABS# 0.2 K/ul 09/10/2015 Cbc With Differential Ord2 Baso ABS# 0.0 K/ul 09/10/2015 Cbc With Differential Ord2 New Analyzer Notice Please note new ref ranges starting 07-22-2015 due to implemntation of new five part differential hematolgy analyzer. 09/10/2015 Comp Metabolic Hca177 NA 138 mEq/L 09/10/2015 Comp Metabolic Ioy439 K 4.0 mEq/L 09/10/2015 Comp Metabolic Elj089 CL 102 mEq/L 09/10/2015 Comp Metabolic Cve892 CO2 28.0 mEq/L 09/10/2015 Comp Metabolic Kim605 ANION GAP 12 09/10/2015 Comp Metabolic Ejf386 GLUCOSE 88 mg/dL 09/10/2015 Comp Metabolic Myd388 Creat 1.2 mg/dL 09/10/2015 Comp Metabolic Sfo360 eGFR 47 ml/min/1.73m2 09/10/2015 Comp Metabolic Bce255 BUN 25 mg/dL 09/10/2015 Comp Metabolic Bjn536 B/C Ratio 21.6 Ratio 09/10/2015 Comp Metabolic Mni990 CALCIUM 9.1 mg/dL 09/10/2015 Comp Metabolic Zde191 ALK PHOS 55 U/L 09/10/2015 Comp Metabolic Xzv613 AST(SGOT) 14 U/L 09/10/2015 Comp Metabolic Zwn655 ALT(SGPT) 7 U/L 09/10/2015 Comp Metabolic Sjo363 BILI T 0.4 mg/dL 09/10/2015 Comp Metabolic Sli884 ALBUMIN 3.6 g/dL 09/10/2015 Comp Metabolic Vjv895 TPRO 6.3 g/dL 09/10/2015 Comp Metabolic Sru325 GLOB 2.7 g/dL 09/10/2015 Comp Metabolic Iah990 A/G Ratio 1.4 Ratio 09/10/2015 Comp Metabolic Zgn290 Osmo 279 mOsmo 09/10/2015 Cbc With Differential [...] Ord2 RDW 15.9 % 05/12/2015 Free T4 Cdx335 FREE T4 1.02 ng/dL 05/12/2015 %Hba1C Beo487 % HbA1c 72082- 6 5.8 % 05/12/2015 %Hba1C Ume241 Gluc Ave 120 mg/dL 05/12/2015 Comp Metabolic Vlp764 NA 136 mEq/L 05/12/2015 Comp Metabolic Amm358 K 4.3 mEq/L 05/12/2015 Comp Metabolic Ogd832 CL 101 mEq/L 05/12/2015 Comp Metabolic Wfj027 CO2 26.0 mEq/L 05/12/2015 Comp Metabolic Obc000 ANION GAP 13 05/12/2015 Comp Metabolic Xpf284 GLUCOSE 91 mg/dL 05/12/2015 Comp Metabolic Rlo430 Creat 1.3 mg/dL 05/12/2015 Comp Metabolic Tlq654 eGFR 43 ml/min/1.73m2 05/12/2015 Comp Metabolic Thw807 BUN 23 mg/dL 05/12/2015 Comp Metabolic Uax837 B/C Ratio 18.4 Ratio 05/12/2015 Comp Metabolic Ljg028 CALCIUM 9.2 mg/dL 05/12/2015 Comp Metabolic Gtq958 ALK PHOS 64 U/L 05/12/2015 Comp Metabolic Xbr185 AST(SGOT) 16 U/L 05/12/2015 Comp Metabolic Uwg727 ALT(SGPT) 9 U/L 05/12/2015 Comp Metabolic Kpr488 BILI T 0.4 mg/dL 05/12/2015 Comp Metabolic Irc453 ALBUMIN 3.9 g/dL 05/12/2015 Comp Metabolic Idx387 TPRO 6.8 g/dL 05/12/2015 Comp Metabolic Smm416 GLOB 2.9 g/dL 05/12/2015 Comp Metabolic Sar085 A/G Ratio 1.3 Ratio 05/12/2015 Comp Metabolic Ymt630 Osmo 275 mOsmo 05/12/2015 Tsh Ord6 hTSH II 3.25 uIU/mL 05/12/2015 Vitamin D 25 Oh Udf5678 VITAMIN D, 25 HYDROXY 54.89 ng/mL 02/27/2015 [...] G0439 11/16/2017 URINALYSIS NONAUTO W/O SCOPE CPT-4: 69663 03/08/2017 PPPS, SUBSEQ VISIT CPT- 4: G0439 11/11/2016 Vital Signs Date Vital 05/15/2018 Blood Pressure 1: 120/68 Code: 8480-6 BMI: 30.2 Code: 17769-1 Heart Rate 1: 69 bpm Height: 5'2" SpO2: 96% Weight: 165 lbs 11/16/2017 Height: Weight: 11/13/2017 Blood Pressure 1: 144/74 Code: 8480-6 BMI: 30.2 Code: 32170-2 Heart Rate 1: 76 bpm Height: 5'2" SpO2: 99% Weight: 165 lbs 07/18/2017 Blood Pressure 1: 118/70 Code: 8480-6 BMI: 28.7 Code: 60854-7 Heart Rate 1: 75 bpm Height: 5'2" SpO2: 97% Weight: 157 lbs 03/16/2017 Blood Pressure 1: 128/72 Code: 8480-6 BMI: 29.1 Code: 83424-4 Heart Rate 1: 62 bpm Height: 5'2" SpO2: 98% Weight: 159 lbs 11/11/2016 Blood Pressure 1: 140/78 Code: 8480-6 BMI: 29.1 Code: 87266-6 Heart Rate 1: 64 bpm Height: 5'2" SpO2: 97% Waist Measure (cm): 91 cm Weight: 159 lbs 11/10/2016 Blood Pressure 1: 140/78 Code: 8480-6 BMI: 29.1 Code: 71109-9 Heart Rate 1: 64 bpm Height: 5'2" Weight: 159 lbs 08/29/2016 Blood Pressure 1: 120/56 Code: 8480-6 Heart Rate 1: 68 bpm SpO2: 97% 08/11/2016 Blood Pressure 1: 128/80 Code: 8480-6 BMI: 28.9 Code: 01362-3 Heart Rate 1: 64 bpm Height: 5'2" Weight: 158 lbs 05/12/2016 Blood Pressure 1: 148/62 Code: 8480-6 BMI: 28.2 Code: 26945-3 Heart Rate 1: 97 bpm Height: 5'2" SpO2: 96% Weight: 154 lbs 01/14/2016 Blood Pressure 1: 126/78 Code: 8480-6 BMI: 28.9 Code: 93488-8 Heart Rate 1: 68 bpm Height: 5'2" SpO2: 95% Weight: 158 lbs 09/16/2015 Blood Pressure 1: 138/76 Code: 8480-6 BMI: 29.5 Code: 30317-7 Heart Rate 1: 68 bpm Height: 5'3" SpO2: 97% Weight: 169 lbs 07/20/2015 Blood Pressure 1: 144/60 Code: 8480-6 BMI: 31.0 Code: 31488-7 Heart Rate 1: 81 bpm Height: 5'3" SpO2: 97% Weight: 178 lbs 05/12/2015 Blood Pressure 1: 128/80 Code: 8480-6 BMI: 30.9 Code: 32746-6 Heart Rate 1: 68 bpm Height: 5'3" SpO2: 96% Weight: 177 lbs 03/18/2015 Blood Pressure 1: 134/70 Code: 8480-6 BMI: 31.6 Code: 26839-3 Heart Rate 1: 67 bpm Height: 5'3" SpO2: 96% Weight: 181 lbs 12/02/2014 Blood Pressure 1: 128/82 Code: 8480-6 BMI: 32.1 Code: 26577-5 Heart Rate 1: 84 bpm Height: 5'3" [...] data Encounters Encounter Performer Location Codes Date ([id number]) 64545 EST. PATIENT, LEVEL IV Diagnosis: Atrophy of thyroid (acquired)[ICD10: E03.4] Diagnosis: Essential (primary) hypertension[ICD10: I10] Diagnosis: Epigastric pain[ICD10: R10.13] [facility] CPT-4: 68115 05/15/2018 ([id number]) 35857 EST. PATIENT, LEVEL IV Diagnosis: Atrophy of thyroid (acquired)[ICD10: E03.4] Diagnosis: Essential (primary) hypertension[ICD10: I10] Diagnosis: Gastro-esophageal reflux disease with esophagitis[ICD10: K21.0] Loly Guerra MD, [facility] CPT-4: 58267 11/13/2017 ([id number]) 52554 EST. PATIENT, LEVEL IV Diagnosis: Atrophy of thyroid (acquired)[ICD10: E03.4] Diagnosis: Vitamin D deficiency, unspecified[ICD10: E55.9] Diagnosis: Essential (primary) hypertension[ICD10: I10] Loly Guerra MD, [facility] CPT-4: 55849 07/18/2017 ([id number]) 07773 EST. PATIENT, LEVEL IV Diagnosis: Low back pain[ICD10: M54.5] Diagnosis: Lumbago with sciatica, right side[ICD10: M54.41] Diagnosis: Essential (primary) hypertension[ICD10: I10] Diagnosis: Atrophy of thyroid (acquired)[ICD10: E03.4] Loly Guerra MD, [facility] CPT-4: 15091 03/16/2017 ([id number]) 15667 EST. PATIENT, LEVEL IV Diagnosis: Essential (primary) hypertension[ICD10: I10] Diagnosis: Atrophy of thyroid (acquired)[ICD10: E03.4] Loly Guerra MD, [facility] CPT-4: 15152 11/10/2016 ([id number]) Miscellaneous no charge Diagnosis: Essential (primary) hypertension[ICD10: I10] Radha Guerra MD, [facility] CPT-4: 78570 08/29/2016 ([id number]) 88042 EST. PATIENT, LEVEL IV Diagnosis: Essential (primary) hypertension[ICD10: I10] Diagnosis: Atrophy of thyroid (acquired)[ICD10: E03.4] Loly Guerra MD, [facility] CPT-4: 41968 08/11/2016 35810 EST. PATIENT, LEVEL IV Diagnosis: Essential (primary) hypertension[ICD10: I10] Diagnosis: Other specified hypothyroidism[ICD10: E03.8] Radha Guerra MD, [facility] CPT-4: 48683 05/12/2016 ([id number]) 24938 EST. PATIENT, LEVEL IV Diagnosis: Essential (primary) hypertension[ICD10: I10] Diagnosis: Hypothyroidism, unspecified[ICD10: E03.9] Diagnosis: First degree hemorrhoids[ICD10: K64.0] Loly Guerra MD, [facility] CPT-4: 43772 01/14/2016 ([id number]) 27124 EST. PATIENT, LEVEL IV Diagnosis: Hypothyroidism, unspecified[ICD10: E03.9] Diagnosis: Essential (primary) hypertension[ICD10: I10] Diagnosis: Morbid (severe) obesity due to excess calories[ICD10: E66.01] Diagnosis: Iron deficiency anemia, unspecified[ICD10: D50.9] Loly Guerra MD, [facility] CPT-4: 13958 09/16/2015 ([id number]) 45526 EST. PATIENT, LEVEL IV Diagnosis: Gastro-esophageal reflux disease with esophagitis[ICD10: K21.0] Diagnosis: Diaphragmatic hernia without obstruction or gangrene[ICD10: K44.9] Diagnosis: Dysphagia, pharyngoesophageal phase[ICD10: R13.14] Dia Guerra MD, [facility] CPT-4: 18030 07/20/2015 ([id number]) 25344 EST. PATIENT, LEVEL IV Diagnosis: Gastro-esophageal reflux disease with esophagitis[ICD10: K21.0] Diagnosis: Vitamin D deficiency, unspecified[ICD10: E55.9] Diagnosis: Essential (primary) hypertension[ICD10: I10] Diagnosis: Impaired fasting glucose[ICD10: R73.01] Diagnosis: Hypothyroidism, unspecified[ICD10: E03.9] Dia Guerra MD, [facility] CPT-4: 58590 05/12/2015 ([id number]) 67940 EST. PATIENT, LEVEL IV Diagnosis: ESSENTIAL HYPERTENSION[ICD9: 401.9] Diagnosis: HYPOTHYROIDISM[ICD9: 244.9] Diagnosis: ESOPHAGEAL REFLUX[ICD9: 530.81] Diagnosis: Other screening mammogram[ICD9: V76.12] Diagnosis: Osteoarthritis[ICD9: 715.90] Loly Guerra MD, [facility] CPT-4: 33086 03/18/2015 ([id number]) OFFICE VISIT, NEW - LEVEL 4 Diagnosis: ESSENTIAL HYPERTENSION[ICD9: 401.9] Diagnosis: HYPOTHYROIDISM[ICD9: 244.9] Diagnosis: ESOPHAGEAL REFLUX[ICD9: 530.81] Diagnosis: Other screening mammogram[ICD9: V76.12] Diagnosis: Osteoarthritis[ICD9: 715.90] [facility] CPT-4: 63873 12/02/2014 Plan of Care Planned Activity Notes [...] need to call if symptoms worsen. 05/15/2018 Patient Education: Patient Medication Summary Completed [...] allergies. 11/13/2017 Appointment: Loly Guerra WPtel: [phone] [facility] (15 min) Moderate 11/13/2017 Patient [...] vitamin D. 07/18/2017 Appointment[phone] (15 min) Moderate 07/18/2017 Patient Education: Patient [...] of control. 03/16/2017 Appointment: Loly Guerra WPtel: [facility] (30 min) [facility] 03/16/2017 Patient Education: Patient Medication Summary Completed [...] surrogate. 11/11/2016 Appointment: Radha Quiles WPtel: [phone] [facility] [facility] - Annual Wellness Visit 11/11/2016 Patient [...] control. 11/10/2016 Appointment: Loly Guerra WPtel: [phone] [facility] (15 min) Moderate 11/10/2016 Patient [...] control. 08/11/2016 Appointment: [facility]erra [phone] [facility] (15 min) Moderate 08/11/2016 Patient Education: Patient [...] cream 01/14/2016 Appointment: [facility]erra [phone] [facility] (15 min) Moderate 01/14/2016 Patient Education: Patient [...] months. 09/16/2015 Appointment: [facility]erra [phone] [facility] (15 min) Moderate 09/16/2015 Patient Education: Patient [...] if the symptoms are not improving. Hiatal wjrond-mvjkwwdsd-aevqvwan swallow study and referral for EGD-will obtain [...] daily. 03/18/2015 Appointment: Loly Guerra WPtel: [phone] [facility] (15 min) Moderate 03/18/2015 Patient Education: Patient [...] pain symptoms. 12/02/2014 Appointment: Loly Guerra WPtel: [facility] [place] New Patient 12/02/2014 Patient Education: [...] if the symptoms are not improving. Hiatal ycxiae-cwlyfgcwx-gculmvmx swallow study and referral for EGD-will obtain [...]
--- OUTSIDE RECORDS SUMMARY | 2019-01-15 14:23 | XMS REPORT | Continuity of Care Document ---
Author Organization Unknown Address Unknown Allergies Active Description Code Type Severity Reaction Onset Reported/Identified Relationship to Patient Clinical Status Yes No Known Drug Allergies [id number] Drug Allergy Unknown N/A 11/25/2015 Medications There is no data. Problems Date Dx Coded Attending Type Code Diagnosis Diagnosed By 12/08/2014 EDWAR SPEAR, JOSE A Ot 733.90 12/08/2014 EDWAR SPEAR, JOSE A Ot V76.12 12/08/2014 EDWAR SPEAR, JOSE A Ot 733.90 12/08/2014 EDWAR SPEAR, JOSE A Ot V76.12 12/08/2014 EDWAR SPEAR, JOSE A Ot 733.90 12/08/2014 EDWAR SPEAR, JOSE A Ot V76.12 12/31/2014 EDWAR SPEAR, JOSE A Ot 733.90 12/31/2014 EDWAR SPEAR, JOSE A Ot V76.12 08/06/2015 TISHA LOPEZ LEASING PROPERTY MANAGER Ot R13.14 08/12/2015 Ot 553.3 08/12/2015 Ot V76.12 08/12/2015 Ot V76.12 08/12/2015 TY SPEAR, YU M Ot 761.2 08/12/2015 EDWAR SPEAR, JOSE A Ot 733.90 08/12/2015 EDWAR SPEAR, JOSE A Ot V76.12 08/12/2015 TISHA LOPEZ LEASING PROPERTY MANAGER Ot R13.14 08/26/2015 TISHA LOPEZ LEASING PROPERTY MANAGER Ot R13.14 09/04/2015 TISHA LOPEZ LEASING PROPERTY MANAGER Ot K44.9 09/04/2015 TISHA LOPEZ LEASING PROPERTY MANAGER Ot R13.10 09/04/2015 TISHA LOPEZ LEASING PROPERTY MANAGER Ot R13.14 11/12/2015 KOMAL SPEAR, IVAN Adkins Ot Z01.818 ENCOUNTER FOR OTHER PREPROCEDURAL EXAMIN 11/16/2015 SAUCEDAIVAN MCGARRY MD Ot 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 11/16/2015 IVAN SAUCEDA MD Ot D50.9 IRON DEFICIENCY ANEMIA, UNSPECIFIED 11/16/2015 IVAN SAUCEDA MD Ot E03.9 HYPOTHYROIDISM, UNSPECIFIED 11/16/2015 IVAN SAUCEDA MD Ot I10 ESSENTIAL (PRIMARY) HYPERTENSION 11/16/2015 IVAN SAUCEDA MD Ot K57.90 DVRTCLOS OF INTEST, PART UNSP, W/O PERF 11/17/2015 IVAN SAUCEDA MD Ot 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 11/17/2015 IVAN SAUCEDA MD, Ot D50.9 IRON DEFICIENCY ANEMIA, UNSPECIFIED 11/17/2015 IVAN SAUCEDA MD Ot E03.9 HYPOTHYROIDISM, UNSPECIFIED 11/17/2015 IVAN SAUCEDA MD Ot I10 ESSENTIAL (PRIMARY) HYPERTENSION 11/17/2015 IVAN SAUCEDA MD Ot K57.90 DVRTCLOS OF INTEST, PART UNSP, W/O PERF 11/20/2015 IVAN SAUCEDA MD Ot K42.9 UMBILICAL HERNIA WITHOUT OBSTRUCTION OR 11/20/2015 IVAN SAUCEDA MD Ot K57.90 DVRTCLOS OF INTEST, PART UNSP, W/O PERF 11/20/2015 IVAN SAUCEDA MD Ot K63.9 DISEASE OF INTESTINE, UNSPECIFIED 11/25/2015 IVAN SAUCEDA MD Ot 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 11/25/2015 IVAN SAUCEDA MD Ot D50.9 IRON DEFICIENCY ANEMIA, UNSPECIFIED 11/25/2015 IVAN SAUCEDA MD Ot E03.9 HYPOTHYROIDISM, UNSPECIFIED 11/25/2015 IVAN SAUCEDA MD Ot I10 ESSENTIAL (PRIMARY) HYPERTENSION 11/25/2015 IVAN SAUCEDA MD Ot K57.90 DVRTCLOS OF INTEST, PART UNSP, W/O PERF 11/25/2015 IVAN SAUCEDA MD Ot K63.9 DISEASE OF INTESTINE, UNSPECIFIED 11/25/2015 IVAN SAUCEDA MD Ot Z01.812 ENCOUNTER FOR PREPROCEDURAL LABORATORY E 11/25/2015 IVAN SAUCEDA MD Ot Z11.2 ENCOUNTER FOR SCREENING FOR OTHER BACTER 12/02/2015 IVAN SAUCEDA MD Ot D64.9 ANEMIA, UNSPECIFIED 12/02/2015 KOMAL SPEAR, IVAN Adkins Ot E03.9 HYPOTHYROIDISM, UNSPECIFIED 12/02/2015 KOMAL SPEAR, IVAN M Ot I10 ESSENTIAL (PRIMARY) HYPERTENSION 12/02/2015 KOMAL SPEAR, IVAN Adkins Ot K21.9 GASTRO-ESOPHAGEAL REFLUX DISEASE WITHOUT 12/02/2015 KOMAL SPEAR, IVAN Adkins Ot K63.9 DISEASE OF INTESTINE, UNSPECIFIED 12/03/2015 KOMAL SPEAR, IVAN Adkins Ot D64.9 ANEMIA, UNSPECIFIED 12/03/2015 KOMAL SPEAR, IVAN Adkins Ot E03.9 HYPOTHYROIDISM, UNSPECIFIED 12/03/2015 KOMAL SPEAR, IVAN Adkins Ot I10 ESSENTIAL (PRIMARY) HYPERTENSION 12/03/2015 KOMAL SPEAR, IVAN Adkins Ot K21.9 GASTRO-ESOPHAGEAL REFLUX DISEASE WITHOUT 12/03/2015 KOMAL SPEAR, IVAN Adkins Ot K63.9 DISEASE OF INTESTINE, UNSPECIFIED 12/03/2015 KOMAL SPEAR, IVAN Adkins Ot D64.9 ANEMIA, UNSPECIFIED 12/03/2015 KOMAL SPEAR, IVAN Adkins Ot E03.9 HYPOTHYROIDISM, UNSPECIFIED 12/03/2015 KOMAL SPEAR, IVAN Adkins Ot I10 ESSENTIAL (PRIMARY) HYPERTENSION 12/03/2015 KOMAL SPEAR, IVAN Adkins Ot K21.9 GASTRO-ESOPHAGEAL REFLUX DISEASE WITHOUT 12/03/2015 KOMAL SPEAR, IVAN Adkins Ot K63.9 DISEASE OF INTESTINE, UNSPECIFIED 12/04/2015 KOMAL SPEAR, IVAN Adkins Ot 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 12/04/2015 KOMAL SPEAR, IVAN Adkins Ot D50.0 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 12/04/2015 KOMAL SPEAR, IVAN Adkins Ot D64.9 ANEMIA, UNSPECIFIED 12/04/2015 KOMAL SPEAR, IVAN Adkins Ot E03.9 HYPOTHYROIDISM, UNSPECIFIED 12/04/2015 KOMAL SPEAR, IVAN Adkins Ot F41.9 ANXIETY DISORDER, UNSPECIFIED 12/04/2015 KOMAL SPEAR, IVAN Adkins Ot G47.00 INSOMNIA, UNSPECIFIED 12/04/2015 KOMAL SPEAR, IVAN Adkins Ot I10 ESSENTIAL (PRIMARY) HYPERTENSION 12/04/2015 KOMAL SPEAR, IVAN Adkins Ot K21.9 GASTRO-ESOPHAGEAL REFLUX DISEASE WITHOUT 12/04/2015 KOMAL SPEAR, IVAN Adkins Ot K63.9 DISEASE OF INTESTINE, UNSPECIFIED 12/16/2015 KOMAL SPEAR, IVAN Adknis Ot K42.9 UMBILICAL HERNIA WITHOUT OBSTRUCTION OR 12/16/2015 KOMAL SPEAR, IVAN Adkins Ot K57.90 DVRTCLOS OF INTEST, PART UNSP, W/O PERF 12/16/2015 KOMAL SPEAR, IVAN Adkins Ot K63.9 DISEASE OF INTESTINE, UNSPECIFIED 01/28/2016 VERNON SPEAR, AFTAB Callaway Ot 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 01/28/2016 VERNON SPEAR, AFTAB Callaway Ot D50.0 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 01/28/2016 VERNON SPEAR, AFTAB Callaway Ot E03.9 HYPOTHYROIDISM, UNSPECIFIED 01/28/2016 VERNON SPEAR, AFTAB Callaway Ot F41.9 ANXIETY DISORDER, UNSPECIFIED 01/28/2016 VERNON SPEAR, AFTAB Callaway Ot G47.00 INSOMNIA, UNSPECIFIED 01/28/2016 VERNON SPEAR, AFTAB Callaway Ot I10 ESSENTIAL (PRIMARY) HYPERTENSION 01/28/2016 VERNON SPEAR, AFTAB Callaway Ot K21.9 GASTRO-ESOPHAGEAL REFLUX DISEASE WITHOUT 01/28/2016 VERNON SPEAR, AFTAB Callaway Ot Z79.899 OTHER RETIREMENT (CURRENT) DRUG THERAPY 02/09/2016 KOMAL SPEAR, IVAN Adkins Ot 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 02/09/2016 KOMAL SPEAR, IVAN Adkins Ot D50.0 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 02/09/2016 KOMAL SPEAR, IVAN Adkins Ot E03.9 HYPOTHYROIDISM, UNSPECIFIED 02/09/2016 KOMAL SPEAR, IVAN Adkins Ot F41.9 ANXIETY DISORDER, UNSPECIFIED 02/09/2016 KOMAL SPEAR, IVAN Adkins Ot G47.00 INSOMNIA, UNSPECIFIED 02/09/2016 KOMAL SPEAR, IVAN Adkins Ot I10 ESSENTIAL (PRIMARY) HYPERTENSION 02/09/2016 KOMAL SPEAR, IVAN Adkins Ot K21.9 GASTRO-ESOPHAGEAL REFLUX DISEASE WITHOUT 02/09/2016 KOMAL SPEAR, IVAN Adkins Ot 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 02/09/2016 KOMAL SPEAR, IVAN Adkins Ot D50.0 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 02/09/2016 KOMAL SPEAR, IVAN Adkins Ot E03.9 HYPOTHYROIDISM, UNSPECIFIED 02/09/2016 KOMAL SPEAR, IVAN Adkins Ot F41.9 ANXIETY DISORDER, UNSPECIFIED 02/09/2016 KOMAL SPEAR, IVAN M Ot G47.00 INSOMNIA, UNSPECIFIED 02/09/2016 KOMAL SPEAR, IVAN Adkins Ot I10 ESSENTIAL (PRIMARY) HYPERTENSION 02/09/2016 KOMAL SPEAR, IVAN Adkins Ot K21.9 GASTRO-ESOPHAGEAL REFLUX DISEASE WITHOUT 02/23/2016 KOMAL SPEAR, IVAN Adkins Ot 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 02/23/2016 KOMAL SPEAR, IVAN Adkins Ot D50.0 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 02/23/2016 KOMAL SPEAR, IVAN Adkins Ot E03.9 HYPOTHYROIDISM, UNSPECIFIED 02/23/2016 KOMAL SPEAR, IVAN Adkins Ot F41.9 ANXIETY DISORDER, UNSPECIFIED 02/23/2016 KOMAL SPEAR, IVAN Adkins Ot G47.00 INSOMNIA, UNSPECIFIED 02/23/2016 KOMAL SPEAR, IVAN Adkins Ot I10 ESSENTIAL (PRIMARY) HYPERTENSION 02/23/2016 KOMAL SPEAR, IVAN Adkins Ot K21.9 GASTRO-ESOPHAGEAL REFLUX DISEASE WITHOUT 02/23/2016 KOMAL SPEAR, IVAN Adkins Ot 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 02/23/2016 KOMAL SPEAR, IVAN Adkins Ot D50.0 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 02/23/2016 KOMAL SPEAR, IVAN Adkins Ot E03.9 HYPOTHYROIDISM, UNSPECIFIED 02/23/2016 KOMAL SPEAR, IVAN Adkins Ot F41.9 ANXIETY DISORDER, UNSPECIFIED 02/23/2016 KOMAL SPEAR, IVAN Adkins Ot G47.00 INSOMNIA, UNSPECIFIED 02/23/2016 KOMAL SPEAR, IVAN Adkins Ot I10 ESSENTIAL (PRIMARY) HYPERTENSION 02/23/2016 KOMAL SPEAR, IVAN Adkins Ot K21.9 GASTRO-ESOPHAGEAL REFLUX DISEASE WITHOUT 04/06/2016 VERNON SPEAR, AFTAB Callaway Ot 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 04/06/2016 AFTAB JUNIOR MD Ot D50.0 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 04/06/2016 VERNON SPEAR, AFTAB Callaway Ot E03.9 HYPOTHYROIDISM, UNSPECIFIED 04/06/2016 VERNON SPEAR, AFTAB Callaway Ot F41.9 ANXIETY DISORDER, UNSPECIFIED 04/06/2016 VERNON SPEAR, AFTAB Callaway Ot G47.00 INSOMNIA, UNSPECIFIED 04/06/2016 VERNON SPEAR, AFTAB Callaway Ot I10 ESSENTIAL (PRIMARY) HYPERTENSION 04/06/2016 VERNON SPEAR, AFTAB Callaway Ot K21.9 GASTRO-ESOPHAGEAL REFLUX DISEASE WITHOUT 04/06/2016 VERNON SPEAR, AFTAB Callaway Ot Z79.899 OTHER BEET FLUMER (CURRENT) DRUG THERAPY 05/10/2016 AFTAB JUNIOR MD Ot 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 05/10/2016 AFTAB JUNIOR MD Ot D50.0 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 05/10/2016 VERNON SPEAR, AFTAB Callaway Ot E03.9 HYPOTHYROIDISM, UNSPECIFIED 05/10/2016 VERNON SPEAR, AFTAB Callaway Ot F41.9 ANXIETY DISORDER, UNSPECIFIED 05/10/2016 VERNON SPEAR, AFTAB Callaway Ot G47.00 INSOMNIA, UNSPECIFIED 05/10/2016 VERNON SPEAR, AFTAB Callaway Ot I10 ESSENTIAL (PRIMARY) HYPERTENSION 05/10/2016 AFTAB JUNIOR MD Ot K21.9 GASTRO-ESOPHAGEAL REFLUX DISEASE WITHOUT 05/10/2016 VERNON SPEAR, AFTAB Callaway Ot Z79.899 OTHER RETIREMENT (CURRENT) DRUG THERAPY 05/26/2016 Ot V76.12 OTH SCREEN MAMMO- MALIGN NEOPLASM OF VAIBHAV 05/26/2016 Ot V76.12 OTH SCREEN MAMMO- MALIGN NEOPLASM OF VAIBHAV 05/26/2016 TY SPEAR, YU Adkins Ot 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 05/26/2016 EDWAR SPEAR, JOSE Ledesma Ot 733.90 BONE CARTILAGE DIS NOS 05/26/2016 EDWAR SPEAR, JOSE Ledesma Ot V76.12 OTH SCREEN MAMMO-MALIGN NEOPLASM OF VAIBHAV 05/26/2016 TISHA LOPEZ Ot 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, PHARYNGOESOPHAGEAL PHASE 05/26/2016 TISHA LOPEZP Ot K44.9 DIAPHRAGMATIC HERNIA WITHOUT OBSTRUCTION 05/26/2016 TISHA LOPEZ Ot R13.10 DYSPHAGIA, UNSPECIFIED 05/26/2016 TISHA LOPEZP Ot 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, PHARYNGOESOPHAGEAL PHASE 05/26/2016 KOMAL SPEAR, IVAN Adkins Ot K42.9 UMBILICAL HERNIA WITHOUT OBSTRUCTION OR 05/26/2016 KOMAL SPEAR, IVAN Adkins Ot K57.90 DVRTCLOS OF INTEST, PART UNSP, W/O PERF 05/26/2016 KOMAL SPEAR, IAVN Adkins Ot K63.9 DISEASE OF INTESTINE, UNSPECIFIED 05/26/2016 AFTAB JUNIOR MD Ot 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 05/26/2016 AFTAB JUNIOR MD Ot D50.0 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 05/26/2016 VERNON SPEAR, AFTAB Callaway Ot E03.9 HYPOTHYROIDISM, UNSPECIFIED 05/26/2016 VERNON SPEAR, AFTAB Callaway Ot F41.9 ANXIETY DISORDER, UNSPECIFIED 05/26/2016 VERNON SPEAR, AFTAB Callaway Ot G47.00 INSOMNIA, UNSPECIFIED 05/26/2016 VERNON SPEAR, AFTAB Callaway Ot I10 ESSENTIAL (PRIMARY) HYPERTENSION 05/26/2016 VERNON SPEAR, AFTAB Callaway Ot K21.9 GASTRO-ESOPHAGEAL REFLUX DISEASE WITHOUT 05/26/2016 VERNON SPEAR, AFTAB Callaway Ot Z79.899 OTHER BEET FLUMER (CURRENT) DRUG THERAPY 05/26/2016 RICH JAFFE VETERINARY MEDICINE SCIENTIST Ot Z12.31 ENCNTR SCREEN MAMMOGRAM FOR MALIGNANT NE 05/26/2016 Ot V76.12 OTH SCREEN MAMMO- MALIGN NEOPLASM OF VAIBHAV 05/26/2016 Ot V76.12 OTH SCREEN MAMMO- MALIGN NEOPLASM OF VAIBHAV 05/26/2016 TY SPEAR, YU Adkins Ot 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 05/26/2016 EDWAR SPEAR, JOSE Ledesma Ot 733.90 BONE CARTILAGE DIS NOS 05/26/2016 EDWAR SPEAR, JOSE Ledesma Ot V76.12 OTH SCREEN MAMMO-MALIGN NEOPLASM OF VAIBHAV 05/26/2016 TISHA LOPEZ Ot 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, PHARYNGOESOPHAGEAL PHASE 05/26/2016 TISHA LOPEZ Ot K44.9 DIAPHRAGMATIC HERNIA WITHOUT OBSTRUCTION 05/26/2016 TISHA LOPEZ Ot R13.10 DYSPHAGIA, UNSPECIFIED 05/26/2016 TISHA LOPEZ Ot 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, PHARYNGOESOPHAGEAL PHASE 05/26/2016 KOMAL SPEAR, IVAN Adkins Ot K42.9 UMBILICAL HERNIA WITHOUT OBSTRUCTION OR 05/26/2016 KOMAL SPEAR, IVAN Adkins Ot K57.90 DVRTCLOS OF INTEST, PART UNSP, W/O PERF 05/26/2016 KOMAL SPEAR, IVAN Adkins Ot K63.9 DISEASE OF INTESTINE, UNSPECIFIED 05/26/2016 VERNON SPEAR, AFTAB Callaway Ot 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 05/26/2016 VERNON SPEAR, AFTAB Callaway Ot D50.0 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 05/26/2016 AFTAB JUNIOR MD Ot E03.9 HYPOTHYROIDISM, UNSPECIFIED 05/26/2016 AFTAB JUNIOR MD Ot F41.9 ANXIETY DISORDER, UNSPECIFIED 05/26/2016 AFTAB JUNIOR MD Ot G47.00 INSOMNIA, UNSPECIFIED 05/26/2016 AFTAB JUNIOR MD Ot I10 ESSENTIAL (PRIMARY) HYPERTENSION 05/26/2016 AFTAB JUNIOR MD Ot K21.9 GASTRO-ESOPHAGEAL REFLUX DISEASE WITHOUT 05/26/2016 AFTAB JUNIOR MD Ot Z79.899 OTHER RETIREMENT (CURRENT) DRUG THERAPY 05/26/2016 RICH JAFFE APRN Ot Z12.31 ENCNTR SCREEN MAMMOGRAM FOR MALIGNANT NE 05/31/2016 AFTAB JUNIOR MD Ot 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 05/31/2016 AFTAB JUNIOR MD Ot D50.0 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 05/31/2016 AFTAB JUNIOR MD Ot E03.9 HYPOTHYROIDISM, UNSPECIFIED 05/31/2016 AFTAB JUNIOR MD Ot F41.9 ANXIETY DISORDER, UNSPECIFIED 05/31/2016 AFTAB JUNIOR MD Ot G47.00 INSOMNIA, UNSPECIFIED 05/31/2016 AFTAB JUNIOR MD Ot I10 ESSENTIAL (PRIMARY) HYPERTENSION 05/31/2016 AFTAB JUNIOR MD Ot K21.9 GASTRO-ESOPHAGEAL REFLUX DISEASE WITHOUT 05/31/2016 AFTAB JUNIOR MD Ot Z79.899 OTHER RETIREMENT (CURRENT) DRUG THERAPY 06/09/2016 AFTAB JUNIOR MD Ot 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 06/09/2016 AFTAB JUNIOR MD Ot 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 06/09/2016 AFTAB JUNIOR MD Ot K44.9 DIAPHRAGMATIC HERNIA WITHOUT OBSTRUCTION 06/09/2016 AFTAB JUNIOR MD Ot R59.0 LOCALIZED ENLARGED LYMPH NODES 06/09/2016 AFTAB JUNIOR MD Ot R91.8 OTHER NONSPECIFIC ABNORMAL FINDING OF AJAY 06/09/2016 AFTAB JUNIOR MD Ot 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 06/09/2016 AFTAB JUNIOR MD Ot 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 06/09/2016 AFTAB JUNIOR MD Ot 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 06/09/2016 AFTAB JUNIOR MD Ot K44.9 DIAPHRAGMATIC HERNIA WITHOUT OBSTRUCTION 06/09/2016 AFTAB JUNIOR MD Ot R59.0 LOCALIZED ENLARGED LYMPH NODES 06/09/2016 AFTAB JUNIOR MD Ot R91.8 OTHER NONSPECIFIC ABNORMAL FINDING OF AJAY 06/09/2016 AFTAB JUNIOR MD Ot 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 06/17/2016 RICH JAFFE APRN Ot Z12.31 ENCNTR SCREEN MAMMOGRAM FOR MALIGNANT NE 06/29/2016 AFTAB JUNIOR MD Ot 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 06/29/2016 AFTAB JUNIOR MD Ot 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 06/29/2016 AFTAB JUNIOR MD Ot K44.9 DIAPHRAGMATIC HERNIA WITHOUT OBSTRUCTION 06/29/2016 AFTAB JUNIOR MD Ot R59.0 LOCALIZED ENLARGED LYMPH NODES 06/29/2016 AFTAB JUNIOR MD Ot R91.8 OTHER NONSPECIFIC ABNORMAL FINDING OF AJAY 06/29/2016 AFTAB JUNIOR MD Ot 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 08/07/2016 AFTAB JUNIOR MD Ot 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 08/07/2016 AFTAB JUNIOR MD Ot D50.0 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 08/07/2016 AFTAB JUNIOR MD Ot E03.9 HYPOTHYROIDISM, UNSPECIFIED 08/07/2016 AFTAB JUNIOR MD Ot F41.9 ANXIETY DISORDER, UNSPECIFIED 08/07/2016 AFTAB JUNIOR MD Ot G47.00 INSOMNIA, UNSPECIFIED 08/07/2016 AFTAB JUNIOR MD Ot I10 ESSENTIAL (PRIMARY) HYPERTENSION 08/07/2016 AFTAB JUNIOR MD Ot K21.9 GASTRO-ESOPHAGEAL REFLUX DISEASE WITHOUT 08/07/2016 AFTAB JUNIOR MD Ot Z79.899 OTHER BEET FLUMER (CURRENT) DRUG THERAPY 08/08/2016 AFTAB JUNIOR MD Ot 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 08/08/2016 AFTAB JUNIOR MD Ot D50.0 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 08/08/2016 AFTAB JUNIOR MD Ot E03.9 HYPOTHYROIDISM, UNSPECIFIED 08/08/2016 AFTAB JUNIOR MD Ot F41.9 ANXIETY DISORDER, UNSPECIFIED 08/08/2016 AFTAB JUNIOR MD Ot G47.00 INSOMNIA, UNSPECIFIED 08/08/2016 AFTAB JUNIOR MD Ot I10 ESSENTIAL (PRIMARY) HYPERTENSION 08/08/2016 AFTAB JUNIOR MD Ot K21.9 GASTRO-ESOPHAGEAL REFLUX DISEASE WITHOUT 08/08/2016 AFTAB JUNIOR MD Ot Z79.899 OTHER BEET FLUMER (CURRENT) DRUG THERAPY 08/10/2016 TISHA LOPEZ LEASING PROPERTY MANAGER Ot E55.9 VITAMIN D DEFICIENCY, UNSPECIFIED 08/10/2016 TISHA LOPEZ LEASING PROPERTY MANAGER Ot E55.9 VITAMIN D DEFICIENCY, UNSPECIFIED 08/11/2016 AFTAB JUNIOR MD Ot 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 08/11/2016 AFTAB JUNIOR MD Ot D50.0 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 08/11/2016 AFTAB JUNIOR MD Ot E03.9 HYPOTHYROIDISM, UNSPECIFIED 08/11/2016 AFTAB JUNIOR MD Ot F41.9 ANXIETY DISORDER, UNSPECIFIED 08/11/2016 AFTAB JUNIOR MD Ot G47.00 INSOMNIA, UNSPECIFIED 08/11/2016 AFTAB JUNIOR MD Ot I10 ESSENTIAL (PRIMARY) HYPERTENSION 08/11/2016 AFTAB JUNIOR MD Ot K21.9 GASTRO-ESOPHAGEAL REFLUX DISEASE WITHOUT 08/11/2016 AFTAB JUNIOR MD Ot Z79.899 OTHER RETIREMENT (CURRENT) DRUG THERAPY 08/11/2016 TISHA LOPEZ LEASING PROPERTY MANAGER Ot E55.9 VITAMIN D DEFICIENCY, UNSPECIFIED 08/11/2016 TISHA LOPEZ LEASING PROPERTY MANAGER Ot E55.9 VITAMIN D DEFICIENCY, UNSPECIFIED 08/31/2016 TISHA LOPEZ LEASING PROPERTY MANAGER Ot E55.9 VITAMIN D DEFICIENCY, UNSPECIFIED 09/29/2016 AFTAB JUNIOR MD Ot 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 09/29/2016 AFTAB JUNIOR MD Ot D50.0 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 09/29/2016 AFTAB JUNIOR MD Ot E03.9 HYPOTHYROIDISM, UNSPECIFIED 09/29/2016 AFTAB JUNIOR MD, Ot F41.9 ANXIETY DISORDER, UNSPECIFIED 09/29/2016 AFTAB JUNIOR MD Ot G47.00 INSOMNIA, UNSPECIFIED 09/29/2016 AFTAB JUNIOR MD Ot I10 ESSENTIAL (PRIMARY) HYPERTENSION 09/29/2016 AFTAB JUNIOR MD Ot K21.9 GASTRO-ESOPHAGEAL REFLUX DISEASE WITHOUT 09/29/2016 AFTAB JUNIOR MD Ot Z79.899 OTHER RETIREMENT (CURRENT) DRUG THERAPY 11/08/2016 AFTAB JUNIOR MD Ot 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 11/08/2016 AFTAB JUNIOR MD Ot D50.0 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 11/08/2016 AFTAB JUNIOR MD Ot E03.9 HYPOTHYROIDISM, UNSPECIFIED 11/08/2016 AFTAB JUNIOR MD Ot F41.9 ANXIETY DISORDER, UNSPECIFIED 11/08/2016 AFTAB JUNIOR MD Ot G47.00 INSOMNIA, UNSPECIFIED 11/08/2016 AFTAB JUNIOR MD Ot I10 ESSENTIAL (PRIMARY) HYPERTENSION 11/08/2016 AFTAB JUNIOR MD, Ot K21.9 GASTRO-ESOPHAGEAL REFLUX DISEASE WITHOUT 11/08/2016 AFTAB JUNIOR MD Ot Z79.899 OTHER RETIREMENT (CURRENT) DRUG THERAPY 11/09/2016 AFTAB JUNIOR MD Ot 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 11/09/2016 AFTAB JUNIOR MD Ot D50.0 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 11/09/2016 AFTAB JUNIOR MD Ot E03.9 HYPOTHYROIDISM, UNSPECIFIED 11/09/2016 AFTAB JUNIOR MD, Ot F41.9 ANXIETY DISORDER, UNSPECIFIED 11/09/2016 AFTAB JUNIOR MD Ot G47.00 INSOMNIA, UNSPECIFIED 11/09/2016 AFTAB JUNIOR MD Ot I10 ESSENTIAL (PRIMARY) HYPERTENSION 11/09/2016 AFTAB JUNIOR MD Ot K21.9 GASTRO-ESOPHAGEAL REFLUX DISEASE WITHOUT 11/09/2016 AFTAB JUNIOR MD Ot Z79.899 OTHER RETIREMENT (CURRENT) DRUG THERAPY 11/10/2016 AFTAB JUNIOR MD Ot 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 11/10/2016 AFTAB JUNIOR MD Ot D50.0 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 11/10/2016 AFTAB JUNIOR MD Ot E03.9 HYPOTHYROIDISM, UNSPECIFIED 11/10/2016 AFTAB JUNIOR MD Ot F41.9 ANXIETY DISORDER, UNSPECIFIED 11/10/2016 AFTAB JUNIOR MD Ot G47.00 INSOMNIA, UNSPECIFIED 11/10/2016 AFTAB JUNIOR MD Ot I10 ESSENTIAL (PRIMARY) HYPERTENSION 11/10/2016 AFTAB JUNIOR MD Ot K21.9 GASTRO-ESOPHAGEAL REFLUX DISEASE WITHOUT 11/10/2016 AFTAB JUNIOR MD Ot Z79.899 OTHER RETIREMENT (CURRENT) DRUG THERAPY 12/14/2016 Ot V76.12 OTH SCREEN MAMMO- MALIGN NEOPLASM OF VAIBHAV 12/14/2016 TY PSEAR, YU Adkins Ot 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 12/14/2016 EDWAR SPEAR, JOSE Ledesma Ot 733.90 BONE CARTILAGE DIS NOS 12/14/2016 JOSE VANN MD Ot V76.12 OT SCREEN MAMMO-MALIGN NEOPLASM OF VAIBHAV 12/14/2016 TISHA LOPEZ Ot 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, PHARYNGOESOPHAGEAL PHASE 12/14/2016 TISHA LOPEZ Ot K44.9 DIAPHRAGMATIC HERNIA WITHOUT OBSTRUCTION 12/14/2016 TISHA LOPEZ Ot R13.10 DYSPHAGIA, UNSPECIFIED 12/14/2016 TISHA LOPEZ Ot 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, PHARYNGOESOPHAGEAL PHASE 12/14/2016 IVAN SAUCEDA MD, Ot K42.9 UMBILICAL HERNIA WITHOUT OBSTRUCTION OR 12/14/2016 IVAN SAUCEDA MD Ot K57.90 DVRTCLOS OF INTEST, PART UNSP, W/O PERF 12/14/2016 IVAN SAUCEDA MD, Ot K63.9 DISEASE OF INTESTINE, UNSPECIFIED 12/14/2016 AFTAB JUNIOR MD, Ot 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 12/14/2016 AFTAB JUNIOR MD Ot 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 12/14/2016 AFTAB JUNIOR MD Ot K44.9 DIAPHRAGMATIC HERNIA WITHOUT OBSTRUCTION 12/14/2016 AFTAB JUNIOR MD Ot R59.0 LOCALIZED ENLARGED LYMPH NODES 12/14/2016 AFTAB JUNIOR MD Ot R91.8 OTHER NONSPECIFIC ABNORMAL FINDING OF AJAY 12/14/2016 AFTAB JUNIOR MD Ot 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 12/14/2016 RICH JAFFE APRN Ot Z12.31 ENCNTR SCREEN MAMMOGRAM FOR MALIGNANT NE 12/14/2016 TISHA LOPEZ Ot E55.9 VITAMIN D DEFICIENCY, UNSPECIFIED 12/14/2016 IVAN SAUCEDA MD, Ot C18.9 MALIGNANT NEOPLASM OF COLON, UNSPECIFIED 12/14/2016 IVAN SAUCEDA MD Ot Z01.818 ENCOUNTER FOR OTHER PREPROCEDURAL EXAMIN 12/14/2016 AFTAB JUNIOR MD, Ot 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 12/14/2016 AFTAB JUNIOR MD Ot D50.0 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 12/14/2016 AFTAB JUNIOR MD Ot E03.9 HYPOTHYROIDISM, UNSPECIFIED 12/14/2016 AFTAB JUNIOR MD Ot F41.9 ANXIETY DISORDER, UNSPECIFIED 12/14/2016 AFTAB JUNIOR MD, Ot G47.00 INSOMNIA, UNSPECIFIED 12/14/2016 AFTAB JUNIOR MD Ot I10 ESSENTIAL (PRIMARY) HYPERTENSION 12/14/2016 AFTAB JUNIOR MD Ot K21.9 GASTRO-ESOPHAGEAL REFLUX DISEASE WITHOUT 12/14/2016 AFTAB JUNIOR MD Ot Z79.899 OTHER RETIREMENT (CURRENT) DRUG THERAPY 12/19/2016 IVAN SAUCEDA MD Ot E03.9 HYPOTHYROIDISM, UNSPECIFIED 12/19/2016 IVAN SAUCEDA MD Ot I10 ESSENTIAL (PRIMARY) HYPERTENSION 12/19/2016 IVAN SAUCEDA MD, Ot K57.30 DVRTCLOS OF LG INT W/O PERFORATION OR AB 12/19/2016 IVAN SAUCEDA MD Ot Z08 ENCNTR FOR FOLLOW-UP EXAM AFTER TRTMT FO 12/19/2016 IVAN SAUCEDA MD, Ot Z79.899 OTHER BEET FLUMER (CURRENT) DRUG THERAPY 12/19/2016 IVAN SAUCEDA MD, Ot Z85.038 PERSONAL HISTORY OF MALIGNANT NEOPLASM O 12/19/2016 IVAN SAUCEDA MD Ot C18.9 MALIGNANT NEOPLASM OF COLON, UNSPECIFIED 12/19/2016 IVAN SAUCEDA MD Ot Z01.818 ENCOUNTER FOR OTHER PREPROCEDURAL EXAMIN 12/22/2016 IVAN SAUCEDA MD, Ot C18.9 MALIGNANT NEOPLASM OF COLON, UNSPECIFIED 12/22/2016 IVAN SAUCEDA MD Ot Z01.818 ENCOUNTER FOR OTHER PREPROCEDURAL EXAMIN 12/25/2016 IVAN SAUCEDA MD Ot E03.9 HYPOTHYROIDISM, UNSPECIFIED 12/25/2016 IVAN SAUCEDA MD Ot I10 ESSENTIAL (PRIMARY) HYPERTENSION 12/25/2016 IVAN SAUCEDA MD Ot K57.30 DVRTCLOS OF LG INT W/O PERFORATION OR AB 12/25/2016 IVAN SAUCEDA MD Ot Z08 ENCNTR FOR FOLLOW-UP EXAM AFTER TRTMT FO 12/25/2016 IVAN SAUCEDA MD, Ot Z79.899 OTHER BEET FLUMER (CURRENT) DRUG THERAPY 12/25/2016 IVAN SAUCEDA MD Ot Z85.038 PERSONAL HISTORY OF MALIGNANT NEOPLASM O 12/29/2016 AFTAB JUNIOR MD Ot 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 12/29/2016 AFTAB JUNIOR MD Ot D50.0 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 12/29/2016 AFTAB JUNIOR MD, Ot E03.9 HYPOTHYROIDISM, UNSPECIFIED 12/29/2016 AFTAB JUNIOR MD, Ot F41.9 ANXIETY DISORDER, UNSPECIFIED 12/29/2016 AFTAB JUNIOR MD, Ot G47.00 INSOMNIA, UNSPECIFIED 12/29/2016 AFTAB JUNIOR MD Ot I10 ESSENTIAL (PRIMARY) HYPERTENSION 12/29/2016 AFTAB JUNIOR MD, Ot K21.9 GASTRO-ESOPHAGEAL REFLUX DISEASE WITHOUT 12/29/2016 AFTAB JUNIOR MD, Ot Z79.899 OTHER BEET FLUMER (CURRENT) DRUG THERAPY 01/11/2017 AFTAB JUNIOR MD, Ot 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 01/11/2017 AFTAB JUNIOR MD, Ot K42.9 UMBILICAL HERNIA WITHOUT OBSTRUCTION OR 01/11/2017 AFTAB JUNIOR MD, Ot K44.9 DIAPHRAGMATIC HERNIA WITHOUT OBSTRUCTION 01/11/2017 AFTAB JUNIOR MD, Ot K57.30 DVRTCLOS OF LG INT W/O PERFORATION OR AB 02/07/2017 AFTAB JUNIOR MD, Ot 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 02/07/2017 AFTAB JUNIOR MD, Ot D50.0 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 02/07/2017 AFTAB JUNIOR MD, Ot E03.9 HYPOTHYROIDISM, UNSPECIFIED 02/07/2017 AFTAB JUNIOR MD, Ot F41.9 ANXIETY DISORDER, UNSPECIFIED 02/07/2017 AFTAB JUNIOR MD, Ot G47.00 INSOMNIA, UNSPECIFIED 02/07/2017 AFTAB JUNIOR MD Ot I10 ESSENTIAL (PRIMARY) HYPERTENSION 02/07/2017 AFTAB JUNIOR MD, Ot K21.9 GASTRO-ESOPHAGEAL REFLUX DISEASE WITHOUT 02/07/2017 AFTAB JUNIOR MD, Ot Z79.899 OTHER RETIREMENT (CURRENT) DRUG THERAPY 04/03/2017 ALISTAIR MACK MD, Ot 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 04/03/2017 ALISTAIR MACK MD, Ot D50.0 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 04/03/2017 ALISTAIR MACK MD, Ot E03.9 HYPOTHYROIDISM, UNSPECIFIED 04/03/2017 ALISTAIR MACK MD, Ot F41.9 ANXIETY DISORDER, UNSPECIFIED 04/03/2017 ALISTAIR MACK MD, Ot G47.00 INSOMNIA, UNSPECIFIED 04/03/2017 XUN MD, OSBRON-MAYA Ot I10 ESSENTIAL (PRIMARY) HYPERTENSION 04/03/2017 ALISTAIR MACK MD, Ot K21.9 GASTRO-ESOPHAGEAL REFLUX DISEASE WITHOUT 04/03/2017 ALISTAIR MACK MD, Ot Z79.899 OTHER RETIREMENT (CURRENT) DRUG THERAPY 04/05/2017 ALISTAIR MACK MD, Ot 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 04/05/2017 ALISTAIR MACK MD, Ot D50.0 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 04/05/2017 ALISTAIR MACK MD, Ot E03.9 HYPOTHYROIDISM, UNSPECIFIED 04/05/2017 FREDERICK SPEAR, ALISTAIR Moore F41.9 ANXIETY DISORDER, UNSPECIFIED 04/05/2017 FREDERICK SPEAR, ALISTAIR Moore G47.00 INSOMNIA, UNSPECIFIED 04/05/2017 ALISTAIR MACK MD, Ot I10 ESSENTIAL (PRIMARY) HYPERTENSION 04/05/2017 ALISTAIR MACK MD, Ot K21.9 GASTRO-ESOPHAGEAL REFLUX DISEASE WITHOUT 04/05/2017 ALISTAIR MACK MD, Ot Z79.899 OTHER RETIREMENT (CURRENT) DRUG THERAPY 04/08/2017 ALISTAIR MACK MD, Ot 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 04/08/2017 ALISTAIR MACK MD, Ot D50.0 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 04/08/2017 ALISTAIR MACK MD, Ot E03.9 HYPOTHYROIDISM, UNSPECIFIED 04/08/2017 FREDERICK SPEAR, ALISTAIR Moore F41.9 ANXIETY DISORDER, UNSPECIFIED 04/08/2017 FREDERICK SPEAR, ALISTAIR Moore G47.00 INSOMNIA, UNSPECIFIED 04/08/2017 ALISTAIR MACK MD, Ot I10 ESSENTIAL (PRIMARY) HYPERTENSION 04/08/2017 ALISTAIR MACK MD, Ot K21.9 GASTRO-ESOPHAGEAL REFLUX DISEASE WITHOUT 04/08/2017 ALISTAIR MACK MD, Ot Z79.899 OTHER BEET FLUMER (CURRENT) DRUG THERAPY 07/13/2017 ALISTAIR MACK MD, Ot 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 07/13/2017 ALISTAIR MACK MD, Ot K57.30 DVRTCLOS OF LG INT W/O PERFORATION OR AB 07/13/2017 ALISTAIR MACK MD, Ot R91.8 OTHER NONSPECIFIC ABNORMAL FINDING OF AJAY 07/13/2017 ALISTAIR MACK MD, Ot Z90.49 ACQUIRED ABSENCE OF OTHER SPECIFIED PART 07/13/2017 ALISTAIR MACK MD, Ot 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 07/13/2017 ALISTAIR MACK MD, Ot D50.0 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 07/13/2017 ALISTAIR MACK MD Ot E03.9 HYPOTHYROIDISM, UNSPECIFIED 07/13/2017 ALISTAIR MACK MD, Ot F41.9 ANXIETY DISORDER, UNSPECIFIED 07/13/2017 ALISTAIR MACK MD, Ot G47.00 INSOMNIA, UNSPECIFIED 07/13/2017 ALISTAIR MACK MD Ot I10 ESSENTIAL (PRIMARY) HYPERTENSION 07/13/2017 ALISTAIR MACK MD, Ot K21.9 GASTRO-ESOPHAGEAL REFLUX DISEASE WITHOUT 07/13/2017 ALISTAIR MACK MD, Ot Z79.899 OTHER RETIREMENT (CURRENT) DRUG THERAPY 08/08/2017 JOSE VANN MD, Ot E03.9 HYPOTHYROIDISM, UNSPECIFIED 08/08/2017 JOSE VANN MD Ot E55.9 VITAMIN D DEFICIENCY, UNSPECIFIED 08/08/2017 JOSE VANN MD Ot Z79.899 OTHER RETIREMENT (CURRENT) DRUG THERAPY 08/09/2017 ALISTAIR MACK MD Ot 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 08/09/2017 ALISTAIR MACK MD, Ot K57.30 DVRTCLOS OF LG INT W/O PERFORATION OR AB 08/09/2017 ALISTAIR MACK MD, Ot R91.8 OTHER NONSPECIFIC ABNORMAL FINDING OF AJAY 08/09/2017 ALISTAIR MACK MD, Ot Z90.49 ACQUIRED ABSENCE OF OTHER SPECIFIED PART 08/15/2017 ALISTAIR MACK MD, Ot 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 08/15/2017 ALISTAIR MACK MD, Ot D50.0 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 08/15/2017 ALISTAIR MACK MD, Ot E03.9 HYPOTHYROIDISM, UNSPECIFIED 08/15/2017 ALISTAIR MACK MD, Ot F41.9 ANXIETY DISORDER, UNSPECIFIED 08/15/2017 ALISTAIR MACK MD, Ot G47.00 INSOMNIA, UNSPECIFIED 08/15/2017 ALISTAIR MACK MD Ot I10 ESSENTIAL (PRIMARY) HYPERTENSION 08/15/2017 ALISTAIR MACK MD, Ot K21.9 GASTRO-ESOPHAGEAL REFLUX DISEASE WITHOUT 08/15/2017 FREDERICK SPEAR, ALISTAIR Ot Z79.899 OTHER BEET FLUMER (CURRENT) DRUG THERAPY 09/01/2017 FREDERICK SPEAR, ALISTAIR Ot 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 09/01/2017 FREDERICK SPEAR, ALISTAIR Ot D50.0 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 09/01/2017 FREDERICK SPEAR, ALISTAIR Ot E03.9 HYPOTHYROIDISM, UNSPECIFIED 09/01/2017 FREDERICK SPEAR, ALISTAIR Ot F41.9 ANXIETY DISORDER, UNSPECIFIED 09/01/2017 FREDERICK SPEAR, ALISTAIR Ot G47.00 INSOMNIA, UNSPECIFIED 09/01/2017 FREDERICK SPEAR, ALISTAIR Ot I10 ESSENTIAL (PRIMARY) HYPERTENSION 09/01/2017 FREDERICK SPEAR, ALISTAIR Ot K21.9 GASTRO-ESOPHAGEAL REFLUX DISEASE WITHOUT 09/01/2017 FREDERICK SPEAR, ALISTAIR Ot Z79.899 OTHER BEET FLUMER (CURRENT) DRUG THERAPY 10/10/2017 FREDERICK SPEAR, ALISTAIR Ot 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 10/10/2017 FREDERICK SPEAR, ALISTAIR Ot D50.0 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 10/10/2017 FREDERICK SPEAR, ALISTAIR Ot E03.9 HYPOTHYROIDISM, UNSPECIFIED 10/10/2017 FREDERICK SPEAR, ALISTAIR Moore F41.9 ANXIETY DISORDER, UNSPECIFIED 10/10/2017 FREDERICK SPEAR, ALISTAIR Ot G47.00 INSOMNIA, UNSPECIFIED 10/10/2017 FREDERICK SPEAR, ALISTAIR Ot I10 ESSENTIAL (PRIMARY) HYPERTENSION 10/10/2017 FREDERICK SPEAR, ALISTAIR Ot K21.9 GASTRO-ESOPHAGEAL REFLUX DISEASE WITHOUT 10/10/2017 FREDERICK SPEAR, ALISTAIR Ot Z79.899 OTHER RETIREMENT (CURRENT) DRUG THERAPY 10/11/2017 FREDERICK SPEAR, ALISTAIR Ot 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 10/11/2017 FREDERICK SPEAR, ALISTAIR Ot D50.0 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 10/11/2017 FREDERICK SPEAR, ALISTAIR Ot E03.9 HYPOTHYROIDISM, UNSPECIFIED 10/11/2017 FREDERICK SPEAR, ALISTAIR Ot F41.9 ANXIETY DISORDER, UNSPECIFIED 10/11/2017 FREDERICK SPEAR, ALISTAIR Ot G47.00 INSOMNIA, UNSPECIFIED 10/11/2017 FREDERICK SPEAR, ALISTAIR Ot I10 ESSENTIAL (PRIMARY) HYPERTENSION 10/11/2017 FREDERICK SPEAR, ALISTAIR Ot K21.9 GASTRO-ESOPHAGEAL REFLUX DISEASE WITHOUT 10/11/2017 FREDERICK SPEAR, ALISTAIR Moore Z79.899 OTHER BEET FLUMER (CURRENT) DRUG THERAPY 01/17/2018 FREDERICK SPEAR, ALISTAIR Ot 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 01/17/2018 FREDERICK SPEAR, ALISTAIR Ot D50.0 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 01/17/2018 FREDERICK SPEAR, ALISTAIR Ot E03.9 HYPOTHYROIDISM, UNSPECIFIED 01/17/2018 FREDERICK SPEAR, ALISTAIR Ot F41.9 ANXIETY DISORDER, UNSPECIFIED 01/17/2018 FREDERICK SPEAR, ALISTAIR Ot G47.00 INSOMNIA, UNSPECIFIED 01/17/2018 FREDERICK SPEAR, ALISTAIR Ot I10 ESSENTIAL (PRIMARY) HYPERTENSION 01/17/2018 FREDERICK SPEAR, ALISTAIR Moore K21.9 GASTRO-ESOPHAGEAL REFLUX DISEASE WITHOUT 01/17/2018 FREDERICK SPEAR, ALISTAIR Moore Z79.899 OTHER BEET FLUMER (CURRENT) DRUG THERAPY 02/06/2018 ALISTAIR MACK MD Ot 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 02/06/2018 FREDERICK SPEAR, ALISTAIR Ot D50.0 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 02/06/2018 FREDERICK SPEAR, ALISTAIR Ot E03.9 HYPOTHYROIDISM, UNSPECIFIED 02/06/2018 FREDERICK SPEAR, ALISTAIR Moore F41.9 ANXIETY DISORDER, UNSPECIFIED 02/06/2018 FREDERICK SPEAR, ALISTAIR Ot G47.00 INSOMNIA, UNSPECIFIED 02/06/2018 FREDERICK SPEAR, ALISTAIR Ot I10 ESSENTIAL (PRIMARY) HYPERTENSION 02/06/2018 FREDERICK SPEAR, ALISTAIR Ot K21.9 GASTRO-ESOPHAGEAL REFLUX DISEASE WITHOUT 02/06/2018 FREDERICK SPEAR, ALISTAIR Ot Z79.899 OTHER RETIREMENT (CURRENT) DRUG THERAPY 03/28/2018 Ot Z12.31 ENCNTR SCREEN MAMMOGRAM FOR MALIGNANT NE 03/28/2018 FREDERICK SPEAR, ALISTAIR Ot 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 03/28/2018 FREDERICK SPEAR, ALISTAIR Ot D50.0 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 03/28/2018 FREDERICK SPEAR, ALISTAIR Ot E03.9 HYPOTHYROIDISM, UNSPECIFIED 03/28/2018 FREDERICK SPEAR, ALISTAIR Ot F41.9 ANXIETY DISORDER, UNSPECIFIED 03/28/2018 FREDERICK SPEAR, ALISTAIR Ot G47.00 INSOMNIA, UNSPECIFIED 03/28/2018 FREDERICK SPEAR, ALISTAIR Ot I10 ESSENTIAL (PRIMARY) HYPERTENSION 03/28/2018 FREDERICK SPEAR, ALISTAIR Ot K21.9 GASTRO-ESOPHAGEAL REFLUX DISEASE WITHOUT 03/28/2018 FREDERICK SPEAR, ALISTAIR Ot Z79.899 OTHER BEET FLUMER (CURRENT) DRUG THERAPY 04/09/2018 FREDERICK SPEAR, ALISTAIR Ot 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 04/09/2018 FREDERICK SPEAR, ALISTAIR Ot D50.0 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 04/09/2018 FREDERICK SPEAR, ALISTAIR Ot E03.9 HYPOTHYROIDISM, UNSPECIFIED 04/09/2018 FREDERICK SPEAR, ALISTAIR Moore F41.9 ANXIETY DISORDER, UNSPECIFIED 04/09/2018 FREDERICK SPEAR, ALISTIAR Ot G47.00 INSOMNIA, UNSPECIFIED 04/09/2018 FREDERICK SPEAR, ALISTAIR Ot I10 ESSENTIAL (PRIMARY) HYPERTENSION 04/09/2018 FREDERICK SPEAR, ALISTAIR Ot K21.9 GASTRO-ESOPHAGEAL REFLUX DISEASE WITHOUT 04/09/2018 FREDERICK SPEAR, ALISTAIR Moore Z79.899 OTHER RETIREMENT (CURRENT) DRUG THERAPY 04/09/2018 FREDREICK SPEAR, ALISTAIR Ot 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 04/09/2018 FREDERICK SPEAR, ALISTAIR Ot D50.0 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 04/09/2018 FREDERICK SPEAR, ALISTAIR Ot E03.9 HYPOTHYROIDISM, UNSPECIFIED 04/09/2018 FREDERICK SPEAR, ALISTAIR Moore F41.9 ANXIETY DISORDER, UNSPECIFIED 04/09/2018 FREDERICK SPEAR, ALISTAIR Ot G47.00 INSOMNIA, UNSPECIFIED 04/09/2018 FREDERICK SPEAR, ALISTAIR Ot I10 ESSENTIAL (PRIMARY) HYPERTENSION 04/09/2018 FREDERICK SPEAR, ALISTAIR Ot K21.9 GASTRO-ESOPHAGEAL REFLUX DISEASE WITHOUT 04/09/2018 FREDERICK SPEAR, ALISTAIR Ot Z79.899 OTHER RETIREMENT (CURRENT) DRUG THERAPY 04/10/2018 FREDERICK SPEAR, ALISTAIR Ot 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 04/10/2018 FREDERICK SPEAR, ALISTAIR Ot D50.0 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 04/10/2018 ALISTAIR MACK MD Ot E03.9 HYPOTHYROIDISM, UNSPECIFIED 04/10/2018 ALISTAIR MACK MD, Ot F41.9 ANXIETY DISORDER, UNSPECIFIED 04/10/2018 ALITSAIR MACK MD, Ot G47.00 INSOMNIA, UNSPECIFIED 04/10/2018 ALISTAIR MACK MD Ot I10 ESSENTIAL (PRIMARY) HYPERTENSION 04/10/2018 ALISTAIR MACK MD, Ot K21.9 GASTRO-ESOPHAGEAL REFLUX DISEASE WITHOUT 04/10/2018 ALISTAIR MACK MD, Ot Z79.899 OTHER BEET FLUMER (CURRENT) DRUG THERAPY 07/13/2018 ALISTAIR MACK MD, Ot 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 07/13/2018 ALISTAIR MACK MD Ot 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 07/13/2018 ALISTAIR MACK MD, Ot K44.9 DIAPHRAGMATIC HERNIA WITHOUT OBSTRUCTION 07/13/2018 ALISTAIR MACK MD Ot R91.8 OTHER NONSPECIFIC ABNORMAL FINDING OF AJAY 07/13/2018 ALISTAIR MACK MD Ot Z78.0 ASYMPTOMATIC MENOPAUSAL STATE 07/17/2018 JOSE VANN MD Ot E03.9 HYPOTHYROIDISM, UNSPECIFIED 07/17/2018 JOSE VANN MD Ot Z79.899 OTHER BEET FLUMER (CURRENT) DRUG THERAPY 08/13/2018 ALISTAIR MACK MD, Ot 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 08/13/2018 ALISTAIR MACK MD Ot 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 08/13/2018 ALISTAIR MACK MD, Ot K44.9 DIAPHRAGMATIC HERNIA WITHOUT OBSTRUCTION 08/13/2018 ALISTAIR MACK MD Ot R91.8 OTHER NONSPECIFIC ABNORMAL FINDING OF AJAY 08/13/2018 ALISTAIR MACK MD, Ot Z78.0 ASYMPTOMATIC MENOPAUSAL STATE 08/29/2018 JOSE VANN MD Ot R93.89 ABNORMAL FINDINGS ON DX IMAGING OF OTH B 08/31/2018 ALISTAIR MACK MD, Ot 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 08/31/2018 ALISTAIR MACK MD, Ot D50.0 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 08/31/2018 ALISTAIR MACK MD Ot E03.9 HYPOTHYROIDISM, UNSPECIFIED 08/31/2018 ALISTAIR MACK MD, Ot F41.9 ANXIETY DISORDER, UNSPECIFIED 08/31/2018 FREDERICK SPEAR, ALISTAIR Ot G47.00 INSOMNIA, UNSPECIFIED 08/31/2018 FREDERICK SPEAR, ALISTAIR Ot I10 ESSENTIAL (PRIMARY) HYPERTENSION 08/31/2018 FREDERICK SPEAR, ALISTAIR Moore K21.9 GASTRO-ESOPHAGEAL REFLUX DISEASE WITHOUT 08/31/2018 FREDERICK SPEAR, ALISTAIR Moore M15.9 POLYOSTEOARTHRITIS, UNSPECIFIED 08/31/2018 FREDERICK SPEAR, ALISTAIR Ot Z79.899 OTHER BEET FLUMER (CURRENT) DRUG THERAPY 10/10/2018 FREDERICK SPEAR, ALISTAIR Ot 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 10/10/2018 FREDERICK SPEAR, ALISTAIR Ot D50.0 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 10/10/2018 FREDERICK SPEAR, ALISTAIR Ot E03.9 HYPOTHYROIDISM, UNSPECIFIED 10/10/2018 FREDERICK SPEAR, ALISTAIR Moore F41.9 ANXIETY DISORDER, UNSPECIFIED 10/10/2018 FREDERICK SPEAR, ALISTAIR Ot G47.00 INSOMNIA, UNSPECIFIED 10/10/2018 FREDERICK SPEAR, ALISTAIR Ot I10 ESSENTIAL (PRIMARY) HYPERTENSION 10/10/2018 FREDERICK SPEAR, ALISTAIR Moore K21.9 GASTRO-ESOPHAGEAL REFLUX DISEASE WITHOUT 10/10/2018 FREDERICK SPEAR, ALISTAIR Moore M15.9 POLYOSTEOARTHRITIS, UNSPECIFIED 10/10/2018 FREDERICK SPEAR, ALISTAIR Moore Z79.899 OTHER BEET FLUMER (CURRENT) DRUG THERAPY 10/11/2018 ALISTAIR MACK MD Ot 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 10/11/2018 FREDERICK SPEAR, ALISTAIR Ot D50.0 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 10/11/2018 FREDERICK SPEAR, ALISTAIR Ot E03.9 HYPOTHYROIDISM, UNSPECIFIED 10/11/2018 FREDERICK SPEAR, LAISTAIR Moore F41.9 ANXIETY DISORDER, UNSPECIFIED 10/11/2018 FREDERICK SPEAR, ALISTAIR Ot G47.00 INSOMNIA, UNSPECIFIED 10/11/2018 FREDERICK SPEAR, ALISTAIR Ot I10 ESSENTIAL (PRIMARY) HYPERTENSION 10/11/2018 FREDERICK SPEAR, ALISTAIR Ot K21.9 GASTRO-ESOPHAGEAL REFLUX DISEASE WITHOUT 10/11/2018 FREDERICK SPEAR, ALISTAIR Ot M15.9 POLYOSTEOARTHRITIS, UNSPECIFIED 10/11/2018 ALISTAIR MACK MD Ot Z79.899 OTHER BEET FLUMER (CURRENT) DRUG THERAPY 01/09/2019 ANSHUL ORTIZ DO Ot Z01.818 ENCOUNTER FOR OTHER PREPROCEDURAL EXAMIN 01/09/2019 ANSHUL ORTIZ DO Ot Z01.818 ENCOUNTER FOR OTHER PREPROCEDURAL EXAMIN 01/09/2019 ANSHUL ORTIZ DO Ot Z01.818 ENCOUNTER FOR OTHER PREPROCEDURAL EXAMIN Procedures Code Description Performed By Performed On [id number] RESECTION OF RIGHT LARGE INTESTINE, OPEN 11/30/2015 [id number] 11/30/2015 [id number] ROBOTIC ASSISTED PROCEDURE OF TRUNK RACHEL 11/30/2015 Results Test Result Range 25-hydroxyvitamin D measurement - 08/10/16 12:44 25-hydroxy vitamin D measurement 40 % 30-100 THYROID STIMULATING HORMONE - 07/12/18 08:52 THYROID STIMULATING HORMONE 4.28 u[iU]/mL 0.35-4.94 Serum or plasma thyroxine (T4) free measurement (mass/volume) - 07/12/18 08:52 Serum or plasma thyroxine (T4) free measurement (mass/volume) 1.12 ng/dL 0.70-1.48 VITAMIN D 25-HYDROXY - 07/12/18 08:52 VITAMIN D 25-HYDROXY (TOTAL) 47.4 % 30.0-100.0 Encounters ACCT No. Visit Date/Time Discharge Status Pt. Type Provider Facility Loc./Unit Complaint [id number] 01/09/2019 09:00:00 01/09/2019 09:39:00 DIS Outpatient ANSHUL ORTIZ DO [facility] PREOP COLONOSCOPY [id number] 10/11/2018 00:11:00 10/11/2018 23:59:59 CLS Preadmit ALISTAIR MACK MD [facility] ONC [id number] 07/17/2018 09:11:00 10/10/2018 00:01:00 DIS Outpatient ALISTAIR MACK MD [facility] ONC [id number] 08/06/2018 12:30:00 08/06/2018 23:59:59 CLS Outpatient JOSE VANN MD [facility] RAD ENDOMETRIUM THICKENING [id number] 07/12/2018 16:21:00 07/12/2018 23:59:59 CLS Outpatient JOSE VANN MD [facility] LAB [id number] 07/12/2018 08:23:00 07/12/2018 23:59:59 CLS Outpatient ALISTAIR MACK MD [facility] RAD ADENOCARCINOMA OF COLON [id number] 01/16/2018 09:06:00 02/06/2018 00:01:00 DIS Outpatient ALISTAIR MACK MD [facility] ONC [id number] 07/18/2017 13:48:00 10/10/2017 00:01:00 DIS Outpatient ALISTAIR MACK MD [facility] ONC [id number] 09/04/2017 16:20:00 09/04/2017 23:59:59 CLS Preadmit JOSE VANN MD [facility] RAD SCREENING [id number] 07/18/2017 13:57:00 07/18/2017 23:59:59 CLS Outpatient JOSE VANN MD [facility] LAB [id number] 07/12/2017 10:27:00 07/12/2017 23:59:59 CLS Outpatient ALISTAIR MACK MD [facility] RAD ADENOCARCINOMA OF COLON [id number] 04/04/2017 13:10:00 04/08/2017 00:01:00 DIS Outpatient ALISTAIR MACK MD [facility] ONC [id number] 01/03/2017 13:06:00 02/07/2017 00:01:00 DIS Outpatient AFTAB JUNIOR MD [facility] ONC [id number] 12/19/2016 07:44:00 12/19/2016 10:27:00 DIS Outpatient IVAN SAUCEDA MD [facility] ENDO ADENOCARCINOMA [id number] 12/16/2016 10:05:00 12/16/2016 10:51:00 DIS Outpatient IVAN SAUCEDA MD [facility] PREOP COLONOSCOPY [id number] 12/14/2016 10:20:00 12/14/2016 23:59:59 CLS Outpatient AFTAB JUNIOR MD [facility] RAD C18.0 ADENOCARCINOMA OF COLON [id number] 11/10/2016 05:34:00 11/10/2016 23:59:59 CLS Outpatient IVAN SAUCEDA MD [facility] PREOP ADENOCARCINOMA [id number] 08/17/2016 13:55:00 11/08/2016 00:01:00 DIS Outpatient AFTAB JUNIOR MD [facility] ONC [id number] 08/10/2016 12:24:00 08/10/2016 23:59:59 CLS Outpatient TISHA LOPEZ [facility] LAB [id number] 05/11/2016 14:07:00 08/07/2016 00:01:00 DIS Outpatient AFTAB JUNIOR MD [facility] ONC [id number] 06/08/2016 09:45:00 06/08/2016 23:59:59 CLS Outpatient AFTAB JUNIOR MD [facility] RAD C18.0 [id number] 05/26/2016 13:05:00 05/26/2016 23:59:59 CLS Outpatient RICH JAFFE APRN [facility] RAD SCREENING [id number] 02/17/2016 09:29:00 04/06/2016 00:01:00 DIS Outpatient AFTAB JUNIOR MD [facility] ONC [id number] 11/30/2015 10:13:00 12/04/2015 18:38:00 DIS Inpatient IVAN SAUCEDA MD [facility] 4TH CECAL MASS [id number] 11/25/2015 08:41:00 11/25/2015 11:47:00 DIS Outpatient IVAN SAUCEDA MD [facility] PREOP FECAL MASS [id number] 11/19/2015 08:56:00 11/19/2015 23:59:59 CLS Outpatient IVAN SAUCEDA MD [facility] RAD COLON MASS [id number] 11/16/2015 09:40:00 11/16/2015 13:15:00 DIS Outpatient IVAN SAUCEDA MD [facility] SDC OCCULT POSSITIVE STOOLS [id number] 11/12/2015 07:08:00 11/12/2015 15:21:00 DIS Outpatient IVAN SAUCEDA MD [facility] PREOP OCCULT POSITIVE STOOLS [id number] 08/12/2015 10:25:00 08/12/2015 23:59:59 CLS Outpatient TISHA LOPEZ LEASING PROPERTY MANAGER [facility] RAD DIFFICULTY SWALLOWING [id number] 08/11/2015 12:06:00 08/11/2015 23:59:59 CLS Outpatient TISHA LOPEZ LEASING PROPERTY MANAGER [facility] LAB DIFFICULTY SWALLOWING PARAESOPHAGEAL [id number] 07/31/2015 09:43:00 07/31/2015 23:59:59 CLS Outpatient TISHA LOPEZ LEASING PROPERTY MANAGER [facility] RAD DYSPHAGIA [id number] 12/04/2014 09:59:00 12/04/2014 23:59:59 CLS Outpatient JOSE VANN MD [facility] RAD SCREENING,OSTEOPOROSIS [id number] 10/28/2013 09:52:00 10/28/2013 23:59:59 CLS Outpatient YU CRAWFORD MD [facility] RAD SCREENING [id number] 01/15/2019 13:20:00 PEN Preadmit ANSHUL ORTIZ DO [facility] ENDO HX COLON CA [id number] 02/15/2018 14:17:00 Document Registration [id number] 07/31/2015 10:46:00 Document Registration [id number] 05/15/2012 15:43:00 Document Registration [id number] 01/28/2011 09:32:00 Document Registration [id number] 07/15/2010 08:45:00 Document Registration [id number] 05/30/2017 12:18:05 05/30/2017 23:59:59 CLS Outpatient [id number] 12/04/2014 16:22:26 ACT Document Registration
--- NOTE | 2019-01-15 15:45 | Progress Note-Post Operative ---
Post-Operative Progess Note Surgeon (s)/Head Librarian (s) Surgeon ANSHUL ORTIZ DO Head Librarian: na Pre-Operative Diagnosis hx colon cancer, min diverticulosis Post-Operative Diagnosis rectal polyp Procedure & Operative Findings Date of Procedure 01/15/19 Procedure Performed/Findings colonoscopy c hot bx polypectomy Anesthesia Type per master carpenter Estimated Blood Loss Estimated blood loss (mL): min Specimens/Packing Specimens Removed rectal polyp ANSHUL ORTIZ DO Jan 15, 2019 15:45
--- NOTE | 2019-01-15 15:46 | Discharge Inst-Simple/Standard ---
Discharge Inst-Standard Discharge Medications New, Converted or Re-Newed RX: RX on Chart Patient Instructions/Follow Up Plan of Care/Instructions/FU: 2 -3 weeks Jasiel Activity as Tolerated: Yes Discharge Diet: Regular Diet (high fiber) ANSHUL ORTIZ DO Jan 15, 2019 15:46
[2019-01-15 15:55] VITALS: BP 102/60
[2019-01-15 16:20] VITALS: BP 150/67
[2019-01-15 16:30] VITALS: BP 150/67
--- NOTE | 2019-01-16 00:02 | OPERATIVE REPORT ---
DATE OF SERVICE: 01/15/2019 PREOPERATIVE DIAGNOSIS: History of colon cancer. POSTOPERATIVE DIAGNOSIS: Rectal polyp, diverticulosis. PROCEDURE: Colonoscopy with hot biopsy polypectomy. SURGEON: Anshul Weathers DO ANESTHESIA: Per RN SUPPORT SERVICES. ESTIMATED BLOOD LOSS: None. COMPLICATIONS: None. INDICATIONS: The patient is an 88-year-old female with history of colon cancer. She understands risks and benefits of procedure and wished to proceed with procedure. Consent was signed and on the chart. DESCRIPTION OF PROCEDURE: The patient was taken to the endoscopy suite, placed in left lateral recumbent position. Timeout was performed. Digital rectal exam was performed. There were no palpable polyps, mass or ulcerations. The scope was inserted in the rectum and advanced all the way to the ileocolonic anastomosis without difficulty. The prep was adequate. The anastomosis had normal appearance. No evidence of any recurrence. Scope was then slowly retracted back. Prep was adequate. Scope was then slowly retracted back. There were no polyps, masses or ulcerations at the ileocolonic anastomosis into the transverse, descending and sigmoid colon. A minimal amount of diverticulosis present. Scope was continued to be retracted back into the rectum, it was also retroflexed noting a small polyp, which hot biopsy polypectomy was performed. Scope was then returned to normal position, slowly withdrawn until completely removed, noting no other pathology. The patient tolerated the procedure well without complication. She was taken to recovery room in stable condition. RECOMMENDATIONS: The patient will need follow up to go over pathology. She will need a repeat colonoscopy in 3 to 5 years. If she has any problems before that, she should be seen at that time. The patient also recommended high-fiber diet due to diverticulosis. If you have any problems prior to scheduled followup colonoscopy, she should be reevaluated at that time. Job ID: [id number] DocumentID: [id number] Dictated Date: 01/15/2019 15:49:16 Strategic Debriefing Officer Date: 01/16/2019 00:02:18 Dictated By: ANSHUL WEATHERS DO
== END | disposition home or self-care (01) ==
LOC: ENDO 13:32
PROVIDERS: ATTEND Surgery
DX: Z12.11 Encounter for screening for malignant neoplasm of colon (principal); K62.1 Rectal polyp; K57.30 Diverticulosis of large intestine without perforation or abscess without bleeding; Z80.0 Family history of malignant neoplasm of digestive organs; I10 Essential (primary) hypertension; E78.00 Pure hypercholesterolemia, unspecified; F41.9 Anxiety disorder, unspecified; F32.9 Major depressive disorder, single episode, unspecified; K44.9 Diaphragmatic hernia without obstruction or gangrene; K21.9 Gastro-esophageal reflux disease without esophagitis; E03.9 Hypothyroidism, unspecified; Z79.899 Other long term (current) drug therapy

== ENCOUNTER 2019-01-22 09:07 | Outpatient (RCR) | payer MEDICARE, OTHER ==
[2019-01-18 10:07] LABS: BASOPHILS % (AUTO) 0 % (0-10); EOSINOPHILS # (AUTO) 0.1 10^3/uL (0.0-0.3); EOSINOPHILS % (AUTO) 2 % (0-10); HEMATOCRIT 39 % (35-52); HEMOGLOBIN 13.1 G/DL (11.5-16.0); LYMPHOCYTES # (AUTO) 0.8 X 10^3 (1.0-4.0); LYMPHOCYTES % (AUTO) 16 % (12-44); MEAN CORPUSCULAR HEMOGLOBIN 28 PG (25-34); MEAN CORPUSCULAR HGB CONC 34 G/DL (32-36); MEAN CORPUSCULAR VOLUME 83 FL (80-99); MEAN PLATELET VOLUME 10.1 FL (7.4-10.4); MONOCYTES # (AUTO) 0.3 X 10^3 (0.0-1.0); MONOCYTES % (AUTO) 5 % (0-12); NEUTROPHILS # (AUTO) 4.1 X 10^3 (1.8-7.8); NEUTROPHILS % (AUTO) 78 % (42-75); PLATELET COUNT 261 10^3/uL (130-400); RED CELL DISTRIBUTION WIDTH 12.9 % (10.0-14.5); WHITE BLOOD COUNT 5.2 10^3/uL (4.3-11.0)
[2019-01-18 10:27] LABS: BILIRUBIN,TOTAL 0.4 MG/DL (0.1-1.0); CALCIUM 9.2 MG/DL (8.5-10.1); CREATININE SERUM 1.12 MG/DL (0.60-1.30); TOTAL PROTEIN 6.9 GM/DL (6.4-8.2)
[~2019-01-22 09:07] MED LIST changes: -LACTATED RINGERS 1,000 ML IV ONE; -MIDAZOLAM 2 MG/2 ML (VERSED) VIAL ONE; -OMEP20CA12 PO; +OMEP20CA13 PO; -PROPOFOL INJECTION 50 ML IV ONE
== END 2019-04-18 | disposition home or self-care (01) ==
LOC: ONC 09:07
PROVIDERS: ATTEND Internal Medicine Hematology & Oncology
DX: Z08 Encounter for follow-up examination after completed treatment for malignant neoplasm (principal); Z85.038 Personal history of other malignant neoplasm of large intestine; M15.0 Primary generalized (osteo)arthritis; K44.9 Diaphragmatic hernia without obstruction or gangrene; I10 Essential (primary) hypertension; E78.00 Pure hypercholesterolemia, unspecified; E66.9 Obesity, unspecified; K21.9 Gastro-esophageal reflux disease without esophagitis
CPT/HCPCS: 36415; 80053; 82378; 85025; 99213

== ENCOUNTER 2019-07-30 14:05 | Outpatient (RCR) | payer MEDICARE, OTHER ==
[2019-07-24 09:32] LABS: BASOPHILS % (AUTO) 0 % (0-10); EOSINOPHILS # (AUTO) 0.1 10^3/uL (0.0-0.3); EOSINOPHILS % (AUTO) 2 % (0-10); HEMATOCRIT 40 % (35-52); HEMOGLOBIN 13.3 G/DL (11.5-16.0); LYMPHOCYTES # (AUTO) 0.9 X 10^3 (1.0-4.0); LYMPHOCYTES % (AUTO) 18 % (12-44); MEAN CORPUSCULAR HEMOGLOBIN 28 PG (25-34); MEAN CORPUSCULAR HGB CONC 33 G/DL (32-36); MEAN CORPUSCULAR VOLUME 85 FL (80-99); MONOCYTES # (AUTO) 0.3 X 10^3 (0.0-1.0); MONOCYTES % (AUTO) 6 % (0-12); NEUTROPHILS # (AUTO) 3.8 X 10^3 (1.8-7.8); NEUTROPHILS % (AUTO) 74 % (42-75); PLATELET COUNT 235 10^3/uL (130-400); RED CELL DISTRIBUTION WIDTH 12.6 % (10.0-14.5); WHITE BLOOD COUNT 5.2 10^3/uL (4.3-11.0)
[2019-07-24 09:59] LABS: BILIRUBIN,TOTAL 0.5 MG/DL (0.1-1.0); CALCIUM 9.3 MG/DL (8.5-10.1); CREATININE SERUM 1.31 MG/DL (0.60-1.30); POTASSIUM 4.1 MMOL/L (3.6-5.0); TOTAL PROTEIN 7.1 GM/DL (6.4-8.2)
[~2019-07-30 14:05] MED LIST changes: -OMEP20CA13 PO; +OMEP20CA18 PO; -TRAM50TA2 PO; +TRM50T PO
== END 2019-10-22 | disposition home or self-care (01) ==
LOC: ONC 14:05
PROVIDERS: ATTEND Internal Medicine Hematology & Oncology
DX: Z08 Encounter for follow-up examination after completed treatment for malignant neoplasm (principal); Z85.038 Personal history of other malignant neoplasm of large intestine; M15.0 Primary generalized (osteo)arthritis; K44.9 Diaphragmatic hernia without obstruction or gangrene; I10 Essential (primary) hypertension; E78.00 Pure hypercholesterolemia, unspecified; E66.9 Obesity, unspecified; K21.9 Gastro-esophageal reflux disease without esophagitis; R91.8 Other nonspecific abnormal finding of lung field; K57.30 Diverticulosis of large intestine without perforation or abscess without bleeding; I72.8 Aneurysm of other specified arteries
CPT/HCPCS: 80053; 82378; 85025; 99213

== ENCOUNTER 2020-07-28 10:50 | Outpatient (RCR) | payer MEDICARE, OTHER ==
[2020-07-22 10:35] LABS: BASOPHILS % (AUTO) 0 % (0-10); EOSINOPHILS # (AUTO) 0.1 10^3/uL (0.0-0.3); EOSINOPHILS % (AUTO) 1 % (0-10); HEMATOCRIT 40 % (35-52); HEMOGLOBIN 13.1 g/dL (11.5-16.0); LYMPHOCYTES # (AUTO) 1.2 10^3/uL (1.0-4.0); LYMPHOCYTES % (AUTO) 19 % (12-44); MEAN CORPUSCULAR HEMOGLOBIN 29 pg (25-34); MEAN CORPUSCULAR HGB CONC 33 g/dL (32-36); MEAN CORPUSCULAR VOLUME 88 fL (80-99); MEAN PLATELET VOLUME 10.6 fL (9.0-12.2); MONOCYTES # (AUTO) 0.4 10^3/uL (0.0-1.0); MONOCYTES % (AUTO) 6 % (0-12); NEUTROPHILS # (AUTO) 4.7 10^3/uL (1.8-7.8); NEUTROPHILS % (AUTO) 73 % (42-75); PLATELET COUNT 270 10^3/uL (130-400); WHITE BLOOD COUNT 6.5 10^3/uL (4.3-11.0)
[2020-07-22 11:00] LABS: ALBUMIN 4.1 GM/DL (3.2-4.5); BILIRUBIN,TOTAL 0.6 MG/DL (0.1-1.0); CALCIUM 9.6 MG/DL (8.5-10.1); CREATININE SERUM 1.37 MG/DL (0.60-1.30); POTASSIUM 4.2 MMOL/L (3.6-5.0); TOTAL PROTEIN 7.4 GM/DL (6.4-8.2)
== END 2020-10-20 | disposition home or self-care (01) ==
LOC: ONC 10:50
PROVIDERS: ATTEND Internal Medicine Hematology & Oncology
DX: C18.0 Malignant neoplasm of cecum (principal); I10 Essential (primary) hypertension; K21.9 Gastro-esophageal reflux disease without esophagitis; E78.00 Pure hypercholesterolemia, unspecified; M19.90 Unspecified osteoarthritis, unspecified site
CPT/HCPCS: 80053; 82378; 85025; 99213

== ENCOUNTER 2020-12-15 13:13 | Emergency (ER) | payer MEDICARE, OTHER ==
[~2020-12-15] VITALS: Ht 160 cm; Wt 74.8 kg
--- NOTE | 2020-12-15 13:51 | ED Fall/Injury ---
General Chief Complaint: Trauma-Non Activation Stated Complaint: FELL, HIT HEAD,R HAND BRUISED, HIP PAIN Nursing Triage Note: RIGHT HAND, POSTERIOR HEAD, LEFT HIP, LEFT ELBOW PAIN. Source: patient Exam Limitations: no limitations History of Present Illness Date Seen by Provider: Dec 15, 2020 Time Seen by Provider: 13:26 Initial Comments This is an 89-year-old female who presented via POV after falling at [employer] [facility]. States she was standing on the landing when a friend called her name and she turned around and stumbled on the stairs. She fell down approximately 2 stairs. States that she hit the back of her head on the floor, her left elbow, her right hand, and her left hip. Denies loss of consciousness. Denies neck injury or pain.States she presented to her primary care office to see if she can get checked out and they were unable to get her in until tomorrow so she decided to come to the emergency department to be evaluated.She ambulated independently into the ER.She denies headache, blurred vision, double vision, pain, nausea, vomiting. Allergies and Home Medications Allergies Coded Allergies: No Known Drug Allergies (Unverified , 11/25/15) Home Medications Atenolol 25 Mg Tablet, 12.5 MG PO DAILY, (Reported) take 1/2 of 25mg tab Cholecalciferol (Vitamin D3) 2,000 Unit Capsule, 2,000 UNIT PO DAILY, (Reported) Levothyroxine Sodium 50 Mcg Tablet, 50 MCG PO DAILY, (Reported) Omeprazole 20 Mg Capsule.dr, 20 MG PO DAILY, (Reported) Triamterene/Hydrochlorothiazid 1 Each Capsule, 0.5 EACH PO DAILY, (Reported) take 1/2 of tab Patient Home Medication List Home Medication List Reviewed: Yes Review of Systems Review of Systems Constitutional: no symptoms reported Eyes: No Symptoms Reported Ears, Nose, Mouth, Throat: no symptoms reported Respiratory: no symptoms reported Cardiovascular: no symptoms reported Gastrointestinal: no symptoms reported Genitourinary: no symptoms reported Musculoskeletal: see HPI Skin: see HPI Psychiatric/Neurological: No Symptoms Reported Past Vpreeyn-Mdyzvr-Vozknh Hx Patient Social History Alcohol Use: Denies Use Smoking Status: Never a Smoker 2nd Hand Smoke Exposure: No Recent Infectious Disease Expo: No Recent Hopitalizations: No Immunizations Up To Date Date of Pneumonia Vaccine: Apr 28, 2015 Seasonal Allergies Seasonal Allergies: No Past Medical History Surgeries: Yes (D&C, TOOTH PULLED, BREAST LUMPECTOMY, Right hemicolectomy) Respiratory: No Cardiac: Yes (SLIGHT MURMUR) Hypertension Neurological: No Reproductive Disorders: No Female Reproductive Disorders: Denies Sexually Transmitted Disease: No HIV/AIDS: No Genitourinary: No Gastrointestinal: Yes (hx colon cancer) Gastroesophageal Reflux, Hiatal Hernia Musculoskeletal: No Endocrine: Yes Hypothyroidsim HEENT: Yes Cataract Loss of Vision: Bilateral Hearing Impairment: Denies Cancer: Yes Colon What Type of Treatment Did You: Surgical Intervention Psychosocial: Yes Depression Integumentary: No Blood Disorders: No Adverse Reaction/Blood Tranf: No (N/A) Family Medical History Arthritis G8 BROTHER BLADDER CANCER 19 FATHER COPD G8 BROTHER Cardiovascular disease 19 MOTHER Completed stroke 19 MOTHER OVARIAN CANCER 19 MOTHER Physical Exam Vital Signs Vital Signs - First Documented 12/15/20 12/15/20 13:26 14:55 Temp 36.4 Pulse 74 Resp 17 B/P (MAP) 170/95 (120) Pulse Ox 98 O2 Delivery Room Air Capillary Refill : Less Than 3 Seconds Height, Weight, BMI Height: 5'3.50" Weight: 167lbs. 0.0oz. 75.764624vw; 29.00 BMI Method: General Appearance: WD/WN, no apparent distress HEENT: PERRL/EOMI, normal ENT inspection, TMs normal, pharynx normal Neck: non-tender, full range of motion, supple, normal inspection Cardiovascular: normal peripheral pulses, regular rate, rhythm, no edema, no gallop Respiratory: chest non-tender, lungs clear, normal breath sounds, no respiratory distress, no accessory muscle use Gastrointestinal: normal bowel sounds, non tender, soft Back: normal inspection, no vertebral tenderness; No decreased range of motion Extremities: normal range of motion, non-tender, normal inspection, normal capillary refill, pelvis stable Neurologic/Psychiatric: alert, normal mood/affect, oriented x 3; No abnormal gait, No motor weakness Skin: normal color, warm/dry Left elbow: No bony tenderness or obvious deformities. Small bruise. No abrasion. Full AROM. [place] Coma Score Best Eye Response: (4) Open Spontaneously Best Verbal Response: (5) Oriented Best Motor Response: (6) Obeys Commands [place] Total: 15 Progress/Results/Core Measures Results/Orders My Orders Orders - ROMIE ASHFORD APRN Pelvis With Left Hip 2-3 Views (12/15/20 14:00) Vital Signs/I&O 12/15/20 12/15/20 13:26 14:55 Temp 36.4 Pulse 74 67 Resp 17 16 B/P (MAP) 170/95 (120) 134/68 Pulse Ox 98 O2 Delivery Room Air Room Air Blood Pressure Mean: 120 Progress Progress Note : Progress Note Patient examined and in no acute distress. She ambulated easily into the emergency department. On exam she had no bony tenderness. She does have chronic left hip pain but states that this has been present, has been seeing p hysical therapy for this. Will go ahead and obtain images of left hip and pelvis. Images reviewed and show no acute fractures. Reviewed discharge plan of care with her and she is agreeable with plan. 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 Degenerative changes within the partially visualized lumbar spine. The sacroiliac joints are intact. No acute fracture or dislocation. No destructive osseous process. Minimal degenerative changes of the bilateral hips for age. The left femoral head maintains its normal shape and contour. Minimal degenerative changes involving the pubic symphysis. IMPRESSION: No acute osseous abnormality with mild degenerative changes for age. Dictated by: Dictated on workstation # [id number] Dict: 12/15/20 1439 Trans: 12/15/20 1628 [facility] [id number] Interpreted by: DANYELLE MACIAS MD Electronically signed by: DANYELLE MACIAS MD 12/15/20 1628 Reviewed: Reviewed by Me Departure Impression Primary Impression: Fall on same level Disposition: 01 HOME, SELF-CARE Condition: Improved Departure-Patient Inst. Decision time for Depature: 14:41 Referrals: JOSE VANN MD (PCP/Family) Primary Care Physician Patient Instructions: Preventing Falls Add. Discharge Instructions: Plan: 1. Discharge home. 2. Follow up with your doctor if your symptoms perisist. 3. Apply ice 20 minutes at a time 4-6x per day. 4. Return to ER if you develop any of the following symptoms: Repeated vomiting Confusion, disorientation Blurred or double vision Difference in pupil size compairing left to right Twitching or confulsions Clear of bloody fluid from nose or ears Weakness of face/arms/or legs Difficulty in rousing. 5. Take nothing stronger than Tylenol or Aspirin as needed for your pain. 6. Return to ER for any new, worsening, or concerning symptoms. All discharge instructions reviewed with patient and/or family. Voiced understanding. Copy Copies To 1: JOSE VANN MD, STORMY D LANOLIN PLANT OPERATOR Dec 15, 2020 13:51
--- NOTE | 2020-12-15 14:43 | Diagnostic Imaging Report ---
INDICATION: Fall, pain COMPARISON: [employer] image from CT dated 07/12/2018 TECHNIQUE: 3 radiographs of the pelvis and left hip are obtained dated 12/15/2020 FINDINGS: Surgical clips and chain suture within the right abdomen. Degenerative changes within the partially visualized lumbar spine. The sacroiliac joints are intact. No acute fracture or dislocation. No destructive osseous process. Minimal degenerative changes of the bilateral hips for age. The left femoral head maintains its normal shape and contour. Minimal degenerative changes involving the pubic symphysis. IMPRESSION: No acute osseous abnormality with mild degenerative changes for age. Dictated by: Dictated on workstation # [id number]
[2020-12-15 14:55] VITALS: BP 134/68
== END 2020-12-15 14:55 | disposition home or self-care (01) ==
LOC: EDUNIT# 13:13 → ER 13:15
DX: Z04.1 Encounter for examination and observation following transport accident (principal); I10 Essential (primary) hypertension; K21.9 Gastro-esophageal reflux disease without esophagitis; E03.9 Hypothyroidism, unspecified; Z79.899 Other long term (current) drug therapy; Z79.890 Hormone replacement therapy

== ENCOUNTER 2020-12-21 13:45 | Outpatient (RCR) | payer MEDICARE, OTHER | END 2020-12-21 16:40 | disposition home or self-care (01) | PROVIDERS: ATTEND Nurse Practitioner Family | DX: M54.5 Low back pain (principal); M25.552 Pain in left hip ==

== ENCOUNTER → 2021-06-01 | Outpatient (CLI) | payer MEDICARE, OTHER ==
--- NOTE | 2021-06-01 15:50 | Diagnostic Imaging Report ---
INDICATION: Routine screening. COMPARISON is made prior mammograms from 02/15/2018 and 05/26/2016. 2-D and 3-D bilateral screening mammography was performed with CAD. Scattered fibroglandular densities are identified bilaterally. Intraparenchymal lymph nodes bilaterally appear stable. Benign calcifications again noted. No mass or malignant-appearing microcalcifications are seen. Axillae are unremarkable. IMPRESSION: BI-RADS Category 2 No mammographic features suspicious for malignancy are identified. ACR BI-RADS Category 2: Benign findings. Result letter will be mailed to the patient. Note: At least 10% of breast cancer is not imaged by mammography. Dictated by: Dictated on workstation # [id number]
--- NOTE | 2021-06-01 16:04 | Diagnostic Imaging Report ---
INDICATION: 89-year-old female, postmenopausal. Screening for osteoporosis. COMPARISON: December 04, 2014. FINDINGS: AP Spine L1-L4: [BMD (g/cm2): 0.920] [T-Score: -2.3] [Z-Score: -0.6] [BMD Previous: 1.044] [BMD % Change: -11.9] LT Hip Neck: [BMD (g/cm2): 0.674] [T-Score: -2.6] [Z-Score: -0.2] LT Hip Total: [BMD (g/cm2):0.768] [T-Score:-1.9] [Z-Score: 0.4] [BMD Previous: 0.842] [BMD % Change: -8.8] RT Hip Neck: [BMD (g/cm2):0.696] [T-Score:-2.5] [Z-Score:-0.1] RT Hip Total: [BMD (g/cm2):0.743] [T-score:-2.1] [Z-Score:0.2] [BMD Previous:0.790] [BMD % Change:-5.9] *Indicates significant change from prior examination based on 95% confidence level. World Health Organization criteria for BMD interpretation classify patients as Normal (T-score at or above -1.0), Osteopenic (T-score between -1.0 and -2.5) or Osteoporotic (T-score at or below -2.5). LIMITATIONS AND MODIFICATION: None. IMPRESSION: 1. Osteoporosis. 2. Due to differences in equipment utilized between examinations, direct quantitative comparison is not possible to assess for interval change in bone mineral density. 3. See below National Osteoporosis Foundation guidelines on when to potentially initiate pharmacologic therapy. Based on the National Osteoporosis Foundation Guidelines, pharmacologic treatment should be initiated in any of the following, unless clinical conditions suggest otherwise: * Any patient with prior fragility fracture of the hip or vertebrae. A spine fracture indicates 5X risk for subsequent spine fracture and 2X risk for subsequent hip fracture. * Osteoporosis (T-score <-2.5). * Postmenopausal women and men age 50 and older with low bone mass/osteopenia (T-score between -1.0 and -2.5) by DXA and 10-year major osteoporotic fracture greater than 20% or a 10-year probability of hip fracture greater than 3%. These fracture risks are supplied above in the FRAX score, if applicable. * Clinician judgement and/or patient preferences may indicate treatment for people with 10-year fracture probabilities above or below these levels. Dictated by: Dictated on workstation # [id number]
== END ==
LOC: RAD 14:00
PROVIDERS: ATTEND Nurse Practitioner Family
DX: Z12.31 Encounter for screening mammogram for malignant neoplasm of breast (principal); Z13.820 Encounter for screening for osteoporosis; Z78.0 Asymptomatic menopausal state; M81.0 Age-related osteoporosis without current pathological fracture
CPT/HCPCS: 77063; 77067; 77080

== ENCOUNTER 2021-07-26 14:20 | Outpatient (RCR) | payer MEDICARE, OTHER ==
[2021-07-20 13:17] LABS: BASOPHILS % (AUTO) 0 % (0-10); EOSINOPHILS # (AUTO) 0.1 10^3/uL (0.0-0.3); EOSINOPHILS % (AUTO) 1 % (0-10); HEMATOCRIT 38 % (35-52); HEMOGLOBIN 12.6 g/dL (11.5-16.0); LYMPHOCYTES # (AUTO) 1.2 10^3/uL (1.0-4.0); LYMPHOCYTES % (AUTO) 12 % (12-44); MEAN CORPUSCULAR HEMOGLOBIN 30 pg (25-34); MEAN CORPUSCULAR HGB CONC 34 g/dL (32-36); MEAN CORPUSCULAR VOLUME 88 fL (80-99); MEAN PLATELET VOLUME 9.5 fL (9.0-12.2); MONOCYTES # (AUTO) 0.5 10^3/uL (0.0-1.0); MONOCYTES % (AUTO) 6 % (0-12); NEUTROPHILS # (AUTO) 7.7 10^3/uL (1.8-7.8); NEUTROPHILS % (AUTO) 81 % (42-75); PLATELET COUNT 290 10^3/uL (130-400); WHITE BLOOD COUNT 9.5 10^3/uL (4.3-11.0)
[2021-07-20 13:42] LABS: ALBUMIN 3.9 GM/DL (3.2-4.5); BILIRUBIN,TOTAL 0.5 MG/DL (0.1-1.0); CALCIUM 9.2 MG/DL (8.5-10.1); CREATININE SERUM 0.98 MG/DL (0.60-1.30); POTASSIUM 4.2 MMOL/L (3.6-5.0); TOTAL PROTEIN 7.2 GM/DL (6.4-8.2)
== END 2021-08-09 | disposition home or self-care (01) ==
LOC: ONC 14:20
PROVIDERS: ATTEND Internal Medicine Hematology & Oncology
DX: C18.0 Malignant neoplasm of cecum (principal); I10 Essential (primary) hypertension; K21.9 Gastro-esophageal reflux disease without esophagitis; E78.00 Pure hypercholesterolemia, unspecified; M19.90 Unspecified osteoarthritis, unspecified site; E66.9 Obesity, unspecified
CPT/HCPCS: 80053; 82378; 85025; 99213

== ENCOUNTER 2021-12-22 06:03 | Outpatient (CLI) | payer MEDICARE, OTHER ==
[~2021-12-22] VITALS: Ht 160 cm; Wt 74.8 kg
== END 2021-12-22 09:43 | disposition home or self-care (01) ==
LOC: PREOP 06:03
PROVIDERS: ATTEND Surgery
DX: Z01.818 Encounter for other preprocedural examination (principal)

== ENCOUNTER 2022-01-04 07:46 | Day surgery (SDC) | payer MEDICARE, OTHER ==
[~2022-01-04] VITALS: Ht 160 cm; Wt 74.8 kg
[~2022-01-04 07:46] MED LIST changes: -TRIA1CAP4 PO; +TRIA1CAP84 PO
[2022-01-04] MEDS ORDERED: LACTATED RINGERS 1,000 ML IV ONE (08:01)
[2022-01-04] MEDS ORDERED: LACTATED RINGERS 1,000 ML IV STA (08:04)
[2022-01-04 08:15] VITALS: BP 148/76
--- NOTE | 2022-01-04 08:15 | Progress Note-Pre Operative ---
Pre-Operative Progress Note H&P Reviewed The H&P was reviewed, patient examined and no changes noted. Date Seen by Provider: Jan 04, 2022 Time Seen by Provider: 08:14 Date H&P Reviewed: Jan 04, 2022 Time H&P Reviewed: 08:14 Pre-Operative Diagnosis: history of colon cancer ANSHUL ORTIZ DO Jan 04, 2022 08:14
[2022-01-04] MEDS ORDERED: PROPOFOL INJECTION 50 ML IV ONE (08:59)
--- NOTE | 2022-01-04 09:14 | Anesthesia-General Post-Op ---
MAC Patient Condition Mental Status/LOC: Same as Preop Cardiovascular: Satisfactory Nausea/Vomiting: Absent Respiratory: Satisfactory Pain: Controlled Complications: Absent Post Op Complications Complications None Follow Up Care/Instructions Patient Instructions None needed. Anesthesiology Discharge Order Discharge Order Patient is doing well, no complaints, stable vital signs, no apparent adverse anesthesia problems. No complications reported per nursing. SHELLY FIGUEROA CRNA Jan 04, 2022 09:14
--- NOTE | 2022-01-04 09:14 | Progress Note-Post Operative ---
Post-Operative Progess Note Surgeon (s)/Truss Designer (s) Surgeon ANSHUL ORTIZ DO Truss Designer: na Pre-Operative Diagnosis history of colon cancer Post-Operative Diagnosis diverticulosis, rectal polyp Procedure & Operative Findings Date of Procedure 01/04/22 Procedure Performed/Findings colonoscopy c hot bx polypectomy Anesthesia Type per book canvasser Estimated Blood Loss Estimated blood loss (mL): none Specimens/Packing Specimens Removed rectal polyp ANSHUL ORTIZ DO Jan 04, 2022 09:14
--- NOTE | 2022-01-04 09:19 | Discharge Inst-Simple/Standard ---
Discharge Inst-Standard Patient Instructions/Follow Up Plan of Care/Instructions/FU: 2 weeks Jasiel Activity as Tolerated: Yes Discharge Diet: Regular Diet (high fiber) ANSHUL ORTIZ DO Jan 04, 2022 09:19
[2022-01-04 09:20] VITALS: BP 85/46
[2022-01-04 09:30] VITALS: BP 93/52
[2022-01-04 10:00] VITALS: BP 152/76
--- NOTE | 2022-01-04 13:47 | OPERATIVE REPORT ---
DATE OF SERVICE: 01/04/2022 PREOPERATIVE DIAGNOSIS: History of colon cancer. POSTOPERATIVE DIAGNOSES: Diverticulosis, small rectal polyp. SURGEON: Anshul Weathers DO ANESTHESIA: Per CLEARING DISTRIBUTION CLERK. PROCEDURE: Colonoscopy with hot biopsy polypectomy x1. ESTIMATED BLOOD LOSS: None. COMPLICATIONS: None. INDICATIONS: The patient is 89-year-old female with history of colon cancer. She understands risks and benefits of procedure and wishes to proceed. Consent was signed in the chart. DESCRIPTION OF PROCEDURE: The patient was taken to the endoscopy suite, placed in left lateral recumbent position. Timeout was performed. Digital rectal exam was performed. No palpable polyps, masses or ulcerations. Scope was inserted in the rectum and advanced all the way to the ileocolonic anastomosis. Prep was adequate. Scope was then slowly retracted back. No polyps, masses or ulcerations at the ileocolonic anastomosis. No polyps, masses or ulcerations within the transverse, descending and sigmoid colon. Small amount of diverticulosis present in the sigmoid colon. Once in the rectum, scope was retroflexed noting a small flat polyp, which hot biopsy polypectomy was performed. Scope was returned to its normal position, slowly withdrawn until completely removed. The patient tolerated the procedure well without any complications. She was taken to recovery room in stable condition. RECOMMENDATIONS: The patient will need repeat colonoscopy on as needed basis if benefits outweigh the risk. She will follow up in office in two weeks to discuss. Job ID: [id number] DocumentID: [id number] Dictated Date: 01/04/2022 09:17:28 Information Systems Operator Date: 01/04/2022 13:47:26 Dictated By: ANSHUL WEATHERS DO
== END 2022-01-04 10:10 | disposition home or self-care (01) ==
LOC: ENDO 07:46
PROVIDERS: ATTEND Surgery
DX: Z12.11 Encounter for screening for malignant neoplasm of colon (principal); K62.1 Rectal polyp; K57.30 Diverticulosis of large intestine without perforation or abscess without bleeding; Z85.038 Personal history of other malignant neoplasm of large intestine; E66.9 Obesity, unspecified; Z68.29 Body mass index [BMI] 29.0-29.9, adult